=== PATIENT | male | born 1935 | race Caucasian/White ===

== ENCOUNTER 2016-05-31 02:34 | Inpatient (IN) | payer BC, OTHER ==
[~2016-05-31] VITALS: Ht 175.3 cm; Wt 106.0 kg
--- NOTE | 2016-05-31 03:00 | EMERGENCY ROOM VISIT NOTE ---
History Report prepared by Karleeibnaveed: Dwight Botello Under the Supervision of: Dr. Ji Blue D.O. First contact with patient: 02:44 Chief Complaint: WEAKNESS Stated Complaint: ILLNESS Nursing Triage Summary: Pt arrives by ALS from home. Per pt has been weak. Unsteady gait, had to lower pt to floor earlier today. Pt also has cough, fever. Allergy to Tylenol. Alzheimers. alert to person History of Present Illness The patient is a 80 year old male with a history of Alzheimer's who presents to the Emergency Room with complaints of acute generalized weakness that started at an unknown time this morning. The patient woke up to go to the bathroom this morning when the weakness was noticed. The patient was barely able to stand or ambulate, and he is normally able to ambulate without assistance, as per his . His also notes that the patient has had fevers and cough that started this past weekend. The patient denies headache. The patient states that he is not sure why he is in the ED. His states that he has been more out of it than he usual since his cold symptoms started. He does not have a history of stroke. The patient was immunized for flu this year. His denies any sick contacts. Source of History: patient, spouse/significant other, nursing staff Onset: this morning Position: other (generalized) Quality: other (weakness) Timing: other (acute) Associated Symptoms: + cough, + fevers, No headache Review of Systems See HPI for pertinent positives and negatives. A total of ten systems were reviewed and were otherwise negative. Past Medical & Surgical Medical Problems: (1) Alzheimer disease Family History Patient reports no known family medical history. Social History Smoking Status: Former Smoker Marital Status: Housing Status: lives with family Current/Historical Medications Scheduled Aspirin (Aspirin), 0.5 TAB PO DAILY Atorvastatin (Lipitor), 40 MG PO DAILY Donepezil Hydrochloride (Aricept), 10 MG PO HS Enalapril Maleate (Vasotec), 2 TAB PO DAILY Hydrochlorothiazide (Hctz), 25 MG PO DAILY Memantine (Namenda), 10 MG PO BID Metformin Hcl (Glucophage), 1,000 MG PO BID Multiple Vitamins W/ Minerals (Multi Vitamin and Mineral), 1 TAB PO DAILY Pioglitazone Hcl (Actos), 45 MG PO DAILY Sitagliptin Phosphate (Januvia), 100 MG PO DAILY Tamsulosin Hcl (Flomax), 0.4 MG PO DAILY Allergies Coded Allergies: Acetaminophen (Verified Allergy, Intermediate, rash, 05/31/16) Physical Exam Vital Signs Date Time Temp Pulse Resp B/P Pulse Ox O2 Delivery O2 Flow Rate FiO2 05/31/16 03:20 96 18 160/69 96 Room Air 05/31/16 02:55 97 Nasal Cannula 2.0 05/31/16 02:41 103 05/31/16 02:38 37.8 102 20 152/71 95 Nasal Cannula 2.0 05/31/16 02:38 92 Room Air Physical Exam GENERAL: Patient is alert but slightly confused, poor historian, generalized weakness. HENT: Normocephalic, atraumatic. Oropharynx unremarkable. EYES: Normal conjunctiva. Sclera non-icteric. NECK: Supple. No nuchal rigidity. FROM. No JVD. RESPIRATORY: Clear to auscultation. CARDIAC: Regular rate, normal rhythm. Extremities warm and well perfused. Pulses equal. ABDOMEN: Soft, non-distended. No tenderness to palpation. No rebound or guarding. No masses. RECTAL: Deferred. MUSCULOSKELETAL: Chest examination reveals no tenderness. The back is symmetrical on inspection without obvious abnormality. There is no CVA tenderness to palpation. No joint edema. LOWER EXTREMITIES: Calves are equal size bilaterally and non-tender. No edema. No discoloration. NEURO: Patient is alert but slightly confused. 4/5 strength of the right lower extremity, other extremities normal. SKIN: No rash or jaundice noted. Medical Decision & Procedures ER Provider Diagnostic Interpretation: X ray results as stated below per my interpretation. Other radiology results as stated below per my review and radiologist interpretation CHEST ONE VIEW PORTABLE: Questionable right lower lobe infiltrate. CT HEAD: No ICH, mass effect, or midline shift. Confluent hypo attenuation in the periventricular deep cerebral enlargement of the sulci, ventricles, and basal cisterns. Richardson-white differentiation appears preserved. No evidence of skull fracture. Ethmoid air cell mucosal thickening. Visualized paranasal sinuses and mastoid air cells otherwise clear. Radiologist: Jermaine Garland MD. Laboratory Results 05/31/16 02:49 Red Blood Count 4.43, Mean Corpuscular Volume 90.3, Mean Corpuscular Hemoglobin 30.7, Mean Corpuscular Hemoglobin Concent 34.0, Mean Platelet Volume 10.7, Neutrophils (%) (Auto) 76.7, Lymphocytes (%) (Auto) 12.0, Monocytes (%) (Auto) 10.2, Eosinophils (%) (Auto) 0.0, Basophils (%) (Auto) 0.5, Neutrophils # (Auto ) 5.10, Lymphocytes # (Auto) 0.80, Monocytes # (Auto) 0.68, Eosinophils # (Auto ) 0.00, Basophils # (Auto) 0.03 05/31/16 02:49 Test 05/31/16 02:49 05/31/16 02:59 White Blood Count 6.65 K/uL (4.8-10.8) Red Blood Count 4.43 M/uL (4.7-6.1) Hemoglobin 13.6 g/dL (14.0-18.0) Hematocrit 40.0 % (42-52) Mean Corpuscular Volume 90.3 fL (80-100) Mean Corpuscular Hemoglobin 30.7 pg (25-34) Mean Corpuscular Hemoglobin Concent 34.0 g/dl (32-36) Platelet Count 150 K/uL (130-400) Mean Platelet Volume 10.7 fL (7.4-10.4) Neutrophils (%) (Auto) 76.7 % Lymphocytes (%) (Auto) 12.0 % Monocytes (%) (Auto) 10.2 % Eosinophils (%) (Auto) 0.0 % Basophils (%) (Auto) 0.5 % Neutrophils # (Auto) 5.10 K/uL (1.4-6.5) Lymphocytes # (Auto) 0.80 K/uL (1.2-3.4) Monocytes # (Auto) 0.68 K/uL (0.11-0.59) Eosinophils # (Auto) 0.00 K/uL (0-0.5) Basophils # (Auto) 0.03 K/uL (0-0.2) RDW Standard Deviation 48.1 fL (36.4-46.3) RDW Coefficient of Variation 14.4 % (11.5-14.5) Immature Granulocyte % (Auto) 0.6 % Immature Granulocyte # (Auto) 0.04 K/uL (0.00-0.02) Anion Gap 10.0 mmol/L (3-11) Est Creatinine Clear Calc Drug Dose 57.9 ml/min Estimated GFR () 66.3 Estimated GFR (Non- 57.2 BUN/Creatinine Ratio 17.2 (10-20) Calcium Level 8.4 mg/dl (8.5-10.1) Total Bilirubin 0.6 mg/dl (0.2-1) Direct Bilirubin 0.2 mg/dl (0-0.2) Aspartate Amino Transf (AST/SGOT) 41 U/L (15-37) Alanine Aminotransferase (ALT/SGPT) 26 U/L (12-78) Alkaline Phosphatase 63 U/L (45-117) Total Protein 6.9 gm/dl (6.4-8.2) Albumin 3.4 gm/dl (3.4-5.0) Bedside Lactic Acid Venous 2.41 mmol/L (0.90-1.70) Laboratory results reviewed by me Medications Administered Medications (Trade) Dose Ordered Sig/Flaquita Route Start Time Stop Time Status Last Admin Dose Admin Sodium Chloride (Nss 1000ml) 1,000 ml @ 999 mls/hr Q1H1M STAT IV 05/31/16 03:02 05/31/16 04:02 DC 05/31/16 03:16 999 MLS/HR ECG Indication: weakness Rate (beats per minute): 103 Rhythm: sinus tachycardia Findings: no acute ischemic change, other (poor baseline, normal axis, normal intervals) ED Course 0247: The patient was evaluated in room B2. A complete history and physical exam was performed. 0302: NSS 1000 ml @ 999 mls/hr. 0401: Rocephin 1 gm IV, Motrin 600 mg PO. 0408: [facility] The patient will be evaluated. 0415: Azithromycin 500 mg / dextrose 255 ml @ 125mls/hr. Medical Decision Etiologies such as metabolic, infection, hypo/hyperglycemia, electrolyte abnormalities, cardiac sources, intracerebral event, toxicologic, neurologic, as well as others were entertained. Patient started on IV fluids, IV antibiotics, patient's CAT scan was negative for obvious stroke. Patient I suspect has right lower lobe pneumonia as the chest x-ray as interpreted by me as right lower lobe pneumonia. Patient has an elevated lactic acid. Patient is not in septic shock at 4:20 AM. [facility] Consults Time Called: 399 Consulting Physician: Yuval Narvaez [facility] Returned Call: [phone]: [facility] The patient will be evaluated. Impression Primary Impression: Pneumonia Additional Impressions: SIRS (systemic inflammatory response syndrome) Weakness Scribe Attestation The scribe's documentation has been prepared under my direction and personally reviewed by me in its entirety. I confirm that the note above accurately reflects all work, treatment, procedures, and medical decision making performed by me. Departure Information Dispostion Being Evaluated By Hospitalist Referrals Rico Sotelo III, M.D. (PCP) Patient Instructions My [facility] Problem Qualifiers Primary Impression: Pneumonia Pneumonia type: due to unspecified organism Laterality: right Lung location : lower lobe of lung Qualified Codes: J18.1 - Lobar pneumonia, unspecified organism
[2016-05-31] MEDS ORDERED: SODIUM CHLORIDE 0.9% 1000ML 1,000 ML IV STA (03:02)
[2016-05-31 03:03] LABS: MEAN CELL VOLUME 90.3 fL (80-100); MEAN CORPUSCULAR HEMOGLOBIN 30.7 pg (25-34); MEAN PLATELET VOLUME 10.7 fL (7.4-10.4); PLATELET COUNT 150 K/uL (130-400); RED BLOOD COUNT 4.43 M/uL (4.7-6.1); WHITE BLOOD COUNT 6.65 K/uL (4.8-10.8)
[2016-05-31 03:22] LABS: BUN/CREATININE RATIO 17.2 (10-20); CALCIUM 8.4 mg/dl (8.5-10.1); CREATININE 1.2 mg/dl (0.60-1.40); POTASSIUM 3.5 mmol/L (3.5-5.1)
[2016-05-31 03:23] LABS: BASO % 0.5 %; BASO ABS # 0.03 K/uL (0-0.2); COMPLETE YES; IG% 0.6 %; MONO % 10.2 %; NEUT % 76.7 %
[2016-05-31] MEDS ORDERED: MULT-1042 PO (03:44)
[2016-05-31] MEDS ORDERED: METF500T PO (03:45)
[2016-05-31] MEDS ORDERED: SITA100T3 PO (03:45)
[2016-05-31] MEDS ORDERED: ATOR-24 PO (03:47)
[2016-05-31] MEDS ORDERED: HYDR25TA4 PO (03:47)
[2016-05-31] MEDS ORDERED: ACT/45 PO (03:48)
[2016-05-31] MEDS ORDERED: NMN10 PO (03:48)
[2016-05-31] MEDS ORDERED: DONE10TA12 PO (03:48)
[2016-05-31] MEDS ORDERED: ENAL1TAB31 PO (03:49)
[2016-05-31] MEDS ORDERED: TAMS0.4C38 PO (03:50)
[2016-05-31] MEDS ORDERED: ASPI325T45 PO (03:50)
[2016-05-31] MEDS ORDERED: CEFTRIAXONE SOD INJ 1 GM ADDVIAL IV STA (04:01)
[2016-05-31] MEDS ORDERED: IBUPROFEN 600 MG TAB PO STA (04:01)
[2016-05-31] MEDS ORDERED: AZITHROMYCIN IV 500 MG in DEXTROSE 5% 250ML 250 ML IV ONE (04:15)
[2016-05-31] MEDS ORDERED: ONDANSETRON INJ 2 MG/ML 2 ML VIAL IV PRN (04:45)
[2016-05-31] MEDS ORDERED: GLUCOSE 10 TABS/TUBE PO PRN (05:00)
[2016-05-31] MEDS ORDERED: GLUCAGON FOR INJ 1 MG VIAL SQ PRN (05:00)
[2016-05-31] MEDS ORDERED: DEXTROSE 50% 50 ML SYR IV PRN (05:00)
[2016-05-31] MEDS ORDERED: IV FLUIDS COMPLETED PRN ×2 (05:00→05:15)
[2016-05-31] MEDS ORDERED: GLUCOSE 40% GEL 15 GM TUBE PO PRN (05:00)
[2016-05-31 05:09] LABS: INR 1.1 (0.9-1.1)
[2016-05-31 06:24] VITALS: BP 134/74; PULSE 92; TEMP 37; O2SAT 93; Ht 175.3 cm; Wt 106.0 kg
--- NOTE | 2016-05-31 06:26 | DIAGNOSTIC IMAGING REPORT ---
HEAD CT NONCONTRAST CT DOSE: 614.27 mGy.cm HISTORY: Mental status change weakness TECHNIQUE: Multiaxial CT images of the head were performed without the use of intravenous contrast. Comparison: None. Findings: The paranasal sinuses and mastoid air cells are clear. Mild age-related atrophy. Moderate chronic small vessel change. No acute intracranial hemorrhage. No midline shift. Impression: Age-related change. No acute process. Electronically signed by: Jose Stone M.D. 05/31/2016 6:24 AM Dictated Date/Time: 05/31/2016 6:24 AM
[2016-05-31] MEDS ORDERED: NSS + 20MEQ KCL 1000ML 1,000 ML IV SCH (06:30)
--- NOTE | 2016-05-31 06:34 | DIAGNOSTIC IMAGING REPORT ---
CHEST ONE VIEW PORTABLE CLINICAL HISTORY: Evaluate Fever/Sepsis fever COMPARISON STUDY: No previous studies for comparison. FINDINGS: Poor visibility right cardiac margin. Minimal right middle lobe infiltrate may be present. Lungs otherwise appear clear. Diaphragms smooth. IMPRESSION: Minimal right middle lobe infiltrate Electronically signed by: Jose Stone M.D. 05/31/2016 6:32 AM Dictated Date/Time: 05/31/2016 6:31 AM
[2016-05-31 07:15] VITALS: BP 132/81; PULSE 80; TEMP 36.7; O2SAT 99
--- NOTE | 2016-05-31 07:52 | HISTORY & PHYSICAL EXAMINATION ---
DATE OF ADMISSION: 05/31/2016 PRIMARY CARE PHYSICIAN: Rico Sotelo MD CHIEF COMPLAINT: Shaking chills with sudden weakness last night. HISTORY OF PRESENT COMPLAINT: He is a 80-year-old male with a significant past medical history of diabetes type 2, ankylosing spondylitis, hyperlipidemia and hypertension. Apparently, while getting out of bed last night became suddenly weak and almost was about to fall on the floor. Then, he sat on the floor, could not be pulled on to the bed by the and he could not get up by himself. He was feeling shaky, he did have some shortness of breath and for the last few days he does have cough as well. He was feeling hot and cold at that time. Then 911 was called and he was brought into the Emergency Room. He denies to have any fever or chills. No chest pain or palpitation. No shortness of breath during my examination. No abdominal pain, nausea or vomiting and does not have any problem with urine or bowel habit. He denies to have any headache, any blurred vision, any numbness or tingling in the extremities. He does not have any weakness involving any side of the body. In the Emergency Room he was hemodynamically stable and afebrile. Initial tachycardia one and chest x-ray probable for right lower lobe infiltration. We doubt white count, but from that point he was advised for admission. PAST MEDICAL HISTORY: Significant for type 2 diabetes, hypertension, hyperlipidemia, history of ankylosing spondylitis, and history of mumps orchitis. PAST SURGICAL HISTORY: Nothing significant. FAMILY HISTORY: Brother has neck cancer with low platelet. Father had leg cancer and at the age of 32. Maternal grandfather had throat cancer. Mother had high blood pressure and also a stroke in brother . SOCIAL HISTORY: He is and lives with his . He quit smoking in 1976. He uses alcohol occasionally. He has been ambulant. ALLERGIES: ACETAMINOPHEN. MEDICATIONS: As an outpatient he has been on hydrochlorothiazide 25 mg daily, metformin 1 gram b.i.d., Actos 45 mg daily, Januvia 100 mg daily, aspirin 325 mg tablets half daily, Lipitor 40 mg daily, Aricept 10 mg daily, Vasotec 20 mg two tablets daily, Namenda 10 mg twice daily, multivitamin 1 tablet daily and Flomax 0.4 mg daily. REVIEW OF SYSTEMS: As in history of present complaint. PHYSICAL EXAMINATION: GENERAL: On examination in the Emergency Room, he was not having any acute distress. VITAL SIGNS: Temperature 37.8, pulse was initially 102, blood pressure 152/71, saturations 92% on two liters nasal cannula. HEENT: Unremarkable. NECK: Supple. No JVD, no bruits. CHEST: Occasional crackles in right base. HEART: S1, S2 regular, no murmur. ABDOMEN: Soft, benign, nontender, no organomegaly. Bowel sounds are present. EXTREMITIES: Trace edema bilaterally. MUSCULOSKELETAL: No acute arthritis in any joint. CENTRAL NERVOUS SYSTEM: He was alert, awake and oriented x3. No focal sensory and/or motor deficits appreciated. LABORATORY DATA: Noted today; white count was 6.65, H\T\H 13.6/40.0, platelet was 150. Sodium 141, potassium 3.5, chloride 103, carbon dioxide 28, BUN 21, creatinine 1.20, random glucose 161. Lactate was 2.41. LFTs are unremarkable. Albumin is 3.4. Chest x-ray; probable right lower lobe infiltration. CT head; negative for any acute events. EKG was in sinus rhythm, rate of 103 per minute, normal axis and nonspecific ST-T wave changes. IMPRESSION AND PLAN: 1. Probable pneumonia involving the right middle lobe. The patient presented with extreme weakness and history of cough. Blood cultures were taken and he was started with intravenous Rocephin and azithromycin; we will continue that. We will also give small amount of IV fluids while in the hospital. 2. Hypertension. Blood pressure seems to be on the upper side, but continue with his current medications of blood pressure monitor. 3. Diabetes type 2. He has been on oral medications. We will hold oral medications while in the hospital and put him on sliding scale coverage and check hemoglobin A1c. 4. Hyperlipidemia, continue with current medications. 5. Gastrointestinal prophylaxis; Protonix and/or Mylanta as needed. 6. Deep venous thrombosis prophylaxis, subQ heparin. 7. Code status. He will be a full code. In my clinical assessment, the beneficiary meets criteria as per CMS for 2 midnights stay in the hospital. LEX
[2016-05-31] MEDS ORDERED: TAMSULOSIN HCL 0.4 MG CAP PO SCH (08:00)
[2016-05-31] MEDS ORDERED: ENALAPRIL MALEATE 10 MG TAB PO SCH (08:00)
[2016-05-31] MEDS ORDERED: MEMANTINE 10 MG TAB PO SCH (08:00)
[2016-05-31] MEDS ORDERED: CEROVITE ADV FORMULA TAB PO SCH (08:00)
[2016-05-31] MEDS ORDERED: ATORVASTATIN 40 MG TAB PO SCH (08:00)
[2016-05-31] MEDS ORDERED: ASPIRIN 81 MG ECTAB PO SCH (08:00)
[2016-05-31] MEDS: HEPARIN SOD 5000 UNIT/0.5 ML CARP SQ SCH ×2 (08:03→14:48)
[2016-05-31] MEDS: INSULIN ASPART 100 UNITS/ML 3 ML PEN SC SCH ×3 (09:25→18:21)
[2016-05-31 15:17] LABS: URINE APPEARANCE CLEAR (CLEAR); URINE BILIRUBIN NEG (NEG); URINE COLOR YELLOW; URINE EPITHELIAL CELL AUTO 20-30 /lpf (0-5); URINE NITRITE NEG (NEG); URINE PH 5.5 (4.5-7.5); URINE SPECIFIC GRAVITY 1.027 (1.000-1.030); UROBILINOGEN NEG (NEG)
[2016-05-31 15:26] VITALS: BP 131/67; PULSE 80; TEMP 36.9; O2SAT 94
[2016-05-31 15:31] LABS: MANUAL MICROSCOPIC REQUIRED? NO; REVIEW REQ? YES
--- NOTE | 2016-05-31 15:35 | Progress Note ---
Internal Med Progress Note Date of Service: May 31, 2016. Provider Documentation: SUBJECTIVE: Patient is lying in his bed in no distress.Alert/Awake and answers my questions appropriately. Denies any cough or sputum production. Remains afebrile. Has been able to ambulate in the hallway without any symptoms. Wants to go home. OBJECTIVE: Vital Signs-as noted below Examination: HEENT: Normocephalic, Eyes, Ears, Nose & Throat are normal looking. NECK: Supple. No JVD, Central trachea, no bruits. CHEST: B/L Moderate air entry, Clear to auscultation HEART: Regular Rate, Normal S1, S2 regular, no murmur. ABDOMEN: Soft, benign, nontender, no organomegaly. Bowel sounds are present. EXTREMITIES: Trace edema bilaterally. MUSCULOSKELETAL: No acute arthritis in any joint. CENTRAL NERVOUS SYSTEM: He was alert, awake and oriented x3. No focal sensory and/or motor deficits appreciated. Lab data as noted below. ASSESSMENT & PLAN: Chest X-Ray FINDINGS: Poor visibility right cardiac margin. Minimal right middle lobe infiltrate may be present. Lungs otherwise appear clear. Diaphragms smooth. IMPRESSION: Minimal right middle lobe infiltrate URI/ Likely Pneumonia involving the right lower lobe.Patient presented with extreme weakness and history of cough. Clinically & hemodynamically much better. -Flu screen is negative -Normal Lactic acid. -Remains afebrile -Received Rocephin & Zithromax, will discharge home on Levaquin for total 7 days. Hypertension: BP has been running high. -Continue home medications. Diabetes Type II: Holding oral agents.. -Follow BS and cover with sliding scale. Hyperlipidemia, continue with current home medications. DVT Prophylaxis: Sq Heparin Code Status: FULL CODE Disposition: Discharge home later today. Follow up with PCP within one week after discharge. Vital Signs: Date Time Temp Pulse Resp B/P Pulse Ox O2 Delivery O2 Flow Rate FiO2 05/31/16 15:26 36.9 80 18 131/67 94 Room Air 05/31/16 08:00 Nasal Cannula 2.0 05/31/16 07:15 36.7 80 20 132/81 99 Nasal Cannula 2.0 05/31/16 06:24 37.0 92 20 134/74 93 Nasal Cannula 2.0 05/31/16 05:16 37.2 99 20 153/62 94 Nasal Cannula 2.0 05/31/16 04:23 95 20 170/71 95 Nasal Cannula 2.0 05/31/16 03:20 96 18 160/69 96 Nasal Cannula 2.0 05/31/16 02:55 97 Nasal Cannula 2.0 05/31/16 02:41 103 05/31/16 02:38 37.8 102 20 152/71 95 Nasal Cannula 2.0 05/31/16 02:38 92 Room Air Lab Results: Results Past 24 Hours Test 05/31/16 02:45 05/31/16 02:49 05/31/16 02:59 05/31/16 07:38 Range/Units Prothrombin Time 12.0 9.0-12.0 SECONDS Prothromb Time International Ratio 1.1 0.9-1.1 White Blood Count 6.65 4.8-10.8 K/uL Red Blood Count 4.43 4.7-6.1 M/uL Hemoglobin 13.6 14.0-18.0 g/dL Hematocrit 40.0 42-52 % Mean Corpuscular Volume 90.3 80-100 fL Mean Corpuscular Hemoglobin 30.7 25-34 pg Mean Corpuscular Hemoglobin Concent 34.0 32-36 g/dl Platelet Count 150 130-400 K/uL Mean Platelet Volume 10.7 7.4-10.4 fL Neutrophils (%) (Auto) 76.7 % Lymphocytes (%) (Auto) 12.0 % Monocytes (%) (Auto) 10.2 % Eosinophils (%) (Auto) 0.0 % Basophils (%) (Auto) 0.5 % Neutrophils # (Auto) 5.10 1.4-6.5 K/uL Lymphocytes # (Auto) 0.80 1.2-3.4 K/uL Monocytes # (Auto) 0.68 0.11-0.59 K/uL Eosinophils # (Auto) 0.00 0-0.5 K/uL Basophils # (Auto) 0.03 0-0.2 K/uL RDW Standard Deviation 48.1 36.4-46.3 fL RDW Coefficient of Variation 14.4 11.5-14.5 % Immature Granulocyte % (Auto) 0.6 % Immature Granulocyte # (Auto) 0.04 0.00-0.02 K/uL Sodium Level 141 136-145 mmol/L Potassium Level 3.5 3.5-5.1 mmol/L Chloride Level 103 98-107 mmol/L Carbon Dioxide Level 28 21-32 mmol/L Anion Gap 10.0 3-11 mmol/L Blood Urea Nitrogen 21 7-18 mg/dl Creatinine 1.20 0.60-1.40 mg/dl Est Creatinine Clear Calc Drug Dose 57.9 ml/min Estimated GFR () 66.3 Estimated GFR (Non- 57.2 BUN/Creatinine Ratio 17.2 10-20 Random Glucose 161 70-99 mg/dl Calcium Level 8.4 8.5-10.1 mg/dl Total Bilirubin 0.6 0.2-1 mg/dl Direct Bilirubin 0.2 0-0.2 mg/dl Aspartate Amino Transf (AST/SGOT) 41 15-37 U/L Alanine Aminotransferase (ALT/SGPT) 26 12-78 U/L Alkaline Phosphatase 63 45-117 U/L Total Protein 6.9 6.4-8.2 gm/dl Albumin 3.4 3.4-5.0 gm/dl Bedside Lactic Acid Venous 2.41 0.90-1.70 mmol/L Bedside Glucose 124 70-99 mg/dl Test 05/31/16 11:30 05/31/16 12:50 05/31/16 13:10 05/31/16 15:05 Range/Units Bedside Glucose 115 70-99 mg/dl Lactic Acid Level 1.3 0.4-2.0 mmol/L Influenza Type A Antigen Neg for Influ A NEG Influenza Type B Antigen Neg for Influ B NEG Urine Color YELLOW Urine Appearance CLEAR CLEAR Urine pH 5.5 4.5-7.5 Urine Specific [place] 1.027 1.000-1.030 Urine Protein TRACE NEG Urine Glucose (UA) NEG NEG Urine Ketones NEG NEG Urine Occult Blood 2+ NEG Urine Nitrite NEG NEG Urine Bilirubin NEG NEG Urine Urobilinogen NEG NEG Urine Leukocyte Esterase NEG NEG Urine WBC (Auto) 1-5 0-5 /hpf Urine RBC (Auto) 5-10 0-4 /hpf Urine Hyaline Casts (Auto) 1-5 0-5 /lpf Urine Epithelial Cells (Auto) 20-30 0-5 /lpf Urine Bacteria (Auto) NEG NEG Urine Yeast (Auto) NONE PRSENT Microbiology Results 05/31/16 Blood Culture, Received Pending 05/31/16 Blood Culture, Received Pending
[2016-05-31] MEDS ORDERED: LEVO1TAB34 PO (15:54)
--- NOTE | 2016-05-31 15:59 | Discharge Instructions ---
Discharge Instructions Date of Service May 31, 2016. Admission Reason for Admission: Pneumonia Discharge Discharge Diagnosis / Problem: Bronchitis/Likely Mild Pneumonia Discharge Goals Goal(s): Decrease discomfort, Improve function, Increase independence, Improve disease control, Improve nutritional status, Learn about illness, Diagnostic testing, Therapeutic intervention Activity Recommendations Activity Limitations: resume your previous activity (As tolerated.) Lifting Limitations: no more than 5 pounds Exercise/Sports Limitations: as tolerated Shower/Bathe: no limitations . Instructions / Follow-Up Instructions / Follow-Up Take all the medications as directed. Drink adequate amount of fluids Follow up with PCP within one week after discharge. Current Hospital Diet Patient's current hospital diet: AHA Diet (Heart Healthy), Diabetes Type 2 Diet Discharge Diet Recommended Diet: Low Sodium Diet (2gm Na) Pending Studies Studies pending at discharge: no Medical Emergencies . Who to Call and When: Medical Emergencies: If at any time you feel your situation is an emergency, please call 911 immediately. . Non-Emergent Contact Non-Emergency issues call your: Primary Care Provider . . "Provider Documentation" section prepared by Selvin Dominguez. VTE Core Measure Inpt VTE Proph given/why not?: Unfractionated heparin SQ
--- NOTE | 2016-05-31 16:01 | Discharge Summary ---
Discharge Summary Date of Service May 31, 2016. Discharge Summary Admission Date: May 31, 2016 at 04:59 Discharge Date: May 31, 2016 Discharge Disposition: Home Principal Diagnosis: Bronchitis/Likely Pneumonia Secondary Diagnoses/Problems: Hypertension Dementia Diabetes II Hyperlipidemia Procedures: NONE Vaccinations: NONE Consultations: NONE Pending Studies/Follow-Up: None Medication Reconciliation New Medications: Levofloxacin (Levaquin) 500 Mg Tab 500 MG PO DAILY for 7 Days, TAB Continued Medications: Aspirin (Aspirin) 325 Mg Tab 0.5 TAB PO DAILY Atorvastatin (Lipitor) 40 Mg Tab 40 MG PO DAILY, TAB Donepezil Hydrochloride (Aricept) 10 Mg Tab 10 MG PO HS, TAB Enalapril Maleate (Vasotec) 20 Mg Tab 2 TAB PO DAILY, 3 Refills Hydrochlorothiazide (Hctz) 25 Mg Tab 25 MG PO DAILY, TAB Memantine (Namenda) 10 Mg Tab 10 MG PO BID, TAB Metformin Hcl (Glucophage) 500 Mg Tab 1000 MG PO BID, TAB Multiple Vitamins W/ Minerals (Multi Vitamin and Mineral) 1 Tab Tab 1 TAB PO DAILY Pioglitazone Hcl (Actos) 45 Mg Tab 45 MG PO DAILY, TAB Sitagliptin Phosphate (Januvia) 100 Mg Tab 100 MG PO DAILY, TAB Tamsulosin Hcl (Flomax) 0.4 Mg Cap 0.4 MG PO DAILY, CAP Admission Information HPI (per Admitting provider): 80-year-old male with a significant past medical history of diabetes type 2, ankylosing spondylitis, hyperlipidemia and hypertension. Apparently, while getting out of bed last night became suddenly weak and almost was about to fall on the floor. Then, he sat on the floor, could not be pulled on to the bed by the and he could not get up by himself. He was feeling shaky, he did have some shortness of breath and for the last few days he does have cough as well. He was feeling hot and cold at that time. Then 911 was called and he was brought into the Emergency Room. He denies to have any fever or chills. No chest pain or palpitation. No shortness of breath during my examination. No abdominal pain, nausea or vomiting and does not have any problem with urine or bowel habit. He denies to have any headache, any blurred vision, any numbness or tingling in the extremities. He does not have any weakness involving any side of the body. In the Emergency Room he was hemodynamically stable and afebrile. Physical Exam (per Admitting): VITAL SIGNS: Temperature 37.8, pulse was initially 102, blood [id number], saturations 92% on two liters nasal cannula. HEENT: Unremarkable. NECK: Supple. No JVD, no bruits. CHEST: Occasional crackles in right base. HEART: S1, S2 regular, no murmur. ABDOMEN: Soft, benign, nontender, no organomegaly. Bowel sounds are present. EXTREMITIES: Trace edema bilaterally. MUSCULOSKELETAL: No acute arthritis in any joint. CENTRAL NERVOUS SYSTEM: He was alert, awake and oriented x3. No focal sensory and/or motor deficits appreciated. Hospital Course Chest X-Ray FINDINGS: Poor visibility right cardiac margin. Minimal right middle lobe infiltrate may be present. Lungs otherwise appear clear. Diaphragms smooth. IMPRESSION: Minimal right middle lobe infiltrate URI/ Likely Pneumonia involving the right lower lobe.Patient presented with extreme weakness and history of cough. Clinically & hemodynamically much better. -Flu screen is negative -Normal Lactic acid. -Remains afebrile -Received Rocephin & Zithromax, will discharge home on Levaquin for total 7 days. Hypertension: BP has been running high. -Continue home medications. Diabetes Type II: Holding oral agents.. -Follow BS and cover with sliding scale. Hyperlipidemia, continue with current home medications. DVT Prophylaxis: Sq Heparin Code Status: FULL CODE Disposition: Discharge home later today. Follow up with PCP within one week after discharge. Total time spent on discharge = 40 minutes. This includes examination of the patient, discharge planning, medication reconciliation, and communication with other providers. Discharge Instructions Discharge Discharge Diagnosis / Problem: Bronchitis/Likely Mild Pneumonia Discharge Goals Goal(s): Decrease discomfort, Improve function, Increase independence, Improve disease control, Improve nutritional status, Learn about illness, Diagnostic testing, Therapeutic intervention Activity Recommendations Activity Limitations: resume your previous activity (As tolerated.) Lifting Limitations: no more than 5 pounds Exercise/Sports Limitations: as tolerated Shower/Bathe: no limitations . Instructions / Follow-Up Instructions / Follow-Up Take all the medications as directed. Drink adequate amount of fluids Follow up with PCP within one week after discharge. Current Hospital Diet Patient's current hospital diet: AHA Diet (Heart Healthy), Diabetes Type 2 Diet Discharge Diet Recommended Diet: Low Sodium Diet (2gm Na) Additional Copies To Rico Sotelo III, M.D.
[2016-05-31 18:05] VITALS: BP 131/67; PULSE 80; TEMP 36.9; O2SAT 94
[2016-05-31] MEDS ORDERED: DONEPEZIL HCL 10 MG TAB PO SCH (21:00)
[2016-06-01] MEDS ORDERED: CEFTRIAXONE SOD INJ 1 GM in DEXTROSE 5% ADD-VANTAGE 50ML 50 ML IV SCH (06:00)
[2016-06-01] MEDS ORDERED: AZITHROMYCIN IV 500 MG in DEXTROSE 5% 250ML 250 ML IV SCH (08:00)
== END 2016-05-31 18:50 | disposition home or self-care (01) | DRG 195 ==
LOC: ENRESERVTM → ENRESERVDT → EDBD 02:34 → C.EDB 02:35 → C.4E 04:59 → EDBEDREQ 05:01
PROVIDERS: ADMIT Internal Medicine; ATTEND Emergency Medicine
DX: J18.9 Pneumonia, unspecified organism (principal); G30.9 Alzheimer's disease, unspecified; F02.80 Dementia in other diseases classified elsewhere, unspecified severity, without behavioral disturbance, psychotic disturbance, mood disturbance, and anxiety; E11.9 Type 2 diabetes mellitus without complications; J40 Bronchitis, not specified as acute or chronic; M45.9 Ankylosing spondylitis of unspecified sites in spine; E78.5 Hyperlipidemia, unspecified; I10 Essential (primary) hypertension; Z87.891 Personal history of nicotine dependence

== ENCOUNTER → 2017-05-25 | Outpatient (CLI) | payer BC ==
[~2017-05-25] MED LIST: ACT/45 PO; ASPI325T45 PO; ATOR-24 PO; DONE10TA12 PO; ENAL1TAB31 PO; HYDR25TA4 PO; METF500T PO; MULT-1042 PO; NMN10 PO; SITA100T3 PO; TAMS0.4C38 PO
[2017-05-25 13:48] LABS: HEMOGLOBIN A1C 5.9 % (4.5-5.6)
== END | disposition home or self-care (01) ==
LOC: C.LABBC 09:38
PROVIDERS: ATTEND Family Medicine
DX: E11.9 Type 2 diabetes mellitus without complications (principal)

== ENCOUNTER 2020-10-25 06:58 | Inpatient (IN) ==
[2020-10-25] MEDS ORDERED: SODIUM CHLORIDE 0.9% 1000ML 500 ML IV ONE (07:18)
--- NOTE | 2020-10-25 07:20 | Emergency Department Note ---
Impression & Plan Generalized weakness, Pleural effusion on right, Hypomagnesemia, Fall ED Provider Note Name: JIMENEZ QUIÑONEZ Age: 84 Sex: M Arrives Via: Ambulance Informant: Patient (Poor historian as dementia), , EMS ED Provider: Pranav Hicks MD Chief Complaint: Fall Impression: See Above Medical Decision Makin yr old male with worsening weakness over last few days/week arrives after fall at home, unable to get up and concerned for safety. Exam with frail, happy, demented male with no right breath sounds and large right leg swelling. Labs with mild hypomag, normal ct head, pelvis xray. CXR with large right pleural effusion thus sent to ct for further evaluation. CT with large right pleural effusion, otherwise c/a/p without acute surgical issues. Hospitalist consulted for further evaluation. Unclear etiology of effusion though suspect this is contributing to overall weakness and inability to safely get around the house. No evidence sepsis at this time. No DVT on US right leg either. Prior Medical Record and Triage/Nursing Notes reviewed by Me Additional history obtained from chart & Differentials:Infection, dehydration, metabolic abnormality, hypo/hyperglycemia, electrolyte disturbance, anemia, hypoxia, cardiac sources, intracerebral event, toxicologic, neurologic, as well as other pathologies. Vital Signs: reviewed and remarkable for no significant abnormalities Interventions: saline lock, magnesium iv Labs:Reviewed and remarkable for hypomag Imaging:X ray results are stated below per my interpretation: Chest: 1 view: out right lung kennedy consistent with effusion. Radiologist interpretation reviewed by me: US right leg, ct head & ct chest/a/p EKG:Per My Interpretation: Indication Weakness: NSR 69 bpm, qtc 450. RBBB. No Ectopy. No Ischemia. Compared to EKG 05/31/16, no significant changes other than decreased rate Consults:Yuval Hospitalist Plan: Disposition:Hospitalization. Condition: Good History of Present Illness:84 yr old male with dementia, Alzheimers dz, DMII, HLP, HTN, arrives for evaluation of weakness. Patient reportedly fell in bathroom this morning and was too weak to get up. No reported head injury, loc nor other complaints. Patient does not remember this fall and states he feels fine. Per EMS he has been having right leg swelling making walking difficult. ROS: See above HPI for pertinent positives & negatives. A total of 10 systems reviewed and were otherwise negative. Past Medical History:dementia, Alzheimers dz, DMII, HLP, HTN Past Surgical History:Reportedly none Family History:States parents healthy Social History:Lives with family, retired, previous smoker Home Medications:See Below Allergies:Tylenol, Codeine Vitals:Blood Pressure: 156/73, Pulse 83, RR 18, T 36.5C, O2 94% on RA Physical Exam: GENERAL: Patient is tired, elderly, and frail appearing and in no acute distress. EYES: No scleral icterus, unremarkable pupils. ENT: Mucous membranes dry, no nasal congestion. NECK: No masses appreciated, nomeningismus, trachea is midline. RESPIRATORY: No dyspnea. No right lung sounds. Left lung clear. No wheeze, no rhonchi. CARDIOVASCULAR: Regular rate and rhythm.No murmurs, rubs, gallops appreciated. GASTROINTESTINAL: Abdomen soft, non-tender, no peritonitis.Bowel sounds positive.No masses appreciated. BACK: No midline tenderness, no CVA tenderness EXTREMITIES: Normal motion all extremities, no cyanosis, 3+ mildly erythematous edema with some pitting right lower leg. NEUROLOGIC: Awake, dementia, no acute motor or sensory deficits, no focal weakness, cranial nerves grossly intact. SKIN: No rash, no jaundice, no diaphoresis. PSYCH: Happy GCS: 15 ED Course: Times/Reassessments: stable, no distress and breathing comfortably Pranav Hicks MD Past Med/Surg History Medical History (Updated 10/25/20 @ 14:09 by Pranav Hicks MD) Dysplastic nevus History of basal cell carcinoma Mixed Alzheimer's and vascular dementia Surgical History No history of previous surgery Family History Mother No pertinent family history Social History Smoking Status: Former smoker Second Hand Exposure: No; Do You Dip or Chew Tobacco: No; Tobacco Cessation Education Requested by Patient: No Hx Alcohol Use: No Hx Substance Use: No Preferred Language: Setswana Communication Ability: Effective Trucker Required: No Beliefs That Will Affect Care: None Current Living Situation: Spouse Current Living Situation Comment: ranch home Other Information That Helps Us Care for You: No Feels Safe at Home: Yes Safety Concerns: Feels Safe At This Time Assistive Devices: None Allergies Allergies Allergy/AdvReac Type Severity Reaction Status Date / Time acetaminophen Allergy Intermediate rash Verified 10/25/20 09:25 codeine Allergy Unknown Verified 10/25/20 09:25 Home Meds Home Medications Medication Instructions Recorded Confirmed atorvastatin 40 mg tablet (Lipitor) 40 mg PO HS tab 06/22/19 10/25/20 donepezil 10 mg tablet (Aricept) 10 mg PO HS 06/22/19 10/25/20 enalapril maleate 20 mg tablet 20 mg PO HS tab 06/22/19 10/25/20 (Vasotec) hydrochlorothiazide 25 mg tablet 25 mg PO QAM tab 06/22/19 10/25/20 memantine 10 mg tablet (Namenda) 10 mg PO BID tab 06/22/19 10/25/20 metformin 500 mg tablet 1,000 mg PO BID tab 06/22/19 10/25/20 pioglitazone 45 mg tablet (Actos) 45 mg PO QAM tab 06/22/19 10/25/20 sitagliptin 100 mg tablet (Januvia) 100 mg PO HS tab 06/22/19 10/25/20 aspirin 81 mg tablet,delayed 81 mg PO QAM 10/25/20 10/25/20 release (Aspirin Low Dose) Results & Data (ED) Vital Signs Vital Signs - 24 hr 10/25/20 07:24 Temperature 36.5 C Temperature Source Oral Pulse Rate 83 Respiratory Rate 18 Blood Pressure 156/73 H Blood Pressure Mean 100 Pulse Oximetry 94 Oxygen Delivery Method Room Air Sepsis Recent Fever Within 48 Hours No Sepsis New/Unexplained Change in Mental Status No Sepsis Action Taken by Nursing No Action Required Laboratory Data Result diagrams: 10/25/20 07:34 10/25/20 07:34 Lab Results 10/25/20 10/25/20 10/25/20 Range/Units 07:34 07:34 08:41 WBC 5.97 (4.8-10.8) K/uL RBC 4.15 L (4.7-6.1) M/uL Hgb 12.7 L (14.0-18.0) g/dL Hct 38.9 L (42-52) % MCV 93.7 (80-100) fL MCH 30.6 (25-34) pg MCHC 32.6 (32-36) g/dL RDW Std Deviation 52.7 H (36.4-46.3) fL RDW Coeff of Radha 15.3 H (11.5-14.5) % Plt Count 203 (130-400) K/uL MPV 11.4 H (7.4-10.4) fL Immature Gran % (Auto) 0.3 % Neut % (Auto) 68.1 % Lymph % (Auto) 17.1 % [place] % (Auto) 9.7 % Eos % (Auto) 4.0 % Baso % (Auto) 0.8 % Neut # (Auto) 4.06 (1.4-6.5) K/uL Lymph # (Auto) 1.02 L (1.2-3.4) K/uL [place] # (Auto) 0.58 (0.11-0.59) K/uL Eos # (Auto) 0.24 (0-0.5) K/uL Baso # (Auto) 0.05 (0-0.2) K/uL Immature Gran # (Auto) 0.02 (0.00-0.02) K/uL Sodium 141 (136-145) mmol/L Potassium 3.7 (3.5-5.1) mmol/L Chloride 107 (98-107) mmol/L Carbon Dioxide 29 (21-32) mmol/L Anion Gap 5.0 (3-11) BUN 17 (7-18) mg/dl Creatinine 1.18 (0.6-1.4) mg/dl Est Cr Clr Drug Dosing 55.1 ml/min Est GFR ( Amer) 65.7 ml/min Est GFR (Non-Af Amer) 56.7 ml/min BUN/Creatinine Ratio 14.2 (10-20) Glucose 84 (70-99) mg/dl Calcium 8.5 (8.5-10.1) mg/dl Magnesium 1.5 L (1.8-2.4) mg/dl Total Bilirubin 0.6 (0.2-1) mg/dl Direct Bilirubin 0.2 (0-0.2) mg/dl AST 19 (15-37) U/L ALT 18 (12-78) U/L Alkaline Phosphatase 65 (45-117) U/L Total Creatine Kinase 132 (39-308) U/L Troponin I < 0.015 (0-0.045) ng/ml Total Protein 6.4 (6.4-8.2) gm/dl Albumin 3.1 L (3.4-5.0) gm/dl TSH 1.980 (0.300-4.500) uIu/ml Urine Color Urine Appearance (Clear) Urine pH (4.5-7.5) Ur Specific Bliss (1.000-1.030) Urine Protein (Negative) Urine Glucose (UA) (Negative) Urine Ketones (Negative) Urine Blood (Negative) Urine Nitrite (Negative) Urine Bilirubin (Negative) Urine Urobilinogen (Negative) Ur Leukocyte Esterase (Negative) COVID-19 Eval Order Covid19 at [facility] SARS-CoV-2 (PCR) (Negative) 10/25/20 10/25/20 Range/Units 08:41 10:13 WBC (4.8-10.8) K/uL RBC (4.7-6.1) M/uL Hgb (14.0-18.0) g/dL Hct (42-52) % MCV (80-100) fL MCH (25-34) pg MCHC (32-36) g/dL RDW Std Deviation (36.4-46.3) fL RDW Coeff of Radha (11.5-14.5) % Plt Count (130-400) K/uL MPV (7.4-10.4) fL Immature Gran % (Auto) % Neut % (Auto) % Lymph % (Auto) % [place] % (Auto) % Eos % (Auto) % Baso % (Auto) % Neut # (Auto) (1.4-6.5) K/uL Lymph # (Auto) (1.2-3.4) K/uL [place] # (Auto) (0.11-0.59) K/uL Eos # (Auto) (0-0.5) K/uL Baso # (Auto) (0-0.2) K/uL Immature Gran # (Auto) (0.00-0.02) K/uL Sodium (136-145) mmol/L Potassium (3.5-5.1) mmol/L Chloride (98-107) mmol/L Carbon Dioxide (21-32) mmol/L Anion Gap (3-11) BUN (7-18) mg/dl Creatinine (0.6-1.4) mg/dl Est Cr Clr Drug Dosing ml/min Est GFR ( Amer) ml/min Est GFR (Non-Af Amer) ml/min BUN/Creatinine Ratio (10-20) Glucose (70-99) mg/dl Calcium (8.5-10.1) mg/dl Magnesium (1.8-2.4) mg/dl Total Bilirubin (0.2-1) mg/dl Direct Bilirubin (0-0.2) mg/dl AST (15-37) U/L ALT (12-78) U/L Alkaline Phosphatase (45-117) U/L Total Creatine Kinase (39-308) U/L Troponin I (0-0.045) ng/ml Total Protein (6.4-8.2) gm/dl Albumin (3.4-5.0) gm/dl TSH (0.300-4.500) uIu/ml Urine Color Yellow Urine Appearance Clear (Clear) Urine pH 8.0 H (4.5-7.5) Ur Specific Bliss 1.031 H (1.000-1.030) Urine Protein Negative (Negative) Urine Glucose (UA) Negative (Negative) Urine Ketones Negative (Negative) Urine Blood Negative (Negative) Urine Nitrite Negative (Negative) Urine Bilirubin Negative (Negative) Urine Urobilinogen Negative (Negative) Ur Leukocyte Esterase Negative (Negative) COVID-19 Eval Order SARS-CoV-2 (PCR) NEGATIVE (Negative) Administered Medications Discontinued Medications Sodium Chloride (Nss 1000ml) 500 mls @ 999 mls/hr IV .Q31M ONE Stop: 10/25/20 07:48 Last Infusion: 10/25/20 08:44 Dose: 0 mls/hr Documented by: [id number] Admin: 10/25/20 08:02 Dose: 999 mls/hr Documented by: [id number] Magnesium Sulfate/Dextrose (Magnesium Sulfate / D5w) 1 gm in 100 mls @ 100 mls/ hr IV NOW STA Stop: 10/25/20 09:36 Last Infusion: 10/25/20 09:55 Dose: 0 mls/hr Documented by: [id number] Admin: 10/25/20 08:47 Dose: 100 mls/hr Documented by: [id number] Ioversol (Optiray 320 125ml) 120 ml IV ONCE ONE Stop: 10/25/20 09:10 Last Admin: 10/25/20 09:09 Dose: 120 ml Documented by: [id number] Imaging Data Radiologist's Impression: Chest X-Ray 10/25/20 07:18 XR chest 1V portable CLINICAL HISTORY: weakness, fall COMPARISON STUDY: May 31, 2016. FINDINGS: No pneumothorax. Large right pleural effusion is seen with fluid tracking up to right apex. No midline shift is seen. Small atelectasis is seen at the left base. Cardiac silhouette is not significantly enlarged however its obscured on the right. Aorta is calcified. Pulmonary vasculature is obscured.. Osseous structures: Degenerative changes of the spine. IMPRESSION: 1. Large right pleural effusion without midline shift. 2. Small atelectasis at the left base. ACT 112: Negative or not required by law. The above report was generated using voice recognition software. It may contain grammatical, syntax or spelling errors. Electronically signed by: Karly Gaston DO 10/25/2020 8:[address] 10/25/20 07:18 CT head/brain wo con CLINICAL HISTORY: fall, weakness COMPARISON STUDY: May 31, 2016 TECHNIQUE: Axial CT of the brain is performed from the vertex to the skull base. IV contrast was not administered for this examination. A dose lowering technique was utilized adhering to the principles of ALARA. CT DOSE: 537.48 mGy.cm FINDINGS: No intra or extra-axial mass lesions are visualized. There is no CT evidence of acute cortical infarction. There is no evidence of midline shift. There is no acute hemorrhage. No acute depressed calvarial fractures are visualized. There are patchy white matter hypodensities likely on a small vessel basis. Atrophic changes of brain parenchyma are seen and associated with ex vacuo dilatation of ventricles. There is no evidence of acute sinusitis IMPRESSION: No acute intracranial hemorrhage, no midline shift or space occupying lesions. No acute depressed skull fractures. Atrophic changes of brain parenchyma associated with ex vacuo dilatation of ventricles. Chronic small vessel ischemia. ACT 112: Negative or not required by law. The above report was generated using voice recognition software. It may contain grammatical, syntax or spelling errors. Electronically signed by: Karly Gaston DO 10/25/2020 8:18 AM Pelvis X-Ray 10/25/20 07:18 XR pelvis 1-2V routine CLINICAL HISTORY: fall COMPARISON: None. DISCUSSION: No definite acute fracture dislocation seen however evaluation is significantly limited due to diffuse osteopenia, soft tissue edema and overlying nondilated loops of bowel. Degenerative changes of the left hip joint and lower lumbar spine are seen. Enthesopathy involving bilateral iliac bones, ischial bones and greater trochanter which might represent DISH IMPRESSION: No definite acute fracture dislocation is detailed above. ACT 112: Negative or not required by law. The above report was generated using voice recognition software. It may contain grammatical, syntax or spelling errors. Electronically signed by: Karly Gaston DO 10/25/2020 8:22 AM Venous Doppler Study 10/25/20 07:18 US venous doppler LE RT CLINICAL HISTORY: right leg swelling/edema new COMPARISON STUDY: No previous studies for comparison. FINDINGS: Real-time and color flow Doppler imaging were performed. Flow was seen within the femoral, popliteal and calf veins with no intraluminal thrombus demonstrated. The saphenous vein is patent. IMPRESSION: No evidence of deep venous thrombosis. ACT 112: Negative or not required by law. The above report was generated using voice recognition software. It may contain grammatical, syntax or spelling errors. Electronically signed by: Karly Gaston DO 10/25/2020 8:50 AM Abdomen/Pelvis CT 10/25/20 08:40 CT abd pelvis IV con only CLINICAL HISTORY: new onset weakness, swelling, pleural effusion COMPARISON STUDY: None. TECHNIQUE: A dose lowering technique was utilized adhering to the principles of ALARA. CT DOSE: FINDINGS: Lower chest: Please see report of CT of the chest performed at the same time.. Liver: The contrast-enhanced liver is normal in size, contour, and attenuation. There is no intrahepatic biliary ductal dilatation. The hepatic veins and portal veins are patent. Gallbladder: Is dilated with few gallstones within its lumen. No significant gallbladder wall thickening or pericholecystic edema is seen however evaluation is limited due to motion and beam hardening artifact from patient's arms. Spleen: Normal in size and attenuation. Pancreas: Is atrophic. Adrenal glands: Unremarkable. Kidneys: There is symmetric renal cortical enhancement. The kidneys are normal in size without hydronephrosis.There are few small cortical cysts that seen within the right kidney, largest is measuring 2.0 cm. Pelvic viscera: Urinary bladder is adequately filled with urine with mild diffuse thickening of its wall and surrounding fat stranding which could be seen in cystitis. Prostate gland is slightly enlarged. Bowel: Bowel loops are nondilated. Appendix is not well seen. Possible minimal mesenteric fat stranding surrounding loops of small bowel however evaluation is limited due to motion and beam hardening artifact. Peritoneum: There is no intraperitoneal free air or abdominal ascites. Vasculature: Abdominal aorta is normal in caliber with scattered calcifications of its wall. Adenopathy: None. Skeletal structures: Osteopenia. Multilevel degenerative changes of the spine and syndesmophytes. IMPRESSION: 1. Cholelithiasis. Distended fluid-filled gallbladder without surrounding inflammatory changes. 2. Mild diffuse thickening of urinary bladder wall and surrounding fat stranding which might be seen in cystitis. Please correlate this findings with results of urinalysis. 3. Nondilated loops of bowel. Appendix is not well seen. Possible minimal mesenteric edema surrounding loops of small bowel which could be artifactual due to motion and beam hardening artifact. Follow-up evaluation with [facility] might be considered. 4. Atherosclerosis. 5. The rest of findings as above. ACT 112: Negative or not required by law. The above report was generated using voice recognition software. It may contain grammatical, syntax or spelling errors. Electronically signed by: Karly Gaston DO 10/25/2020 10:02 AM Chest CTA 10/25/20 08:40 CT ANGIOGRAM OF THE CHEST CLINICAL HISTORY: Shortness of breath, right pleural effusion COMPARISON STUDY: No previous studies for comparison. TECHNIQUE: Following the IV administration of 120 mL of Optiray, CT angiogram of the thorax was performed from the thoracic inlet to the lung bases utilizing the pulmonary embolus protocol. Images are reviewed in the axial, sagittal, and coronal planes. IV contrast was administered without complication. MIP imaging was performed. A dose lowering technique was utilized adhering to the principles of ALARA. CT DOSE: 1202.16 mGy.cm FINDINGS: No pathologically enlarged axillary mediastinal or hilar lymph nodes were visualized. Evaluation is limited due to beam hardening artifact from patient's arms and hyperattenuated intravenous contrast within superior vena cava There is adequate opacification within main pulmonary artery. Evaluation of peripheral branches of the pulmonary artery is limited due to motion artifact. There is no right heart strain. Pulmonary artery is normal in caliber. Heart is normal in size without pericardial effusion. Overall there is mild mediastinal shift to the left by large right pleural effusion. Trachea and left bronchial tree are patent. Distal portion of the right middle lobe and right lower lobe bronchial tree are collapsed. Large left pleural effusion is seen with complete atelectasis of the right middle lobe and the right lower lobe associated with mild leftward midline shift. Evaluation of pulmonary parenchyma is significantly limited due to motion artifact. Visualized portion of the upper abdominal viscera shows no evidence of acute abnormalities, evaluation is limited due to beam hardening artifact. Osseous structures are diffusely demineralized. Multilevel anterior syndesmophytes and degenerative changes of the spine are seen. IMPRESSION: 1. No definite acute central pulmonary embolus. Evaluation of peripheral branches are limited due to motion artifact. No evidence of secondary signs of pulmonary embolus. 2. Large right pleural effusion associated with collapse of the right middle lobe and the right lower lobe as well as mild midline shift to the left. 3. Limited exam due to motion and beam hardening artifact 4. The rest of findings as above. ACT 112: Negative or not required by law. The above report was generated using voice recognition software. It may contain grammatical, syntax or spelling errors. Electronically signed by: Karly Gaston DO 10/25/2020 9:52 AM Discharge Plan Visit Data Chief Complaint: Fall Stated Complaint: FALL, WEAKNESS R LEG ED Provider: Pranav Hicks Discharge Problem: Generalized weakness, Pleural effusion on right, Hypomagnesemia, Fall Patient Disposition: Admitted As Inpatient Discharge Instructions Interventions: ED Discharge Assessment Last Done: 10/25/20 14:02
[2020-10-25 07:47] LABS: Basophils # (auto) 0.05 K/uL (0-0.2); Basophils % (auto) 0.8 %; Eosinophils # (auto) 0.24 K/uL (0-0.5); Hematocrit (blood only) 38.9 % (42-52); Hemoglobin 12.7 g/dL (14.0-18.0); Immature Granulocytes # (auto) 0.02 K/uL (0.00-0.02); Immature Granulocytes % (auto) 0.3 %; Lymphocytes # (auto) 1.02 K/uL (1.2-3.4); Lymphocytes % (auto) 17.1 %; Mean Corpuscular Hemoglobin 30.6 pg (25-34); Mean Corpuscular Hgb Conc 32.6 g/dL (32-36); Mean Corpuscular Volume 93.7 fL (80-100); Mean Platelet Volume 11.4 fL (7.4-10.4); Monocytes # (auto) 0.58 K/uL (0.11-0.59); Monocytes % (auto) 9.7 %; Neutrophils # (auto) 4.06 K/uL (1.4-6.5); Neutrophils % (auto) 68.1 %; Platelet Count 203 K/uL (130-400); RDW Coefficient of Variation 15.3 % (11.5-14.5); RDW Standard Deviation 52.7 fL (36.4-46.3); Red Blood Count 4.15 M/uL (4.7-6.1); White Blood Count 5.97 K/uL (4.8-10.8)
[2020-10-25 08:03] LABS: Albumin Level 3.1 gm/dl (3.4-5.0); Aspartate Aminotransferase 19 U/L (15-37); BUN Creatinine Ratio 14.2 (10-20); Bilirubin Direct 0.2 mg/dl (0-0.2); Blood Urea Nitrogen 17 mg/dl (7-18); Calcium 8.5 mg/dl (8.5-10.1); Carbon Dioxide 29 mmol/L (21-32); Chloride 107 mmol/L (98-107); Creatinine Clr Calc Pharmacy 55.1 ml/min; Est GFR (African American) 65.7 ml/min; Est GFR (Non-African American) 56.7 ml/min; Glucose 84 mg/dl (70-99); Magnesium 1.5 mg/dl (1.8-2.4); Potassium 3.7 mmol/L (3.5-5.1); Sodium 141 mmol/L (136-145)
[2020-10-25 08:14] LABS: Alanine Aminotransferase 18 U/L (12-78); Alkaline Phosphatase 65 U/L (45-117); Bilirubin,Total 0.6 mg/dl (0.2-1); Creatine Kinase 132 U/L (39-308); Total Protein 6.4 gm/dl (6.4-8.2); Troponin I < 0.015 ng/ml (0-0.045)
--- NOTE | 2020-10-25 08:19 | CT Scan Report ---
CT head/brain wo con CLINICAL HISTORY: fall, weakness COMPARISON STUDY: May 31, 2016 TECHNIQUE: Axial CT of the brain is performed from the vertex to the skull base. IV contrast was not administered for this examination. A dose lowering technique was utilized adhering to the principles of ALARA. CT DOSE: 537.48 mGy.cm FINDINGS: No intra or extra-axial mass lesions are visualized. There is no CT evidence of acute cortical infarc tion. There is no evidence of midline shift. There is no acute hemorrhage. No acute depressed calvar ial fractures are visualized. There are patchy white matter hypodensities likely on a small vessel basis. Atrophic changes of brain parenchyma are seen and associated with ex vacuo dilatation of ventricles. There is no evidence of acute sinusitis IMPRESSION: No acute intracranial hemorrhage, no midline shift or space occupying lesions. No acute depressed skull fractures. Atrophic changes of brain parenchyma associated with ex vacuo dilatation of ventricles. Chronic small vessel ischemia. ACT 112: Negative or not required by law. The above report was generated using voice recognition software. It may contain grammatical, syntax o r spelling errors. Electronically signed by: Karly Gaston DO 10/25/2020 8:18 AM
--- NOTE | 2020-10-25 08:21 | XRay Report ---
XR chest 1V portable CLINICAL HISTORY: weakness, fall COMPARISON STUDY: May 31, 2016. FINDINGS: No pneumothorax. Large right pleural effusion is seen with fluid tracking up to right apex. No midline shift is seen. Small atelectasis is seen at the left base. Cardiac silhouette is not significantly enlarged however its obscured on the right. Aorta is calcifie d. Pulmonary vasculature is obscured.. Osseous structures: Degenerative changes of the spine. IMPRESSION: 1. Large right pleural effusion without midline shift. 2. Small atelectasis at the left base. ACT 112: Negative or not required by law. The above report was generated using voice recognition software. It may contain grammatical, syntax o r spelling errors. Electronically signed by: Karly Gaston DO 10/25/2020 8:20 AM
--- NOTE | 2020-10-25 08:24 | XRay Report ---
XR pelvis 1-2V routine CLINICAL HISTORY: fall COMPARISON: None. DISCUSSION: No definite acute fracture dislocation seen however evaluation is significantly limited due to diffus e osteopenia, soft tissue edema and overlying nondilated loops of bowel. Degenerative changes of the left hip joint and lower lumbar spine are seen. Enthesopathy involving bilateral iliac bones, ischial bones and greater trochanter which might repres ent DISH IMPRESSION: No definite acute fracture dislocation is detailed above. ACT 112: Negative or not required by law. The above report was generated using voice recognition software. It may contain grammatical, syntax o r spelling errors. Electronically signed by: Karly Gaston DO 10/25/2020 8:22 AM
[2020-10-25] MEDS ORDERED: MAGNESIUM SULFATE / D5W 1 GM/100 ML BAG IV STA (08:37)
--- NOTE | 2020-10-25 08:51 | Ultrasound Report ---
US venous doppler LE RT CLINICAL HISTORY: right leg swelling/edema new COMPARISON STUDY: No previous studies for comparison. FINDINGS: Real-time and color flow Doppler imaging were performed. Flow was seen within the femoral, popliteal and calf veins with no intraluminal thrombus demonstrated. The saphenous vein is patent. IMPRESSION: No evidence of deep venous thrombosis. ACT 112: Negative or not required by law. The above report was generated using voice recognition software. It may contain grammatical, syntax o r spelling errors. Electronically signed by: Karly Gaston DO 10/25/2020 8:50 AM
[2020-10-25] MEDS ORDERED: OPTIRAY 320 125ml IV ONE (09:09)
--- NOTE | 2020-10-25 09:53 | CT Scan Report ---
CT ANGIOGRAM OF THE CHEST CLINICAL HISTORY: Shortness of breath, right pleural effusion COMPARISON STUDY: No previous studies for comparison. TECHNIQUE: Following the IV administration of 120 mL of Optiray, CT angiogram of the thorax was perfo rmed from the thoracic inlet to the lung bases utilizing the pulmonary embolus protocol. Images are r eviewed in the axial, sagittal, and coronal planes. IV contrast was administered without complication . MIP imaging was performed. A dose lowering technique was utilized adhering to the principles of AL MANJIT. CT DOSE: 1202.16 mGy.cm FINDINGS: No pathologically enlarged axillary mediastinal or hilar lymph nodes were visualized. Evaluation is l imited due to beam hardening artifact from patient's arms and hyperattenuated intravenous contrast wi thin superior vena cava There is adequate opacification within main pulmonary artery. Evaluation of peripheral branches of th e pulmonary artery is limited due to motion artifact. There is no right heart strain. Pulmonary artery is normal in caliber. Heart is normal in size without pericardial effusion. Overall there is mild mediastinal shift to the left by large right pleural effusion. Trachea and left bronchial tree are patent. Distal portion of the right middle lobe and right lower lobe bronchial tree are collapsed. Large left pleural effusion is seen with complete atelectasis of the right middle lobe and the right lower lobe associated with mild leftward midline shift. Evaluation of pulmonary parenchyma is significantly limited due to motion artifact. Visualized portion of the upper abdominal viscera shows no evidence of acute abnormalities, evaluatio n is limited due to beam hardening artifact. Osseous structures are diffusely demineralized. Multilevel anterior syndesmophytes and degenerative c hanges of the spine are seen. IMPRESSION: 1. No definite acute central pulmonary embolus. Evaluation of peripheral branches are limited due to motion artifact. No evidence of secondary signs of pulmonary embolus. 2. Large right pleural effusion associated with collapse of the right middle lobe and the right lowe r lobe as well as mild midline shift to the left. 3. Limited exam due to motion and beam hardening artifact 4. The rest of findings as above. ACT 112: Negative or not required by law. The above report was generated using voice recognition software. It may contain grammatical, syntax o r spelling errors. Electronically signed by: Karly Gaston DO 10/25/2020 9:52 AM
--- NOTE | 2020-10-25 10:03 | CT Scan Report ---
CT abd pelvis IV con only CLINICAL HISTORY: new onset weakness, swelling, pleural effusion COMPARISON STUDY: None. TECHNIQUE: A dose lowering technique was utilized adhering to the principles of ALARA. CT DOSE: FINDINGS: Lower chest: Please see report of CT of the chest performed at the same time.. Liver: The contrast-enhanced liver is normal in size, contour, and attenuation. There is no intrahepa tic biliary ductal dilatation. The hepatic veins and portal veins are patent. Gallbladder: Is dilated with few gallstones within its lumen. No significant gallbladder wall thicken ing or pericholecystic edema is seen however evaluation is limited due to motion and beam hardening a rtifact from patient's arms. Spleen: Normal in size and attenuation. Pancreas: Is atrophic. Adrenal glands: Unremarkable. Kidneys: There is symmetric renal cortical enhancement. The kidneys are normal in size without hydron ephrosis.There are few small cortical cysts that seen within the right kidney, largest is measuring 2 .0 cm. Pelvic viscera: Urinary bladder is adequately filled with urine with mild diffuse thickening of its w all and surrounding fat stranding which could be seen in cystitis. Prostate gland is slightly enlarge d. Bowel: Bowel loops are nondilated. Appendix is not well seen. Possible minimal mesenteric fat strandi ng surrounding loops of small bowel however evaluation is limited due to motion and beam hardening ar tifact. Peritoneum: There is no intraperitoneal free air or abdominal ascites. Vasculature: Abdominal aorta is normal in caliber with scattered calcifications of its wall. Adenopathy: None. Skeletal structures: Osteopenia. Multilevel degenerative changes of the spine and syndesmophytes. IMPRESSION: 1. Cholelithiasis. Distended fluid-filled gallbladder without surrounding inflammatory changes. 2. Mild diffuse thickening of urinary bladder wall and surrounding fat stranding which might be seen in cystitis. Please correlate this findings with results of urinalysis. 3. Nondilated loops of bowel. Appendix is not well seen. Possible minimal mesenteric edema surroundi ng loops of small bowel which could be artifactual due to motion and beam hardening artifact. Follow- up evaluation with [facility] might be considered. 4. Atherosclerosis. 5. The rest of findings as above. ACT 112: Negative or not required by law. The above report was generated using voice recognition software. It may contain grammatical, syntax o r spelling errors. Electronically signed by: Karly Gaston DO 10/25/2020 10:02 AM
[2020-10-25 10:32] LABS: Appearance Urine Clear (Clear); Bilirubin Urine Negative (Negative); Blood Urine Negative (Negative); Color Urine Yellow; Glucose Urine UA Negative (Negative); Ketones Urine Negative (Negative); Leukocyte Esterase Urine Negative (Negative); Nitrite Urine Negative (Negative); Protein Urine Negative (Negative); Specific Gravity Urine 1.031 (1.000-1.030); Urobilinogen Urine Negative (Negative)
--- NOTE | 2020-10-25 10:45 | History & Physical Report ---
Date of Service October 25, 2020 Assessment & Plan (1) Pleural effusion on right: Plan: This is an 84-year-old male with PMH of dementia, type 2 diabetes, hypertension, CKD 3, ankylosing spondylitis and other medical problems listed below who presents with progressive weakness over the past 3 weeks and was found to have large R pleural effusion on chest CTA. Chest CTA with large right pleural effusion associated with collapse of the right middle lobe and the right lower lobe as well as mild midline shift to the left Pulmonology consulted - Dr. Pearson s/p pigtail chest tube insertion O2 saturation 94% on room air Fluid sent for labs, culture and cytology -follow (2) Generalized weakness: (3) Fall: Plan: Progressive physical decline/deconditioning in setting of advanced dementia CT head without any acute intracranial changes interested in additional services and potential placement due to increased care burden at home PT/OT evaluation Case management evaluation Fall precautions, aspiration precautions (4) Hypomagnesemia: Plan: Replaced. Repeat mag in in the morning (5) Edema of right lower extremity: Plan: 2-3+ pitting edema right lower extremity over the past few weeks Right lower extremity venous Doppler without evidence of DVT Continue to monitor (6) Diabetes mellitus, type II: Plan: Hold home agents SSI while in-patient BSG AC HS (7) Mixed Alzheimer's and vascular dementia: Plan: to remain at bedside or one-to-one in setting of patient's advanced dementia Only oriented to person at baseline Continue Namenda, donepezil (8) Hypertension: Plan: Continue enalapril, hydrochlorothiazide (9) CKD (chronic kidney disease), stage III: Plan: Kidney function at baseline. Monitor with daily BMP (10) Hyperlipidemia: Plan: Continue statin DVT Ppx: SQ heparin Code status: FULL PCP: Ashleigh Dispo: Admitted to PCU. Discharge planning ordered. Patient seen in collaboration with Dr. Schreiber. Please see addendum. History of Present Illness Chief Complaint: Generalized weakness, falls at home Primary Care Provider: Rico Sotelo MD This is an 84-year-old male with PMH of dementia, type 2 diabetes, hypertension, CKD 3, ankylosing spondylitis and other medical problems listed below who presents with progressive weakness over the past 3 weeks. Patient lives at home with , who manages his care. Notes increased weakness over the past 3 weeks with 2 falls in the past 2 days. Patient was found on the ground 2 evenings ago due to his legs giving out from under him. Then again this morning, patient felt his legs give out and he sat down in the hallway. Denies any loss of consciousness or head trauma. Patient is oriented to self at baseline and generally knows who is. Not oriented to time, place or sit uation. Care becoming more difficult for at home due to her own health constraints and patient's declining physical condition. No known sick contacts. No fever, chills, headache, lightheadedness, chest pain, shortness of breath or abdominal pain, although ROS difficult to fully obtain due to patient's cognitive state. Also noted to have increased swelling in right lower extremity. No calf pain and left leg normal size. Noted to worsen over the past few weeks. Allergies Allergy/AdvReac Type Severity Reaction Status Date / Time acetaminophen Allergy Intermediate rash Verified 10/25/20 09:25 codeine Allergy Unknown Verified 10/25/20 09:25 Home Medications Medication Instructions Recorded Confirmed Type atorvastatin 40 mg tablet (Lipitor) 40 mg PO HS tab 06/22/19 10/25/20 History donepezil 10 mg tablet (Aricept) 10 mg PO HS 06/22/19 10/25/20 History enalapril maleate 20 mg tablet 20 mg PO HS tab 06/22/19 10/25/20 History (Vasotec) hydrochlorothiazide 25 mg tablet 25 mg PO QAM tab 06/22/19 10/25/20 History memantine 10 mg tablet (Namenda) 10 mg PO BID tab 06/22/19 10/25/20 History metformin 500 mg tablet 1,000 mg PO BID tab 06/22/19 10/25/20 History pioglitazone 45 mg tablet (Actos) 45 mg PO QAM tab 06/22/19 10/25/20 History sitagliptin 100 mg tablet (Januvia) 100 mg PO HS tab 06/22/19 10/25/20 History aspirin 81 mg tablet,delayed 81 mg PO QAM 10/25/20 10/25/20 History release (Aspirin Low Dose) cyanocobalamin (vitamin B-12) 1,000 mcg PO DAILY 10/25/20 10/25/20 History 1,000 mcg tablet multivitamin 1 tab PO DAILY 10/25/20 10/25/20 History Past Med/Surg History Medical History CKD (chronic kidney disease), stage III Diabetes mellitus, type II Dysplastic nevus History of basal cell carcinoma Hyperlipidemia Hypertension Mixed Alzheimer's and vascular dementia Surgical History No history of previous surgery Family History Mother No pertinent family history Other Cancer Heart disease Stroke Social History Smoking Status: Former smoker Smoking End Date: 1976; Second Hand Exposure: No; Do You Dip or Chew Tobacco: No; Tobacco Cessation Education Requested by Patient: No Hx Alcohol Use: No Hx Substance Use: No Preferred Language: Solomon Islander Communication Ability: Effective Waitstaff Required: No Beliefs That Will Affect Care: None Current Living Situation: Spouse Current Living Situation Comment: ranch home Other Information That Helps Us Care for You: No Feels Safe at Home: Yes Safety Concerns: Feels Safe At This Time Assistive Devices: None Review of Systems Review of Systems: Unobtainable due to cognitive status Physical Exam Physical Exam: General Appearance: WD/WN, vitals as above, NAD, sitting up in bed, pleasantly confused Head: normocephalic, atraumatic Eyes: normal inspection, PERRL, conjunctivae normal, anicteric sclerae ENT: external ear and nose normal, oropharynx normal Neck: normal visual inspection, trachea midline, no thyromegaly Respiratory: normal respiratory effort, decreased breath sounds throughout, most notably R lower lung, no wheeze, rales or rhonchi. No accessory muscle use Cardiovascular: regular rate, rhythm, no murmur, normal peripheral pulses, 2-3+ RLE edema, LLE without edema. Vessels: no JVD Chest: normal inspection of chest Abdomen/GI: normal bowel sounds, soft, nontender, no hepatosplenomegaly Extremities/Musculoskeletal: no cyanosis or clubbing, extremities motor strength 5/5 Neurologic: PERRL, EOMI, accommodation nl, no face palsy, no dysarthria, CN's II-XI intact bilaterally and moves all extremities Psychiatric: A+Ox person only, euthymic affect Skin: no rashes, normal color, warm/dry Results & Data Results & Data ([facility]) Vital Signs (Past 12 Hours) Vital Signs Temp Pulse Resp BP Pulse Ox 10/25/20 07:24 36.5 C 83 18 156/73 H 94 Laboratory Results Short CBC 10/25/20 Range/Units 07:34 WBC 5.97 (4.8-10.8) K/uL Hgb 12.7 L (14.0-18.0) g/dL Hct 38.9 L (42-52) % Plt Count 203 (130-400) K/uL BMP 10/25/20 07:34 Sodium 141 Potassium 3.7 Chloride 107 Carbon Dioxide 29 BUN 17 Creatinine 1.18 Glucose 84 Calcium 8.5 Cardiac Enzymes 10/25/20 Range/Units 07:34 Total Creatine Kinase 132 (39-308) U/L Troponin I < 0.015 (0-0.045) ng/ml Liver Function 10/25/20 Range/Units 07:34 Total Bilirubin 0.6 (0.2-1) mg/dl Direct Bilirubin 0.2 (0-0.2) mg/dl AST 19 (15-37) U/L ALT 18 (12-78) U/L Alkaline Phosphatase 65 (45-117) U/L Albumin 3.1 L (3.4-5.0) gm/dl Urine 10/25/20 Range/Units 10:13 Urine Color Yellow Urine Appearance Clear (Clear) Urine pH 8.0 H (4.5-7.5) Ur Specific Mccloud 1.031 H (1.000-1.030) Urine Protein Negative (Negative) Urine Glucose (UA) Negative (Negative) Diagnostic Findings Chest X-Ray 10/25/20 07:18 XR chest 1V portable CLINICAL HISTORY: weakness, fall COMPARISON STUDY: May 31, 2016. FINDINGS: No pneumothorax. Large right pleural effusion is seen with fluid tracking up to right apex. No midline shift is seen. Small atelectasis is seen at the left base. Cardiac silhouette is not significantly enlarged however its obscured on the right. Aorta is calcified. Pulmonary vasculature is obscured.. Osseous structures: Degenerative changes of the spine. IMPRESSION: 1. Large right pleural effusion without midline shift. 2. Small atelectasis at the left base. ACT 112: Negative or not required by law. The above report was generated using voice recognition software. It may contain grammatical, syntax or spelling errors. Electronically signed by: Karly Gaston DO 10/25/2020 8:[address] 10/25/20 07:18 CT head/brain wo con CLINICAL HISTORY: fall, weakness COMPARISON STUDY: May 31, 2016 TECHNIQUE: Axial CT of the brain is performed from the vertex to the skull base. IV contrast was not administered for this examination. A dose lowering technique was utilized adhering to the principles of ALARA. CT DOSE: 537.48 mGy.cm FINDINGS: No intra or extra-axial mass lesions are visualized. There is no CT evidence of acute cortical infarction. There is no evidence of midline shift. There is no acute hemorrhage. No acute depressed calvarial fractures are visualized. There are patchy white matter hypodensities likely on a small vessel basis. Atrophic changes of brain parenchyma are seen and associated with ex vacuo dilatation of ventricles. There is no evidence of acute sinusitis IMPRESSION: No acute intracranial hemorrhage, no midline shift or space occupying lesions. No acute depressed skull fractures. Atrophic changes of brain parenchyma associated with ex vacuo dilatation of ventricles. Chronic small vessel ischemia. ACT 112: Negative or not required by law. The above report was generated using voice recognition software. It may contain grammatical, syntax or spelling errors. Electronically signed by: Karly Gaston DO 10/25/2020 8:18 AM Pelvis X-Ray 10/25/20 07:18 XR pelvis 1-2V routine CLINICAL HISTORY: fall COMPARISON: None. DISCUSSION: No definite acute fracture dislocation seen however evaluation is significantly limited due to diffuse osteopenia, soft tissue edema and overlying nondilated loops of bowel. Degenerative changes of the left hip joint and lower lumbar spine are seen. Enthesopathy involving bilateral iliac bones, ischial bones and greater trochanter which might represent DISH IMPRESSION: No definite acute fracture dislocation is detailed above. ACT 112: Negative or not required by law. The above report was generated using voice recognition software. It may contain grammatical, syntax or spelling errors. Electronically signed by: Karly Gaston DO 10/25/2020 8:22 AM Venous Doppler Study 10/25/20 07:18 US venous doppler LE RT CLINICAL HISTORY: right leg swelling/edema new COMPARISON STUDY: No previous studies for comparison. FINDINGS: Real-time and color flow Doppler imaging were performed. Flow was seen within the femoral, popliteal and calf veins with no intraluminal thrombus demonstrated. The saphenous vein is patent. IMPRESSION: No evidence of deep venous thrombosis. ACT 112: Negative or not required by law. The above report was generated using voice recognition software. It may contain grammatical, syntax or spelling errors. Electronically signed by: Karly Gaston DO 10/25/2020 8:50 AM Abdomen/Pelvis CT 10/25/20 08:40 CT abd pelvis IV con only CLINICAL HISTORY: new onset weakness, swelling, pleural effusion COMPARISON STUDY: None. TECHNIQUE: A dose lowering technique was utilized adhering to the principles of ALARA. CT DOSE: FINDINGS: Lower chest: Please see report of CT of the chest performed at the same time.. Liver: The contrast-enhanced liver is normal in size, contour, and attenuation. There is no intrahepatic biliary ductal dilatation. The hepatic veins and portal veins are patent. Gallbladder: Is dilated with few gallstones within its lumen. No significant gallbladder wall thickening or pericholecystic edema is seen however evaluation is limited due to motion and beam hardening artifact from patient's arms. Spleen: Normal in size and attenuation. Pancreas: Is atrophic. Adrenal glands: Unremarkable. Kidneys: There is symmetric renal cortical enhancement. The kidneys are normal in size without hydronephrosis.There are few small cortical cysts that seen within the right kidney, largest is measuring 2.0 cm. Pelvic viscera: Urinary bladder is adequately filled with urine with mild diffuse thickening of its wall and surrounding fat stranding which could be seen in cystitis. Prostate gland is slightly enlarged. Bowel: Bowel loops are nondilated. Appendix is not well seen. Possible minimal mesenteric fat stranding surrounding loops of small bowel however evaluation is limited due to motion and beam hardening artifact. Peritoneum: There is no intraperitoneal free air or abdominal ascites. Vasculature: Abdominal aorta is normal in caliber with scattered calcifications of its wall. Adenopathy: None. Skeletal structures: Osteopenia. Multilevel degenerative changes of the spine and syndesmophytes. IMPRESSION: 1. Cholelithiasis. Distended fluid-filled gallbladder without surrounding inflammatory changes. 2. Mild diffuse thickening of urinary bladder wall and surrounding fat stranding which might be seen in cystitis. Please correlate this findings with results of urinalysis. 3. Nondilated loops of bowel. Appendix is not well seen. Possible minimal mesenteric edema surrounding loops of small bowel which could be artifactual due to motion and beam hardening artifact. Follow-up evaluation with [facility] might be considered. 4. Atherosclerosis. 5. The rest of findings as above. ACT 112: Negative or not required by law. The above report was generated using voice recognition software. It may contain grammatical, syntax or spelling errors. Electronically signed by: Karly Gaston DO 10/25/2020 10:02 AM Chest CTA 10/25/20 08:40 CT ANGIOGRAM OF THE CHEST CLINICAL HISTORY: Shortness of breath, right pleural effusion COMPARISON STUDY: No previous studies for comparison. TECHNIQUE: Following the IV administration of 120 mL of Optiray, CT angiogram of the thorax was performed from the thoracic inlet to the lung bases utilizing the pulmonary embolus protocol. Images are reviewed in the axial, sagittal, and coronal planes. IV contrast was administered without complication. MIP imaging was performed. A dose lowering technique was utilized adhering to the principles of ALARA. CT DOSE: 1202.16 mGy.cm FINDINGS: No pathologically enlarged axillary mediastinal or hilar lymph nodes were visualized. Evaluation is limited due to beam hardening artifact from patient's arms and hyperattenuated intravenous contrast within superior vena cava There is adequate opacification within main pulmonary artery. Evaluation of peripheral branches of the pulmonary artery is limited due to motion artifact. There is no right heart strain. Pulmonary artery is normal in caliber. Heart is normal in size without pericardial effusion. Overall there is mild mediastinal shift to the left by large right pleural effusion. Trachea and left bronchial tree are patent. Distal portion of the right middle lobe and right lower lobe bronchial tree are collapsed. Large left pleural effusion is seen with complete atelectasis of the right middle lobe and the right lower lobe associated with mild leftward midline shift. Evaluation of pulmonary parenchyma is significantly limited due to motion artifact. Visualized portion of the upper abdominal viscera shows no evidence of acute abnormalities, evaluation is limited due to beam hardening artifact. Osseous structures are diffusely demineralized. Multilevel anterior syndesmophytes and degenerative changes of the spine are seen. IMPRESSION: 1. No definite acute central pulmonary embolus. Evaluation of peripheral branches are limited due to motion artifact. No evidence of secondary signs of pulmonary embolus. 2. Large right pleural effusion associated with collapse of the right middle lobe and the right lower lobe as well as mild midline shift to the left. 3. Limited exam due to motion and beam hardening artifact 4. The rest of findings as above. ACT 112: Negative or not required by law. The above report was generated using voice recognition software. It may contain grammatical, syntax or spelling errors. Electronically signed by: Karly Gaston DO 10/25/2020 9:52 AM Chest X-Ray 10/25/20 15:39 XR chest 1V portable CLINICAL HISTORY: S/P Thoracentesis COMPARISON STUDY: October 25, 2020 at 07:40 hours FINDINGS: No pneumothorax. Interval improvement of the right pleural effusion after right-sided chest tube placement. No evidence of midline shift. Aeration of the right upper lung is improved since recent prior. Cardiac silhouette is not significantly enlarged and partially obscured on the right.. Osseous structures: Mild degenerative changes of the spine. IMPRESSION: 1. Interval improvement of the right pleural effusion after placement of the right chest tube. ACT 112: Negative or not required by law. The above report was generated using voice recognition software. It may contain grammatical, syntax or spelling errors. Electronically signed by: Karly Gaston DO 10/25/2020 4:21 PM Code Status & VTE Plan VTE Prophylaxis Plan VTE Prophylaxis will be ordered: Yes Supervising Physician Co-Signing Physician Notes Attending addendum; The patient was seen and examined in telemetry unit He was admitted with shortness of breath and noted to have a huge right-sided effusion He is a status post right-sided chest tube placement Pleasantly confused and a little agitated On examination Pleasantly confused Hemodynamically stable with blood pressure on the higher side at 176/77 Chest-decreased breath sounds right side Heart-S1-S2 Abdomen-benign Extremities no edema SECURITY OPERATIONS MANAGER-alert and awake. Pleasantly confused His admission labs, EKG and imaging studies reviewed Has huge right-sided effusion with atelectasis Status post right-sided chest tube placement by automobile upholsterer apprentice Agree with assessment and plan as outlined above by JOSEPH Mcadams Dr (1) Fall Encounter type: initial encounter Qualified Code(s): W19.XXXA - Unspecified fall, initial encounter
--- NOTE | 2020-10-25 11:39 | Pulmonary Consultation ---
Date of Consultation October 25, 2020 Assessment & Plan (1) Pleural effusion on right: (2) Shortness of breath: (3) Atelectasis of right lung: CT chest 10/25/2020 personally reviewed: Large right-sided pleural effusion with mediastinal shift, compression atelectasis of right middle as well as right lower lobe No mediastinal adenopathy --Large right-sided pleural effusion With compression atelectasis of the right middle and the right lower lobe I think that has been going on for a while. Differential includes infection/malignancy. TB is also in the differential but very low given patient has been in the [place]. I will order Gold QuantiFERON as well as adenosine deaminase from the pleural fluid. Plan would be to have a thoracentesis/chest tube placement. --Atelectasis of the right middle and lower lobe Secondary to above Incentive spirometry will be helpful for the patient --Bilateral lower extremity edema Asymmetrical, more on the right side Doppler negative for DVT Plan: Patient does have very large pleural effusion with mediastinal shift to the left Plan would be to do thoracentesis. Putting a chest tube in would be a better thing to do as I do not think we will be able to take all the fluid out anyone procedure. Patient is not on any blood thinners. Risk and benefit of the procedure explained to the patient's in depth. Agree with the chest tube. We will put the chest tube in Do not remove more than 1.2 L in 24 hours to minimize reexpansion pulmonary edema. Please note the above document was generated using voice recognition software. It may contain grammatical, syntax or spelling errors.Any formal questions or concerns about the content, text or information contained within the body of this dictation should be directly addressed to the provider for clarification. History of Present Illness History of Present Illness 84-year-old male past medical history of Alzheimer's dementia, diabetes type 2, hypertension, CKD, ankylosing spondylitis presented to the hospital from home because of progressive weakness since couple of weeks. Patient is a poor historian. Pulmonary consulted because of the chest x-ray which was followed by a CT chest showing large right-sided pleural effusion History was obtained from patient's was at bedside. At the time of examination patient denies any shortness of breath. He denies any cough. He was saturating 94% on room air. Blood pressure was on the higher side. Did not seem to be in any distress. As per the patient has been born and brought up in [facility]. He has not gone out of the country other than [place] No recent upper respiratory infection. No fever or chills at home. No dysuria, no diarrhea. Patient did have significant weight loss last couple of months. No night sweats No contact with anybody with known TB Patient has been vaccinated against COVID-19 Social history: Occasional not heavy smoker. Allergies Allergy/AdvReac Type Severity Reaction Status Date / Time acetaminophen Allergy Intermediate rash Verified 10/25/20 09:25 codeine Allergy Unknown Verified 10/25/20 09:25 Home Medications Medication Instructions Recorded Confirmed Type atorvastatin 40 mg tablet (Lipitor) 40 mg PO HS tab 06/22/19 10/25/20 History donepezil 10 mg tablet (Aricept) 10 mg PO HS 06/22/19 10/25/20 History enalapril maleate 20 mg tablet 20 mg PO HS tab 06/22/19 10/25/20 History (Vasotec) hydrochlorothiazide 25 mg tablet 25 mg PO QAM tab 06/22/19 10/25/20 History memantine 10 mg tablet (Namenda) 10 mg PO BID tab 06/22/19 10/25/20 History metformin 500 mg tablet 1,000 mg PO BID tab 06/22/19 10/25/20 History pioglitazone 45 mg tablet (Actos) 45 mg PO QAM tab 06/22/19 10/25/20 History sitagliptin 100 mg tablet (Januvia) 100 mg PO HS tab 06/22/19 10/25/20 History aspirin 81 mg tablet,delayed 81 mg PO QAM 10/25/20 10/25/20 History release (Aspirin Low Dose) cyanocobalamin (vitamin B-12) 1,000 mcg PO DAILY 10/25/20 10/25/20 History 1,000 mcg tablet multivitamin 1 tab PO DAILY 10/25/20 10/25/20 History Patient History Medical History CKD (chronic kidney disease), stage III Diabetes mellitus, type II Dysplastic nevus History of basal cell carcinoma Hyperlipidemia Hypertension Mixed Alzheimer's and vascular dementia Surgical History No history of previous surgery Family History Mother No pertinent family history Other Cancer Heart disease Stroke Social History Smoking Status: Former smoker Smoking End Date: 1976; Second Hand Exposure: No; Do You Dip or Chew Tobacco: No; Tobacco Cessation Education Requested by Patient: No Hx Alcohol Use: No Hx Substance Use: No Preferred Language: Faroese Communication Ability: Effective Lard Tub Washer Required: No Beliefs That Will Affect Care: None Current Living Situation: Spouse Current Living Situation Comment: ranch home Other Information That Helps Us Care for You: No Feels Safe at Home: Yes Safety Concerns: Feels Safe At This Time Assistive Devices: None Review of Systems Review of Systems: All systems reviewed & are unremarkable except as noted in HPI & below Physical Exam Physical Exam: Constitutional: No acute distress HEENT: EOMI, PERRLA Respiratory system: Decreased air entry on the right side, no wheeze, no rhonchi, minimal crackles right lower lobe CVS: S1-S2 positive, no murmurs or gallops Abdomen: Soft, nontender, nondistended, positive bowel sounds x4 Extremities: +2 pulses bilaterally radialis/ dorsalis pedis, no cyanosis, +2 pitting edema right lower extremity, +1 pitting edema left lower extremity Neuro: Awake alert oriented to self only Psych: Normal mood and affect G/U: No Kuhn Skin: no rashes, warm and dry Lymphatic: no cervical or axillary lymphadenopathy Results & Data Results & Data ([facility]) Vital Signs (Past 12 Hours) Vital Signs Temp Pulse Resp BP Pulse Ox 10/25/20 07:24 36.5 C 83 18 156/73 H 94 10/25/20 07:34 10/25/20 07:34 PG Care Time/CCT Total # of Minutes Spent Total Time Spent with Patient: Total time spent is greater than 50% in coordination of care (as documented) at patient's floor/unit and/or counseling patient: Coding Level of Care Code 85164 Initial Inpt Care Lvl 3 Diagnoses Pleural effusion on right J90 Shortness of breath R06.02 Atelectasis of right lung J98.11
[2020-10-25] MEDS ORDERED: ONDANSETRON INJ 2 MG/ML 2 ML VIAL IV PRN (13:11)
[2020-10-25] MEDS ORDERED: POLYETHYLENE (MIRALAX) 17 GM PACK PO PRN (13:11)
[2020-10-25] MEDS ORDERED: MIDAZOLAM HCL 1 MG/ML 2ML VIAL IV STA (14:37)
[2020-10-25] MEDS ORDERED: LORazepam 2 MG/4 ML VIAL IV STA (14:41)
[2020-10-25] MEDS ORDERED: LORazepam 2 MG/4 ML VIAL ONE (14:49)
--- NOTE | 2020-10-25 15:42 | Procedure Note ---
Procedure Note Date of Service October 25, 2020 Note Procedure: Pigtail chest tube insertion Restaurant Hospitality Manager: Dr. Ana María Pearson Indication: Large right-sided pleural effusion Consent: Signed by patient's and verified with timeout prior to procedure Anesthesia: 1% lidocaine without epinephrine local Procedure: Consent was verified and timeout performed. Appropriate imaging studies were reviewed prior to the procedure. Patient was placed in a seated position. Appropriate site above the diaphragm on the right midaxillary line fourth intercostal space for chest tube insertion was selected. The skin was prepped and draped in normal sterile fashion. Lidocaine was used for local analgesia. Fluid was aspirated via the finder needle. A small skin santana was made with the scalpel and the catheter over the needle apparatus was advanced over the rib into the pleural space. With the help of guidewire and Seldinger technique, 14 Hebrew pigtail catheter was inserted and connected to Pleur-evac. No air leak appreciated after that. Serous fluid was aspirated. Chest x-ray to follow Fluid was sent for labs, culture and cytology. The patient tolerated the procedure without obvious complication Complications: None Blood loss: Less than 2 cc. Coding CPT Codes Pulmonary/Thoracic - Pulmonary and Thoracic: 51453 Tube thoracostomy ([id number]) Pulmonary/Thoracic - Pulmonary and Thoracic: 98705 Pleural drainage w/imaging ([id number]) [facility] [place] Procedure Codes (Charges) Pulmonary/Thoracic Procedure 1: Pulmonary and Thoracic: 67613 Tube thoracostomy Procedure 3: Pulmonary and Thoracic: 11345 Pleural drainage w/imaging
[2020-10-25 16:17] LABS: Glucose Pleural Fluid 98 mg/dl
--- NOTE | 2020-10-25 16:23 | XRay Report ---
XR chest 1V portable CLINICAL HISTORY: S/P Thoracentesis COMPARISON STUDY: October 25, 2020 at 07:40 hours FINDINGS: No pneumothorax. Interval improvement of the right pleural effusion after right-sided chest tube placement. No evidenc e of midline shift. Aeration of the right upper lung is improved since recent prior. Cardiac silhouette is not significantly enlarged and partially obscured on the right.. Osseous structures: Mild degenerative changes of the spine. IMPRESSION: 1. Interval improvement of the right pleural effusion after placement of the right chest tube. ACT 112: Negative or not required by law. The above report was generated using voice recognition software. It may contain grammatical, syntax o r spelling errors. Electronically signed by: Karly Gaston DO 10/25/2020 4:21 PM
[2020-10-25 16:32] LABS: Amylase Pleural Fluid 77 U/L; LDH Pleural Fluid 120 U/L; Total Protein Pleural Fluid 4.3 g/dl
[2020-10-25 16:44] LABS: Appearance Pleural Fluid CLEAR; Basophils, Fluid 0 %; Color Pleural Fluid PALE YELLOW; Eosinophils, Fluid 1 %; Lymphocytes, Fluid 3 %; Mono,Macrophage,Mesothelial 95 %; Neutrophils, Fluid 1 %; RBC Pleural Fluid (A) < 3000 /uL; Source Pleural Fluid RIGHT LUNG; WBC Pleural Fluid (A) 54 /uL
[2020-10-25] MEDS ORDERED: GLUCAGON FOR INJ 1 MG VIAL SQ PRN (16:44)
[2020-10-25] MEDS ORDERED: GLUCOSE 40% GEL 15 GM TUBE PO PRN (16:44)
[2020-10-25] MEDS ORDERED: DEXTROSE 50% 50 ML SYRINGE IV PRN (16:44)
[2020-10-25] MEDS ORDERED: GLUCOSE 10 TABS/TUBE PO PRN (16:44)
[2020-10-25] MEDS ORDERED: CARBOHYDRATES FOR HYPOGLYCEMIA PO PRN (16:44)
[2020-10-25 17:46] LABS: Bilirubin,Total 0.6 mg/dl (0.2-1); Total Protein 6.2 gm/dl (6.4-8.2)
[2020-10-25] MEDS: INSULIN ASPART 100 UNITS/ML 3 ML PEN SC SCH (20:57)
[2020-10-25] MEDS: DONEPEZIL HCL 10 MG TAB PO SCH (20:59)
[2020-10-25] MEDS: ATORVASTATIN 40 MG TAB PO SCH (20:59)
[2020-10-25] MEDS: MEMANTINE HCL 10 MG TAB PO SCH (20:59)
[2020-10-25] MEDS: ENALAPRIL MALEATE 10 MG TAB PO SCH (21:00)
[2020-10-25] MEDS: HEPARIN SOD 5,000 UNIT/0.5 ML VIAL SQ SCH (21:54)
[2020-10-26 05:56] LABS: Basophils # (auto) 0.06 K/uL (0-0.2); Basophils % (auto) 0.7 %; Eosinophils # (auto) 0.13 K/uL (0-0.5); Eosinophils % (auto) 1.5 %; Hematocrit (blood only) 39.3 % (42-52); Hemoglobin 12.8 g/dL (14.0-18.0); Immature Granulocytes # (auto) 0.01 K/uL (0.00-0.02); Immature Granulocytes % (auto) 0.1 %; Lymphocytes # (auto) 1.07 K/uL (1.2-3.4); Lymphocytes % (auto) 12.4 %; Mean Corpuscular Hemoglobin 30.3 pg (25-34); Mean Corpuscular Hgb Conc 32.6 g/dL (32-36); Mean Corpuscular Volume 93.1 fL (80-100); Mean Platelet Volume 10.9 fL (7.4-10.4); Monocytes # (auto) 0.81 K/uL (0.11-0.59); Monocytes % (auto) 9.4 %; Neutrophils # (auto) 6.58 K/uL (1.4-6.5); Neutrophils % (auto) 75.9 %; Platelet Count 180 K/uL (130-400); RDW Coefficient of Variation 15.2 % (11.5-14.5); RDW Standard Deviation 51.4 fL (36.4-46.3); Red Blood Count 4.22 M/uL (4.7-6.1); White Blood Count 8.66 K/uL (4.8-10.8)
[2020-10-26] MEDS: HEPARIN SOD 5,000 UNIT/0.5 ML VIAL SQ SCH ×3 (05:57→21:38)
[2020-10-26 06:25] LABS: Calcium 8.3 mg/dl (8.5-10.1); Creatinine Clr Calc Pharmacy 61.5 ml/min; Est GFR (African American) 86.6 ml/min; Est GFR (Non-African American) 74.7 ml/min; Magnesium 2.2 mg/dl (1.8-2.4); Phosphorus 3.2 mg/dl (2.5-4.9); Potassium 3.7 mmol/L (3.5-5.1)
--- NOTE | 2020-10-26 07:22 | Electrocardiogram Report ---
Test Reason : Blood Pressure : / mmHG Vent. Rate : 069 BPM Atrial Rate : 069 BPM P-R Int : 126 ms QRS Dur : 098 ms QT Int : 420 ms P-R-T Axes : 044 036 032 degrees QTc Int : 450 ms Normal sinus rhythm Incomplete right bundle branch block Borderline ECG When compared with ECG of 31-MAY-2016 02:38, Vent. rate has decreased BY 34 BPM Confirmed by Ta Barahona ([id number]) on 10/26/2020 7:22:35 AM Referred By: REFERRED SELF Confirmed By:Stewart Barahona
[2020-10-26] MEDS: hydroCHLOROthiazide 25 MG TAB PO SCH (07:33)
[2020-10-26] MEDS: ASPIRIN 81 MG ECTAB PO SCH (07:33)
[2020-10-26] MEDS: MULTIVITAMIN TAB PO SCH (07:34)
[2020-10-26] MEDS: CYANOCOBALAMIN 500 MCG TABLET (VITAMIN B-12) PO SCH (07:34)
[2020-10-26] MEDS: INSULIN ASPART 100 UNITS/ML 3 ML PEN SC SCH ×4 (07:40→21:44)
[2020-10-26] MEDS: MEMANTINE HCL 10 MG TAB PO SCH ×2 (07:53→21:37)
--- NOTE | 2020-10-26 09:53 | Pulmonology Progress Note ---
Date of Service October 26, 2020 Assessment & Plan (1) Pleural effusion on right: (2) Shortness of breath: (3) Atelectasis of right lung: Plan: CT chest 10/25/2020 personally reviewed: Large right-sided pleural effusion with mediastinal shift, compression atelectasis of right middle as well as right lower lobe No mediastinal adenopathy --Large right-sided pleural effusion With compression atelectasis of the right middle and the right lower lobe I think that has been going on for a while. S/p chest tube placement 10/25/2020, exudative fluid as per lights criteria Pleural fluid: LDH: 120, total protein 4.3, glucose 98, pH 7.43 Serum: LDH: 183, total protein 6.2 Differential includes infection/malignancy. TB is also in the differential but very low given patient has been in the [place]. I will order Gold QuantiFERON as well as adenosine deaminase from the pleural fluid. --Atelectasis of the right middle and lower lobe Secondary to above Incentive spirometry will be helpful for the patient --Bilateral lower extremity edema Asymmetrical, more on the right side Doppler negative for DVT Plan: Chest tube level 700 mL Chest tube was clamped yesterday after drainage of 1200 mL. It was unclamped and another 1500 mL was drained and the tube was clamped Patient is so far drained 2.7 L of fluid Unclamp the tube tomorrow at 7 AM. Follow-up cytology. Case was discussed with RN Please note the above document was generated using voice recognition software. It may contain grammatical, syntax or spelling errors.Any formal questions or concerns about the content, text or information contained within the body of this dictation should be directly addressed to the provider for clarification. Admission and Anticipated Discharge Date Admission Date: October 25, 2020 Subjective Patient seen and examined at bedside. No acute distress, no adverse events overnight. Right-sided chest tube in place Patient has 1 sitter bedside. Overnight he had episodes of restlessness. He answers simple questions. Denies any chest pain, no pain at the site of the tube. Has been afebrile Saturating well on mid Review of Systems Review of Systems: All systems reviewed & are unremarkable except as noted in Subjective and Unobtainable due to mental health condition Physical Exam Physical Exam: Constitutional: No acute distress HEENT: EOMI, PERRLA Respiratory system: Decreased air entry on the right side, no wheeze, no rhonchi, minimal crackles right lower lobe CVS: S1-S2 positive, no murmurs or gallops Abdomen: Soft, nontender, nondistended, positive bowel sounds x4 Extremities: +2 pulses bilaterally radialis/ dorsalis pedis, no cyanosis, + 1 pitting edema right lower extremity, Neuro: Awake alert oriented to self only Psych: Normal mood and affect G/U: No Kuhn Right-sided pigtail catheter in place Skin: no rashes, warm and dry Lymphatic: no cervical or axillary lymphadenopathy Results & Data Results & Data ([facility]) Vital Signs (Past 12 Hours) Vital Signs Temp Pulse Pulse Resp BP Pulse Ox 10/26/20 07:13 36.4 C L 64 16 149/53 H 94 10/26/20 07:01 55 L 10/26/20 03:02 36.8 C 61 17 148/67 H 98 10/26/20 01:28 72 10/25/20 23:03 36.3 C L 59 L 18 135/69 96 10/26/20 05:46 10/26/20 05:46 PG Care Time/CCT Total # of Minutes Spent Total Time Spent with Patient: Total time spent is greater than 50% in coordination of care (as documented) at patient's floor/unit and/or counseling patient: Coding Level of Care Code 52503 Subseq Hosp Care Lvl 3 Diagnoses Pleural effusion on right J90 Shortness of breath R06.02 Atelectasis of right lung J98.11
--- NOTE | 2020-10-26 14:37 | Hospitalist Progress Note ---
Date of Service October 26, 2020 Assessment & Plan (1) Pleural effusion on right: Plan: This is an 84-year-old male with PMH of dementia, type 2 diabetes, hypertension, CKD 3, ankylosing spondylitis and other medical problems listed below who presents with progressive weakness over the past 3 weeks and was found to have large R pleural effusion on chest CTA. Chest CTA with large right pleural effusion associated with collapse of the right middle lobe and the right lower lobe as well as mild midline shift to the left Pulmonology consulted - Dr. Pearson s/p pigtail chest tube insertion Pleural fluid/serum; [id number], protein 4.3/6.2 and pH 7.43 Exudative fluid-could be secondary to infection, malignancy Still draining considerable amount of fluid Restlessness with agitation Has history of dementia and acute delirium could be secondary to infection Has been requiring physical restraint and one-to-one sitter to protect the tubings including chest tube and catheter (2) Generalized weakness: Plan: We will get PT and OT evaluation (3) Fall: Plan: Progressive physical decline/deconditioning in setting of advanced dementia CT head without any acute intracranial changes interested in additional services and potential placement due to increased care burden at home PT/OT evaluation Case management evaluation Fall precautions, aspiration precautions (4) Hypomagnesemia: Plan: Replaced. Repeat mag in in the morning (5) Edema of right lower extremity: Plan: 2-3+ pitting edema right lower extremity over the past few weeks Right lower extremity venous Doppler without evidence of DVT Continue to monitor (6) Diabetes mellitus, type II: Plan: Hold home agents SSI while in-patient BSG AC HS (7) Mixed Alzheimer's and vascular dementia: Plan: to remain at bedside or one-to-one in setting of patient's advanced dementia Only oriented to person at baseline Continue Namenda, donepezil (8) Hypertension: Plan: Continue enalapril, hydrochlorothiazide (9) CKD (chronic kidney disease), stage III: Plan: Kidney function at baseline. Monitor with daily BMP (10) Hyperlipidemia: Plan: Continue statin DVT Ppx: SQ heparin Code status: FULL PCP: Ashleigh Dispo: Admitted to PCU. Discharge planning ordered. Admission and Anticipated Discharge Date Admission Date: October 25, 2020 Subjective 10/26/2020 The patient was seen and examined in telemetry unit He remains confused and restless throughout the whole night and this morning to He denies any significant symptoms one asking question Requiring one-to-one sitter and mittens to safeguard the tubes that he has Review of Systems Review of Systems: Unobtainable due to cognitive status Physical Exam Physical Exam: Lying in bed with restlessness Constitutional: + ill appearing and average body habitus Eyes: PERRL, conjunctivae normal, anicteric sclerae ENMT: external ear and nose normal, oropharynx normal Respiratory: no respiratory distress and no cough Auscultation: lungs clear to auscultation bilaterally Cardiovascular: Rate/Rhythm: regular rate and regular rhythm; not tachycardic Heart Sounds: normal S1 and normal S2; no murmur Extremities: no edema Gastrointestinal (Abdomen): normal bowel sounds, soft, nontender, no hepatosplenomegaly Musculoskeletal: No acute arthritis in any joint Neurologic: Alert, awake. Disoriented. Moving all extremities Psychiatric: Insight: + poor insight Results & Data Results & Data ([facility]) Vital Signs (Past 12 Hours) Vital Signs Temp Pulse Pulse Resp BP Pulse Ox 10/26/20 11:13 36.4 C L 98 H 16 110/57 L 93 10/26/20 07:13 36.4 C L 64 16 149/53 H 94 10/26/20 07:01 55 L 10/26/20 03:02 36.8 C 61 17 148/67 H 98 Laboratory Results Short CBC 10/26/20 Range/Units 05:46 WBC 8.66 (4.8-10.8) K/uL Hgb 12.8 L (14.0-18.0) g/dL Hct 39.3 L (42-52) % Plt Count 180 (130-400) K/uL BMP 10/26/20 05:46 Sodium 142 Potassium 3.7 Chloride 108 H Carbon Dioxide 30 BUN 12 Creatinine 0.94 Glucose 83 Calcium 8.3 L Liver Function 10/25/20 Range/Units 16:38 Total Bilirubin 0.6 (0.2-1) mg/dl Albumin 3.0 L (3.4-5.0) gm/dl Medications Administered Current Inpatient Medications Aspirin (Aspirin 81 Mg Ectab) [facility] [place] Stop: 11/25/20 08:59 Last Admin: 10/26/20 07:33 Dose: 81 mg Documented by: Atorvastatin Calcium (Atorvastatin 40 Mg Tab) 40 mg PO HS ALONDRA Stop: 11/24/20 20:59 Last Admin: 10/25/20 20:59 Dose: 40 mg Documented by: Cyanocobalamin (Cyanocobalamin 500 Mcg Tablet (Vitamin B-12)) 1,000 mcg PO DAILY ALONDRA Stop: 11/25/20 08:59 Last Admin: 10/26/20 07:34 Dose: 1,000 mcg Documented by: Dextrose (Dextrose 50% 50 Ml Syringe) 25 - 50 ml IV UD PRN; Protocol PRN Reason: Hypoglycemia Protocol Stop: 11/24/20 16:43 Donepezil HCl (Donepezil Hcl 10 Mg Tab) 10 mg PO HS ALONDRA Stop: 11/24/20 20:59 Last Admin: 10/25/20 20:59 Dose: 10 mg Documented by: Enalapril Maleate (Enalapril Maleate 10 Mg Tab) 20 mg PO HS ALONDRA Stop: 11/24/20 20:59 Last Admin: 10/25/20 21:00 Dose: 20 mg Documented by: Glucagon (Glucagon For Inj 1 Mg Vial) 1 mg SQ UD PRN; Protocol PRN Reason: Hypoglycemia Protocol Stop: 11/24/20 16:43 Glucose (Glucose 10 Tabs/Tube) 4 - 8 tabs PO UD PRN; Protocol PRN Reason: Hypoglycemia Protocol Stop: 11/24/20 16:43 Glucose (Glucose 40% Gel 15 Gm Tube) 15 - 30 gm PO UD PRN; Protocol PRN Reason: Hypoglycemia Protocol Stop: 11/24/20 16:43 Heparin Sodium (Porcine) (Heparin Sod 5,000 Unit/0.5 Ml Vial) 5,000 units SQ Q8 ALONDRA Stop: 11/24/20 21:59 Last Admin: 10/26/20 05:57 Dose: 5,000 units Documented by: Hydrochlorothiazide (Hydrochlorothiazide 25 Mg Tab) 25 mg PO QAM ALONDRA Stop: 11/25/20 08:59 Last Admin: 10/26/20 07:33 Dose: 25 mg Documented by: Insulin Aspart (Insulin Aspart 100 Units/Ml 3 Ml Pen) 0 units SC ACHS ALONDRA Stop: 11/24/20 20:59 Last Admin: 10/26/20 11:53 Dose: 3 units Documented by: Memantine (Memantine Hcl 10 Mg Tab) 10 mg PO BID ALONDRA Stop: 11/24/20 20:59 Last Admin: 10/26/20 07:53 Dose: 10 mg Documented by: Miscellaneous (Carbohydrates For Hypoglycemia ) 15 - 30 gm PO UD PRN PRN Reason: Hypoglycemia Protocol Stop: 11/24/20 16:43 Multivitamins (Multivitamin Tab) 1 tab PO DAILY ALONDRA Stop: 11/25/20 08:59 Last Admin: 10/26/20 07:34 Dose: 1 tab Documented by: Ondansetron HCl (Ondansetron Inj 2 Mg/Ml 2 Ml Vial) 4 mg IV Q6H PRN PRN Reason: Nausea Stop: 11/24/20 13:10 Polyethylene Glycol (Polyethylene (Miralax) 17 Gm Pack) 17 gm PO DAILY PRN PRN Reason: Constipation Stop: 11/24/20 13:10 (1) Fall Encounter type: initial encounter Qualified Code(s): W19.XXXA - Unspecified fall, initial encounter
--- NOTE | 2020-10-26 16:32 | XRay Report ---
SINGLE VIEW CHEST CLINICAL HISTORY: Follow-up chest tube. FINDINGS: An AP, portable, upright chest radiograph is compared to chest x-ray and chest CT dated 10/25. The examination is degraded by portable technique and patient rotation. A chest tube is again seen at the right lung base. The heart is enlarged noting atherosclerotic calcification of the thorac ic aorta. There is a small to moderate residual pleural effusion at the right lung base. This has sig nificantly decreased in size from yesterday. There is moderate right hydropneumothorax with approxima tely 2 cm of apical pleural separation. There is associated right basilar consolidation. The left antelmo g appears clear noting basilar atelectasis. The skeletal structures are osteopenic. The bony thorax i s grossly intact. IMPRESSION: 1. A chest tube at the right lung base is unchanged in position. 2. There is moderate right hydropneumothorax. This has significantly increased in size from yesterday . 3. There is persistent pleural fluid right lung base with associated right basilar consolidation. Thi s has significantly decreased in size from yesterday ACT 112: Negative or not required by law. Electronically signed by: Silver Guevara M.D. 10/26/2020 4:30 PM
[2020-10-26] MEDS: DONEPEZIL HCL 10 MG TAB PO SCH (21:37)
[2020-10-26] MEDS: ENALAPRIL MALEATE 10 MG TAB PO SCH (21:37)
[2020-10-26] MEDS: ATORVASTATIN 40 MG TAB PO SCH (21:38)
[2020-10-27] MEDS: HEPARIN SOD 5,000 UNIT/0.5 ML VIAL SQ SCH ×3 (05:30→22:34)
[2020-10-27 06:20] LABS: Basophils # (auto) 0.05 K/uL (0-0.2); Basophils % (auto) 0.6 %; Eosinophils # (auto) 0.15 K/uL (0-0.5); Eosinophils % (auto) 1.8 %; Hematocrit (blood only) 41.6 % (42-52); Immature Granulocytes # (auto) 0.01 K/uL (0.00-0.02); Immature Granulocytes % (auto) 0.1 %; Lymphocytes # (auto) 1.16 K/uL (1.2-3.4); Lymphocytes % (auto) 13.6 %; Mean Corpuscular Hemoglobin 31.2 pg (25-34); Mean Corpuscular Hgb Conc 33.7 g/dL (32-36); Mean Corpuscular Volume 92.7 fL (80-100); Mean Platelet Volume 11.7 fL (7.4-10.4); Monocytes # (auto) 0.84 K/uL (0.11-0.59); Monocytes % (auto) 9.8 %; Neutrophils # (auto) 6.35 K/uL (1.4-6.5); Neutrophils % (auto) 74.1 %; Platelet Count 192 K/uL (130-400); RDW Coefficient of Variation 14.9 % (11.5-14.5); RDW Standard Deviation 50.9 fL (36.4-46.3); Red Blood Count 4.49 M/uL (4.7-6.1); White Blood Count 8.56 K/uL (4.8-10.8)
[2020-10-27 06:53] LABS: BUN Creatinine Ratio 12.6 (10-20); Calcium 8.3 mg/dl (8.5-10.1); Creatinine Clr Calc Pharmacy 56.1 ml/min; Est GFR (African American) 77.5 ml/min; Est GFR (Non-African American) 66.9 ml/min; Magnesium 2.1 mg/dl (1.8-2.4); Phosphorus 3.3 mg/dl (2.5-4.9); Potassium 3.1 mmol/L (3.5-5.1)
[2020-10-27] MEDS: ASPIRIN 81 MG ECTAB PO SCH (07:56)
[2020-10-27] MEDS: INSULIN ASPART 100 UNITS/ML 3 ML PEN SC SCH ×4 (07:56→21:41)
[2020-10-27] MEDS: MULTIVITAMIN TAB PO SCH (07:57)
[2020-10-27] MEDS: CYANOCOBALAMIN 500 MCG TABLET (VITAMIN B-12) PO SCH (07:57)
[2020-10-27] MEDS: MEMANTINE HCL 10 MG TAB PO SCH ×2 (07:57→21:40)
[2020-10-27] MEDS: hydroCHLOROthiazide 25 MG TAB PO SCH (07:57)
[2020-10-27] MEDS ORDERED: POTASSIUM CHLORIDE CRTAB 20 MEQ TABCR PO STA (08:29)
--- NOTE | 2020-10-27 11:39 | Pulmonology Progress Note ---
Date of Service October 27, 2020 Assessment & Plan (1) Pleural effusion on right: (2) Shortness of breath: (3) Atelectasis of right lung: Plan: Impression: Recommendations: 1. Pleural effusion: Exudative by light's criteria based on total protein and LDH. Fluid appears resolved on most recent x-ray. Cytology is negative. At this point time I would follow the patient clinically. If the effusion should reaccumulate, repeat thoracentesis or consideration for outpatient video- assisted thoracoscopic evaluation of the pleural space may be appropriate. Given the patient's underlying history of dementia and deconditioning, may consider a more symptomatic driven approach. Consideration for palliative care consultation to define goals of therapy may be appropriate. This is deferred to the patient's primary admitting service 2. Pneumothorax: Unclear if this represents pneumo ex vacuo. The patient was attached to suction on the chest tube with significant air bubbling and a small air leak which persisted at 20 cm water. We will plan on repeating his chest x- ray in several hours to see what it looks like. Fortunately, the patient has shown slight progression of the pneumothorax since the x-ray yesterday. Management of the tube will be dictated based on radiographic follow-up. We will continue to follow with you. Please contact us with interval questions. Please note the above document was generated using voice recognition software. It may contain grammatical, syntax or spelling errors.Any formal questions or concerns about the content, text or information contained within the body of this dictation should be directly addressed to the provider for clarification. Admission and Anticipated Discharge Date Admission Date: October 25, 2020 Subjective Patient seen and examined. Discussed with off going screwmaker automatic. Discussed with bedside nurse as well. Patient offers no complaints this morning. He is awake alert and sitting up in a chair. He denies any chest pain or palpitations. His tube been clamped overnight and was unclamped this morning with drainage of 150mL. Patient is not been febrile overnight. He remains on room air. Review of Systems 2 Review of Systems: Please refer to hospitalist note. No changes. Results & Data Results & Data ([facility]) Vital Signs (Past 12 Hours) Vital Signs Temp Pulse Pulse Resp BP Pulse Ox 10/27/20 07:20 66 10/27/20 07:18 36.3 C L 67 16 147/68 H 95 Laboratory Results 10/27/20 05:37 10/27/20 05:37 Microbiology 10/25/20 Unknown Pleural Fluid Acid Fast Bacilli Smear - Final 10/25/20 Unknown Pleural Fluid Gram Stain - Final 10/25/20 Unknown Pleural Fluid Aerobic and Anaerobic Culture - Preliminary No growth to date. Pleural fluid studies: Differential 1% neutrophils, 3% lymphocytes, 95% mesothelial cells pH 7.43 Total white cell count 54 Total protein 4.3 LDH 120 Glucose 98 Amylase 77 Gram stain and culture showed few white blood cells with no organisms Pleural fluid cytology with macrophages and mesothelial cells, negative for malignancy Diagnostic Findings Chest x-ray from today was independently reviewed. Demonstrates the pigtail catheter at the right lung base. There is a moderate sized pneumothorax present. No mediastinal shift. Left lung is clear. PG Care Time/CCT Total # of Minutes Spent Total Time Spent with Patient: Total time spent is greater than 50% in coordination of care (as documented) at patient's floor/unit and/or counseling patient: Coding Level of Care Code 78476 Subseq Hosp Care Lvl 3 Diagnoses Pleural effusion on right J90 Shortness of breath R06.02 Atelectasis of right lung J98.11 Time Spent (min) 40
--- NOTE | 2020-10-27 12:46 | XRay Report ---
SINGLE VIEW CHEST CLINICAL HISTORY: Follow-up hydropneumothorax. FINDINGS: An AP, portable, upright chest radiograph is compared to chest x-ray dated 10/26/2020 and cor related with chest CT dated 10/25/2020. The examination is degraded by portable technique and patient r otation. A chest tube is again seen at the right lung base. The heart is enlarged noting atherosclero tic calcification of the thoracic aorta. A right pleural effusion has continued to decrease in size. Right pneumothorax has modestly increased in size from previous. There is approximately 3 cm of apica l pleural separation. Right basilar consolidation persists. The left lung appears clear noting basila r atelectasis. The skeletal structures are osteopenic. The bony thorax is grossly intact. IMPRESSION: 1. A chest tube at the right lung base is unchanged in position. 2. Moderate right hydropneumothorax persists. The amount of pleural fluid has decreased, and the pneu mothorax component has enlarged as compared to yesterday. 3. There is improved aeration at the right lung base as compared to previous. Basilar consolidation p ersists. ACT 112: Negative or not required by law. Electronically signed by: Silver Guevara M.D. 10/27/2020 12:45 PM
--- NOTE | 2020-10-27 15:45 | XRay Report ---
XR chest 1V portable CLINICAL HISTORY: ptx COMPARISON STUDY: October 27, 2020 FINDINGS: Redemonstration of right pneumothorax involving the right apex and lateral/inferior portion of the ri ght lung. Right chest tube is in place.. No pleural effusion. No large infiltrates or consolidative lesions are seen. Cardiomediastinal silhouette is stable. Left hemidiaphragm is elevated with prominent gas-filled stru cture which could represent large amount of gas within stomach. No significant pulmonary vascular congestion.. Osseous structures: Mild degenerative changes of the spine. IMPRESSION: 1. Redemonstration of the moderate right-sided pneumothorax. Right chest tube is in place. 2. Prominent gaseous distention/dilatation within left upper quadrant associated with elevation of t he left hemidiaphragm. Please correlate above-mentioned findings with clinical presentation of abdomi nal pain. Further evaluation with abdominal radiograph is suggested. Findings will be sent to the [facility] ient's unit. ACT 112: Negative or not required by law. The above report was generated using voice recognition software. It may contain grammatical, syntax o r spelling errors. Electronically signed by: Karly Gaston DO 10/27/2020 3:44 PM
--- NOTE | 2020-10-27 17:38 | Hospitalist Progress Note ---
Date of Service October 27, 2020 Assessment & Plan (1) Pleural effusion on right: Plan: This is an 84-year-old male with PMH of dementia, type 2 diabetes, hypertension, CKD 3, ankylosing spondylitis and other medical problems listed below who presents with progressive weakness over the past 3 weeks and was found to have large R pleural effusion on chest CTA. Chest CTA with large right pleural effusion associated with collapse of the right middle lobe and the right lower lobe as well as mild midline shift to the left Pulmonology consulted - Dr. Pearson s/p pigtail chest tube insertion Pleural fluid/serum; [id number], protein 4.3/6.2 and pH 7.43 Exudative fluid-could be secondary to infection, malignancy Does not seems like infection and he is not being on any antibiotic Still draining considerable amount of fluid Has had pneumothorax-chest tube has been repositioned and negative suction has been applied Clinically stable without any significant distress We will ask for palliative care evaluation Restlessness with agitation Has history of dementia and acute delirium could be secondary to infection Has been requiring physical restraint and one-to-one sitter to protect the tubings including chest tube and catheter Remains stable without much hesitation Requiring mittens to prevent pulling out of tubes and also requiring one-to-one sitter (2) Generalized weakness: Plan: We will get PT and OT evaluation (3) Fall: Plan: Progressive physical decline/deconditioning in setting of advanced dementia CT head without any acute intracranial changes interested in additional services and potential placement due to increased care burden at home PT/OT evaluation Case management evaluation Fall precautions, aspiration precautions We will get palliative care involvement for further goals of care (4) Hypomagnesemia: Plan: Replaced. Repeat mag in in the morning (5) Edema of right lower extremity: Plan: 2-3+ pitting edema right lower extremity over the past few weeks Right lower extremity venous Doppler without evidence of DVT Continue to monitor (6) Diabetes mellitus, type II: Plan: Hold home agents SSI while in-patient BSG AC HS (7) Mixed Alzheimer's and vascular dementia: Plan: to remain at bedside or one-to-one in setting of patient's advanced dementia Only oriented to person at baseline Continue Namenda, donepezil (8) Hypertension: Plan: Continue enalapril, hydrochlorothiazide (9) CKD (chronic kidney disease), stage III: Plan: Kidney function at baseline. Monitor with daily BMP (10) Hyperlipidemia: Plan: Continue statin DVT Ppx: SQ heparin Code status: FULL PCP: Ashleigh Dispo: Admitted to PCU. Discharge planning ordered. Discussed with the in detail Admission and Anticipated Discharge Date Admission Date: October 25, 2020 Subjective 10/26/2020 The patient was seen and examined in telemetry unit He remains confused and restless throughout the whole night and this morning to He denies any significant symptoms one asking question Requiring one-to-one sitter and mittens to safeguard the tubes that he has 10/27/2020 The patient was seen and examined in telemetry unit He has significant dementia and denies any symptoms Does not seems to be in distress Still requiring mittens to prevent extractions of tubes and requires one-to-one sitter Review of Systems Review of Systems: Unobtainable due to cognitive status Physical Exam Physical Exam: Lying in bed comfortably Constitutional: + ill appearing and average body habitus Eyes: PERRL, conjunctivae normal, anicteric sclerae ENMT: external ear and nose normal, oropharynx normal Respiratory: no respiratory distress and no cough Auscultation: + lungs not clear to auscultation (Decreased breath sounds on the right side) Cardiovascular: Rate/Rhythm: regular rate and regular rhythm; not tachycardic Heart Sounds: normal S1 and normal S2; no murmur Extremities: no edema Gastrointestinal (Abdomen): normal bowel sounds, soft, nontender, no hepatosplenomegaly Musculoskeletal: No acute arthritis in any joint Neurologic: Alert and awake. Pleasantly confused. Moves all extremities Psychiatric: Insight: + poor insight Lymphatic: no cervical or axillary lymphadenopathy Results & Data Results & Data ([facility]) Vital Signs (Past 12 Hours) Vital Signs Temp Pulse Pulse Resp BP Pulse Ox 10/27/20 16:03 37.1 C 73 19 156/74 H 97 10/27/20 12:18 36.3 C L 60 16 93/62 L 96 10/27/20 07:20 66 10/27/20 07:18 36.3 C L 67 16 147/68 H 95 Laboratory Results Short CBC 10/27/20 Range/Units 05:37 WBC 8.56 (4.8-10.8) K/uL Hgb 14.0 (14.0-18.0) g/dL Hct 41.6 L (42-52) % Plt Count 192 (130-400) K/uL BMP 10/27/20 05:37 Sodium 140 Potassium 3.1 L D Chloride 106 Carbon Dioxide 29 BUN 13 Creatinine 1.03 Glucose 89 Calcium 8.3 L Medications Administered Current Inpatient Medications Aspirin (Aspirin 81 Mg Ectab) 81 mg PO QAM ALONDRA Stop: 11/25/20 08:59 Last Admin: 10/27/20 07:56 Dose: 81 mg Documented by: Atorvastatin Calcium (Atorvastatin 40 Mg Tab) 40 mg PO HS COUNTS INCLUDE 234 BEDS AT THE [facility] Stop: 11/24/20 20:59 Last Admin: 10/26/20 21:38 Dose: 40 mg Documented by: Cyanocobalamin (Cyanocobalamin 500 Mcg Tablet (Vitamin B-12)) 1,000 mcg PO DAILY ALONDRA Stop: 11/25/20 08:59 Last Admin: 10/27/20 07:57 Dose: 1,000 mcg Documented by: Dextrose (Dextrose 50% 50 Ml Syringe) 25 - 50 ml IV UD PRN; Protocol PRN Reason: Hypoglycemia Protocol Stop: 11/24/20 16:43 Donepezil HCl (Donepezil Hcl 10 Mg Tab) 10 mg PO HS COUNTS INCLUDE 234 BEDS AT THE [facility] Stop: 11/24/20 20:59 Last Admin: 10/26/20 21:37 Dose: 10 mg Documented by: Enalapril Maleate (Enalapril Maleate 10 Mg Tab) 20 mg PO HS COUNTS INCLUDE 234 BEDS AT THE [facility] Stop: 11/24/20 20:59 Last Admin: 10/26/20 21:37 Dose: 20 mg Documented by: Glucagon (Glucagon For Inj 1 Mg Vial) 1 mg SQ UD PRN; Protocol PRN Reason: Hypoglycemia Protocol Stop: 11/24/20 16:43 Glucose (Glucose 10 Tabs/Tube) 4 - 8 tabs PO UD PRN; Protocol PRN Reason: Hypoglycemia Protocol Stop: 11/24/20 16:43 Glucose (Glucose 40% Gel 15 Gm Tube) 15 - 30 gm PO UD PRN; Protocol PRN Reason: Hypoglycemia Protocol Stop: 11/24/20 16:43 Heparin Sodium (Porcine) (Heparin Sod 5,000 Unit/0.5 Ml Vial) 5,000 units SQ Q8 ALONDRA Stop: 11/24/20 21:59 Last Admin: 10/27/20 13:51 Dose: Not Given Documented by: Hydrochlorothiazide (Hydrochlorothiazide 25 Mg Tab) 25 mg PO QAM COUNTS INCLUDE 234 BEDS AT THE [facility] Stop: 11/25/20 08:59 Last Admin: 10/27/20 07:57 Dose: 25 mg Documented by: Insulin Aspart (Insulin Aspart 100 Units/Ml 3 Ml Pen) 0 units SC ACHS ALONDRA Stop: 11/24/20 20:59 Last Admin: 10/27/20 17:23 Dose: 1 units Documented by: Memantine (Memantine Hcl 10 Mg Tab) 10 mg PO BID ALONDRA Stop: 11/24/20 20:59 Last Admin: 10/27/20 07:57 Dose: 10 mg Documented by: Miscellaneous (Carbohydrates For Hypoglycemia ) 15 - 30 gm PO UD PRN PRN Reason: Hypoglycemia Protocol Stop: 11/24/20 16:43 Multivitamins (Multivitamin Tab) 1 tab PO DAILY COUNTS INCLUDE 234 BEDS AT THE [facility] Stop: 11/25/20 08:59 Last Admin: 10/27/20 07:57 Dose: 1 tab Documented by: Ondansetron HCl (Ondansetron Inj 2 Mg/Ml 2 Ml Vial) 4 mg IV Q6H PRN PRN Reason: Nausea Stop: 11/24/20 13:10 Polyethylene Glycol (Polyethylene (Miralax) 17 Gm Pack) 17 gm PO DAILY PRN PRN Reason: Constipation Stop: 11/24/20 13:10 (1) Fall Encounter type: initial encounter Qualified Code(s): W19.XXXA - Unspecified fall, initial encounter
[2020-10-27] MEDS: ATORVASTATIN 40 MG TAB PO SCH (21:40)
[2020-10-27] MEDS: DONEPEZIL HCL 10 MG TAB PO SCH (21:40)
[2020-10-27] MEDS: ENALAPRIL MALEATE 10 MG TAB PO SCH (21:40)
--- NOTE | 2020-10-28 08:40 | XRay Report ---
XR chest 1V portable HISTORY: 84 years-old Male chest tube right-sided pneumothorax COMPARISON: 10/27/2020 TECHNIQUE: AP view of the chest FINDINGS: A right-sided chest tube projects over the lateral right lung base. Mildly decreased size of the righ t pneumothorax, now with apical pleural separation of 2.1 cm, previously 2.8. The basilar portion of the pneumothorax has also decreased in size. Trace right pleural effusion. Cardiomediastinal and vicky r silhouettes are unchanged. The left lung is generally clear. There are persistent right lung base o pacities. Degenerative changes of the shoulders and spine. IMPRESSION: 1. Mildly decreased size of the right pneumothorax with stable positioning of the right basilar chest tube. 2. Persistent right lung base opacities. ACT 112: Negative or not required by law. The above report was generated using voice recognition software. It may contain grammatical, syntax o r spelling errors. Electronically signed by: Sanya Bello M.D. 10/28/2020 8:39 AM
[2020-10-28] MEDS: INSULIN ASPART 100 UNITS/ML 3 ML PEN SC SCH ×4 (08:46→20:34)
[2020-10-28] MEDS: MULTIVITAMIN TAB PO SCH (08:47)
[2020-10-28] MEDS: HEPARIN SOD 5,000 UNIT/0.5 ML VIAL SQ SCH ×3 (08:47→21:41)
[2020-10-28] MEDS: hydroCHLOROthiazide 25 MG TAB PO SCH (08:48)
[2020-10-28] MEDS: CYANOCOBALAMIN 500 MCG TABLET (VITAMIN B-12) PO SCH (08:48)
[2020-10-28] MEDS: ASPIRIN 81 MG ECTAB PO SCH (08:48)
[2020-10-28] MEDS: MEMANTINE HCL 10 MG TAB PO SCH ×2 (08:50→21:40)
[2020-10-28 09:21] LABS: Basophils # (auto) 0.04 K/uL (0-0.2); Basophils % (auto) 0.3 %; Eosinophils # (auto) 0.04 K/uL (0-0.5); Eosinophils % (auto) 0.3 %; Hematocrit (blood only) 42.3 % (42-52); Hemoglobin 14.2 g/dL (14.0-18.0); Immature Granulocytes # (auto) 0.03 K/uL (0.00-0.02); Immature Granulocytes % (auto) 0.3 %; Lymphocytes # (auto) 1.12 K/uL (1.2-3.4); Lymphocytes % (auto) 9.7 %; Mean Corpuscular Hemoglobin 30.9 pg (25-34); Mean Corpuscular Hgb Conc 33.6 g/dL (32-36); Mean Corpuscular Volume 92.2 fL (80-100); Mean Platelet Volume 11.4 fL (7.4-10.4); Monocytes # (auto) 0.99 K/uL (0.11-0.59); Monocytes % (auto) 8.5 %; Neutrophils # (auto) 9.38 K/uL (1.4-6.5); Neutrophils % (auto) 80.9 %; Platelet Count 214 K/uL (130-400); RDW Coefficient of Variation 15.1 % (11.5-14.5); RDW Standard Deviation 50.9 fL (36.4-46.3); Red Blood Count 4.59 M/uL (4.7-6.1)
[2020-10-28 09:53] LABS: BUN Creatinine Ratio 18.9 (10-20); Calcium 8.5 mg/dl (8.5-10.1); Creatinine Clr Calc Pharmacy 53.9 ml/min; Est GFR (Non-African American) 63.9 ml/min; Magnesium 1.5 mg/dl (1.8-2.4); Phosphorus 3.1 mg/dl (2.5-4.9); Potassium 3.8 mmol/L (3.5-5.1)
--- NOTE | 2020-10-28 10:38 | Pulmonology Progress Note ---
Date of Service October 28, 2020 Assessment & Plan (1) Pleural effusion on right: (2) Shortness of breath: (3) Atelectasis of right lung: Plan: Impression: 84-year-old male with exudative pleural effusion and associated pneumothorax. Chest tube remains in place. He has significant underlying dementia. Recommendations: 1. Pleural effusion: Exudative by light's criteria based on total protein and LDH. Fluid appears resolved on most recent x-ray. Cytology is negative. At this point time I would follow the patient clinically. If the effusion should reaccumulate, repeat thoracentesis or consideration for outpatient video- assisted thoracoscopic evaluation of the pleural space may be appropriate. Given the patient's underlying history of dementia and deconditioning, may consider a more symptomatic driven approach. Consideration for palliative care consultation to define goals of therapy may be appropriate. This is deferred to the patient's primary admitting service 2. Pneumothorax: Improved with chest tube set to 40 cm of wall suction. The tube was flushed today with improvement in egress of air. We will follow-up chest x-ray tomorrow. If the pneumothorax remains problematic, could consider placement of a secondary anterior pneumothorax catheter. We will continue to follow with you. Please contact us with interval questions. Please note the above document was generated using voice recognition software. It may contain grammatical, syntax or spelling errors. Any formal questions or concerns about the content, text or information contained within the body of this dictation should be directly addressed to the provider for clarification. Admission and Anticipated Discharge Date Admission Date: October 25, 2020 Subjective Patient seen and examined. He remains pleasantly demented. He is not complaining of any significant chest discomfort shortness of breath palpitations or chest pressure. The tube was found disconnected from the suction device this morning. The dressing was taken down and the chest tube was flushed with sterile saline. Tube was reattached to suction with significant bubbling noted in the Pleur- evac. Review of Systems Review of Systems: Unobtainable due to cognitive status Physical Exam Constitutional: WD/WN, vitals as above Neck: trachea midline, no thyromegaly Respiratory: normal respiratory effort, lungs clear to auscultation Cardiovascular: RRR, no murmur, no edema Chest (Breasts): Additional Comments: Small air leak noted on chest tube at 40 cm of water suction Gastrointestinal (Abdomen): normal bowel sounds, soft, nontender, no hepatosplenomegaly Musculoskeletal: Extremities: extremities normal to inspection Skin: no rashes, warm and dry Neurologic: Nonfocal exam Lymphatic: no cervical lymphadenopathy Results & Data Results & Data ([facility]) Vital Signs (Past 12 Hours) Vital Signs Temp Pulse Pulse Resp BP BP Pulse Ox 10/28/20 07:11 36.7 C 69 18 139/69 96 10/28/20 04:08 36.4 C L 70 18 147/67 H 97 10/28/20 00:15 79 10/27/20 23:57 36.9 C 80 18 116/66 93 Laboratory Results 10/28/20 08:59 10/28/20 08:59 Diagnostic Findings Chest x-ray from today was independently reviewed. There is decreased size of the pneumothorax but persistent apical pneumothorax. PG Care Time/CCT Total # of Minutes Spent Total Time Spent with Patient: Total time spent is greater than 50% in coordination of care (as documented) at patient's floor/unit and/or counseling patient: Coding Level of Care Code 23084 Subseq Hosp Care Lvl 3 Diagnoses Pleural effusion on right J90 Shortness of breath R06.02 Atelectasis of right lung J98.11
--- NOTE | 2020-10-28 11:40 | Palliative Care Consultation ---
Date of Consultation October 28, 2020 Assessment & Plan (1) Palliative care encounter: Jaylen is an 84 year old male who presented to the [facility] with ongoing weakness that occurred over a three week period of time. He had an additional PMH that includes senile degeneration of the brain, DM2, CKD3, ankylosing spondylitis, and HTN. A CT scan of the chest revealed numerous pleural effusions and a pneumothorax for which a chest tube was placed. Palliative Medicine was consulted to discuss overall goals of care. I talked with the patient's daughter, Lynn on the phone at [phone]. That phone # is actually the patients 's number, but she is having a same day surgery today. The patient appears to have confusion at baseline and per review of the chart has been requiring increased ADL needs met by his , which has become more challenging. The patient is currently a Full Code and the likelihood of a successful resuscitation is low. Code status and overall goals of care to be discussed in detail with family on Tuesday. For now, continue current treatment and full code status. Palliative will follow. (2) Weakness: (3) Altered mental status: (4) Shortness of breath: History of Present Illness Reason for Consultation: Goals of Care Requesting Physician: Dr. Schreiber Attending Physician: Jill Schreiber MD History of Present Illness Jaylen is an 84 year old male who presented to the [facility] with ongoing weakness that occurred over a three week period of time. He had an additional PMH that includes senile degeneration of the brain, DM2, CKD3, ankylosing spondylitis, and HTN. A CT scan of the chest revealed numerous pleural effusions and a pneumothorax for which a chest tube was placed. Palliative Medicine was consulted to discuss overall goals of care. Please see A/P for further details. Thanks for involving Palliative Medicine with this individual. Allergies Allergy/AdvReac Type Severity Reaction Status Date / Time acetaminophen Allergy Intermediate rash Verified 10/25/20 09:25 codeine Allergy Unknown Verified 10/25/20 09:25 Home Medications Medication Instructions Recorded Confirmed Type atorvastatin 40 mg tablet (Lipitor) 40 mg PO HS tab 06/22/19 10/25/20 History donepezil 10 mg tablet (Aricept) 10 mg PO HS 06/22/19 10/25/20 History enalapril maleate 20 mg tablet 20 mg PO HS tab 06/22/19 10/25/20 History (Vasotec) hydrochlorothiazide 25 mg tablet 25 mg PO QAM tab 06/22/19 10/25/20 History memantine 10 mg tablet (Namenda) 10 mg PO BID tab 06/22/19 10/25/20 History metformin 500 mg tablet 1,000 mg PO BID tab 06/22/19 10/25/20 History pioglitazone 45 mg tablet (Actos) 45 mg PO QAM tab 06/22/19 10/25/20 History sitagliptin 100 mg tablet (Januvia) 100 mg PO HS tab 06/22/19 10/25/20 History aspirin 81 mg tablet,delayed 81 mg PO QAM 10/25/20 10/25/20 History release (Aspirin Low Dose) cyanocobalamin (vitamin B-12) 1,000 mcg PO DAILY 10/25/20 10/25/20 History 1,000 mcg tablet multivitamin 1 tab PO DAILY 10/25/20 10/25/20 History Patient History Medical History (Updated 10/28/20 @ 13:14 by ROWDY Squires) Altered mental status CKD (chronic kidney disease), stage III Diabetes mellitus, type II Dysplastic nevus History of basal cell carcinoma Hyperlipidemia Hypertension Mixed Alzheimer's and vascular dementia Palliative care encounter Shortness of breath Weakness Surgical History No history of previous surgery Family History Mother No pertinent family history Other Cancer Heart disease Stroke Social History Smoking Status: Former smoker Smoking End Date: 1976; Second Hand Exposure: No; Do You Dip or Chew Tobacco: No; Tobacco Cessation Education Requested by Patient: No Hx Alcohol Use: No Hx Substance Use: No Preferred Language: Setswana Communication Ability: Unable Loom Operator Required: No Beliefs That Will Affect Care: None Current Living Situation: Spouse Current Living Situation Comment: ranch home Other Information That Helps Us Care for You: No Feels Safe at Home: Yes Safety Concerns: Feels Safe At This Time Assistive Devices: Glasses Review of Systems Review of Systems: [place] System Assessment Scale: Pain: 1/3 AD Lack of Appetite: 1/3 AD Tiredness: 0/3 AD Shortness of breath: 0/3 AD Palliative Performance Scale: 30% Physical Exam Constitutional: + thin, + frail appearing, cooperative and comfortable ENMT: Mouth: + dry oral mucous membranes Respiratory: normal respiratory effort Auscultation: + diminished lung sounds Cardiovascular: Rate/Rhythm: regular rate and regular rhythm Heart Sounds: normal S1 and normal S2 Extremities: normal capillary refill; no edema Gastrointestinal (Abdomen): Inspection/Auscultation: abdomen normal to inspection Percussion/Palpation: abdomen soft Skin: + pallor Psychiatric: Insight: + impaired insight Judgement: + impaired judgement Results & Data ([facility]) Vital Signs (Past 12 Hours) Vital Signs Temp Pulse Pulse Resp BP BP Pulse Ox 10/28/20 11:27 36.6 C 68 18 124/66 97 10/28/20 08:00 72 10/28/20 07:11 36.7 C 69 18 139/69 96 10/28/20 04:08 36.4 C L 70 18 147/67 H 97 10/28/20 00:15 79 10/27/20 23:57 36.9 C 80 18 116/66 93 PG Care Time/CCT Total # of Minutes Spent Total Time Spent with Patient: Total time spent is greater than 50% in coordination of care (as documented) at patient's floor/unit and/or counseling patient: 70 minutes with > 50% of that time spent assessing the patient, discussing goals of care overall, and collaborating with IDT Coding Level of Care Code 70721 Initial Inpt Care Lvl 3 Diagnoses Palliative care encounter Z51.5 Weakness R53.1 Altered mental status R41.82 Shortness of breath R06.02 Time Spent (min) 70
--- NOTE | 2020-10-28 17:11 | Hospitalist Progress Note ---
Date of Service October 28, 2020 Assessment & Plan (1) Pleural effusion on right: Plan: This is an 84-year-old male with PMH of dementia, type 2 diabetes, hypertension, CKD 3, ankylosing spondylitis and other medical problems listed below who presents with progressive weakness over the past 3 weeks and was found to have large R pleural effusion on chest CTA. Chest CTA with large right pleural effusion associated with collapse of the right middle lobe and the right lower lobe as well as mild midline shift to the left Pulmonology consulted - Dr. Pearson s/p pigtail chest tube insertion Pleural fluid/serum; [id number], protein 4.3/6.2 and pH 7.43 Exudative fluid-could be secondary to infection, malignancy Does not seems like infection and he is not being on any antibiotic Still draining considerable amount of fluid Has had pneumothorax-chest tube has been repositioned and negative suction has been applied Clinically stable without any significant distress Appreciate palliative care input and recommendation Restlessness with agitation Has history of dementia and acute delirium could be secondary to infection Has been requiring physical restraint and one-to-one sitter to protect the tubings including chest tube and catheter Remains stable without much hesitation Requiring mittens to prevent pulling out of tubes and also requiring one-to-one sitter Zyprexa has been added for agitation-we will try to avoid any Ativan (2) Generalized weakness: Plan: We will get PT and OT evaluation when appropriate (3) Fall: Plan: Progressive physical decline/deconditioning in setting of advanced dementia CT head without any acute intracranial changes interested in additional services and potential placement due to increased care burden at home PT/OT evaluation Case management evaluation Fall precautions, aspiration precautions We will get palliative care involvement for further goals of care (4) Hypomagnesemia: Plan: Replaced. Repeat mag in in the morning (5) Edema of right lower extremity: Plan: 2-3+ pitting edema right lower extremity over the past few weeks Right lower extremity venous Doppler without evidence of DVT Continue to monitor (6) Diabetes mellitus, type II: Plan: Hold home agents SSI while in-patient BSG AC HS (7) Mixed Alzheimer's and vascular dementia: Plan: to remain at bedside or one-to-one in setting of patient's advanced dementia Only oriented to person at baseline Continue Namenda, donepezil No acute delirium (8) Hypertension: Plan: Continue enalapril, hydrochlorothiazide (9) CKD (chronic kidney disease), stage III: Plan: Kidney function at baseline. Monitor with daily BMP (10) Hyperlipidemia: Plan: Continue statin DVT Ppx: SQ heparin Code status: FULL PCP: Ashleigh Dispo: Admitted to PCU. Discharge planning ordered. Discussed with the in detail Admission and Anticipated Discharge Date Admission Date: October 25, 2020 Subjective 10/26/2020 The patient was seen and examined in telemetry unit He remains confused and restless throughout the whole night and this morning to He denies any significant symptoms one asking question Requiring one-to-one sitter and mittens to safeguard the tubes that he has 10/27/2020 The patient was seen and examined in telemetry unit He has significant dementia and denies any symptoms Does not seems to be in distress Still requiring mittens to prevent extractions of tubes and requires one-to-one sitter 10/28/2020 The patient was seen and examined in telemetry unit He remains stable and a little quiet than before Denies any symptoms-he does have Alzheimer's dementia Review of Systems Review of Systems: Unobtainable due to cognitive status Physical Exam Physical Exam: Lying in bed comfortably Constitutional: + ill appearing and average body habitus Eyes: PERRL, conjunctivae normal, anicteric sclerae ENMT: external ear and nose normal, oropharynx normal Respiratory: no respiratory distress and no cough Auscultation: + lungs not clear to auscultation (Decreased breath sounds on the right side) Cardiovascular: Rate/Rhythm: regular rate and regular rhythm; not tachycardic Heart Sounds: normal S1 and normal S2; no murmur Extremities: no edema Gastrointestinal (Abdomen): normal bowel sounds, soft, nontender, no hepatosplenomegaly Psychiatric: Insight: + poor insight Lymphatic: no cervical or axillary lymphadenopathy Results & Data Results & Data ([facility]) Vital Signs (Past 12 Hours) Vital Signs Temp Pulse Pulse Resp BP BP Pulse Ox 10/28/20 15:51 65 10/28/20 15:09 36.7 C 72 18 146/68 H 97 10/28/20 11:27 36.6 C 68 18 124/66 97 10/28/20 08:00 72 10/28/20 07:11 36.7 C 69 18 139/69 96 Laboratory Results Short CBC 10/28/20 Range/Units 08:59 WBC 11.60 H (4.8-10.8) K/uL Hgb 14.2 (14.0-18.0) g/dL Hct 42.3 (42-52) % Plt Count 214 (130-400) K/uL BMP 10/28/20 08:59 Sodium 139 Potassium 3.8 D Chloride 105 Carbon Dioxide 27 BUN 20 H D Creatinine 1.07 Glucose 113 H Calcium 8.5 Medications Administered Current Inpatient Medications Aspirin (Aspirin 81 Mg Ectab) 81 mg PO [facility] ALONDRA Stop: 11/25/20 08:59 Last Admin: 10/28/20 08:48 Dose: 81 mg Documented by: Atorvastatin Calcium (Atorvastatin 40 Mg Tab) 40 mg PO [facility] Stop: 11/24/20 20:59 Last Admin: 10/27/20 21:40 Dose: 40 mg Documented by: Cyanocobalamin (Cyanocobalamin 500 Mcg Tablet (Vitamin B-12)) 1,000 mcg PO DAILY ALONDRA Stop: 11/25/20 08:59 Last Admin: 10/28/20 08:48 Dose: 1,000 mcg Documented by: Dextrose (Dextrose 50% 50 Ml Syringe) 25 - 50 ml IV UD PRN; Protocol PRN Reason: Hypoglycemia Protocol Stop: 11/24/20 16:43 Donepezil HCl (Donepezil Hcl 10 Mg Tab) 10 mg PO [facility] Stop: 11/24/20 20:59 Last Admin: 10/27/20 21:40 Dose: 10 mg Documented by: Enalapril Maleate (Enalapril Maleate 10 Mg Tab) 20 mg PO [facility] Stop: 11/24/20 20:59 Last Admin: 10/27/20 21:40 Dose: 20 mg Documented by: Glucagon (Glucagon For Inj 1 Mg Vial) 1 mg SQ UD PRN; Protocol PRN Reason: Hypoglycemia Protocol Stop: 11/24/20 16:43 Glucose (Glucose 10 Tabs/Tube) 4 - 8 tabs PO UD PRN; Protocol PRN Reason: Hypoglycemia Protocol Stop: 11/24/20 16:43 Glucose (Glucose 40% Gel 15 Gm Tube) 15 - 30 gm PO UD PRN; Protocol PRN Reason: Hypoglycemia Protocol Stop: 11/24/20 16:43 Heparin Sodium (Porcine) (Heparin Sod 5,000 Unit/0.5 Ml Vial) 5,000 units SQ Q8 ALONDRA Stop: 11/24/20 21:59 Last Admin: 10/28/20 08:47 Dose: 5,000 units Documented by: Hydrochlorothiazide (Hydrochlorothiazide 25 Mg Tab) 25 mg PO QAM ALONDRA Stop: 11/25/20 08:59 Last Admin: 10/28/20 08:48 Dose: 25 mg Documented by: Insulin Aspart (Insulin Aspart 100 Units/Ml 3 Ml Pen) 0 units SC ACHS ALONDRA Stop: 11/24/20 20:59 Last Admin: 10/28/20 12:17 Dose: Not Given Documented by: Memantine (Memantine Hcl 10 Mg Tab) 10 mg PO BID ALONDRA Stop: 11/24/20 20:59 Last Admin: 10/28/20 08:50 Dose: 10 mg Documented by: Miscellaneous (Carbohydrates For Hypoglycemia ) 15 - 30 gm PO UD PRN PRN Reason: Hypoglycemia Protocol Stop: 11/24/20 16:43 Multivitamins (Multivitamin Tab) 1 tab PO DAILY [facility]ON[facility]A Stop: 11/25/20 08:59 Last Admin: 10/28/20 08:47 Dose: 1 tab Documented by: Ondansetron HCl (Ondansetron Inj 2 Mg/Ml 2 Ml Vial) 4 mg IV Q6H PRN PRN Reason: Nausea Stop: 11/24/20 13:10 Polyethylene Glycol (Polyethylene (Miralax) 17 Gm Pack) 17 gm PO DAILY PRN PRN Reason: Constipation Stop: 11/24/20 13:10 (1) Fall Encounter type: initial encounter Qualified Code(s): W19.XXXA - Unspecified fall, initial encounter
[2020-10-28] MEDS: ATORVASTATIN 40 MG TAB PO SCH (21:40)
[2020-10-28] MEDS: DONEPEZIL HCL 10 MG TAB PO SCH (21:40)
[2020-10-28] MEDS: ENALAPRIL MALEATE 10 MG TAB PO SCH (21:40)
[2020-10-29] MEDS: HEPARIN SOD 5,000 UNIT/0.5 ML VIAL SQ SCH ×2 (06:30→06:40)
--- NOTE | 2020-10-29 06:43 | Hospitalist Progress Note ---
Date of Service October 29, 2020 Assessment & Plan Admission and Anticipated Discharge Date Admission Date: October 25, 2020 Subjective Holding heparin sub q because of hematuria. thanks Results & Data Results & Data ([facility]) Vital Signs (Past 12 Hours) Vital Signs Temp Pulse Pulse Resp BP Pulse Ox 10/29/20 04:07 37.0 C 70 18 117/69 94 10/29/20 00:23 72 10/28/20 19:31 37.3 C 75 18 129/72 95
--- NOTE | 2020-10-29 07:35 | XRay Report ---
XR chest 1V portable HISTORY: 84 years-old Male chest tube status post placement of a right-sided chest tube COMPARISON: 10/28/2020 chest radiograph, CTA chest 11/04/2020 TECHNIQUE: Portable AP view of the chest FINDINGS: Cardiomediastinal and hilar silhouettes are unchanged. Right-sided hydropneumothorax with trace right pleural effusion and small right apical pneumothorax. Pleural separation measures up to 2.8 cm, prev iously 2.1 cm. Chest tube with the lateral right lung base is unchanged. Unchanged right midlung and right lung base consolidation. The left lung is generally clear. Bones appear grossly intact. IMPRESSION: 1. Right-sided hydropneumothorax with slightly increased size of the apical pneumothorax. 2. Stable positioning of the right basilar chest tube. 3. Persistent right lung base opacities. ACT 112: Negative or not required by law. The above report was generated using voice recognition software. It may contain grammatical, syntax o r spelling errors. Electronically signed by: Sanya Bello M.D. 10/29/2020 7:34 AM
[2020-10-29] MEDS: INSULIN ASPART 100 UNITS/ML 3 ML PEN SC SCH ×4 (08:15→20:45)
[2020-10-29] MEDS: MULTIVITAMIN TAB PO SCH (08:21)
[2020-10-29] MEDS: hydroCHLOROthiazide 25 MG TAB PO SCH (08:21)
[2020-10-29] MEDS: MEMANTINE HCL 10 MG TAB PO SCH ×2 (08:21→20:37)
[2020-10-29] MEDS: ASPIRIN 81 MG ECTAB PO SCH (08:21)
[2020-10-29] MEDS: CYANOCOBALAMIN 500 MCG TABLET (VITAMIN B-12) PO SCH (08:21)
[2020-10-29 09:12] LABS: Quantiferon Mitogen-NIL >10.00 IU/mL; Quantiferon NIL 0.05 IU/mL; Quantiferon TB Gold Plus NEGATIVE (NEGATIVE); Quantiferon TB2-NIL 0.01 IU/mL
--- NOTE | 2020-10-29 15:54 | Palliative Care Progress Note ---
Date of Service October 29, 2020 Assessment & Plan (1) Palliative care encounter: Plan: I met with Mrs. Josue who is recovering from same day surgery yesterday. She has two other doctor appointments this week to deal with her own health issues. She tells me that Jaylen's memory has deteriorated to the point where as soon as he finishes eating, he goes to the living room, sits down and asks "what's for dinner?" He has had increased weakness and unsteadiness with a fall. He is requiring increased assistance with ADLs and she is not able to manage his care at home. She tells me that he never really talked much about his wishes or concerns regarding healthcare but that he has a living will which says DNR. She says that if he wasn't going to get better, he wouldn't want CPR. We talked about the statistical success rate of CPR, particularly in elderly, frail patients. She tells me that he would not want to be full code. This was changed to DNR to reflect his wishes. She is considering placement at [facility] but is not certain which she prefers. She is working with case management on this. (2) Acute respiratory failure with hypoxia: (3) Pleural effusion on right: (4) Mixed Alzheimer's and vascular dementia: (5) Diabetes mellitus, type II: Admission and Anticipated Discharge Date Admission Date: October 25, 2020 Subjective Sitting at bedside. Not oriented to place or time but recognizes his . Review of Systems Review of Systems: Unobtainable due to cognitive status [place] Symptom Assessment Scale PainAD 0/3 Dyspnea by observation 0/3 Palliative Performance Score 40% Physical Exam Constitutional: no acute distress Respiratory: normal respiratory effort; no labored breathing Musculoskeletal: Extremities: + muscle atrophy Neurologic: awake and + confused Psychiatric: Orientation: oriented to person and cooperative; + not oriented to place and + not oriented to time Results & Data ([facility]) Vital Signs (Past 12 Hours) Vital Signs Temp Pulse Pulse Resp BP BP Pulse Ox 10/29/20 11:30 97.9 F 70 19 97/59 L 96 10/29/20 08:00 73 10/29/20 07:05 98.2 F 70 17 114/75 95 10/29/20 04:07 98.6 F 70 18 117/69 94 PG Care Time/CCT Total # of Minutes Spent Total Time Spent: 40 Total Time Spent with Patient: Total time spent is greater than 50% in coordination of care (as documented) at patient's floor/unit and/or counseling patien goals of care, code status, family education and support Coding Level of Care Code 67385 Subseq Hosp Care Lvl 3 Diagnoses Palliative care encounter Z51.5 Acute respiratory failure with hypoxia J96.01 Pleural effusion on right J90 Mixed Alzheimer's and vascular dementia G30.9; F01.50; F02.80 Diabetes mellitus, type II E11.9
--- NOTE | 2020-10-29 17:28 | Hospitalist Progress Note ---
Date of Service October 29, 2020 Assessment & Plan (1) Pleural effusion on right: Plan: This is an 84-year-old male with PMH of dementia, type 2 diabetes, hypertension, CKD 3, ankylosing spondylitis and other medical problems listed below who presents with progressive weakness over the past 3 weeks and was found to have large R pleural effusion on chest CTA. Chest CTA with large right pleural effusion associated with collapse of the right middle lobe and the right lower lobe as well as mild midline shift to the left Pulmonology consulted - Dr. Pearson s/p pigtail chest tube insertion Pleural fluid/serum; [id number], protein 4.3/6.2 and pH 7.43 Exudative fluid-could be secondary to infection, malignancy Does not seems like infection and he is not being on any antibiotic Still draining considerable amount of fluid Has had pneumothorax-chest tube has been repositioned and negative suction has been applied Clinically stable without any significant distress Drainage from the chest tube has diminished a lot-awaiting pulmonary evaluation for extraction of the tube Restlessness with agitation Has history of dementia and acute delirium could be secondary to infection Has been requiring physical restraint and one-to-one sitter to protect the tubings including chest tube and catheter Remains stable without much hesitation Requiring mittens to prevent pulling out of tubes and also requiring one-to-one sitter Zyprexa has been added for agitation-we will try to avoid any Ativan Palliative care encounter Appreciate input and recommendation The patient is made DNR manager software is working for placement (2) Generalized weakness: Plan: We will get PT and OT evaluation when appropriate (3) Fall: Plan: Progressive physical decline/deconditioning in setting of advanced dementia CT head without any acute intracranial changes interested in additional services and potential placement due to increased care burden at home PT/OT evaluation Case management evaluation Fall precautions, aspiration precautions We will get palliative care involvement for further goals of care (4) Hypomagnesemia: Plan: Replaced. Repeat mag in in the morning (5) Edema of right lower extremity: Plan: 2-3+ pitting edema right lower extremity over the past few weeks Right lower extremity venous Doppler without evidence of DVT Continue to monitor (6) Diabetes mellitus, type II: Plan: Hold home agents SSI while in-patient BSG AC HS (7) Mixed Alzheimer's and vascular dementia: Plan: to remain at bedside or one-to-one in setting of patient's advanced dementia Only oriented to person at baseline Continue Namenda, donepezil No acute delirium (8) Hypertension: Plan: Continue enalapril, hydrochlorothiazide (9) CKD (chronic kidney disease), stage III: Plan: Kidney function at baseline. Monitor with daily BMP (10) Hyperlipidemia: Plan: Continue statin DVT Ppx: SQ heparin Code status: FULL PCP: Ashleigh Dispo: Admitted to PCU. Discharge planning ordered. Discussed with the in detail Admission and Anticipated Discharge Date Admission Date: October 25, 2020 Subjective 10/26/2020 The patient was seen and examined in telemetry unit He remains confused and restless throughout the whole night and this morning to He denies any significant symptoms one asking question Requiring one-to-one sitter and mittens to safeguard the tubes that he has 10/27/2020 The patient was seen and examined in telemetry unit He has significant dementia and denies any symptoms Does not seems to be in distress Still requiring mittens to prevent extractions of tubes and requires one-to-one sitter 10/28/2020 The patient was seen and examined in telemetry unit He remains stable and a little quiet than before Denies any symptoms-he does have Alzheimer's dementia 10/29/2020 The patient was seen and examined in telemetry unit He has been stable without any significant symptoms Remains pleasantly confused Review of Systems Review of Systems: Unobtainable due to cognitive status Physical Exam Physical Exam: Sitting on a chair without any acute distress Constitutional: + ill appearing and average body habitus Eyes: PERRL, conjunctivae normal, anicteric sclerae ENMT: external ear and nose normal, oropharynx normal Respiratory: no respiratory distress and no cough Auscultation: + lungs not clear to auscultation (Decreased breath sounds on the right side) Cardiovascular: Rate/Rhythm: regular rate and regular rhythm; not tachycardic Heart Sounds: normal S1 and normal S2; no murmur Extremities: no edema Gastrointestinal (Abdomen): normal bowel sounds, soft, nontender, no hepatosplenomegaly Musculoskeletal: No acute arthritis in any joint Neurologic: Pleasantly confused with history of dementia Psychiatric: Insight: + poor insight Lymphatic: no cervical or axillary lymphadenopathy Results & Data Results & Data ([facility]) Vital Signs (Past 12 Hours) Vital Signs Temp Pulse Pulse Resp BP BP Pulse Ox 10/29/20 17:03 80 10/29/20 11:30 36.6 C 70 19 97/59 L 96 10/29/20 08:00 73 10/29/20 07:05 36.8 C 70 17 114/75 95 Medications Administered Current Inpatient Medications Aspirin (Aspirin 81 Mg Ectab) 81 mg PO QAM ALONDRA Stop: 11/25/20 08:59 Last Admin: 10/29/20 08:21 Dose: 81 mg Documented by: Atorvastatin Calcium (Atorvastatin 40 Mg Tab) 40 mg PO HS [facility] Stop: 11/24/20 20:59 Last Admin: 10/28/20 21:40 Dose: 40 mg Documented by: Cyanocobalamin (Cyanocobalamin 500 Mcg Tablet (Vitamin B-12)) 1,000 mcg PO DAILY [facility] Stop: 11/25/20 08:59 Last Admin: 10/29/20 08:21 Dose: 1,000 mcg Documented by: Dextrose (Dextrose 50% 50 Ml Syringe) 25 - 50 ml IV UD PRN; Protocol PRN Reason: Hypoglycemia Protocol Stop: 11/24/20 16:43 Donepezil HCl (Donepezil Hcl 10 Mg Tab) 10 mg PO [facility] Stop: 11/24/20 20:59 Last Admin: 10/28/20 21:40 Dose: 10 mg Documented by: Enalapril Maleate (Enalapril Maleate 10 Mg Tab) 20 mg PO [facility] Stop: 11/24/20 20:59 Last Admin: 10/28/20 21:40 Dose: 20 mg Documented by: Glucagon (Glucagon For Inj 1 Mg Vial) 1 mg SQ UD PRN; Protocol PRN Reason: Hypoglycemia Protocol Stop: 11/24/20 16:43 Glucose (Glucose 10 Tabs/Tube) 4 - 8 tabs PO UD PRN; Protocol PRN Reason: Hypoglycemia Protocol Stop: 11/24/20 16:43 Glucose (Glucose 40% Gel 15 Gm Tube) 15 - 30 gm PO UD PRN; Protocol PRN Reason: Hypoglycemia Protocol Stop: 11/24/20 16:43 Heparin Sodium (Porcine) (Heparin Sod 5,000 Unit/0.5 Ml Vial) 5,000 units SQ Q8 ALONDRA Stop: 11/24/20 21:59 Last Admin: 10/29/20 06:40 Dose: Not Given Documented by: Hydrochlorothiazide (Hydrochlorothiazide 25 Mg Tab) 25 mg PO QAM [facility] Stop: 11/25/20 08:59 Last Admin: 10/29/20 08:21 Dose: 25 mg Documented by: Insulin Aspart (Insulin Aspart 100 Units/Ml 3 Ml Pen) 0 units SC ACHS ALONDRA Stop: 11/24/20 20:59 Last Admin: 10/29/20 17:12 Dose: Not Given Documented by: Memantine (Memantine Hcl 10 Mg Tab) 10 mg PO BID ALONDRA Stop: 11/24/20 20:59 Last Admin: 10/29/20 08:21 Dose: 10 mg Documented by: Miscellaneous (Carbohydrates For Hypoglycemia ) 15 - 30 gm PO UD PRN PRN Reason: Hypoglycemia Protocol Stop: 11/24/20 16:43 Multivitamins (Multivitamin Tab) 1 tab PO DAILY [facility] Stop: 11/25/20 08:59 Last Admin: 10/29/20 08:21 Dose: 1 tab Documented by: Ondansetron HCl (Ondansetron Inj 2 Mg/Ml 2 Ml Vial) 4 mg IV Q6H PRN PRN Reason: Nausea Stop: 11/24/20 13:10 Polyethylene Glycol (Polyethylene (Miralax) 17 Gm Pack) 17 gm PO DAILY PRN PRN Reason: Constipation Stop: 11/24/20 13:10 (1) Fall Encounter type: initial encounter Qualified Code(s): W19.XXXA - Unspecified fall, initial encounter
--- NOTE | 2020-10-29 17:29 | Pulmonology Progress Note ---
Date of Service October 29, 2020 Assessment & Plan (1) Pleural effusion on right: (2) Shortness of breath: (3) Atelectasis of right lung: Plan: Impression: 84-year-old male with exudative pleural effusion and associated pneumothorax. Chest tube remains in place. He has significant underlying dementia. His chest tube demonstrates persistent air leak today. The apical pneumothorax is unchanged from prior but the lower pneumothorax appears resolved. Recommendations: 1. Pleural effusion: Exudative by light's criteria based on total protein and LDH. Fluid appears resolved on most recent x-ray. Cytology is negative. At this point time I would follow the patient clinically. If the effusion should reaccumulate, repeat thoracentesis or consideration for outpatient video- assisted thoracoscopic evaluation of the pleural space may be appropriate. Given the patient's underlying history of dementia and deconditioning, may consider a more symptomatic driven approach. Patient and his met with palliative care. They are electing to pursue a more conservative approach which I think is reasonable and have elected not to escalate his care. 2. Pneumothorax: Improved with chest tube set to 40 cm of wall suction. There is a small air leak. I discussed with the patient's at bedside options. He was not particularly symptomatic with the pneumothorax before so we could see how he does with waterseal. Alternatively, we can place a second more apically directed tube to see if we could resolve the upper pneumothorax. He is already having issues keeping his hands off of the indwelling lines that he has so she would like to avoid additional invasive procedures which I think is reasonable. After careful consideration of long discussion we have elected to place him to waterseal overnight tonight and see if the pneumothorax should reaccumulate. If not, may consider clamping it for 12 to 24 hours and potentially withdrawing the tube as long as it remains stable. If the patient develops any respiratory distress chest discomfort or hypoxemia, would have a low threshold for returning the tube back to suction. He is not really a candidate for invasive procedures at this point time. We will continue to follow with you. Please contact us with interval questions. Please note the above document was generated using voice recognition software. It may contain grammatical, syntax or spelling errors. Any formal questions or concerns about the content, text or information contained within the body of this dictation should be directly addressed to the provider for clarification. Admission and Anticipated Discharge Date Admission Date: October 25, 2020 Subjective Patient seen and examined. EMR reviewed. He is awake alert and sitting up in a chair. His is at bedside. He continues to perseverate and denies any specific problems. He specifically denies any pain shortness of breath palpitations cough or wheezing. Review of Systems Review of Systems: Please refer to hospitalist note. No changes. Physical Exam Constitutional: WD/WN, vitals as above Neck: trachea midline, no thyromegaly Respiratory: normal respiratory effort, lungs clear to auscultation Cardiovascular: RRR, no murmur, no edema Gastrointestinal (Abdomen): normal bowel sounds, soft, nontender, no hepatosplenomegaly Musculoskeletal: Extremities: extremities normal to inspection Skin: no rashes, warm and dry Lymphatic: no cervical lymphadenopathy Results & Data Results & Data ([facility]) Vital Signs (Past 12 Hours) Vital Signs Temp Pulse Pulse Resp BP BP Pulse Ox 10/29/20 17:03 80 10/29/20 11:30 36.6 C 70 19 97/59 L 96 10/29/20 08:00 73 10/29/20 07:05 36.8 C 70 17 114/75 95 Laboratory Results 10/28/20 08:59 10/28/20 08:59 Diagnostic Findings Chest x-ray from today was independently reviewed. It demonstrates resolution of the lower lobe pneumothorax however there is a stable right apical pneumothor ax not significantly changed from prior. Chest tube is in position in the right lung base. PG Care Time/CCT Total # of Minutes Spent Total Time Spent with Patient: Total time spent is greater than 50% in coordination of care (as documented) at patient's floor/unit and/or counseling patient: Coding Level of Care Code 78234 Subseq Hosp Care Lvl 3 Diagnoses Pleural effusion on right J90 Shortness of breath R06.02 Atelectasis of right lung J98.11
[2020-10-29] MEDS: DONEPEZIL HCL 10 MG TAB PO SCH (20:36)
[2020-10-29] MEDS: ATORVASTATIN 40 MG TAB PO SCH (20:37)
[2020-10-29] MEDS: ENALAPRIL MALEATE 10 MG TAB PO SCH (20:43)
[2020-10-30] MEDS ORDERED: NSS + 20MEQ KCL 20 MEQ/1,000 ML BAG IV ONE (03:30)
[2020-10-30] MEDS: MAGNESIUM SULFATE / D5W 1 GM/100 ML BAG IV SCH ×2 (04:10→06:11)
[2020-10-30 06:01] LABS: Basophils # (auto) 0.05 K/uL (0-0.2); Basophils % (auto) 0.5 %; Eosinophils # (auto) 0.08 K/uL (0-0.5); Eosinophils % (auto) 0.9 %; Hematocrit (blood only) 40.5 % (42-52); Hemoglobin 13.6 g/dL (14.0-18.0); Immature Granulocytes # (auto) 0.04 K/uL (0.00-0.02); Immature Granulocytes % (auto) 0.4 %; Lymphocytes # (auto) 1.02 K/uL (1.2-3.4); Lymphocytes % (auto) 11.1 %; Mean Corpuscular Hemoglobin 30.8 pg (25-34); Mean Corpuscular Hgb Conc 33.6 g/dL (32-36); Mean Corpuscular Volume 91.8 fL (80-100); Mean Platelet Volume 11.6 fL (7.4-10.4); Monocytes # (auto) 1.02 K/uL (0.11-0.59); Monocytes % (auto) 11.1 %; Neutrophils # (auto) 6.97 K/uL (1.4-6.5); Platelet Count 203 K/uL (130-400); RDW Coefficient of Variation 14.8 % (11.5-14.5); RDW Standard Deviation 50.1 fL (36.4-46.3); Red Blood Count 4.41 M/uL (4.7-6.1); White Blood Count 9.18 K/uL (4.8-10.8)
[2020-10-30 06:27] LABS: BUN Creatinine Ratio 23.4 (10-20); Calcium 8.3 mg/dl (8.5-10.1); Creatinine Clr Calc Pharmacy 52.3 ml/min; Est GFR (African American) 73.2 ml/min; Est GFR (Non-African American) 63.1 ml/min; Potassium 3.6 mmol/L (3.5-5.1)
[2020-10-30] MEDS: INSULIN ASPART 100 UNITS/ML 3 ML PEN SC SCH ×4 (08:04→20:22)
[2020-10-30] MEDS: ASPIRIN 81 MG ECTAB PO SCH (08:05)
[2020-10-30] MEDS: CYANOCOBALAMIN 500 MCG TABLET (VITAMIN B-12) PO SCH (08:05)
[2020-10-30] MEDS: MEMANTINE HCL 10 MG TAB PO SCH ×2 (08:06→20:20)
[2020-10-30] MEDS: MULTIVITAMIN TAB PO SCH (08:06)
--- NOTE | 2020-10-30 09:10 | Pulmonology Progress Note ---
Date of Service October 30, 2020 Assessment & Plan (1) Pleural effusion on right: (2) Shortness of breath: (3) Atelectasis of right lung: Plan: Impression: 84-year-old male with exudative pleural effusion and associated pneumothorax. Chest tube remains in place. He has significant underlying dementia. We placed his tube to waterseal overnight to see if he would demonstrate stability but unfortunately the pneumothorax is increased in size. He was returned back to 40 cm of suction with significant egress of air. Recommendations: 1. Pleural effusion: Exudative by light's criteria based on total protein and LDH. Fluid appears resolved on most recent x-ray. Cytology is negative. At this point time I would follow the patient clinically. If the effusion should reaccumulate, repeat thoracentesis or consideration for outpatient video- assisted thoracoscopic evaluation of the pleural space may be appropriate. Given the patient's underlying history of dementia and deconditioning, may consider a more symptomatic driven approach. Patient and his met with palliative care. They are electing to pursue a more conservative approach which I think is reasonable and have elected not to escalate his care. 2. Pneumothorax/persistent bronchopleural fistula: Increased in size with placement to waterseal. He was returned back to suction today. We will repeat his chest x-ray around 1:00 this afternoon and reassess. If he continues to have issues, we may need to change out the fourteen [place] pigtail catheter to a larger chest tube or potentially place an apical small bore tube. Patient is not really a candidate for surgical intervention. We will continue to follow with you. Please contact us with interval questions. Please note the above document was generated using voice recognition software. It may contain grammatical, syntax or spelling errors. Any formal questions or concerns about the content, text or information contained within the body of this dictation should be directly addressed to the provider for clarification. Admission and Anticipated Discharge Date Admission Date: October 25, 2020 Subjective Patient seen and examined. He is sleeping comfortably but does arouse. He remains pleasantly demented. He denies any respiratory issues. Denies chest pain. No shortness of breath coughing. Minimal pain at the chest tube insertion site. Review of Systems Review of Systems: Please refer to hospitalist note. No changes. Physical Exam Constitutional: WD/WN, vitals as above Neck: trachea midline, no thyromegaly Respiratory: normal respiratory effort, lungs clear to auscultation Cardiovascular: RRR, no murmur, no edema Gastrointestinal (Abdomen): normal bowel sounds, soft, nontender, no hepatosp lenomegaly Musculoskeletal: Extremities: extremities normal to inspection Skin: no rashes, warm and dry Lymphatic: no cervical lymphadenopathy Results & Data Results & Data ([facility]) Vital Signs (Past 12 Hours) Vital Signs Temp Pulse Pulse Resp BP BP Pulse Ox 10/30/20 07:04 36.7 C 66 20 109/66 96 10/30/20 04:13 36.5 C 71 16 128/72 98 10/29/20 23:50 78 10/29/20 23:40 36.8 C 90 18 104/63 99 Laboratory Results 10/30/20 05:31 10/30/20 05:31 Diagnostic Findings Chest x-ray from today was independently reviewed and compared to prior chest x- ray. The right apical pneumothorax is increased in size. Chest tube remains in position at the right lung base. PG Care Time/CCT Total # of Minutes Spent Total Time Spent with Patient: Total time spent is greater than 50% in coord ination of care (as documented) at patient's floor/unit and/or counseling patient: Coding Level of Care Code 32107 Subseq Hosp Care Lvl 2 Diagnoses Pleural effusion on right J90 Shortness of breath R06.02 Atelectasis of right lung J98.11
--- NOTE | 2020-10-30 10:19 | XRay Report ---
XR chest 1V portable CLINICAL HISTORY: chest tube, ptx COMPARISON STUDY: October 29, 2020 FINDINGS: Mild interval worsening of the right apical pneumothorax with worsening of pleural separation now xavier suring 4.3 cm (previously was measured 2.7 cm). No midline shift is seen. No pleural effusion. Distal aspect of the right chest tube is in stable position. Interval improvement of airspace opacities at the right lower lung. Cardiomediastinal silhouette is within normal limits in size. No significant pulmonary vascular congestion.. Osseous structures: Osteopenia. Degenerative changes of the spine. IMPRESSION: 1. Interval worsening of right-sided pneumothorax. Right chest tube is in unchanged position. ACT 112: Negative or not required by law. The above report was generated using voice recognition software. It may contain grammatical, syntax o r spelling errors. Electronically signed by: Karly Gaston DO 10/30/2020 10:17 AM
--- NOTE | 2020-10-30 13:38 | XRay Report ---
SINGLE VIEW CHEST CLINICAL HISTORY: Pneumothorax. Chest tube. FINDINGS: An AP, portable, upright chest radiograph is compared to study performed earlier the same d ay 10/30/2020. The cardiomediastinal silhouette is unremarkable noting atherosclerotic calcification o f the thoracic aorta. A pigtail catheter at the right lung base is unchanged in position. There is a small residual right apical pneumothorax with approximately 1.5 cm of apical pleural separation. This is decreased in size from the most recent prior study there is only trace residual fluid at the righ t lung base. Scarring/atelectasis is noted at both lung bases. No left-sided pneumothorax is seen. Th e skeletal structures are osteopenic, and the bony thorax is grossly intact. IMPRESSION: 1. There is a small right apical pneumothorax. This has decreased in size from the most recent prior study performed earlier today. 2. A right-sided chest tube is unchanged in position. 3. There is trace residual pleural fluid at the right lung base. ACT 112: Negative or not required by law. Electronically signed by: Silver Guevara M.D. 10/30/2020 1:37 PM
--- NOTE | 2020-10-30 15:28 | Hospitalist Progress Note ---
Date of Service October 30, 2020 Assessment & Plan (1) Pleural effusion on right: Plan: This is an 84-year-old male with PMH of dementia, type 2 diabetes, hypertension, CKD 3, ankylosing spondylitis and other medical problems listed below who presents with progressive weakness over the past 3 weeks and was found to have large R pleural effusion on chest CTA. Chest CTA with large right pleural effusion associated with collapse of the right middle lobe and the right lower lobe as well as mild midline shift to the left Pulmonology consulted - Dr. Pearson s/p pigtail chest tube insertion Pleural fluid/serum; [id number], protein 4.3/6.2 and pH 7.43 Exudative fluid-could be secondary to infection, malignancy Does not seems like infection and he is not being on any antibiotic Still draining considerable amount of fluid Has had pneumothorax-chest tube has been repositioned and negative suction has been applied Clinically stable without any significant distress Drainage from the chest tube has diminished a lot-awaiting pulmonary evaluation for extraction of the tube Right pneumothorax Seems to be worse this morning Continue chest tube drainage as per immersion metalcleaner Restlessness with agitation Has history of dementia and acute delirium could be secondary to infection Has been requiring physical restraint and one-to-one sitter to protect the tubings including chest tube and catheter Remains stable without much hesitation Requiring mittens to prevent pulling out of tubes and also requiring one-to-one sitter Zyprexa has been added for agitation-we will try to avoid any Ativan Palliative care encounter Appreciate input and recommendation The patient is made DNR manager environmental is working for placement (2) Generalized weakness: Plan: We will get PT and OT evaluation when appropriate (3) Fall: Plan: Progressive physical decline/deconditioning in setting of advanced dementia CT head without any acute intracranial changes interested in additional services and potential placement due to increased care burden at home PT/OT evaluation Case management evaluation Fall precautions, aspiration precautions We will get palliative care involvement for further goals of care (4) Hypomagnesemia: Plan: Replaced. Repeat mag in in the morning (5) Edema of right lower extremity: Plan: 2-3+ pitting edema right lower extremity over the past few weeks Right lower extremity venous Doppler without evidence of DVT Continue to monitor (6) Diabetes mellitus, type II: Plan: Hold home agents SSI while in-patient BSG AC HS (7) Mixed Alzheimer's and vascular dementia: Plan: to remain at bedside or one-to-one in setting of patient's advanced dementia Only oriented to person at baseline Continue Namenda, donepezil No acute delirium (8) Hypertension: Plan: Continue enalapril, hydrochlorothiazide (9) CKD (chronic kidney disease), stage III: Plan: Kidney function at baseline. Monitor with daily BMP (10) Hyperlipidemia: Plan: Continue statin DVT Ppx: SQ heparin Code status: FULL PCP: Ashleigh Dispo: Admitted to PCU. Discharge planning ordered. Discussed with the in detail Awaiting placement Admission and Anticipated Discharge Date Admission Date: October 25, 2020 Subjective 10/26/2020 The patient was seen and examined in telemetry unit He remains confused and restless throughout the whole night and this morning to He denies any significant symptoms one asking question Requiring one-to-one sitter and mittens to safeguard the tubes that he has 10/27/2020 The patient was seen and examined in telemetry unit He has significant dementia and denies any symptoms Does not seems to be in distress Still requiring mittens to prevent extractions of tubes and requires one-to-one sitter 10/28/2020 The patient was seen and examined in telemetry unit He remains stable and a little quiet than before Denies any symptoms-he does have Alzheimer's dementia 10/29/2020 The patient was seen and examined in telemetry unit He has been stable without any significant symptoms Remains pleasantly confused 10/30/2020 The patient was seen and examined in telemetry unit He is demented but does not have any behavioral disturbance Remains on one-to-one sitter Denies any acute symptoms Review of Systems Review of Systems: Unobtainable due to cognitive status Physical Exam Physical Exam: Sitting on a chair without any acute distress Constitutional: + ill appearing and average body habitus Eyes: PERRL, conjunctivae normal, anicteric sclerae ENMT: external ear and nose normal, oropharynx normal Respiratory: no respiratory distress and no cough Auscultation: + lungs not clear to auscultation (Decreased breath sounds on the right side) Cardiovascular: Rate/Rhythm: regular rate and regular rhythm; not tachycardic Heart Sounds: normal S1 and normal S2; no murmur Extremities: no edema Gastrointestinal (Abdomen): normal bowel sounds, soft, nontender, no hepatosplenomegaly Musculoskeletal: No acute arthritis in any joint Neurologic: Alert and awake. Pleasantly confused. Moving all limbs Psychiatric: Insight: + poor insight Lymphatic: no cervical or axillary lymphadenopathy Results & Data Results & Data ([facility]) Vital Signs (Past 12 Hours) Vital Signs Temp Pulse Pulse Resp BP BP Pulse Ox 10/30/20 15:00 71 10/30/20 11:49 36.5 C 82 20 100/54 L 99 10/30/20 08:00 73 10/30/20 07:04 36.7 C 66 20 109/66 96 10/30/20 04:13 36.5 C 71 16 128/72 98 Laboratory Results Short CBC 10/30/20 Range/Units 05:31 WBC 9.18 (4.8-10.8) K/uL Hgb 13.6 L (14.0-18.0) g/dL Hct 40.5 L (42-52) % Plt Count 203 (130-400) K/uL BMP 10/30/20 05:31 Sodium 137 Potassium 3.6 Chloride 103 Carbon Dioxide 29 BUN 25 H Creatinine 1.08 Glucose 110 H Calcium 8.3 L Medications Administered Current Inpatient Medications Aspirin (Aspirin 81 Mg Ectab) 81 mg PO [facility] ALONDRA Stop: 11/25/20 08:59 Last Admin: 10/30/20 08:05 Dose: 81 mg Documented by: Atorvastatin Calcium (Atorvastatin 40 Mg Tab) [address] [facility] Stop: 11/24/20 20:59 Last Admin: 10/29/20 20:37 Dose: 40 mg Documented by: Cyanocobalamin (Cyanocobalamin 500 Mcg Tablet (Vitamin B-12)) 1,000 mcg PO DAILY ALONDRA Stop: 11/25/20 08:59 Last Admin: 10/30/20 08:05 Dose: 1,000 mcg Documented by: Dextrose (Dextrose 50% 50 Ml Syringe) 25 - 50 ml IV UD PRN; Protocol PRN Reason: Hypoglycemia Protocol Stop: 11/24/20 16:43 Donepezil HCl (Donepezil Hcl 10 Mg Tab) 10 mg PO ALONDRA Stop: 11/24/20 20:59 Last Admin: 10/29/20 20:36 Dose: 10 mg Documented by: Enalapril Maleate (Enalapril Maleate 10 Mg Tab) 20 mg PO ALONDRA Stop: 11/24/20 20:59 Last Admin: 10/29/20 20:43 Dose: 20 mg Documented by: Glucagon (Glucagon For Inj 1 Mg Vial) 1 mg SQ UD PRN; Protocol PRN Reason: Hypoglycemia Protocol Stop: 11/24/20 16:43 Glucose (Glucose 10 Tabs/Tube) 4 - 8 tabs PO UD PRN; Protocol PRN Reason: Hypoglycemia Protocol Stop: 11/24/20 16:43 Glucose (Glucose 40% Gel 15 Gm Tube) 15 - 30 gm PO UD PRN; Protocol PRN Reason: Hypoglycemia Protocol Stop: 11/24/20 16:43 Heparin Sodium (Porcine) (Heparin Sod 5,000 Unit/0.5 Ml Vial) 5,000 units SQ Q8 ALONDRA Stop: 11/24/20 21:59 Last Admin: 10/29/20 06:40 Dose: Not Given Documented by: Hydrochlorothiazide (Hydrochlorothiazide 25 Mg Tab) 25 mg PO QAM ALONDRA Stop: 11/25/20 08:59 Last Admin: 10/29/20 08:21 Dose: 25 mg Documented by: Potassium Chloride/Sodium Chloride (Normal Saline W/20 Meq Kcl) 20 meq in 1,000 mls @ 80 mls/hr IV .[id number] ONE Stop: 10/30/20 15:59 Last Admin: 10/30/20 04:10 Dose: 80 mls/hr Documented by: Insulin Aspart (Insulin Aspart 100 Units/Ml 3 Ml Pen) 0 units SC ACHS ALONDRA Stop: 11/24/20 20:59 Last Admin: 10/30/20 12:32 Dose: 4 units Documented by: Memantine (Memantine Hcl 10 Mg Tab) 10 mg PO BID ALONDRA Stop: 11/24/20 20:59 Last Admin: 10/30/20 08:06 Dose: 10 mg Documented by: Miscellaneous (Carbohydrates For Hypoglycemia ) 15 - 30 gm PO UD PRN PRN Reason: Hypoglycemia Protocol Stop: 11/24/20 16:43 Multivitamins (Multivitamin Tab) 1 tab PO DAILY ALONDRA Stop: 11/25/20 08:59 Last Admin: 10/30/20 08:06 Dose: 1 tab Documented by: Ondansetron HCl (Ondansetron Inj 2 Mg/Ml 2 Ml Vial) 4 mg IV Q6H PRN PRN Reason: Nausea Stop: 11/24/20 13:10 Polyethylene Glycol (Polyethylene (Miralax) 17 Gm Pack) 17 gm PO DAILY PRN PRN Reason: Constipation Stop: 11/24/20 13:10 (1) Fall Encounter type: initial encounter Qualified Code(s): W19.XXXA - Unspecified fall, initial encounter
[2020-10-30] MEDS: ENALAPRIL MALEATE 10 MG TAB PO SCH (20:19)
[2020-10-30] MEDS: DONEPEZIL HCL 10 MG TAB PO SCH (20:19)
[2020-10-30] MEDS: ATORVASTATIN 40 MG TAB PO SCH (20:19)
[2020-10-31] MEDS: INSULIN ASPART 100 UNITS/ML 3 ML PEN SC SCH ×4 (08:15→20:42)
[2020-10-31] MEDS: MULTIVITAMIN TAB PO SCH (08:51)
[2020-10-31] MEDS: ASPIRIN 81 MG ECTAB PO SCH (08:51)
[2020-10-31] MEDS: MEMANTINE HCL 10 MG TAB PO SCH ×2 (08:51→20:42)
[2020-10-31] MEDS: CYANOCOBALAMIN 500 MCG TABLET (VITAMIN B-12) PO SCH (08:51)
--- NOTE | 2020-10-31 11:32 | Pulmonology Progress Note ---
Date of Service October 31, 2020 Assessment & Plan (1) Pleural effusion on right: (2) Shortness of breath: (3) Atelectasis of right lung: Plan: Impression: 84-year-old male with exudative pleural effusion and associated pneumothorax. Chest tube remains in place. He has significant underlying dementia. He continues to demonstrate a small air leak on exam his chest x-ray has shown significant interval improvement in the apical pneumothorax. Recommendations: 1. Pleural effusion: Exudative by light's criteria based on total protein and LDH. Fluid appears resolved on most recent x-ray. Cytology is negative. At this point time I would follow the patient clinically. If the effusion should reaccumulate, repeat thoracentesis or consideration for outpatient video- assisted thoracoscopic evaluation of the pleural space may be appropriate. Given the patient's underlying history of dementia and deconditioning, may consider a more symptomatic driven approach. Patient and his met with palliative care. They are electing to pursue a more conservative approach which I think is reasonable and have elected not to escalate his care. 2. Pneumothorax/persistent bronchopleural fistula: Continue chest tube at 40cm water for now. Continue pending resolution of the air leak. His x-ray looks better. If he were to have worsening of the pneumothorax, could consider placement of a secondary tube or placing a larger tube. Would like to manage conservatively given his underlying dementia. Patient is not really a candidate for surgical intervention. We will continue to follow with you. Please contact us with interval questions. Please note the above document was generated using voice recognition software. It may contain grammatical, syntax or spelling errors. Any formal questions or concerns about the content, text or information contained within the body of this dictation should be directly addressed to the provider for clarification. Admission and Anticipated Discharge Date Admission Date: October 25, 2020 Subjective Patient seen and examined. EMR reviewed. He offers no complaints this morning. He feels he is breathing fine. He is not coughing or expectorating phlegm. His pain is well controlled. No fevers chills or night sweats. Review of Systems Review of Systems: All systems reviewed & are unremarkable except as noted in HPI & below Physical Exam Constitutional: WD/WN, vitals as above Neck: trachea midline, no thyromegaly Respiratory: normal respiratory effort, lungs clear to auscultation Cardiovascular: RRR, no murmur, no edema Gastrointestinal (Abdomen): normal bowel sounds, soft, nontender, no hepatosplenomegaly Musculoskeletal: Extremities: extremities normal to inspection Skin: no rashes, warm and dry Lymphatic: no cervical lymphadenopathy Results & Data Results & Data ([facility]) Vital Signs (Past 12 Hours) Vital Signs Temp Pulse Pulse Resp BP Pulse Ox 10/31/20 08:48 36.7 C 74 18 100/64 94 10/31/20 02:43 36.2 C L 75 17 106/62 94 10/31/20 00:44 78 Laboratory Results 10/30/20 05:31 10/30/20 05:31 Diagnostic Findings Chest x-ray performed this morning was independently reviewed. There is a small 1 cm apical pneumothorax improved from yesterday. PG Care Time/CCT Total # of Minutes Spent Total Time Spent with Patient: Total time spent is greater than 50% in coordination of care (as documented) at patient's floor/unit and/or counseling patient: Coding Level of Care Code 82892 Subseq Hosp Care Lvl 2 Diagnoses Pleural effusion on right J90 Shortness of breath R06.02 Atelectasis of right lung J98.11
--- NOTE | 2020-10-31 13:05 | XRay Report ---
XR chest 1V portable HISTORY: Evaluate chest tube COMPARISON: Chest 10/30/2020. FINDINGS: There is again noted a right basilar pleural catheter which appears in good position. Small right apical pneumothorax has decreased in size. This currently measures a pleural gap of 1.2 cm. Th e heart is normal in size. The left lung is clear. Trace right pleural effusion is again noted. IMPRESSION: Decrease in size in the small right pneumothorax. The right basilar pleural catheter is unchanged in position. ACT 112: Negative or not required by law. Electronically signed by: Noe Mendez M.D. 10/31/2020 1:04 PM
--- NOTE | 2020-10-31 15:35 | Hospitalist Progress Note ---
Date of Service October 31, 2020 Assessment & Plan (1) Pleural effusion on right: Plan: This is an 84-year-old male with PMH of dementia, type 2 diabetes, hypertension, CKD 3, ankylosing spondylitis and other medical problems listed below who presents with progressive weakness over the past 3 weeks and was found to have large R pleural effusion on chest CTA. Chest CTA with large right pleural effusion associated with collapse of the right middle lobe and the right lower lobe as well as mild midline shift to the left Pulmonology consulted - Dr. Pearson s/p pigtail chest tube insertion Pleural fluid/serum; BHA911/183, protein 4.3/6.2 and pH 7.43 Exudative fluid-could be secondary to infection, malignancy Does not seems like infection and he is not being on any antibiotic Still draining considerable amount of fluid Has had pneumothorax-chest tube has been repositioned and negative suction has been applied Clinically stable without any significant distress Drainage from the chest tube has diminished a lot-awaiting pulmonary evaluation for extraction of the tube Chest tube still remains in place Right pneumothorax Seems to be worse this morning Continue chest tube drainage as per primary health organisation manager Repeat chest x-ray today showed decrease in size and a small right pneumothorax Restlessness with agitation Has history of dementia and acute delirium could be secondary to infection Has been requiring physical restraint and one-to-one sitter to protect the tubings including chest tube and catheter Remains stable without much hesitation Requiring mittens to prevent pulling out of tubes and also requiring one-to-one sitter Zyprexa has been added for agitation-we will try to avoid any Ativan He does not have any more restlessness and/or agitation Palliative care encounter Appreciate input and recommendation The patient is made DNR java manager is working for placement (2) Generalized weakness: Plan: We will get PT and OT evaluation when appropriate (3) Fall: Plan: Progressive physical decline/deconditioning in setting of advanced dementia CT head without any acute intracranial changes interested in additional services and potential placement due to increased care burden at home PT/OT evaluation Case management evaluation Fall precautions, aspiration precautions We will get palliative care involvement for further goals of care (4) Hypomagnesemia: Plan: Replaced. Repeat mag in in the morning (5) Edema of right lower extremity: Plan: 2-3+ pitting edema right lower extremity over the past few weeks Right lower extremity venous Doppler without evidence of DVT Continue to monitor (6) Diabetes mellitus, type II: Plan: Hold home agents SSI while in-patient BSG AC HS (7) Mixed Alzheimer's and vascular dementia: Plan: to remain at bedside or one-to-one in setting of patient's advanced dementia Only oriented to person at baseline Continue Namenda, donepezil No acute delirium (8) Hypertension: Plan: Continue enalapril, hydrochlorothiazide (9) CKD (chronic kidney disease), stage III: Plan: Kidney function at baseline. Monitor with daily BMP (10) Hyperlipidemia: Plan: Continue statin DVT Ppx: SQ heparin was on hold for the last few days for possible chest procedure procedure Heparin has been restarted from today that is 10/31/2020 Code status: FULL PCP: Ashleigh Dispo: Admitted to PCU. Discharge planning ordered. Discussed with the in detail Awaiting placement Admission and Anticipated Discharge Date Admission Date: October 25, 2020 Subjective 10/26/2020 The patient was seen and examined in telemetry unit He remains confused and restless throughout the whole night and this morning to He denies any significant symptoms one asking question Requiring one-to-one sitter and mittens to safeguard the tubes that he has 10/27/2020 The patient was seen and examined in telemetry unit He has significant dementia and denies any symptoms Does not seems to be in distress Still requiring mittens to prevent extractions of tubes and requires one-to-one sitter 10/28/2020 The patient was seen and examined in telemetry unit He remains stable and a little quiet than before Denies any symptoms-he does have Alzheimer's dementia 10/29/2020 The patient was seen and examined in telemetry unit He has been stable without any significant symptoms Remains pleasantly confused 10/30/2020 The patient was seen and examined in telemetry unit He is demented but does not have any behavioral disturbance Remains on one-to-one sitter Denies any acute symptoms 10/31/2020 The patient was seen and examined in telemetry unit He remains pleasantly confused but not been agitated or aggressive Denies any symptoms Review of Systems Review of Systems: Unobtainable due to cognitive status Physical Exam Physical Exam: Lying in bed without any acute distress Constitutional: + ill appearing and average body habitus Eyes: PERRL, conjunctivae normal, anicteric sclerae ENMT: external ear and nose normal, oropharynx normal Respiratory: no respiratory distress and no cough Auscultation: + lungs not clear to auscultation (Decreased breath sounds on the right side) Cardiovascular: Rate/Rhythm: regular rate and regular rhythm; not tachycardic Heart Sounds: normal S1 and normal S2; no murmur Extremities: no edema Gastrointestinal (Abdomen): normal bowel sounds, soft, nontender, no hepatosplenomegaly Musculoskeletal: No acute arthritis in any joint Neurologic: Alert and awake. Totally confused. Moving all limbs equally with generalized weakness Psychiatric: Insight: + poor insight Lymphatic: no cervical or axillary lymphadenopathy Results & Data Results & Data ([facility]) Vital Signs (Past 12 Hours) Vital Signs Temp Pulse Resp BP BP Pulse Ox 10/31/20 12:09 36.8 C 65 18 109/62 96 10/31/20 08:48 36.7 C 74 18 100/64 94 Medications Administered Current Inpatient Medications Aspirin (Aspirin 81 Mg Ectab) 81 mg PO [facility] ALONDRA Stop: 11/25/20 08:59 Last Admin: 10/31/20 08:51 Dose: 81 mg Documented by: Atorvastatin Calcium (Atorvastatin 40 Mg Tab) 40 mg PO [facility] Stop: 11/24/20 20:59 Last Admin: 10/30/20 20:19 Dose: 40 mg Documented by: Cyanocobalamin (Cyanocobalamin 500 Mcg Tablet (Vitamin B-12)) 1,000 mcg PO DAILY ALONDRA Stop: 11/25/20 08:59 Last Admin: 10/31/20 08:51 Dose: 1,000 mcg Documented by: Dextrose (Dextrose 50% 50 Ml Syringe) 25 - 50 ml IV UD PRN; Protocol PRN Reason: Hypoglycemia Protocol Stop: 11/24/20 16:43 Donepezil HCl (Donepezil Hcl 10 Mg Tab) 10 mg PO [facility] Stop: 11/24/20 20:59 Last Admin: 10/30/20 20:19 Dose: 10 mg Documented by: Enalapril Maleate (Enalapril Maleate 10 Mg Tab) 20 mg PO [facility] Stop: 11/24/20 20:59 Last Admin: 10/30/20 20:19 Dose: 20 mg Documented by: Glucagon (Glucagon For Inj 1 Mg Vial) 1 mg SQ UD PRN; Protocol PRN Reason: Hypoglycemia Protocol Stop: 11/24/20 16:43 Glucose (Glucose 10 Tabs/Tube) 4 - 8 tabs PO UD PRN; Protocol PRN Reason: Hypoglycemia Protocol Stop: 11/24/20 16:43 Glucose (Glucose 40% Gel 15 Gm Tube) 15 - 30 gm PO UD PRN; Protocol PRN Reason: Hypoglycemia Protocol Stop: 11/24/20 16:43 Heparin Sodium (Porcine) (Heparin Sod 5,000 Unit/0.5 Ml Vial) 5,000 units SQ Q8 ALONDRA Stop: 11/24/20 21:59 Last Admin: 10/29/20 06:40 Dose: Not Given Documented by: Hydrochlorothiazide (Hydrochlorothiazide 25 Mg Tab) 25 mg PO QAM ALONDRA Stop: 11/25/20 08:59 Last Admin: 10/29/20 08:21 Dose: 25 mg Documented by: Insulin Aspart (Insulin Aspart 100 Units/Ml 3 Ml Pen) 0 units SC ACHS ALONDRA Stop: 11/24/20 20:59 Last Admin: 10/31/20 11:48 Dose: Not Given Documented by: Memantine (Memantine Hcl 10 Mg Tab) 10 mg PO BID ALONDRA Stop: 11/24/20 20:59 Last Admin: 10/31/20 08:51 Dose: 10 mg Documented by: Miscellaneous (Carbohydrates For Hypoglycemia ) 15 - 30 gm PO UD PRN PRN Reason: Hypoglycemia Protocol Stop: 11/24/20 16:43 Multivitamins (Multivitamin Tab) 1 tab PO DAILY ALONDRA Stop: 11/25/20 08:59 Last Admin: 10/31/20 08:51 Dose: 1 tab Documented by: Ondansetron HCl (Ondansetron Inj 2 Mg/Ml 2 Ml Vial) 4 mg IV Q6H PRN PRN Reason: Nausea Stop: 11/24/20 13:10 Polyethylene Glycol (Polyethylene (Miralax) 17 Gm Pack) 17 gm PO DAILY PRN PRN Reason: Constipation Stop: 11/24/20 13:10 (1) Fall Encounter type: initial encounter Qualified Code(s): W19.XXXA - Unspecified fall, initial encounter
[2020-10-31] MEDS: ENALAPRIL MALEATE 10 MG TAB PO SCH (20:41)
[2020-10-31] MEDS: ATORVASTATIN 40 MG TAB PO SCH (20:41)
[2020-10-31] MEDS: DONEPEZIL HCL 10 MG TAB PO SCH (20:41)
[2020-10-31] MEDS: HEPARIN SOD 5,000 UNIT/0.5 ML VIAL SQ SCH (22:41)
[2020-11-01] MEDS: HEPARIN SOD 5,000 UNIT/0.5 ML VIAL SQ SCH (06:35)
[2020-11-01] MEDS: ASPIRIN 81 MG ECTAB PO SCH (07:55)
[2020-11-01] MEDS: CYANOCOBALAMIN 500 MCG TABLET (VITAMIN B-12) PO SCH (07:55)
[2020-11-01] MEDS: MULTIVITAMIN TAB PO SCH (07:55)
[2020-11-01] MEDS: MEMANTINE HCL 10 MG TAB PO SCH ×2 (07:55→21:06)
[2020-11-01] MEDS: INSULIN ASPART 100 UNITS/ML 3 ML PEN SC SCH ×4 (07:55→21:05)
--- NOTE | 2020-11-01 08:55 | Hospitalist Progress Note ---
Date of Service November 01, 2020 Assessment & Plan (1) Pleural effusion on right: (2) Pneumothorax on right: Plan: chest tube in place, pulmonology following. Min output overnight and patient doesn't appear to be in too much discomfort, however, didn't sleep well. CXR from 10/31 reveals a decrease in the size of the small right PTX. Cont chest tube pending resolution of his air leak. If worsening PTX, could consider placement of a secondary tube or a larger tube, however, he is not an ideal candidate for surgery given underlying dementia. Previous providers have had conversations with family and have suggested conservative management at this point. (3) Generalized weakness: Plan: PT/OT evaluation ordered-SNF recommended. (4) Fall: Plan: Progressive physical decline/deconditioning in setting of advanced dementia CT head without any acute intracranial changes interested in additional services and potential placement due to increased care burden at home Case management assisting with placement post-hospital discharge. Fall precautions, aspiration precautions Goals of care conversation with palliative team on 10/29-patient was changed to DNR/DNI. (5) Edema of right lower extremity: Plan: 2-3+ pitting edema right lower extremity over the past few weeks Right lower extremity venous Doppler without evidence of DVT Continue to monitor-no edema noted this am. (6) Diabetes mellitus, type II: Plan: Holding metformin and actos, cont insulin with carb coverage and correction factor. No glargine needed at this time. Nutrition consulted and recommended liberalizing diet to help with intake. Also, recommended adding finger foods that were soft in consistency so that he could help to feed himself. (7) Mixed Alzheimer's and vascular dementia: Plan: to remain at bedside or one-to-one in setting of patient's advanced dementia Only oriented to person at baseline-frequent reorientation needed overnight. Continue Namenda, donepezil-remove parnell to reduce risk of hospital acquired infection. (8) Hypertension: Plan: BP at goal-low normal. Continue enalapril, hydrochlorothiazide on hold (9) CKD (chronic kidney disease), stage III: Plan: Kidney function at baseline. Avoid nephrotoxic substances and renally dose meds as appropriate. (10) DVT prophylaxis: Plan: Heparin changed to Lovenox to reduce shot burden. Also patient consistently refusing heparin DNR/DNI Dispo-to SNF when medically stable for discharge. Currently chest tube still in place. Clarice Dias DO [facility] Hospitalist Admission and Anticipated Discharge Date Admission Date: October 25, 2020 Subjective 84 yo M presented with generalized weakness, found to have a large right sided exudative pleural effusion and associated PTX s/p chest tube placement on 10/30. Patient has dementia and is on 1:1 throughout the night. Per night nurse he was consistently awake and picking at things, not going to sleep much. He is not combative. ROS cannot be obtained 2/2 severe dementia. Review of Systems Review of Systems: ROS cannot be obtained 2/2 severe dementia. Physical Exam Physical Exam: CONSTITUTIONAL: WNWD, vitals as above, generally NAD EYES: normal conjunctivae, no scleral icterus ENT: external ear and nose normal, MMM NECK: trachea midline RESPIRATORY: clear to auscultation bilaterally, no crackles, rales or wheezes, normal respiratory effort--this exam was very limited as patient was unable to follow instructions to take a deep breath. CARDIOVASCULAR: regular rate and rhythm, S1 and 2 heard without murmurs, gallops or rubs, no JVD, no peripheral edema CHEST: inspection of chest revealed a right sided chest tube in place covered with a dressing that is c/d/i. Fluid is yellow, serosanguinous in appearance. GASTROINTESTINAL: soft, nontender, nondistended, no guarding MUSCULOSKELETAL: moves all extremities equally, head is normocephalic and atraumatic SKIN: warm and dry NEUROLOGIC: No facial palsy, no dysarthria. CN 2-12 grossly intact, normal cognition, normal speech, no tremor PSYCHIATRIC: alert, not very cooperative with instructions without significant prompting, only oriented to person. Pleasant mood. Results & Data Results & Data ([facility]) Vital Signs (Past 12 Hours) Vital Signs Temp Pulse Resp BP Pulse Ox 11/01/20 07:41 36.6 C 64 18 109/56 L 98 11/01/20 03:20 36.8 C 62 18 115/68 96 10/31/20 22:57 36.9 C 77 17 101/62 95 Medications Administered Current Inpatient Medications Aspirin (Aspirin 81 Mg Ectab) 81 mg PO QAM [facility] Stop: 11/25/20 08:59 Last Admin: 11/01/20 07:55 Dose: 81 mg Documented by: Atorvastatin Calcium (Atorvastatin 40 Mg Tab) 40 mg PO HS ALONDRA Stop: 11/24/20 20:59 Last Admin: 10/31/20 20:41 Dose: 40 mg Documented by: Cyanocobalamin (Cyanocobalamin 500 Mcg Tablet (Vitamin B-12)) 1,000 mcg PO DAILY ALONDRA Stop: 11/25/20 08:59 Last Admin: 11/01/20 07:55 Dose: 1,000 mcg Documented by: Dextrose (Dextrose 50% 50 Ml Syringe) 25 - 50 ml IV UD PRN; Protocol PRN Reason: Hypoglycemia Protocol Stop: 11/24/20 16:43 Donepezil HCl (Donepezil Hcl 10 Mg Tab) 10 mg PO HS ALONDRA Stop: 11/24/20 20:59 Last Admin: 10/31/20 20:41 Dose: 10 mg Documented by: Enalapril Maleate (Enalapril Maleate 10 Mg Tab) 20 mg PO HS ALONDRA Stop: 11/24/20 20:59 Last Admin: 10/31/20 20:41 Dose: 20 mg Documented by: Glucagon (Glucagon For Inj 1 Mg Vial) 1 mg SQ UD PRN; Protocol PRN Reason: Hypoglycemia Protocol Stop: 11/24/20 16:43 Glucose (Glucose 10 Tabs/Tube) 4 - 8 tabs PO UD PRN; Protocol PRN Reason: Hypoglycemia Protocol Stop: 11/24/20 16:43 Glucose (Glucose 40% Gel 15 Gm Tube) 15 - 30 gm PO UD PRN; Protocol PRN Reason: Hypoglycemia Protocol Stop: 11/24/20 16:43 Heparin Sodium (Porcine) (Heparin Sod 5,000 Unit/0.5 Ml Vial) 5,000 units SQ Q8 ALONDRA Stop: 11/24/20 21:59 Last Admin: 11/01/20 06:35 Dose: Not Given Documented by: Hydrochlorothiazide (Hydrochlorothiazide 25 Mg Tab) 25 mg PO QAM ALONDRA Stop: 11/25/20 08:59 Last Admin: 10/29/20 08:21 Dose: 25 mg Documented by: Insulin Aspart (Insulin Aspart 100 Units/Ml 3 Ml Pen) 0 units SC ACHS ALONDRA Stop: 11/24/20 20:59 Last Admin: 11/01/20 07:55 Dose: Not Given Documented by: Memantine (Memantine Hcl 10 Mg Tab) 10 mg PO BID ALONDRA Stop: 11/24/20 20:59 Last Admin: 11/01/20 07:55 Dose: 10 mg Documented by: Miscellaneous (Carbohydrates For Hypoglycemia ) 15 - 30 gm PO UD PRN PRN Reason: Hypoglycemia Protocol Stop: 11/24/20 16:43 Multivitamins (Multivitamin Tab) 1 tab PO DAILY ALONDRA Stop: 11/25/20 08:59 Last Admin: 11/01/20 07:55 Dose: 1 tab Documented by: Ondansetron HCl (Ondansetron Inj 2 Mg/Ml 2 Ml Vial) 4 mg IV Q6H PRN PRN Reason: Nausea Stop: 11/24/20 13:10 Polyethylene Glycol (Polyethylene (Miralax) 17 Gm Pack) 17 gm PO DAILY PRN PRN Reason: Constipation Stop: 11/24/20 13:10 (1) Fall Encounter type: initial encounter Qualified Code(s): W19.XXXA - Unspecified fall, initial encounter
--- NOTE | 2020-11-01 13:07 | Pulmonology Progress Note ---
Date of Service November 01, 2020 Assessment & Plan (1) Pleural effusion on right: (2) Shortness of breath: (3) Atelectasis of right lung: Plan: Impression: 84-year-old male with exudative pleural effusion and associated pneumothorax. Chest tube remains in place. He has significant underlying dementia. No air leak today on 40 cm water suction Recommendations: 1. Pleural effusion: Exudative by light's criteria based on total protein and LDH. Fluid appears resolved on most recent x-ray. Cytology is negative. At this point time I would follow the patient clinically. If the effusion should reaccumulate, repeat thoracentesis or consideration for outpatient video- assisted thoracoscopic evaluation of the pleural space may be appropriate. Given the patient's underlying history of dementia and deconditioning, may consider a more symptomatic driven approach. Patient and his met with palliative care. They are electing to pursue a more conservative approach which I think is reasonable and have elected not to escalate his care. 2. Pneumothorax/persistent bronchopleural fistula: Air leak appears resolved today. The tube was clamped and taken off suction. We will repeat the patient's chest x-ray in the morning and determine whether or not the tube can be removed or not. We will continue to follow with you. Please contact us with interval questions. Please note the above document was generated using voice recognition software. It may contain grammatical, syntax or spelling errors. Any formal questions or concerns about the content, text or information contained within the body of this dictation should be directly addressed to the provider for clarification. Admission and Anticipated Discharge Date Admission Date: October 25, 2020 Subjective Patient again offers no complaints. He specifically denies any chest pain or breathing problems. No pain at the chest tube site. Physical Exam Constitutional: WD/WN, vitals as above Neck: trachea midline, no thyromegaly Respiratory: normal respiratory effort, lungs clear to auscultation Cardiovascular: RRR, no murmur, no edema Gastrointestinal (Abdomen): normal bowel sounds, soft, nontender, no hepatosplenomegaly Musculoskeletal: Extremities: extremities normal to inspection Skin: no rashes, warm and dry Lymphatic: no cervical lymphadenopathy Results & Data Results & Data ([facility]) Vital Signs (Past 12 Hours) Vital Signs Temp Pulse Pulse Resp BP Pulse Ox 11/01/20 11:14 36.7 C 70 17 104/52 L 97 08/14/21 08:00 60 11/01/20 07:41 36.6 C 64 18 109/56 L 98 11/01/20 03:20 36.8 C 62 18 115/68 96 Chest tube outputs have been anywhere between 70 and 400 mL/day. Diagnostic Findings No new imaging studies PG Care Time/CCT Total # of Minutes Spent Total Time Spent with Patient: Total time spent is greater than 50% in coordination of care (as documented) at patient's floor/unit and/or counseling patient: Coding Level of Care Code 72367 Subseq Hosp Care Lvl 2 Diagnoses Pleural effusion on right J90 Shortness of breath R06.02 Atelectasis of right lung J98.11
[2020-11-01] MEDS: ATORVASTATIN 40 MG TAB PO SCH (21:05)
[2020-11-01] MEDS: ENALAPRIL MALEATE 10 MG TAB PO SCH (21:05)
[2020-11-01] MEDS: DONEPEZIL HCL 10 MG TAB PO SCH (21:05)
--- NOTE | 2020-11-02 08:22 | XRay Report ---
XR chest 1V portable HISTORY: 84 years-old Male ptx right-sided pneumothorax COMPARISON: Chest radiograph 10/31/2020 TECHNIQUE: Portable AP view of the chest FINDINGS: Right-sided pneumothorax redemonstrated with pleural separation of 1.6 cm, previously 1.2 cm. Cardiom ediastinal and hilar silhouettes are unchanged. Persistent interstitial coarsening of the lung bases. No pleural effusion or overt pulmonary edema. Stable positioning of the chest tube at the lateral ri ght lung base. Degenerative changes of the shoulders and spine. IMPRESSION: Persistent small right apical pneumothorax with stable positioning of the right basilar p leural catheter. ACT 112: Negative or not required by law. The above report was generated using voice recognition software. It may contain grammatical, syntax o r spelling errors. Electronically signed by: Sanya Bello M.D. 11/02/2020 8:21 AM
[2020-11-02] MEDS: MEMANTINE HCL 10 MG TAB PO SCH ×2 (08:28→21:33)
[2020-11-02] MEDS: ASPIRIN 81 MG ECTAB PO SCH (08:28)
[2020-11-02] MEDS: MULTIVITAMIN TAB PO SCH (08:29)
[2020-11-02] MEDS: ENOXAPARIN INJ 40 MG/0.4 ML SYR SQ SCH (08:30)
[2020-11-02] MEDS: CYANOCOBALAMIN 500 MCG TABLET (VITAMIN B-12) PO SCH (08:31)
[2020-11-02] MEDS: INSULIN ASPART 100 UNITS/ML 3 ML PEN SC SCH ×4 (09:00→21:34)
--- NOTE | 2020-11-02 09:48 | Pulmonology Progress Note ---
Date of Service November 02, 2020 Assessment & Plan (1) Pleural effusion on right: (2) Shortness of breath: (3) Atelectasis of right lung: Plan: Impression: 84-year-old male with exudative pleural effusion and associated pneumothorax. Chest tube remains in place. He has significant underlying dementia. No air leak today on 40 cm water suction Recommendations: 1. Pleural effusion: Exudative by light's criteria based on total protein and LDH. Fluid appears resolved on most recent x-ray. Cytology is negative. At this point time I would follow the patient clinically. If the effusion should reaccumulate, repeat thoracentesis or consideration for outpatient video- assisted thoracoscopic evaluation of the pleural space may be appropriate. Given the patient's underlying history of dementia and deconditioning, may consider a more symptomatic driven approach. Patient and his met with palliative care. They are electing to pursue a more conservative approach which I think is reasonable and have elected not to escalate his care. 2. Pneumothorax/persistent bronchopleural fistula: Chest x-ray demonstrated a stable small apical pneumothorax with clamping of the tube. The tube was removed today and an occlusive dressing applied. Would plan on repeating his chest x-ray in the morning. If the pneumothorax shows no significant progression, he can likely disposition out of the hospital. We will continue to follow with you. Please contact us with interval questions. Please note the above document was generated using voice recognition software. It may contain grammatical, syntax or spelling errors. Any formal questions or concerns about the content, text or information contained within the body of this dictation should be directly addressed to the provider for clarification. Admission and Anticipated Discharge Date Admission Date: October 25, 2020 Subjective Patient offers no complaints Review of Systems Review of Systems: Unobtainable due to cognitive status Physical Exam Constitutional: WD/WN, vitals as above Neck: trachea midline, no thyromegaly Respiratory: normal respiratory effort, lungs clear to auscultation Cardiovascular: RRR, no murmur, no edema Chest (Breasts): Additional Comments: Chest tube is been clamped since yesterday Gastrointestinal (Abdomen): normal bowel sounds, soft, nontender, no hepatosplenomegaly Musculoskeletal: Extremities: extremities normal to inspection Skin: no rashes, warm and dry Lymphatic: no cervical lymphadenopathy Results & Data Results & Data ([facility]) Vital Signs (Past 12 Hours) Vital Signs Temp Pulse Pulse Resp BP Pulse Ox 11/02/20 07:50 37.1 C 83 17 135/59 L 11/02/20 03:16 36.7 C 84 20 129/75 95 11/01/20 23:20 73 11/01/20 23:03 36.8 C 70 18 138/68 97 Diagnostic Findings X-ray reviewed today. Apical pneumothorax on the right appears not significantly changed. No evidence of reaccumulation of pleural fluid. The tube is been clamped for over 18 hours. PG Care Time/CCT Total # of Minutes Spent Total Time Spent with Patient: Total time spent is greater than 50% in coordination of care (as documented) at patient's floor/unit and/or counseling patient: Coding Level of Care Code 22576 Subseq Hosp Care Lvl 2 Diagnoses Pleural effusion on right J90 Shortness of breath R06.02 Atelectasis of right lung J98.11
--- NOTE | 2020-11-02 14:39 | Hospitalist Progress Note ---
Date of Service November 02, 2020 Assessment & Plan (1) Pleural effusion on right: (2) Pneumothorax on right: Plan: Chest tube removed this morning with pulm recommendations to monitor overnight in hospital and repeat CXR in am. Exudative effusion. If reaccumulation of fluid, repeat thoracentesis or VATS may be considered. Cont to monitor conservatively. (3) Generalized weakness: Plan: PT/OT evaluation ordered-SNF recommended. (4) Fall: Plan: Progressive physical decline/deconditioning in setting of advanced dementia CT head without any acute intracranial changes interested in additional services and potential placement due to increased care burden at home Case management assisting with placement post-hospital discharge. Fall precautions, aspiration precautions Goals of care conversation with palliative team on 10/29-patient was changed to DNR/DNI. (5) Edema of right lower extremity: Plan: 2-3+ pitting edema right lower extremity over the past few weeks Right lower extremity venous Doppler without evidence of DVT Continue to monitor-no edema noted on exam. (6) Diabetes mellitus, type II: Plan: Holding metformin and actos, cont insulin with carb coverage and correction factor. No glargine needed at this time. Nutrition consulted and recommended liberalizing diet to help with intake. Also, recommended adding finger foods that were soft in consistency so that he could help to feed himself. (7) Mixed Alzheimer's and vascular dementia: Plan: to remain at bedside or one-to-one in setting of patient's advanced dementia Only oriented to person at baseline-frequent reorientation needed overnight. Continue Namenda, donepezil-remove parnell to reduce risk of hospital acquired infection. (8) Hypertension: Plan: BP at goal-low normal. Continue enalapril, hydrochlorothiazide on hold (9) CKD (chronic kidney disease), stage III: Plan: Kidney function at baseline. Avoid nephrotoxic substances and renally dose meds as appropriate. (10) DVT prophylaxis: Plan: Lovenox DNR/DNI Dispo-to SNF when medically stable for discharge. ADDENDUM: Later in the afternoon after move to medical floor, patient spiked a temp of 39.2C (rectal). Allergy noted to APAP, gave Ibuprofen 400mg x one dose. Blood and sputum cultures ordered. Urinalysis ordered. CBC/BMP pending. Lactate, procal-pending. No evidence of pneumonia on CXR from this morning. DO [facility] Hospitalist Admission and Anticipated Discharge Date Admission Date: October 25, 2020 Subjective 84 yo M presented with generalized weakness, found to have a large right sided exudative pleural effusion and associated PTX s/p chest tube placement on 10/30. Patient has dementia and is on 1:1. Appears more calm today since having chest tube removed this morning. Denies pain, disoriented at baseline. Review of Systems Review of Systems: All systems were reviewed and negative except as indicated in HPI above. Physical Exam Physical Exam: CONSTITUTIONAL: WNWD, vitals as above, generally NAD EYES: normal conjunctivae, no scleral icterus ENT: external ear and nose normal, MMM NECK: trachea midline RESPIRATORY: clear to auscultation bilaterally, no crackles, rales or wheezes, normal respiratory effort CARDIOVASCULAR: regular rate and rhythm, S1 and 2 heard without murmurs, gallops or rubs, no JVD, no peripheral edema CHEST: no tube is in place, however, because of lack of cooperation of patient, I was not able to visualize the dressing clearly. GASTROINTESTINAL: soft, nontender, nondistended, no guarding MUSCULOSKELETAL: moves all extremities equally, head is normocephalic and atraumatic SKIN: warm and dry NEUROLOGIC: No facial palsy, no dysarthria. CN 2-12 grossly intact, normal cognition, normal speech, no tremor PSYCHIATRIC: alert, cooperative, at baseline orientation. Results & Data Results & Data ([facility]) Vital Signs (Past 12 Hours) Vital Signs Temp Pulse Pulse Resp BP Pulse Ox 11/02/20 11:56 36.9 C 100 H 19 179/88 H 98 11/02/20 08:00 71 11/02/20 07:50 37.1 C 83 17 135/59 L 11/02/20 03:16 36.7 C 84 20 129/75 95 Medications Administered Current Inpatient Medications Aspirin (Aspirin 81 Mg Ectab) 81 mg PO QAM [facility] Stop: 11/25/20 08:59 Last Admin: 11/02/20 08:28 Dose: 81 mg Documented by: Atorvastatin Calcium (Atorvastatin 40 Mg Tab) 40 mg PO HS [facility] Stop: 11/24/20 20:59 Last Admin: 11/01/20 21:05 Dose: 40 mg Documented by: Cyanocobalamin (Cyanocobalamin 500 Mcg Tablet (Vitamin B-12)) 1,000 mcg PO DAILY [facility] Stop: 11/25/20 08:59 Last Admin: 11/02/20 08:31 Dose: 1,000 mcg Documented by: Dextrose (Dextrose 50% 50 Ml Syringe) 25 - 50 ml IV UD PRN; Protocol PRN Reason: Hypoglycemia Protocol Stop: 11/24/20 16:43 Donepezil HCl (Donepezil Hcl 10 Mg Tab) 10 mg PO HS [facility] Stop: 11/24/20 20:59 Last Admin: 11/01/20 21:05 Dose: 10 mg Documented by: Enalapril Maleate (Enalapril Maleate 10 Mg Tab) 20 mg PO HS [facility] Stop: 11/24/20 20:59 Last Admin: 11/01/20 21:05 Dose: 20 mg Documented by: Enoxaparin Sodium (Enoxaparin Inj 40 Mg/0.4 Ml Syr) 40 mg SQ QAM [facility] Stop: 12/02/20 08:59 Last Admin: 11/02/20 08:30 Dose: 40 mg Documented by: Glucagon (Glucagon For Inj 1 Mg Vial) 1 mg SQ UD PRN; Protocol PRN Reason: Hypoglycemia Protocol Stop: 11/24/20 16:43 Glucose (Glucose 10 Tabs/Tube) 4 - 8 tabs PO UD PRN; Protocol PRN Reason: Hypoglycemia Protocol Stop: 11/24/20 16:43 Glucose (Glucose 40% Gel 15 Gm Tube) 15 - 30 gm PO UD PRN; Protocol PRN Reason: Hypoglycemia Protocol Stop: 11/24/20 16:43 Hydrochlorothiazide (Hydrochlorothiazide 25 Mg Tab) 25 mg PO QAM [facility] Stop: 11/25/20 08:59 Last Admin: 10/29/20 08:21 Dose: 25 mg Documented by: Insulin Aspart (Insulin Aspart 100 Units/Ml 3 Ml Pen) 0 units SC ACHS [facility] Stop: 11/24/20 20:59 Last Admin: 11/02/20 12:45 Dose: 2 units Documented by: Memantine (Memantine Hcl 10 Mg Tab) 10 mg PO BID [facility] Stop: 11/24/20 20:59 Last Admin: 11/02/20 08:28 Dose: 10 mg Documented by: Miscellaneous (Carbohydrates For Hypoglycemia ) 15 - 30 gm PO UD PRN PRN Reason: Hypoglycemia Protocol Stop: 11/24/20 16:43 Multivitamins (Multivitamin Tab) 1 tab PO DAILY [facility] Stop: 11/25/20 08:59 Last Admin: 11/02/20 08:29 Dose: 1 tab Documented by: Ondansetron HCl (Ondansetron Inj 2 Mg/Ml 2 Ml Vial) 4 mg IV Q6H PRN PRN Reason: Nausea Stop: 11/24/20 13:10 Polyethylene Glycol (Polyethylene (Miralax) 17 Gm Pack) 17 gm PO DAILY PRN PRN Reason: Constipation Stop: 11/24/20 13:10 (1) Fall Encounter type: initial encounter Qualified Code(s): W19.XXXA - Unspecified fall, initial encounter
[2020-11-02] MEDS ORDERED: hydroCHLOROthiazide 25 MG TAB PO STA ×2 (14:45)
[2020-11-02] MEDS ORDERED: IBUPROFEN 200 MG TAB PO STA (18:13)
[2020-11-02 18:49] LABS: Basophils # (auto) 0.03 K/uL (0-0.2); Basophils % (auto) 0.2 %; Eosinophils # (auto) 0.01 K/uL (0-0.5); Eosinophils % (auto) 0.1 %; Hematocrit (blood only) 40.1 % (42-52); Hemoglobin 13.5 g/dL (14.0-18.0); Immature Granulocytes # (auto) 0.12 K/uL (0.00-0.02); Immature Granulocytes % (auto) 0.6 %; Lymphocytes # (auto) 0.66 K/uL (1.2-3.4); Lymphocytes % (auto) 3.5 %; Mean Corpuscular Hemoglobin 31.3 pg (25-34); Mean Corpuscular Hgb Conc 33.7 g/dL (32-36); Mean Platelet Volume 11.2 fL (7.4-10.4); Monocytes % (auto) 9.5 %; Neutrophils # (auto) 16.25 K/uL (1.4-6.5); Neutrophils % (auto) 86.1 %; Platelet Count 274 K/uL (130-400); RDW Coefficient of Variation 14.8 % (11.5-14.5); RDW Standard Deviation 50.3 fL (36.4-46.3); Red Blood Count 4.31 M/uL (4.7-6.1); White Blood Count 18.87 K/uL (4.8-10.8)
[2020-11-02 19:09] LABS: BUN Creatinine Ratio 16.4 (10-20); Calcium 8.6 mg/dl (8.5-10.1); Est GFR (African American) 71.6 ml/min; Est GFR (Non-African American) 61.8 ml/min; Potassium 3.9 mmol/L (3.5-5.1)
[2020-11-02] MEDS ORDERED: SODIUM CHLORIDE 0.9% 1000ML 500 ML IV ONE (19:46)
[2020-11-02] MEDS ORDERED: CONSULT PHARMACY STA (19:46)
[2020-11-02] MEDS ORDERED: PIPERACILL/TAZOBAC CONSULT ACTIVE PRN (20:17)
[2020-11-02] MEDS ORDERED: VANCOMYCIN CONSULT ACTIVE PRN (20:17)
[2020-11-02] MEDS ORDERED: PIPERACILLIN/TAZOBACTAM 3.375 GM in DEXTROSE 5% 100 ML IV ONE (20:30)
[2020-11-02] MEDS ORDERED: VANCOMYCIN HCL 1,750 MG in SODIUM CHLORIDE 0.9% 500 ML IV ONE (20:30)
--- NOTE | 2020-11-02 21:16 | Pharmacy Report ---
Pharmacy Abx Dose Short Note - Date of Service November 02, 2020 - Assessment & Plan Assessment * 84 year old M admitted 10/25 for pleural effusion with notable fever and increase in WBC associated with procal of 0.12 on 11/02. Zosyn and vancomycin initiated empirically * SCr at/near baseline Vancomycin * 25 mg/kg IV loading dose then ongoing per AUC nomogram * Trough prior to 4th overall dose. Anticipated trough of 15.3 mcg/mL with associated AUC of 566 Plan * Vancomycin 1750 mg IV x1 then 750 mg IV q12h * Trough 11/04 @ 0830 Pharmacy will continue to follow and will adjust dose/frequency as necessary. Thank you.
[2020-11-02] MEDS: ENALAPRIL MALEATE 10 MG TAB PO SCH (21:32)
[2020-11-02] MEDS: ATORVASTATIN 40 MG TAB PO SCH (21:32)
[2020-11-02] MEDS: DONEPEZIL HCL 10 MG TAB PO SCH (21:32)
[2020-11-03] MEDS: SODIUM CHLORIDE 0.9% 1000ML 1,000 ML IV SCH ×2 (00:57→10:05)
[2020-11-03 01:46] LABS: Appearance Urine Clear (Clear); Bacteria Urine Automated 1+ (Negative); Bilirubin Urine Negative (Negative); Blood Urine 3+ (Negative); Color Urine Yellow; Epithelial Cell Urine Auto 0-5 /lpf (0-5); Glucose Urine UA Negative (Negative); Ketones Urine Negative (Negative); Leukocyte Esterase Urine 2+ (Negative); Nitrite Urine Positive (Negative); Protein Urine Trace (Negative); RBC Urine Automated 0-4 /hpf (0-4); Specific Gravity Urine 1.015 (1.000-1.030); Urobilinogen Urine Negative (Negative)
[2020-11-03] MEDS: PIPERACILLIN/TAZOBACTAM 3.375 GM in DEXTROSE 5% 100 ML IV SCH ×3 (03:40→17:39)
[2020-11-03] MEDS ORDERED: Nursing to Pharmacy Communication SCH (05:00)
[2020-11-03 07:24] LABS: Hematocrit (blood only) 39.3 % (42-52); Hemoglobin 13.1 g/dL (14.0-18.0); Mean Corpuscular Hemoglobin 30.9 pg (25-34); Mean Corpuscular Hgb Conc 33.3 g/dL (32-36); Mean Corpuscular Volume 92.7 fL (80-100); Mean Platelet Volume 10.5 fL (7.4-10.4); Platelet Count 241 K/uL (130-400); RDW Coefficient of Variation 14.9 % (11.5-14.5); RDW Standard Deviation 51.1 fL (36.4-46.3); Red Blood Count 4.24 M/uL (4.7-6.1); White Blood Count 20.59 K/uL (4.8-10.8)
[2020-11-03 08:05] LABS: BUN Creatinine Ratio 16.3 (10-20); Creatinine Clr Calc Pharmacy 60.1 ml/min; Est GFR (African American) 86.6 ml/min; Est GFR (Non-African American) 74.7 ml/min; Potassium 3.4 mmol/L (3.5-5.1)
[2020-11-03] MEDS: MEMANTINE HCL 10 MG TAB PO SCH ×2 (08:46→20:54)
[2020-11-03] MEDS: INSULIN ASPART 100 UNITS/ML 3 ML PEN SC SCH ×4 (08:46→21:15)
[2020-11-03] MEDS: ASPIRIN 81 MG ECTAB PO SCH (08:46)
[2020-11-03] MEDS: CYANOCOBALAMIN 500 MCG TABLET (VITAMIN B-12) PO SCH (08:46)
[2020-11-03] MEDS: MULTIVITAMIN TAB PO SCH (08:47)
[2020-11-03] MEDS: ENOXAPARIN INJ 40 MG/0.4 ML SYR SQ SCH (08:47)
[2020-11-03] MEDS ORDERED: hydroCHLOROthiazide 25 MG TAB PO SCH (09:00)
[2020-11-03] MEDS: VANCOMYCIN HCL 750 MG in SODIUM CHLORIDE 0.9% 250 ML IV SCH ×2 (10:05→20:55)
--- NOTE | 2020-11-03 10:44 | Hospitalist Progress Note ---
Date of Service November 03, 2020 Assessment & Plan (1) Sepsis: Plan: Sepsis possible to CAUTI, acute urinary retention issues overnight. Resuscitated. Cont with broad spectrum antibiotics pending culture results and continued clinical improvement. (2) Acute urinary retention: Plan: Likely 2/2 CAUTI. Parnell replaced and patient is more comortable. TOV in a few days. (3) Pleural effusion on right: (4) Pneumothorax on right: Plan: Chest tube for treatment of exudative effusion and pneumothorax removed yesterday. If reaccumulation of fluid, repeat thoracentesis or VATS may be considered. Cont to monitor conservatively. CXR this am reveals small, persistent pneumothorax with final rads reading pending. Not requiring oxygen supplementation and no increased work of breathing present on exam. Overall appears clinically stable. (5) Generalized weakness: Plan: PT/OT evaluation ordered-SNF recommended when medically ready for discharge. (6) Fall: Plan: Progressive physical decline/deconditioning in setting of advanced dementia CT head without any acute intracranial changes interested in additional services and potential placement due to increased care burden at home Case management assisting with placement post-hospital discharge. Fall precautions, aspiration precautions Goals of care conversation with palliative team on 10/29-patient was changed to DNR/DNI. (7) Diabetes mellitus, type II: Plan: Holding metformin and actos, cont insulin with carb coverage and correction factor. No glargine needed at this time. Nutrition consulted and recommended liberalizing diet to help with intake. Also, recommended adding finger foods that were soft in consistency so that he could help to feed himself. (8) Mixed Alzheimer's and vascular dementia: Plan: One-to-one in setting of patient's advanced dementia. Continue Namenda, donepezil (9) Hypertension: Plan: BP at goal-low normal. Hold antihypertensives in setting of sepsis. (10) CKD (chronic kidney disease), stage III: Plan: Kidney function at baseline. Avoid nephrotoxic substances and renally dose meds as appropriate. (11) DVT prophylaxis: Plan: Lovenox DNR/DNI Dispo-to SNF when medically stable for discharge. updated on status by phone. Clarice Dias DO [facility] Admission and Anticipated Discharge Date Admission Date: October 25, 2020 Subjective 84 yo M presented with generalized weakness, found to have a large right sided exudative pleural effusion and associated PTX s/p chest tube placement on 10/30. He was moved from CU to floor yesterday and spiked a fever last night, improved with one dose Ibuprofen. Heart rate was up and his WBC was also up. Overnight he required a straight cath at 0130 for foul smelling urine and this morning a parnell was placed for persistent urinary retention issues. He appears to have a UTI that may have been related to recent Parnell catheter while in PCU. Cont broad spectrum antibiotics for now pending culture results and clinical improvement/stability. No increased work of breathing and denies SOB. Denies any pain this morning. AM CXR reviewed. Dementia prohibits extensive review of systems and he is also fatigued and falling asleep easily. Nurse at bedside reports that he was very agitated before the Parnell and is finally comfortable. I updated by phone after the assessment. Review of Systems Review of Systems: All systems were reviewed and negative except as indicated in HPI above. Physical Exam Physical Exam: CONSTITUTIONAL: WNWD, vitals as above, generally NAD EYES: normal conjunctivae, no scleral icterus ENT: external ear and nose normal, MMM NECK: trachea midline RESPIRATORY: clear to auscultation bilaterally, no crackles, rales or wheezes, normal respiratory effort CARDIOVASCULAR: regular rate and rhythm, S1 and 2 heard without murmurs, gallops or rubs, no JVD, no peripheral edema CHEST: no tube is in place, however, because of lack of cooperation of patient, I was not able to visualize the dressing clearly. GASTROINTESTINAL: soft, nontender, nondistended, no guarding : Parnell in place. MUSCULOSKELETAL: moves all extremities equally, head is normocephalic and atraumatic SKIN: warm and dry NEUROLOGIC: No facial palsy, no dysarthria. CN 2-12 grossly intact, normal cognition, normal speech, no tremor PSYCHIATRIC: alert, cooperative, at baseline orientation. Results & Data Results & Data ([facility]) Vital Signs (Past 12 Hours) Vital Signs Temp Pulse Pulse Resp BP BP Pulse Ox 11/03/20 07:19 36.8 C 95 H 20 137/71 96 11/03/20 03:45 36.8 C 61 20 132/60 95 11/03/20 01:42 84 Laboratory Results Short CBC 11/02/20 11/03/20 Range/Units 18:28 07:02 WBC 18.87 H 20.59 H (4.8-10.8) K/uL Hgb 13.5 L 13.1 L (14.0-18.0) g/dL Hct 40.1 L 39.3 L (42-52) % Plt Count 274 241 (130-400) K/uL BMP 11/02/20 11/03/20 18:28 07:02 Sodium 135 L 136 Potassium 3.9 3.4 L Chloride 102 104 Carbon Dioxide 28 28 BUN 18 15 Creatinine 1.10 0.94 Glucose 172 H 130 H Calcium 8.6 8.0 L Urine 11/03/20 Range/Units Unknown Urine Color Yellow Urine Appearance Clear (Clear) Urine pH 5.0 (4.5-7.5) Ur Specific [place] 1.015 (1.000-1.030) Urine Protein Trace H (Negative) Urine Glucose (UA) Negative (Negative) Medications Administered Current Inpatient Medications Aspirin (Aspirin 81 Mg Ectab) 81 mg PO QAM [facility] Stop: 11/25/20 08:59 Last Admin: 11/03/20 08:46 Dose: 81 mg Documented by: Atorvastatin Calcium (Atorvastatin 40 Mg Tab) 40 mg PO HS [facility] Stop: 11/24/20 20:59 Last Admin: 11/02/20 21:32 Dose: 40 mg Documented by: Cyanocobalamin (Cyanocobalamin 500 Mcg Tablet (Vitamin B-12)) 1,000 mcg PO DAILY [facility] Stop: 11/25/20 08:59 Last Admin: 11/03/20 08:46 Dose: 1,000 mcg Documented by: Dextrose (Dextrose 50% 50 Ml Syringe) 25 - 50 ml IV UD PRN; Protocol PRN Reason: Hypoglycemia Protocol Stop: 11/24/20 16:43 Donepezil HCl (Donepezil Hcl 10 Mg Tab) 10 mg PO HS [facility] Stop: 11/24/20 20:59 Last Admin: 11/02/20 21:32 Dose: 10 mg Documented by: Enoxaparin Sodium (Enoxaparin Inj 40 Mg/0.4 Ml Syr) 40 mg SQ QAM [facility] Stop: 12/02/20 08:59 Last Admin: 11/03/20 08:47 Dose: 40 mg Documented by: Glucagon (Glucagon For Inj 1 Mg Vial) 1 mg SQ UD PRN; Protocol PRN Reason: Hypoglycemia Protocol Stop: 11/24/20 16:43 Glucose (Glucose 10 Tabs/Tube) 4 - 8 tabs PO UD PRN; Protocol PRN Reason: Hypoglycemia Protocol Stop: 11/24/20 16:43 Glucose (Glucose 40% Gel 15 Gm Tube) 15 - 30 gm PO UD PRN; Protocol PRN Reason: Hypoglycemia Protocol Stop: 11/24/20 16:43 Hydrochlorothiazide (Hydrochlorothiazide 25 Mg Tab) 12.5 mg PO QAM [facility] Stop: 12/03/20 08:59 Sodium Chloride (Nss 1000ml) 1,000 mls @ 100 mls/hr IV .Q10H [facility] Stop: 12/02/20 19:59 Last Admin: 11/03/20 10:05 Dose: 100 mls/hr Documented by: Piperacillin Sod/Tazobactam (Sod 3.375 gm/ Dextrose) 115 mls @ 28.75 mls/hr IV Q8H [facility]; Protocol Stop: 11/05/20 01:59 Last Admin: 11/03/20 10:05 Dose: 28.8 mls/hr Documented by: Vancomycin HCl 750 mg/ Sodium (Chloride) 265 mls @ 200 mls/hr IV Q12H [facility] Stop: 11/05/20 08:59 Last Admin: 11/03/20 10:05 Dose: 200 mls/hr Documented by: Insulin Aspart (Insulin Aspart 100 Units/Ml 3 Ml Pen) 0 units SC ACHS [facility] Stop: 11/24/20 20:59 Last Admin: 11/03/20 08:46 Dose: Not Given Documented by: Memantine (Memantine Hcl 10 Mg Tab) 10 mg PO BID [facility] Stop: 11/24/20 20:59 Last Admin: 11/03/20 08:46 Dose: 10 mg Documented by: Miscellaneous (Carbohydrates For Hypoglycemia ) 15 - 30 gm PO UD PRN PRN Reason: Hypoglycemia Protocol Stop: 11/24/20 16:43 Miscellaneous Information (Piperacill/Tazobac Consult Active) 1 ea N/A UD PRN PRN Reason: Consult Stop: 12/02/20 20:16 Miscellaneous Information (Vancomycin Consult Active) 1 ea N/A UD PRN PRN Reason: Consult Stop: 12/02/20 20:16 Multivitamins (Multivitamin Tab) 1 tab PO DAILY [facility] Stop: 11/25/20 08:59 Last Admin: 11/03/20 08:47 Dose: 1 tab Documented by: Ondansetron HCl (Ondansetron Inj 2 Mg/Ml 2 Ml Vial) 4 mg IV Q6H PRN PRN Reason: Nausea Stop: 11/24/20 13:10 Polyethylene Glycol (Polyethylene (Miralax) 17 Gm Pack) 17 gm PO DAILY PRN PRN Reason: Constipation Stop: 11/24/20 13:10 (1) Fall Encounter type: initial encounter Qualified Code(s): W19.XXXA - Unspecified fall, initial encounter
--- NOTE | 2020-11-03 11:41 | Palliative Care Progress Note ---
Date of Service November 03, 2020 Assessment & Plan (1) Generalized weakness: Plan: Working with PT. Plan is for discharge to SNF for rehab and likely [facility] care when stable. (2) Palliative care encounter: Plan: I spoke with his Pat. She took the weekend off and her daughters were visiting over the weekend. She was updated by Dr. Dias this morning and aware of recent developments. She confirms that he is DNR and plan is for discharge to SNF for rehab. We discussed completion of POLST when he is ready for discharge to [facility] and she is agreeable to this. (3) Acute urinary retention: Plan: Kuhn in. (4) Sepsis: Plan: with UTI, responding to broad spectrum antibiotics (5) Diabetes mellitus, type II: (6) Mixed Alzheimer's and vascular dementia: (7) Pleural effusion on right: Plan: Exudative. Cytology negative Admission and Anticipated Discharge Date Admission Date: October 25, 2020 Subjective Developed UTI over the weekend with fever. Kuhn replaced due to urinary retention. Cultures pending. He is afebrile this morning and awake. He denies pain or discomfort. Ambulated with PT this morning per staff. Review of Systems Review of Systems: Unobtainable due to cognitive status Russell Symptom Assessment Score Pain 0/3 Anxiety 0/3 Dyspnea 0/3 Drowsiness 0/3 Palliative Performance Score 50% Physical Exam Constitutional: no acute distress Respiratory: normal respiratory effort; no labored breathing Cardiovascular: Rate/Rhythm: regular rate and regular rhythm Extremities: no edema Gastrointestinal (Abdomen): soft, nontender Musculoskeletal: Extremities: + muscle atrophy Neurologic: Speech / Cognition: + abnormal cognition Genitourinary: Kuhn with hematuria Results & Data ([facility]) Vital Signs (Past 12 Hours) Vital Signs Temp Pulse Pulse Resp BP BP Pulse Ox 11/03/20 10:57 89 11/03/20 07:19 98.2 F 95 H 20 137/71 96 11/03/20 03:45 98.2 F 61 20 132/60 95 11/03/20 01:42 84 PG Care Time/CCT Total # of Minutes Spent Total Time Spent with Patient: Total time spent is greater than 50% in coordination of care (as documented) at patient's floor/unit and/or counseling patient: Coding Level of Care Code 10375 Subseq Hosp Care Lvl 2 Diagnoses Generalized weakness R53.1 Palliative care encounter Z51.5 Acute urinary retention R33.8 Sepsis A41.9 Diabetes mellitus, type II E11.9 Mixed Alzheimer's and vascular dementia G30.9; F01.50; F02.80 Pleural effusion on right J90
--- NOTE | 2020-11-03 12:58 | XRay Report ---
XR chest 1V portable CLINICAL HISTORY: ptx follow up COMPARISON STUDY: November 03, 2011 FINDINGS: Small right apical pneumothorax is minimally improved since prior with pleural separation at the righ t apex measuring 1.3 cm.Previously pleural separation was measured 1.6 cm No pleural effusion. Previously seen reticular opacities in bilateral infrahilar region are slightly worsened and might re present scattered atelectasis or infiltrates. Evaluation of the right lung is limited due to overlyin g EKG wires. Cardiomediastinal silhouette is within normal limits in size. No significant pulmonary vascular congestion.. Osseous structures: Bowel degenerative changes of the spine. IMPRESSION: 1. Minimal interval improvement of right apical pneumothorax. Continued follow-up is recommended. 2. Slight interval prominence of the reticular opacities at bilateral infrahilar region which could represent atelectasis or infiltrative lesions. ACT 112: Negative or not required by law. The above report was generated using voice recognition software. It may contain grammatical, syntax o r spelling errors. Electronically signed by: Karly Gaston DO 11/03/2020 12:56 PM
--- NOTE | 2020-11-03 13:48 | Pulmonology Progress Note ---
Date of Service November 03, 2020 Assessment & Plan (1) Pleural effusion on right: (2) Shortness of breath: (3) Atelectasis of right lung: (4) Pneumothorax on right: Plan: Impression: 84-year-old male with exudative pleural effusion and associated pneumothorax. He has significant underlying dementia. Recommendations: 1. Pleural effusion: Exudative by light's criteria based on total protein and LDH. Fluid appears resolved on most recent x-ray. Cytology is negative. At this point time I would follow the patient clinically. If the effusion should reaccumulate, repeat thoracentesis or consideration for outpatient video- assisted thoracoscopic evaluation of the pleural space may be appropriate. Given the patient's underlying history of dementia and deconditioning, may consider a more symptomatic driven approach. 2. Pneumothorax/persistent bronchopleural fistula: Small right apical pneumothorax remains. Patient asymptomatic. We will continue to monitor. Recommend repeat chest x-ray in 2 days. We will follow peripherally. Thank you for the consultation. Admission and Anticipated Discharge Date Admission Date: October 25, 2020 Subjective Patient seen and examined this afternoon. He is pleasantly confused. No acute overnight events. Review of Systems Review of Systems: All systems reviewed & are unremarkable except as noted in HPI & below Physical Exam Constitutional: WD/WN, vitals as above Neck: trachea midline, no thyromegaly Respiratory: normal respiratory effort, lungs clear to auscultation Cardiovascular: RRR, no murmur, no edema Chest (Breasts): Chest: normal inspection of chest Gastrointestinal (Abdomen): normal bowel sounds, soft, nontender, no hepatosplenomegaly Musculoskeletal: Extremities: extremities normal to inspection Skin: no rashes, warm and dry Lymphatic: no cervical lymphadenopathy Results & Data Results & Data ([facility]) Vital Signs (Past 12 Hours) Vital Signs Temp Pulse Pulse Resp BP BP Pulse Ox 11/03/20 11:00 98.4 F 83 18 120/69 98 11/03/20 10:57 89 11/03/20 07:19 98.2 F 95 H 20 137/71 96 11/03/20 03:45 98.2 F 61 20 132/60 95 vital signs, labs and imaging personally reviewed chest x-ray with evidence of residual small apical pneumothorax PG Care Time/CCT Total # of Minutes Spent Total Time Spent with Patient: Total time spent is greater than 50% in coordination of care (as documented) at patient's floor/unit and/or counseling patient: Coding Level of Care Code 82080 Subseq Hosp Care Lvl 2 Diagnoses Pleural effusion on right J90 Shortness of breath R06.02 Atelectasis of right lung J98.11 Pneumothorax on right J93.9
[2020-11-03] MEDS: DONEPEZIL HCL 10 MG TAB PO SCH (20:54)
[2020-11-03] MEDS: ATORVASTATIN 40 MG TAB PO SCH (20:54)
[2020-11-03] MEDS ORDERED: HALOPERIDOL LACTATE 5 MG/ML 1 ML VIAL IM PRN (23:24)
[2020-11-04] MEDS: PIPERACILLIN/TAZOBACTAM 3.375 GM in DEXTROSE 5% 100 ML IV SCH ×3 (01:28→18:00)
[2020-11-04 08:28] LABS: Basophils # (auto) 0.04 K/uL (0-0.2); Basophils % (auto) 0.2 %; Eosinophils # (auto) 0.09 K/uL (0-0.5); Eosinophils % (auto) 0.5 %; Hematocrit (blood only) 38.7 % (42-52); Immature Granulocytes # (auto) 0.08 K/uL (0.00-0.02); Immature Granulocytes % (auto) 0.4 %; Lymphocytes # (auto) 1.21 K/uL (1.2-3.4); Lymphocytes % (auto) 6.1 %; Mean Corpuscular Hemoglobin 31.5 pg (25-34); Mean Corpuscular Hgb Conc 33.6 g/dL (32-36); Mean Corpuscular Volume 93.7 fL (80-100); Mean Platelet Volume 10.7 fL (7.4-10.4); Monocytes % (auto) 6.6 %; Neutrophils # (auto) 16.96 K/uL (1.4-6.5); Neutrophils % (auto) 86.2 %; Platelet Count 269 K/uL (130-400); RDW Standard Deviation 51.4 fL (36.4-46.3); Red Blood Count 4.13 M/uL (4.7-6.1); White Blood Count 19.68 K/uL (4.8-10.8)
[2020-11-04] MEDS ORDERED: VANCOMYCIN TROUGH ONE (08:30)
[2020-11-04] MEDS: INSULIN ASPART 100 UNITS/ML 3 ML PEN SC SCH ×4 (08:54→21:00)
[2020-11-04 08:58] LABS: BUN Creatinine Ratio 12.1 (10-20); Calcium 8.4 mg/dl (8.5-10.1); Creatinine Clr Calc Pharmacy 54.4 ml/min; Est GFR (African American) 76.6 ml/min; Est GFR (Non-African American) 66.1 ml/min; Phosphorus 2.4 mg/dl (2.5-4.9); Potassium 4.1 mmol/L (3.5-5.1)
[2020-11-04] MEDS: CYANOCOBALAMIN 500 MCG TABLET (VITAMIN B-12) PO SCH (08:58)
[2020-11-04] MEDS: MEMANTINE HCL 10 MG TAB PO SCH ×2 (08:58→20:32)
[2020-11-04] MEDS: MULTIVITAMIN TAB PO SCH (08:58)
--- NOTE | 2020-11-04 10:24 | Urology Consultation ---
Date of Consultation November 04, 2020 Assessment & Plan (1) Sepsis: (2) Acute urinary retention: (3) Gross hematuria: 84yo M admitted with a large right pleural effusion who has since developed acute urinary retention requiring parnell catheter, gross hematuria, and sepsis possible CAUTI. - Pt with urinary retention requiring parnell catheter who has now developed hematuria likely secondary to patient pulling on catheter and UTI - He is afebrile, VSS, non-toxic appearing. - Labs reviewed, Wbc 19.68 and Cr 1.04 - Urine and blood cultures preliminary gram negative bacilli - Parnell catheter irrigated at bedside without difficulty with return of numerous small clots. Catheter draining pink tinged urine. - Maintain parnell catheter, OK to irrigate catheter as needed for clots, retention, suprapubic pain. - Recommend continue to monitor urine output -Bladder scan as needed. - Continue supportive care and antibiotic therapy, follow cultures - Will continue to follow Supervising Physician Co-Signing Physician Notes Patient seen and examined with Lauren Blevins Unfortunately he pulled on his catheter again after her initial evaluation At the time that we entered the room he did not appear to have much urine within the tubing Irrigation of his catheter revealed several small clots and appropriate drainage of the bladder. We did reposition the catheter into the bladder and it seems to be working appropriately He does not appear to be actively bleeding as he has dark clots and no bright red blood at present Discussed the importance of not pulling on his catheter with the patient and his Ultimately he will do better without a catheter given his confused state We will start tamsulosin and finasteride and hope to maximally treat his outlet obstruction and offer the best chance for spontaneous voiding in the future History of Present Illness Reason for Consultation: AUR now with gross hematuria w clots. Parnell in place Attending Physician: Clarice Dias, DO History of Present Illness 84yo M admitted with a large right pleural effusion and has since developed acute urinary retention requiring parnell catheter and sepsis possible CAUTI. PMHx significant for DM, hypertension, hyperlipidemia, chronic kidney disease, mixed Alzheimer's and vascular dementia The patient was admitted on 10/25 with progressive weakness and was found to have a large right pleural effusion. He had a parnell catheter inserted on admission which was then later removed. On 11/02, he developed a new fever with tachycardia and leukocytosis. Blood and urine cultures were sent. The patient was started on broad spectrum antibiotics given concern for developing sepsis possible CAUTI. The patient developed acute urinary retention issues on 11/03 and a parnell catheter was reinserted by nursing. Per nursing, the catheter was draining adequately and was clear yellow at time of insertion. However, the patient then apparently pulled on the catheter and it has since been draining blood tinged urine. Chart review 11/04: Afebrile, Wbc 19.68, Hgb 13.0, Cr 1.04 Urine and blood cultures preliminary gram negative bacilli On IV Zosyn. Urine output overnight - 950ml Bladder scanned 11/[address] abdomen pelvis 10/25- IMPRESSION: 1. Cholelithiasis. Distended fluid-filled gallbladder without surrounding inflammatory changes. 2. Mild diffuse thickening of urinary bladder wall and surrounding fat stranding which might be seen in cystitis. Please correlate this findings with results of urinalysis. 3. Nondilated loops of bowel. Appendix is not well seen. Possible minimal mesenteric edema surrounding loops of small bowel which could be artifactual due to motion and beam hardening artifact. Follow-up evaluation with [facility] might be considered. 4. Atherosclerosis. Patient examined at bedside this AM. Awake, resting in bed on arrival. Pleasantly confused. Limited history from patient due to underlying dementia. Parnell catheter intact, with minimal output in bag, hematuria and small clots noted in tubing. The patient reported he "had to pee" multiple times. He reported feelings of urinary urgency and intermittent suprapubic discomfort. Parnell catheter irrigated at bedside without difficulty with return of numerous small blood clots. Light-pink tinged urine noted in catheter tubing. Offered no additional complaints Allergies Allergy/AdvReac Type Severity Reaction Status Date / Time acetaminophen Allergy Intermediate rash Verified 10/25/20 09:25 codeine Allergy Unknown Verified 10/25/20 09:25 Home Medications Medication Instructions Recorded Confirmed Type atorvastatin 40 mg tablet (Lipitor) 40 mg PO HS tab 06/22/19 10/25/20 History donepezil 10 mg tablet (Aricept) 10 mg PO HS 06/22/19 10/25/20 History enalapril maleate 20 mg tablet 20 mg PO HS tab 06/22/19 10/25/20 History (Vasotec) hydrochlorothiazide 25 mg tablet 25 mg PO QAM tab 06/22/19 10/25/20 History memantine 10 mg tablet (Namenda) 10 mg PO BID tab 06/22/19 10/25/20 History metformin 500 mg tablet 1,000 mg PO BID tab 06/22/19 10/25/20 History pioglitazone 45 mg tablet (Actos) 45 mg PO QAM tab 06/22/19 10/25/20 History sitagliptin 100 mg tablet (Januvia) 100 mg PO HS tab 06/22/19 10/25/20 History aspirin 81 mg tablet,delayed 81 mg PO QAM 10/25/20 10/25/20 History release (Aspirin Low Dose) cyanocobalamin (vitamin B-12) 1,000 mcg PO DAILY 10/25/20 10/25/20 History 1,000 mcg tablet multivitamin 1 tab PO DAILY 10/25/20 10/25/20 History Patient History Medical History (Updated 11/04/20 @ 14:05 by ROWDY Camejo) Altered mental status CKD (chronic kidney disease), stage III Diabetes mellitus, type II Dysplastic nevus History of basal cell carcinoma Hyperlipidemia Hypertension Mixed Alzheimer's and vascular dementia Palliative care encounter Shortness of breath Weakness Surgical History No history of previous surgery Family History Mother No pertinent family history Other Cancer Heart disease Stroke Social History Smoking Status: Former smoker Smoking End Date: 1976; Second Hand Exposure: No; Do You Dip or Chew Tobacco: No; Tobacco Cessation Education Requested by Patient: No Hx Alcohol Use: No Hx Substance Use: No Preferred Language: Maltese Communication Ability: Unable Talent Engineer Required: No Beliefs That Will Affect Care: None Current Living Situation: Spouse Current Living Situation Comment: ranch home Other Information That Helps Us Care for You: No Feels Safe at Home: Yes Safety Concerns: Feels Safe At This Time Assistive Devices: Glasses Review of Systems Review of Systems: Unobtainable due to cognitive status Physical Exam Constitutional: no acute distress Respiratory: normal respiratory effort; no labored breathing Cardiovascular: Extremities: no calf tenderness Gastrointestinal (Abdomen): Percussion/Palpation: abdomen soft; abdomen nontender and no guarding Musculoskeletal: Head/Neck/Chest: normocephalic Skin: No visible rashes or lesions to exposed skin areas Neurologic: Speech / Cognition: + abnormal cognition Psychiatric: Orientation: alert and cooperative Genitourinary: Parnell catheter intact with hematuria. Results & Data ([facility]) Vital Signs (Past 12 Hours) Vital Signs Temp Pulse Pulse Pulse Resp BP BP 11/04/20 07:42 36.7 C 71 14 118/62 11/04/20 07:27 71 11/04/20 03:33 37.0 C 73 17 116/73 11/03/20 23:41 82 Pulse Ox 11/04/20 07:42 93 11/04/20 07:27 11/04/20 03:33 95 11/03/20 23:41 PG Care Time/CCT Total # of Minutes Spent Total Time Spent with Patient: Total time spent is greater than 50% in coordination of care (as documented) at patient's floor/unit and/or counseling patient: Coding Level of Care Code 01764 Initial Inpt Care Lvl 2 Diagnoses Acute urinary retention R33.8 Gross hematuria R31.0 Sepsis A41.9
[2020-11-04] MEDS: ASPIRIN 81 MG ECTAB PO SCH (10:37)
[2020-11-04] MEDS: VANCOMYCIN HCL 750 MG in SODIUM CHLORIDE 0.9% 250 ML IV SCH (10:37)
--- NOTE | 2020-11-04 15:06 | Hospitalist Progress Note ---
Date of Service November 04, 2020 Assessment & Plan (1) Sepsis: Plan: Sepsis possible to CAUTI, acute urinary retention issues overnight. Resuscitated. Cont with broad spectrum antibiotics pending culture results and continued clinical improvement. (2) Catheter-associated urinary tract infection: Plan: Cont Zosyn pending urine culture speciation and sensitivity. He is clinically improved. (3) Gram-negative bacteremia: Plan: plan as above. (4) Gross hematuria: Plan: likely related to infection but may also be from trauma. Urology flushed catheter today. Lovenox held since yesterday. Pyridium for bladder spasms and discomfort noted by nursing staff. (5) Acute urinary retention: Plan: Likely 2/2 CAUTI. Parnell replaced and patient is more comortable. TOV in a few days. (6) Pleural effusion on right: (7) Pneumothorax on right: Plan: Chest tube for treatment of exudative effusion and pneumothorax removed yes terday. If reaccumulation of fluid, repeat thoracentesis or VATS may be considered. Cont to monitor conservatively. CXR this am reveals small, persistent pneumothorax with final rads reading pending. Not requiring oxygen supplementation and no increased work of breathing present on exam. Overall appears clinically stable. (8) Generalized weakness: Plan: PT/OT evaluation ordered-SNF recommended when medically ready for discharge. (9) Fall: Plan: Progressive physical decline/deconditioning in setting of advanced dementia CT head without any acute intracranial changes Case management assisting with placement post-hospital discharge. Fall precautions, aspiration precautions Goals of care conversation with palliative team on 10/29-patient was changed to DNR/DNI. (10) Diabetes mellitus, type II: Plan: Holding metformin and actos, cont insulin with carb coverage and correction factor. No glargine needed at this time. Nutrition consulted and recommended liberalizing diet to help with intake. Also, recommended adding finger foods that were soft in consistency so that he could help to feed himself. 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 Continue Namenda, donepezil (12) Hypertension: Plan: BP at goal-low normal. Hold antihypertensives in setting of sepsis. (13) CKD (chronic kidney disease), stage III: Plan: Kidney function at baseline. Avoid nephrotoxic substances and renally dose meds as appropriate. (14) DVT prophylaxis: Plan: Lovenox-held in setting of hematuria DNR/DNI Dispo-to SNF when medically stable for discharge. updated at bedside DO [facility]ist Admission and Anticipated Discharge Date Admission Date: October 25, 2020 Subjective 84 yo M presented with generalized weakness, found to have a large right sided exudative pleural effusion and associated PTX s/p chest tube placement on 10/30. Moved to floor on 11/02 after removal of chest tube and he spike fever 102F with sepsis picture--probable source was CAUTI. Because of acute urinary retention, a parnell was replaced and Vanc/Zosyn was started empirically. GNB growing in blood and urine. Vanc stopped He is doing better today Denies any symptoms Nurse at bedside state that he was uncomfortable 2/2 bladder spasms. also at bedside and care plan was discussed with her New gross hematuria present in Parnell catheter Urology consulted. Review of Systems Review of Systems: At least ten systems were reviewed and negative except as indicated in HPI above. Physical Exam Physical Exam: CONSTITUTIONAL: WNWD, vitals as above, generally NAD EYES: normal conjunctivae, no scleral icterus ENT: external ear and nose normal, MMM NECK: trachea midline RESPIRATORY: clear to auscultation bilaterally, no crackles, rales or wheezes, normal respiratory effort CARDIOVASCULAR: regular rate and rhythm, S1 and 2 heard without murmurs, gallops or rubs, no JVD, no peripheral edema CHEST: no tube is in place, however, because of lack of cooperation of patient, I was not able to visualize the dressing clearly. GASTROINTESTINAL: soft, nontender, nondistended, no guarding : Parnell in place. MUSCULOSKELETAL: moves all extremities equally, head is normocephalic and atraumatic SKIN: warm and dry NEUROLOGIC: No facial palsy, no dysarthria. CN 2-12 grossly intact, normal cognition, normal speech, no tremor PSYCHIATRIC: alert, cooperative, at baseline orientation. Results & Data Results & Data ([facility]) Vital Signs (Past 12 Hours) Vital Signs Temp Pulse Pulse Pulse Resp BP BP 11/04/20 11:24 36.8 C 67 15 114/64 11/04/20 07:42 36.7 C 71 14 118/62 11/04/20 07:27 71 11/04/20 03:33 37.0 C 73 17 116/73 Pulse Ox 11/04/20 11:24 98 11/04/20 07:42 93 11/04/20 07:27 11/04/20 03:33 95 Laboratory Results Short CBC 11/04/20 Range/Units 08:13 WBC 19.68 H (4.8-10.8) K/uL Hgb 13.0 L (14.0-18.0) g/dL Hct 38.7 L (42-52) % Plt Count 269 (130-400) K/uL BMP 11/04/20 08:13 Sodium 139 Potassium 4.1 D Chloride 107 Carbon Dioxide 28 BUN 13 Creatinine 1.04 Glucose 116 H Calcium 8.4 L Medications Administered Current Inpatient Medications Aspirin (Aspirin 81 Mg Ectab) 81 mg PO QAM ALONDRA Stop: 11/25/20 08:59 Last Admin: 11/04/20 10:37 Dose: 81 mg Documented by: Atorvastatin Calcium (Atorvastatin 40 Mg Tab) 40 mg PO HS ALONDRA Stop: 11/24/20 20:59 Last Admin: 11/03/20 20:54 Dose: 40 mg Documented by: Cyanocobalamin (Cyanocobalamin 500 Mcg Tablet (Vitamin B-12)) 1,000 mcg PO DAILY ALONDRA Stop: 11/25/20 08:59 Last Admin: 11/04/20 08:58 Dose: 1,000 mcg Documented by: Dextrose (Dextrose 50% 50 Ml Syringe) 25 - 50 ml IV UD PRN; Protocol PRN Reason: Hypoglycemia Protocol Stop: 11/24/20 16:43 Donepezil HCl (Donepezil Hcl 10 Mg Tab) 10 mg PO HS ALONDRA Stop: 11/24/20 20:59 Last Admin: 11/03/20 20:54 Dose: 10 mg Documented by: Enoxaparin Sodium (Enoxaparin Inj 40 Mg/0.4 Ml Syr) 40 mg SQ QAM ALONDRA Stop: 12/02/20 08:59 Last Admin: 11/03/20 08:47 Dose: 40 mg Documented by: Glucagon (Glucagon For Inj 1 Mg Vial) 1 mg SQ UD PRN; Protocol PRN Reason: Hypoglycemia Protocol Stop: 11/24/20 16:43 Glucose (Glucose 10 Tabs/Tube) 4 - 8 tabs PO UD PRN; Protocol PRN Reason: Hypoglycemia Protocol Stop: 11/24/20 16:43 Glucose (Glucose 40% Gel 15 Gm Tube) 15 - 30 gm PO UD PRN; Protocol PRN Reason: Hypoglycemia Protocol Stop: 11/24/20 16:43 Haloperidol Lactate (Haloperidol Lactate 5 Mg/Ml 1 Ml Vial) 2 mg IM Q2H PRN PRN Reason: Agitation Stop: 12/03/20 23:23 Hydrochlorothiazide (Hydrochlorothiazide 25 Mg Tab) 12.5 mg PO QAM ALONDRA Stop: 12/03/20 08:59 Sodium Chloride (Nss 1000ml) 1,000 mls @ 100 mls/hr IV .Q10H ALONDRA Stop: 12/02/20 19:59 Last Infusion: 11/03/20 19:15 Dose: Infused Documented by: Piperacillin Sod/Tazobactam (Sod 3.375 gm/ Dextrose) 115 mls @ 28.75 mls/hr IV Q8H [facility]; Protocol Stop: 11/17/20 01:59 Last Infusion: 11/04/20 14:37 Dose: Infused Documented by: Insulin Aspart (Insulin Aspart 100 Units/Ml 3 Ml Pen) 0 units SC ACHS ALONDRA Stop: 11/24/20 20:59 Last Admin: 11/04/20 12:40 Dose: Not Given Documented by: Memantine (Memantine Hcl 10 Mg Tab) 10 mg PO BID ALONDRA Stop: 11/24/20 20:59 Last Admin: 11/04/20 08:58 Dose: 10 mg Documented by: Miscellaneous (Carbohydrates For Hypoglycemia ) 15 - 30 gm PO UD PRN PRN Reason: Hypoglycemia Protocol Stop: 11/24/20 16:43 Miscellaneous Information (Piperacill/Tazobac Consult Active) 1 ea N/A UD PRN PRN Reason: Consult Stop: 12/02/20 20:16 Multivitamins (Multivitamin Tab) 1 tab PO DAILY [facility] Stop: 11/25/20 08:59 Last Admin: 11/04/20 08:58 Dose: 1 tab Documented by: Ondansetron HCl (Ondansetron Inj 2 Mg/Ml 2 Ml Vial) 4 mg IV Q6H PRN PRN Reason: Nausea Stop: 11/24/20 13:10 Polyethylene Glycol (Polyethylene (Miralax) 17 Gm Pack) 17 gm PO DAILY PRN PRN Reason: Constipation Stop: 11/24/20 13:10 (1) Fall Encounter type: initial encounter Qualified Code(s): W19.XXXA - Unspecified fall, initial encounter
[2020-11-04] MEDS ORDERED: TAMSULOSIN HCL 0.4 MG CAP PO ONE (16:47)
[2020-11-04] MEDS: PHENAZOPYRIDINE HCL 100 MG TAB PO SCH (20:32)
[2020-11-04] MEDS: ATORVASTATIN 40 MG TAB PO SCH (20:33)
[2020-11-04] MEDS: TAMSULOSIN HCL 0.4 MG CAP PO SCH (20:33)
[2020-11-04] MEDS: DONEPEZIL HCL 10 MG TAB PO SCH (20:33)
[2020-11-05] MEDS: PIPERACILLIN/TAZOBACTAM 3.375 GM in DEXTROSE 5% 100 ML IV SCH ×3 (01:49→17:46)
[2020-11-05 08:16] LABS: Hematocrit (blood only) 40.9 % (42-52); Hemoglobin 13.4 g/dL (14.0-18.0); Mean Corpuscular Hemoglobin 30.6 pg (25-34); Mean Corpuscular Hgb Conc 32.8 g/dL (32-36); Mean Corpuscular Volume 93.4 fL (80-100); Mean Platelet Volume 10.6 fL (7.4-10.4); Platelet Count 305 K/uL (130-400); RDW Standard Deviation 51.1 fL (36.4-46.3); Red Blood Count 4.38 M/uL (4.7-6.1); White Blood Count 13.65 K/uL (4.8-10.8)
[2020-11-05] MEDS: INSULIN ASPART 100 UNITS/ML 3 ML PEN SC SCH ×4 (08:43→20:00)
[2020-11-05] MEDS: PHENAZOPYRIDINE HCL 100 MG TAB PO SCH ×3 (08:45→20:56)
[2020-11-05] MEDS: MEMANTINE HCL 10 MG TAB PO SCH ×2 (08:45→20:56)
[2020-11-05] MEDS: MULTIVITAMIN TAB PO SCH (08:46)
[2020-11-05] MEDS: ASPIRIN 81 MG ECTAB PO SCH (08:46)
[2020-11-05] MEDS: CYANOCOBALAMIN 500 MCG TABLET (VITAMIN B-12) PO SCH (08:46)
[2020-11-05 08:47] LABS: BUN Creatinine Ratio 14.4 (10-20); Calcium 8.6 mg/dl (8.5-10.1); Creatinine Clr Calc Pharmacy 62.4 ml/min; Est GFR (Non-African American) 77.7 ml/min; Potassium 3.8 mmol/L (3.5-5.1)
[2020-11-05] MEDS: FINASTERIDE 5 MG TAB PO SCH (08:47)
--- NOTE | 2020-11-05 08:48 | Urology Progress Note ---
Date of Service November 05, 2020 Assessment & Plan (1) Gross hematuria: (2) UTI (urinary tract infection): (3) Acute urinary retention: Plan: 84yo M admitted with a large right pleural effusion who has since developed acute urinary retention requiring parnell catheter, gross hematuria, and sepsis possible CAUTI. - He is afebrile, VSS, non-toxic appearing. - Labs reviewed, Wbc down to 13.65 today and Creatinine stable. Hemoglobin 13.4. - UCx final with E.coli and Enterobacter; BCx prelim gram negative bacilli - On IV Zosyn, ID consulted. - Parnell catheter draining with hematuria, will continue to monitor. - Hematuria likely secondary to trauma and UTI -Discussed importance of not pulling on his catheter. - Maintain parnell catheter -Bladder scan as needed. Irrigate catheter as needed for clots, retention, suprapubic pain. - Continue supportive care and antibiotic therapy, follow cultures - Will continue to follow Admission and Anticipated Discharge Date Admission Date: October 25, 2020 Subjective Pt examined at bedside this AM. Awake, sitting in bedside chair on arrival. Pleasantly confused. On observation with DIRECTOR MEETINGS at bedside. Parnell intact, draining with hematuria. No fevers overnight. Tolerating diet. No complaints of pain at present. Review of Systems Constitutional: as per Subjective / HPI Gastrointestinal: as per Subjective / HPI Genitourinary: + as per Subjective / HPI Physical Exam Constitutional: no acute distress Respiratory: normal respiratory effort; no labored breathing Gastrointestinal (Abdomen): Inspection/Auscultation: abdomen normal to inspection Musculoskeletal: Head/Neck/Chest: normocephalic Skin: No visible rashes or lesions to exposed skin areas Psychiatric: Orientation: alert and cooperative Genitourinary: Parnell catheter intact with hematuria. Results & Data ([facility]) Vital Signs (Past 12 Hours) Vital Signs Temp Pulse Pulse Pulse Resp BP Pulse Ox 11/05/20 08:21 34.7 C L 72 22 118/62 95 11/05/20 07:50 77 11/05/20 03:07 36.8 C 85 18 147/67 H 95 11/05/20 00:37 85 11/04/20 23:13 36.5 C 77 18 119/63 93 PG Care Time/CCT Total # of Minutes Spent Total Time Spent with Patient: Total time spent is greater than 50% in coordination of care (as documented) at patient's floor/unit and/or counseling patient: Coding Level of Care Code 45985 Subseq Hosp Care Lvl 2 Diagnoses Gross hematuria R31.0 UTI (urinary tract infection) N39.0 Acute urinary retention R33.8
--- NOTE | 2020-11-05 15:58 | Hospitalist Progress Note ---
Date of Service November 05, 2020 Assessment & Plan (1) Sepsis: Plan: Sepsis possible to CAUTI, acute urinary retention issues with replacement of parnell catheter. Resuscitated. Cont with broad spectrum antibiotics pending culture results and continued clinical improvement. (2) Catheter-associated urinary tract infection: Plan: Cont Zosyn pending urine culture speciation and sensitivity. He is clinically improved. (3) Gram-negative bacteremia: Plan: plan as above. (4) Gross hematuria: Plan: likely related to infection but may also be from trauma. Holding Lovenox. Pyridium PRN. (5) Acute urinary retention: Plan: Likely 2/2 CAUTI. Parnell replaced and patient is more comortable. TOV in a few days. Cont finasteride and tamsulosin started by Urology. (6) Pleural effusion on right: (7) Pneumothorax on right: Plan: Chest tube for treatment of exudative effusion and pneumothorax removed yesterday. If reaccumulation of fluid, repeat thoracentesis or VATS may be considered. Cont to monitor conservatively. Small, persistent pneumothorax on imaging. Not requiring oxygen supplementation and no increased work of breathing present on exam. Overall appears clinically stable. CXR in am. (8) Generalized weakness: Plan: PT/OT evaluation ordered-SNF recommended when medically ready for discharge. (9) Fall: Plan: Progressive physical decline/deconditioning in setting of advanced dementia CT head without any acute intracranial changes Case management assisting with placement post-hospital discharge. Fall precautions, aspiration precautions Goals of care conversation with palliative team on 10/29-patient was changed to DNR/DNI. (10) Diabetes mellitus, type II: Plan: At goal. Holding metformin and actos, cont insulin with carb coverage and correction factor. No glargine needed at this time. Nutrition consulted and recommended liberalizing diet to help with intake. Also, recommended adding fin rimma foods that were soft in consistency so that he could help to feed himself. 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 Continue Namenda, donepezil (12) Hypertension: Plan: BP at goal-low normal. Hold antihypertensives in setting of sepsis. (13) CKD (chronic kidney disease), stage III: Plan: Kidney function at baseline. Avoid nephrotoxic substances and renally dose meds as appropriate. (14) DVT prophylaxis: Plan: Lovenox-held in setting of hematuria DNR/DNI Dispo-to SNF when medically stable for discharge. Clarice Dias DO [facility] Hospitalist Admission and Anticipated Discharge Date Admission Date: October 25, 2020 Subjective 84 yo M presented with generalized weakness, found to have a large right sided exudative pleural effusion and associated PTX s/p chest tube placement on 10/30. Moved to floor on 11/02 after removal of chest tube and he spike fever 102F with sepsis picture--probable source was CAUTI. Because of acute urinary retention, a parnell was replaced and Vanc/Zosyn was started empirically. GNB growing in blood and urine. Vanc stopped. Gross hematuria into parnell, likely related to trauma vs infection. He is up in chair and eating heartily WBC improved Parnell with gross hematuria still present Denies bladder spasms or pain Denies SOB or other issues. Review of Systems Review of Systems: At least ten systems were reviewed and negative except as indicated in HPI above. Physical Exam Physical Exam: CONSTITUTIONAL: WNWD, vitals as above, generally NAD EYES: normal conjunctivae, no scleral icterus ENT: external ear and nose normal, MMM NECK: trachea midline RESPIRATORY: clear to auscultation bilaterally, no crackles, rales or wheezes, normal respiratory effort CARDIOVASCULAR: regular rate and rhythm, S1 and 2 heard without murmurs, gallops or rubs, no JVD, no peripheral edema CHEST: no tube is in place, however, because of lack of cooperation of patient, I was not able to visualize the dressing clearly. GASTROINTESTINAL: soft, nontender, nondistended, no guarding : Parnell in place. Jones red urine present. MUSCULOSKELETAL: moves all extremities equally, head is normocephalic and at raumatic SKIN: warm and dry NEUROLOGIC: No facial palsy, no dysarthria. CN 2-12 grossly intact, normal cognition, normal speech, no tremor PSYCHIATRIC: alert, cooperative, at baseline orientation. Results & Data Results & Data ([facility]) Vital Signs (Past 12 Hours) Vital Signs Temp Pulse Pulse Pulse Resp BP BP 11/05/20 15:30 36.5 C 79 22 121/74 11/05/20 12:10 36.6 C 69 20 116/72 11/05/20 08:41 36.7 C 11/05/20 08:21 34.7 C L 72 22 118/62 11/05/20 07:50 77 Pulse Ox 11/05/20 15:30 97 11/05/20 12:10 97 11/05/20 08:41 11/05/20 08:21 95 11/05/20 07:50 Laboratory Results Short CBC 11/05/20 Range/Units 07:56 WBC 13.65 H (4.8-10.8) K/uL Hgb 13.4 L (14.0-18.0) g/dL Hct 40.9 L (42-52) % Plt Count 305 (130-400) K/uL BMP 11/05/20 07:56 Sodium 141 Potassium 3.8 Chloride 107 Carbon Dioxide 29 BUN 13 Creatinine 0.91 Glucose 125 H Calcium 8.6 Medications Administered Current Inpatient Medications Aspirin (Aspirin 81 Mg Ectab) 81 mg PO QA ALONDRA Stop: 11/25/20 08:59 Last Admin: 11/05/20 08:46 Dose: 81 mg Documented by: Atorvastatin Calcium (Atorvastatin 40 Mg Tab) 40 mg PO HS ALONDRA Stop: 11/24/20 20:59 Last Admin: 11/04/20 20:33 Dose: 40 mg Documented by: Cyanocobalamin (Cyanocobalamin 500 Mcg Tablet (Vitamin B-12)) 1,000 mcg PO DAILY ALONDRA Stop: 11/25/20 08:59 Last Admin: 11/05/20 08:46 Dose: 1,000 mcg Documented by: Dextrose (Dextrose 50% 50 Ml Syringe) 25 - 50 ml IV UD PRN; Protocol PRN Reason: Hypoglycemia Protocol Stop: 11/24/20 16:43 Donepezil HCl (Donepezil Hcl 10 Mg Tab) 10 mg PO HS ALONDRA Stop: 11/24/20 20:59 Last Admin: 11/04/20 20:33 Dose: 10 mg Documented by: Enoxaparin Sodium (Enoxaparin Inj 40 Mg/0.4 Ml Syr) 40 mg SQ QAM ALONDRA Stop: 12/02/20 08:59 Last Admin: 11/03/20 08:47 Dose: 40 mg Documented by: Finasteride (Finasteride 5 Mg Tab) 5 mg PO QAM ALONDRA Stop: 12/05/20 08:59 Last Admin: 11/05/20 08:47 Dose: 5 mg Documented by: Glucagon (Glucagon For Inj 1 Mg Vial) 1 mg SQ UD PRN; Protocol PRN Reason: Hypoglycemia Protocol Stop: 11/24/20 16:43 Glucose (Glucose 10 Tabs/Tube) 4 - 8 tabs PO UD PRN; Protocol PRN Reason: Hypoglycemia Protocol Stop: 11/24/20 16:43 Glucose (Glucose 40% Gel 15 Gm Tube) 15 - 30 gm PO UD PRN; Protocol PRN Reason: Hypoglycemia Protocol Stop: 11/24/20 16:43 Haloperidol Lactate (Haloperidol Lactate 5 Mg/Ml 1 Ml Vial) 2 mg IM Q2H PRN PRN Reason: Agitation Stop: 12/03/20 23:23 Hydrochlorothiazide (Hydrochlorothiazide 25 Mg Tab) 12.5 mg PO QAM ALONDRA Stop: 12/03/20 08:59 Sodium Chloride (Nss 1000ml) 1,000 mls @ 100 mls/hr IV .Q10H ALONDRA Stop: 12/02/20 19:59 Last Infusion: 11/03/20 19:15 Dose: Infused Documented by: Piperacillin Sod/Tazobactam (Sod 3.375 gm/ Dextrose) 115 mls @ 28.75 mls/hr IV Q8H [facility]; Protocol Stop: 11/17/20 01:59 Last Infusion: 11/05/20 14:49 Dose: Infused Documented by: Insulin Aspart (Insulin Aspart 100 Units/Ml 3 Ml Pen) 0 units SC ACHS ALONDRA Stop: 11/24/20 20:59 Last Admin: 11/05/20 12:32 Dose: 3 units Documented by: Memantine (Memantine Hcl 10 Mg Tab) 10 mg PO BID ALONDRA Stop: 11/24/20 20:59 Last Admin: 11/05/20 08:45 Dose: 10 mg Documented by: Miscellaneous (Carbohydrates For Hypoglycemia ) 15 - 30 gm PO UD PRN PRN Reason: Hypoglycemia Protocol Stop: 11/24/20 16:43 Miscellaneous Information (Piperacill/Tazobac Consult Active) 1 ea N/A UD PRN PRN Reason: Consult Stop: 12/02/20 20:16 Multivitamins (Multivitamin Tab) 1 tab PO DAILY ALONDRA Stop: 11/25/20 08:59 Last Admin: 11/05/20 08:46 Dose: 1 tab Documented by: Ondansetron HCl (Ondansetron Inj 2 Mg/Ml 2 Ml Vial) 4 mg IV Q6H PRN PRN Reason: Nausea Stop: 11/24/20 13:10 Phenazopyridine HCl (Phenazopyridine Hcl 100 Mg Tab) 100 mg PO TID ALONDRA Stop: 12/04/20 20:59 Last Admin: 11/05/20 13:57 Dose: 100 mg Documented by: Polyethylene Glycol (Polyethylene (Miralax) 17 Gm Pack) 17 gm PO DAILY PRN PRN Reason: Constipation Stop: 11/24/20 13:10 Tamsulosin HCl (Tamsulosin Hcl 0.4 Mg Cap) 0.4 mg PO HS [facility] Stop: 12/04/20 20:59 Last Admin: 11/04/20 20:33 Dose: 0.4 mg Documented by: (1) Fall Encounter type: initial encounter Qualified Code(s): W19.XXXA - Unspecified fall, initial encounter
[2020-11-05] MEDS: DONEPEZIL HCL 10 MG TAB PO SCH (20:56)
[2020-11-05] MEDS: TAMSULOSIN HCL 0.4 MG CAP PO SCH (20:56)
[2020-11-05] MEDS: ATORVASTATIN 40 MG TAB PO SCH (20:57)
[2020-11-05] MEDS ORDERED: PHENAZOPYRIDINE HCL 100 MG TAB PO PRN (21:45)
[2020-11-06] MEDS: PIPERACILLIN/TAZOBACTAM 3.375 GM in DEXTROSE 5% 100 ML IV SCH ×2 (03:16→10:25)
[2020-11-06 07:49] LABS: Creatinine Clr Calc Pharmacy 62.8 ml/min; Est GFR (African American) 88.8 ml/min; Est GFR (Non-African American) 76.6 ml/min
--- NOTE | 2020-11-06 08:28 | Urology Progress Note ---
Date of Service November 06, 2020 Assessment & Plan (1) Catheter-associated urinary tract infection: (2) Gross hematuria: (3) Acute urinary retention: Plan: 84 yo M admitted with a large right pleural effusion who has since developed acute urinary retention requiring Kuhn catheter, gross hematuria, and sepsis possible CAUTI. - Plan of care reviewed with Dr. Mishra, urologist mobile application developer. - Hematuria likely secondary to trauma and UTI. - He is afebrile, VSS, non-toxic appearing. - Labs reviewed, Creatinine stable. WBC 13.65, Hgb 13.4 on 11/05. - UCx final with E.coli and Enterobacter; BCx 1/ Pseudomonas - On IV Zosyn, ID consulted. - Kuhn catheter intact and draining with urine clearing w/ minimal blood tinge, will continue to monitor. - Contacted by hospitalist that patient may be discharged today. - Okay to attempt passive voiding trial prior to discharge, replace Kuhn if unable to void. - Recommend continue Tamsulosin and Finasteride upon discharge. - Continue supportive care and antibiotic therapy per primary service. - Will arrange outpatient follow-up with our service. Admission and Anticipated Discharge Date Admission Date: October 25, 2020 Subjective Pt examined at bedside this AM. He is asleep, arouses to his name. Pleasantly confused. FOOD ASSEMBLER at bedside for 1:1 observation. Denies issues overnight. Kuhn intact, patent and draining yellow urine with mild blood tinged debris and sediment in tubing. No fevers overnight. Tolerating diet. No complaints of pain at present. Chart review: Afebrile, creatinine 0.92, WBC 13.65 (11/05), Hgb 13.4 (11/05), on IV Zosyn. Review of Systems Constitutional: as per Subjective / HPI Gastrointestinal: as per Subjective / HPI Genitourinary: + as per Subjective / HPI Physical Exam Constitutional: + thin and comfortable; no acute distress Respiratory: normal respiratory effort and able to speak in complete sentences; no respiratory distress and no labored breathing Gastrointestinal (Abdomen): Inspection/Auscultation: abdomen normal to inspection; abdomen not distended Percussion/Palpation: abdomen soft; abdomen nontender and no guarding Musculoskeletal: Head/Neck/Chest: normocephalic and head atraumatic Psychiatric: Orientation: oriented to person and cooperative Genitourinary: Kuhn intact draining yellow urine with small amount of blood tinged sediment in tubing Results & Data ([facility]) Vital Signs (Past 12 Hours) Vital Signs Temp Pulse Pulse Resp BP Pulse Ox 11/06/20 08:00 36.5 C 70 14 114/72 95 11/06/20 07:48 72 11/06/20 03:19 36.5 C 82 18 132/70 97 11/05/20 23:59 72 PG Care Time/CCT Total # of Minutes Spent Total Time Spent with Patient: Total time spent is greater than 50% in coordination of care (as documented) at patient's floor/unit and/or counseling patient: Coding Level of Care Code 79306 Subseq Hosp Care Lvl 2 Diagnoses Catheter-associated urinary tract infection T83.511A; N39.0 Gross hematuria R31.0 Acute urinary retention R33.8
[2020-11-06] MEDS: INSULIN ASPART 100 UNITS/ML 3 ML PEN SC SCH ×4 (08:58→21:12)
[2020-11-06] MEDS: MEMANTINE HCL 10 MG TAB PO SCH ×2 (09:01→21:10)
[2020-11-06] MEDS: FINASTERIDE 5 MG TAB PO SCH (09:01)
[2020-11-06] MEDS: MULTIVITAMIN TAB PO SCH (09:01)
[2020-11-06] MEDS: CYANOCOBALAMIN 500 MCG TABLET (VITAMIN B-12) PO SCH (09:01)
[2020-11-06] MEDS: ASPIRIN 81 MG ECTAB PO SCH (09:01)
--- NOTE | 2020-11-06 11:27 | XRay Report ---
SINGLE VIEW CHEST CLINICAL HISTORY: Follow-up pneumothorax. FINDINGS: An AP, portable, upright chest radiograph is compared to study dated 11/03/2020. The cardiom ediastinal silhouette is unremarkable noting atherosclerotic calcification of the thoracic aorta a re sidual right apical pneumothorax is unchanged as compared 11/03/2020. There is approximately 12 mm of apical pleural separation. There is a trace residual fluid at the right lung base. Fluid is also sugg ested along the major fissure. Scarring/atelectasis is noted at both lung bases. No left-sided pneumo thorax is seen. The skeletal structures are osteopenic, and the bony thorax is grossly intact. IMPRESSION: 1. A small residual right apical pneumothorax has not appreciably changed as compared 11/03/2020. 2. There is trace residual pleural fluid at the right lung base. There is also likely fluid along the right major fissure. ACT 112: Negative or not required by law. Electronically signed by: Silver Guevara M.D. 11/06/2020 11:26 AM
--- NOTE | 2020-11-06 16:37 | Hospitalist Progress Note ---
Date of Service November 06, 2020 Assessment & Plan (1) Sepsis: Plan: Sepsis possible to CAUTI, acute urinary retention issues with replacement of parnell catheter, now removed. Resuscitated. In setting of bacteremia and UTI, ID consulted and recommends changing to cefepime while inpatient and then to cipro x 14 days with followup imaging at the end of antibiotic course. (2) Catheter-associated urinary tract infection: Plan: Clinically improved and parnell out. Cefepime as above. (3) Gram-negative bacteremia: Plan: plan as above. (4) Gross hematuria: Plan: likely related to infection but may also be from trauma. Holding Lovenox. Pyridium PRN. (5) Acute urinary retention: Plan: Likely 2/2 CAUTI. Parnell replaced and patient is more comortable. Passed TOV today-cont to monitor. Cont finasteride and tamsulosin started by Urology this admission. (6) Pleural effusion on right: (7) Pneumothorax on right: Plan: Chest tube for treatment of exudative effusion and pneumothorax removed. If reaccumulation of fluid, repeat thoracentesis or VATS may be considered. Cont to monitor conservatively. Small, persistent pneumothorax on imaging. Not requiring oxygen supplementation and no increased work of breathing present on exam. Overall appears clinically stable. (8) Generalized weakness: Plan: PT/OT evaluation ordered-SNF recommended when medically ready for discharge. (9) Fall: Plan: Progressive physical decline/deconditioning in setting of advanced dementia CT head without any acute intracranial changes Case management assisting with placement post-hospital discharge. Fall precautions, aspiration precautions Goals of care conversation with palliative team on 10/29-patient was changed to DNR/DNI. (10) Diabetes mellitus, type II: Plan: At goal. Holding metformin and actos, cont insulin with carb coverage and correction factor. No glargine needed at this time. Nutrition consulted and recommended liberalizing diet to help with intake. Also, recommended adding finger foods that were soft in consistency so that he could help to feed himself. 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 Continue Namenda, donepezil (12) Hypertension: Plan: BP at goal-low normal. Hold antihypertensives in setting of sepsis. (13) CKD (chronic kidney disease), stage III: Plan: Kidney function at baseline. Avoid nephrotoxic substances and renally dose meds as appropriate. (14) DVT prophylaxis: Plan: Lovenox-held in setting of hematuria DNR/DNI Dispo-to SNF when medically stable for discharge. DO Yuval Lima Hospitalist Admission and Anticipated Discharge Date Admission Date: October 25, 2020 Subjective 84 yo M presented with generalized weakness, found to have a large right sided exudative pleural effusion and associated PTX s/p chest tube placement on 10/30. Moved to floor on 11/02 after removal of chest tube and he spike fever 102F with sepsis picture--probable source was CAUTI. Because of acute urinary retention, a parnell was replaced and Vanc/Zosyn was started empirically. GNB growing in blood and urine. Vanc stopped. Gross hematuria into parnell, likely related to trauma vs infection. He is up in chair and tolerating PO Panrell removed and spontaneously voided today. Denies bladder spasms or pain Denies SOB or other issues. Must be off 1:! obs for 24 hours prior to going to a facility Review of Systems Review of Systems: At least ten systems were reviewed and negative except as indicated in HPI above. Physical Exam Physical Exam: CONSTITUTIONAL: WNWD, vitals as above, generally NAD EYES: normal conjunctivae, no scleral icterus ENT: external ear and nose normal, MMM NECK: trachea midline RESPIRATORY: clear to auscultation bilaterally, no crackles, rales or wheezes, normal respiratory effort CARDIOVASCULAR: regular rate and rhythm, S1 and 2 heard without murmurs, gallops or rubs, no JVD, no peripheral edema CHEST: no tube is in place, however, because of lack of cooperation of patient, I was not able to visualize the dressing clearly. GASTROINTESTINAL: soft, nontender, nondistended, no guarding MUSCULOSKELETAL: moves all extremities equally, head is normocephalic and atraumatic SKIN: warm and dry NEUROLOGIC: No facial palsy, no dysarthria. CN 2-12 grossly intact, normal cognition, normal speech, no tremor PSYCHIATRIC: alert, cooperative, at baseline orientation. Results & Data Results & Data ([facility]) Vital Signs (Past 12 Hours) Vital Signs Temp Pulse Pulse Pulse Resp BP Pulse Ox 11/06/20 16:00 76 11/06/20 15:43 36.9 C 79 18 107/65 97 11/06/20 11:31 36.4 C L 70 16 118/62 94 11/06/20 08:00 36.5 C 70 14 114/72 95 11/06/20 07:[address] [facility] 11/06/20 06:50 Creatinine 0.92 Diagnostic Findings SINGLE VIEW CHEST CLINICAL HISTORY: Follow-up pneumothorax. FINDINGS: An AP, portable, upright chest radiograph is compared to study dated 11/03/2020. The cardiomediastinal silhouette is unremarkable noting atherosclerotic calcification of the thoracic aorta a residual right apical pneumothorax is unchanged as compared 11/03/2020. There is approximately 12 mm of apical pleural separation. There is a trace residual fluid at the right lung base. Fluid is also suggested along the major fissure. Scarring/atelectasis is noted at both lung bases. No left-sided pneumothorax is seen. The skeletal structures are osteopenic, and the bony thorax is grossly intact. IMPRESSION: 1. A small residual right apical pneumothorax has not appreciably changed as compared 11/03/2020. 2. There is trace residual pleural fluid at the right lung base. There is also likely fluid along the right major fissure. Medications Administered Current Inpatient Medications Aspirin (Aspirin 81 Mg Ectab) 81 mg PO QAM ALONDRA Stop: 11/25/20 08:59 Last Admin: 11/06/20 09:01 Dose: 81 mg Documented by: Atorvastatin Calcium (Atorvastatin 40 Mg Tab) 40 mg PO HS ALONDRA Stop: 11/24/20 20:59 Last Admin: 11/05/20 20:57 Dose: 40 mg Documented by: Cyanocobalamin (Cyanocobalamin 500 Mcg Tablet (Vitamin B-12)) 1,000 mcg PO DAILY ALONDRA Stop: 11/25/20 08:59 Last Admin: 11/06/20 09:01 Dose: 1,000 mcg Documented by: Dextrose (Dextrose 50% 50 Ml Syringe) 25 - 50 ml IV UD PRN; Protocol PRN Reason: Hypoglycemia Protocol Stop: 11/24/20 16:43 Donepezil HCl (Donepezil Hcl 10 Mg Tab) 10 mg PO HS ALONDRA Stop: 11/24/20 20:59 Last Admin: 11/05/20 20:56 Dose: 10 mg Documented by: Finasteride (Finasteride 5 Mg Tab) 5 mg PO QAM ALONDRA Stop: 12/05/20 08:59 Last Admin: 11/06/20 09:01 Dose: 5 mg Documented by: Glucagon (Glucagon For Inj 1 Mg Vial) 1 mg SQ UD PRN; Protocol PRN Reason: Hypoglycemia Protocol Stop: 11/24/20 16:43 Glucose (Glucose 10 Tabs/Tube) 4 - 8 tabs PO UD PRN; Protocol PRN Reason: Hypoglycemia Protocol Stop: 11/24/20 16:43 Glucose (Glucose 40% Gel 15 Gm Tube) 15 - 30 gm PO UD PRN; Protocol PRN Reason: Hypoglycemia Protocol Stop: 11/24/20 16:43 Haloperidol Lactate (Haloperidol Lactate 5 Mg/Ml 1 Ml Vial) 2 mg IM Q2H PRN PRN Reason: Agitation Stop: 12/03/20 23:23 Hydrochlorothiazide (Hydrochlorothiazide 25 Mg Tab) 12.5 mg PO QAM [facility] Stop: 12/03/20 08:59 Sodium Chloride (Nss 1000ml) 1,000 mls @ 100 mls/hr IV .Q10H ALONDRA Stop: 12/02/20 19:59 Last Infusion: 11/03/20 19:15 Dose: Infused Documented by: Piperacillin Sod/Tazobactam (Sod 3.375 gm/ Dextrose) 115 mls @ 28.75 mls/hr IV Q8H [facility]; Protocol Stop: 11/17/20 01:59 Last Infusion: 11/06/20 14:30 Dose: Infused Documented by: Insulin Aspart (Insulin Aspart 100 Units/Ml 3 Ml Pen) 0 units SC ACHS ALONDRA Stop: 11/24/20 20:59 Last Admin: 11/06/20 12:53 Dose: 1 units Documented by: Memantine (Memantine Hcl 10 Mg Tab) 10 mg PO BID ALONDRA Stop: 11/24/20 20:59 Last Admin: 11/06/20 09:01 Dose: 10 mg Documented by: Miscellaneous (Carbohydrates For Hypoglycemia ) 15 - 30 gm PO UD PRN PRN Reason: Hypoglycemia Protocol Stop: 11/24/20 16:43 Miscellaneous Information (Piperacill/Tazobac Consult Active) 1 ea N/A UD PRN PRN Reason: Consult Stop: 12/02/20 20:16 Multivitamins (Multivitamin Tab) 1 tab PO DAILY [facility] Stop: 11/25/20 08:59 Last Admin: 11/06/20 09:01 Dose: 1 tab Documented by: Ondansetron HCl (Ondansetron Inj 2 Mg/Ml 2 Ml Vial) 4 mg IV Q6H PRN PRN Reason: Nausea Stop: 11/24/20 13:10 Phenazopyridine HCl (Phenazopyridine Hcl 100 Mg Tab) 100 mg PO TID PRN PRN Reason: bladder spasms Stop: 12/04/20 20:59 Polyethylene Glycol (Polyethylene (Miralax) 17 Gm Pack) 17 gm PO DAILY PRN PRN Reason: Constipation Stop: 11/24/20 13:10 Tamsulosin HCl (Tamsulosin Hcl 0.4 Mg Cap) 0.4 mg PO HS ALONDRA Stop: 12/04/20 20:59 Last Admin: 11/05/20 20:56 Dose: 0.4 mg Documented by: (1) Fall Encounter type: initial encounter Qualified Code(s): W19.XXXA - Unspecified fall, initial encounter
[2020-11-06] MEDS ORDERED: CEFEPIME CONSULT ACTIVE PRN (17:01)
[2020-11-06] MEDS: CEFEPIME 2,000 MG in SYRINGE 0 ML IV SCH (17:54)
[2020-11-06] MEDS: ATORVASTATIN 40 MG TAB PO SCH (21:10)
[2020-11-06] MEDS: TAMSULOSIN HCL 0.4 MG CAP PO SCH (21:11)
[2020-11-06] MEDS: DONEPEZIL HCL 10 MG TAB PO SCH (21:11)
[2020-11-07] MEDS: CEFEPIME 2,000 MG in SYRINGE 0 ML IV SCH ×3 (01:53→17:18)
[2020-11-07 06:48] LABS: Creatinine Clr Calc Pharmacy 60.8 ml/min; Est GFR (African American) 85.5 ml/min; Est GFR (Non-African American) 73.7 ml/min
[2020-11-07] MEDS: INSULIN ASPART 100 UNITS/ML 3 ML PEN SC SCH ×4 (09:25→21:02)
[2020-11-07] MEDS: ASPIRIN 81 MG ECTAB PO SCH (09:41)
[2020-11-07] MEDS: CYANOCOBALAMIN 500 MCG TABLET (VITAMIN B-12) PO SCH (09:43)
[2020-11-07] MEDS: FINASTERIDE 5 MG TAB PO SCH (09:45)
[2020-11-07] MEDS: MEMANTINE HCL 10 MG TAB PO SCH ×2 (09:47→20:58)
[2020-11-07] MEDS: MULTIVITAMIN TAB PO SCH (09:48)
--- NOTE | 2020-11-07 13:32 | Electrocardiogram Report ---
Test Reason : Blood Pressure : / mmHG Vent. Rate : 074 BPM Atrial Rate : 074 BPM P-R Int : 128 ms QRS Dur : 090 ms QT Int : 376 ms P-R-T Axes : 053 054 047 degrees QTc Int : 417 ms Normal sinus rhythm Normal ECG When compared with ECG of 25-OCT-2020 07:47, No significant change was found Confirmed by Keith Trammell ([id number]) on 11/07/2020 1:31:59 PM Referred By: REFERRED SELF Confirmed By:Keith Trammell
--- NOTE | 2020-11-07 19:42 | Hospitalist Progress Note ---
Date of Service November 07, 2020 Assessment & Plan (1) Sepsis: (2) Catheter-associated urinary tract infection: (3) Pneumothorax on right: Plan: 84-year-old male with PMH of dementia, T2DM, HTN, CKD 3, ankylosing spondylitis presented 10/25 with progressive weakness over the past 3 weeks and 2 falls in the past 2 days. At baseline he is oriented to self and knows who his is. He lives at home with his who manages his care. Is being managed for the fol lowing while in the hospital: #. Sepsis #. Catheter associated urinary tract infection #. Gram-negative bacteremia #. Gross hematuria #. Acute urinary retention Urine culture growing Enterobacter and E. coli, blood culture growing Pseudomonas Sepsis secondary to CAUTI, acute urinary retention issues with replacement of Kuhn catheter, now removed. ID consulted for bacteremia and UTI: Cefepime while inpatient then to Cipro x14 days with follow-up CXR at the end of antibiotic course to determine if he will require further antibiotics. Hematuria likely secondary to trauma and UTI, urology on board: Recommends tamsulosin and finasteride upon discharge, outpatient follow-up with urology service. Continue holding Lovenox, Pyridium as needed. #. Right pneumothorax #. Right pleural effusion Chest tube for treatment of exudative effusion and pneumothorax removed. Cytology negative. Pulm on board: If reaccumulation of fluid, repeat thoracentesis or VATS may be considered. Cont to monitor conservatively. Small, persistent pneumothorax on imaging. Not requiring oxygen supplementation and no increased work of breathing present on exam. Overall appears clinically stable. Will repeat CXR on Tuesday or as needed. #. Generalized weakness #. Fall Progressive physical decline/deconditioning in setting of advanced dementia CT head without any acute intracranial changes PT/OT evaluation ordered-SNF recommended when medically ready for discharge. Case management assisting with placement post-hospital discharge. Fall precautions, aspiration precautions Goals of care conversation with palliative team on 10/29-patient was changed to DNR/DNI. #. 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 Holding metformin and actos, cont insulin with carb coverage and correction factor. No glargine needed at this time. Nutrition consulted and recommended liberalizing diet to help with intake. Also, recommended adding finger foods that were soft in consistency so that he could help to feed himself. One-to-one in setting of patient's advanced dementia as needed. Continue Namenda, donepezil BP at goal-low normal. Hold antihypertensives in setting of sepsis. Kidney function at baseline. Avoid nephrotoxic substances and renally dose meds as appropriate. #. DVT prophylaxis: Lovenox-held in setting of hematuria DNR/DNI Dispo-to [facility], bed will be available on Tuesday. Admission and Anticipated Discharge Date Admission Date: October 25, 2020 Subjective Patient was lying in bed, pleasantly confused, hence ROS was N/AA. Per RN, he is doing okay, no acute issues overnight. Physical Exam Physical Exam: GENERAL: Pleasantly confused. NAD, on RA. HEENT: No pallor, no icterus. Pupils equal, round and reactive to light. Oral mucosa moist. NECK: No JVD, no neck masses. HEART: S1 and S2 heard. Regular rate and rhythm. Systolic murmur over aortic and pulmonic area, no gallop. RESPIRATORY SYSTEM: Normal AP diameter. No accessory muscle use. No wheezing, no crackles. ABDOMEN: Soft, bowel sounds present, nontender, no distention. CENTRAL NERVOUS SYSTEM: Alert and oriented x3. No facial droop. Speech is clear. Obeys simple commands. Moves extremities. EXTREMITIES: No edema, no erythema seen. Results & Data Results & Data ([facility]) Vital Signs (Past 12 Hours) Vital Signs Temp Pulse Pulse Resp BP Pulse Ox 11/07/20 16:16 37.2 C 80 18 132/72 11/07/20 12:00 36.8 C 68 16 112/68 98 11/07/20 07:28 36.7 C 65 14 114/64 97
[2020-11-07] MEDS: DONEPEZIL HCL 10 MG TAB PO SCH (20:58)
[2020-11-07] MEDS: ATORVASTATIN 40 MG TAB PO SCH (20:58)
[2020-11-07] MEDS: TAMSULOSIN HCL 0.4 MG CAP PO SCH (20:59)
[2020-11-08] MEDS: CEFEPIME 2,000 MG in SYRINGE 0 ML IV SCH ×3 (02:15→17:43)
[2020-11-08 07:14] LABS: Hematocrit (blood only) 35.3 % (42-52); Hemoglobin 11.5 g/dL (14.0-18.0); Mean Corpuscular Hemoglobin 30.6 pg (25-34); Mean Corpuscular Hgb Conc 32.6 g/dL (32-36); Mean Corpuscular Volume 93.9 fL (80-100); Mean Platelet Volume 10.2 fL (7.4-10.4); Platelet Count 353 K/uL (130-400); RDW Coefficient of Variation 14.9 % (11.5-14.5); RDW Standard Deviation 50.6 fL (36.4-46.3); Red Blood Count 3.76 M/uL (4.7-6.1); White Blood Count 9.54 K/uL (4.8-10.8)
[2020-11-08 07:36] LABS: BUN Creatinine Ratio 19.4 (10-20); Calcium 8.2 mg/dl (8.5-10.1); Creatinine Clr Calc Pharmacy 57.2 ml/min; Est GFR (African American) 79.4 ml/min; Est GFR (Non-African American) 68.5 ml/min; Magnesium 2.2 mg/dl (1.8-2.4); Potassium 4.1 mmol/L (3.5-5.1)
[2020-11-08] MEDS: MULTIVITAMIN TAB PO SCH (08:17)
[2020-11-08] MEDS: CYANOCOBALAMIN 500 MCG TABLET (VITAMIN B-12) PO SCH (08:17)
[2020-11-08] MEDS: ASPIRIN 81 MG ECTAB PO SCH (08:17)
[2020-11-08] MEDS: MEMANTINE HCL 10 MG TAB PO SCH ×2 (08:17→20:56)
[2020-11-08] MEDS: INSULIN ASPART 100 UNITS/ML 3 ML PEN SC SCH ×4 (08:17→20:57)
[2020-11-08] MEDS: FINASTERIDE 5 MG TAB PO SCH (08:17)
--- NOTE | 2020-11-08 14:20 | Hospitalist Progress Note ---
Date of Service November 08, 2020 Assessment & Plan (1) Sepsis: (2) Catheter-associated urinary tract infection: (3) Pneumothorax on right: Plan: 84-year-old male with PMH of dementia, T2DM, HTN, CKD 3, ankylosing spondylitis presented 10/25 with progressive weakness over the past 3 weeks and 2 falls in the past 2 days. At baseline he is oriented to self and knows who his is. He lives at home with his who manages his care. Is being managed for the fol lowing while in the hospital: #. Sepsis #. Catheter associated urinary tract infection #. Gram-negative bacteremia #. Gross hematuria/ Low Hb #. Acute urinary retention Urine culture growing Enterobacter and E. coli, blood culture growing Pseudomonas Sepsis secondary to CAUTI, acute urinary retention issues with replacement of Kuhn catheter, now removed. ID consulted for bacteremia and UTI: Cefepime while inpatient then to Cipro x14 days with follow-up CXR at the end of antibiotic course to determine if he will require further antibiotics. Hematuria likely secondary to trauma and UTI, urology on board: Recommends tamsulosin and finasteride upon discharge, outpatient follow-up with urology service. Continue holding Lovenox, Pyridium as needed. Hb 11.5 today, from 13.4 yesterday, f/u daily CBC until Hb stable. #. Right pneumothorax #. Right pleural effusion Chest tube for treatment of exudative effusion and pneumothorax removed. Cytology negative. Pulm on board: If reaccumulation of fluid, repeat thoracentesis or VATS may be considered. Cont to monitor conservatively. Small, persistent pneumothorax on imaging. Not requiring oxygen supplementation and no increased work of breathing present on exam. Overall appears clinically stable. Will repeat CXR on Tuesday or as needed. #. Generalized weakness #. Fall Progressive physical decline/deconditioning in setting of advanced dementia CT head without any acute intracranial changes PT/OT evaluation ordered-SNF recommended when medically ready for discharge. Case management assisting with placement post-hospital discharge. Fall precautions, aspiration precautions Goals of care conversation with palliative team on 10/29-patient was changed to DNR/DNI. #. 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 Holding metformin and actos, cont insulin with carb coverage and correction factor. No glargine needed at this time. Nutrition consulted and recommended liberalizing diet to help with intake. Also, recommended adding finger foods that were soft in consistency so that he could help to feed himself. One-to-one in setting of patient's advanced dementia as needed. Continue Namenda, donepezil BP at goal-low normal. Hold antihypertensives in setting of sepsis. Kidney function at baseline. Avoid nephrotoxic substances and renally dose meds as appropriate. #. DVT prophylaxis: Lovenox-held in setting of hematuria DNR/DNI Dispo-to [facility], bed will possibly be available on Tuesday per CM. Admission and Anticipated Discharge Date Admission Date: October 25, 2020 Subjective Patient was lying in bed, pleasantly confused. Per sitter, he did not sleep well overnight. Neither did his room partner. Per RN, he did not eat his breakfast in the morning. Last BM was on . Encourage p.o. intake. As needed laxatives. Patient stated that he does not have any pain or shortness of breath. He denies other ROS. Physical Exam Physical Exam: GENERAL: Pleasantly confused. NAD, on RA. HEENT: No pallor, no icterus. Pupils equal, round and reactive to light. Oral mucosa moist. NECK: No JVD, no neck masses. HEART: S1 and S2 heard. Regular rate and rhythm. Systolic murmur over aortic and pulmonic area, no gallop. RESPIRATORY SYSTEM: Normal AP diameter. No accessory muscle use. No wheezing, no crackles. ABDOMEN: Soft, bowel sounds present, nontender, no distention. CENTRAL NERVOUS SYSTEM: No facial droop. Speech is clear. Obeys simple commands. Moves extremities. EXTREMITIES: No edema, no erythema seen. Results & Data Results & Data ([facility]) Vital Signs (Past 12 Hours) Vital Signs Temp Pulse Resp BP Pulse Ox 11/08/20 07:37 37.0 C 66 18 137/74 98
[2020-11-08] MEDS: ATORVASTATIN 40 MG TAB PO SCH (20:55)
[2020-11-08] MEDS: TAMSULOSIN HCL 0.4 MG CAP PO SCH (20:56)
[2020-11-08] MEDS: DONEPEZIL HCL 10 MG TAB PO SCH (20:56)
[2020-11-09] MEDS: CEFEPIME 2,000 MG in SYRINGE 0 ML IV SCH ×2 (03:12→11:09)
[2020-11-09 07:14] LABS: Hematocrit (blood only) 35.9 % (42-52); Hemoglobin 11.6 g/dL (14.0-18.0); Mean Corpuscular Hemoglobin 30.3 pg (25-34); Mean Corpuscular Hgb Conc 32.3 g/dL (32-36); Mean Corpuscular Volume 93.7 fL (80-100); Platelet Count 381 K/uL (130-400); RDW Coefficient of Variation 14.9 % (11.5-14.5); RDW Standard Deviation 50.2 fL (36.4-46.3); Red Blood Count 3.83 M/uL (4.7-6.1); White Blood Count 8.53 K/uL (4.8-10.8)
--- NOTE | 2020-11-09 08:00 | XRay Report ---
XR chest 1V portable CLINICAL HISTORY: f/u pneumothorax COMPARISON STUDY: Chest radiograph November 06, 2020. FINDINGS: Right hydropneumothorax is noted. The amount of pleural gas has slightly decreased. An bryson ptical right midlung opacity reflects fissural fluid. There is no left pneumothorax. There is no evid ence for pulmonary edema. IMPRESSION: Right hydropneumothorax, as described above. Slight decrease in amount of pleural gas. ACT 112: Negative or not required by law. Electronically signed by: Francisco Garcia M.D. 11/09/2020 7:59 AM
[2020-11-09] MEDS: CYANOCOBALAMIN 500 MCG TABLET (VITAMIN B-12) PO SCH (08:16)
[2020-11-09] MEDS: ASPIRIN 81 MG ECTAB PO SCH (08:16)
[2020-11-09] MEDS: FINASTERIDE 5 MG TAB PO SCH (08:17)
[2020-11-09] MEDS: MULTIVITAMIN TAB PO SCH (08:17)
[2020-11-09] MEDS: MEMANTINE HCL 10 MG TAB PO SCH ×2 (08:17→20:52)
[2020-11-09] MEDS: INSULIN ASPART 100 UNITS/ML 3 ML PEN SC SCH ×4 (08:17→21:01)
--- NOTE | 2020-11-09 14:35 | Hospitalist Progress Note ---
Date of Service November 09, 2020 Assessment & Plan (1) Sepsis: (2) Catheter-associated urinary tract infection: (3) Pneumothorax on right: Plan: 84-year-old male with PMH of dementia, T2DM, HTN, CKD 3, ankylosing spondylitis presented 10/25 with progressive weakness over the past 3 weeks and 2 falls in the past 2 days. At baseline he is oriented to self and knows who his is. He lives at home with his who manages his care. Is being managed for the fol lowing while in the hospital: #. Sepsis #. Catheter associated urinary tract infection #. Gram-negative bacteremia #. Gross hematuria/ Low Hb #. Acute urinary retention Urine culture growing Enterobacter and E. coli, blood culture growing Pseudomonas Sepsis secondary to CAUTI, acute urinary retention issues with replacement of Kuhn catheter, now removed. ID consulted for bacteremia and UTI: Cefepime while inpatient then to Cipro x14 days with follow-up CXR at the end of antibiotic course to determine if he will require further antibiotics. Hematuria likely secondary to trauma and UTI, urology on board: Recommends ta msulosin and finasteride upon discharge, outpatient follow-up with urology nelsy valdez. Continue holding Lovenox, Pyridium as needed. Hb stable around 11.5 today, f/u daily H&H until stable. We will change cefepime to p.o. ATB 11/09 [Per RN difficulty maintaining IV line] #. Right pneumothorax #. Right pleural effusion Chest tube for treatment of exudative effusion and pneumothorax removed. Cytology negative. Pulm on board: If reaccumulation of fluid, repeat thoracentesis or VATS may be considered. Cont to monitor conservatively. Small, persistent pneumothorax on imaging. Not requiring oxygen supplementation and no increased work of breathing present on exam. Overall appears clinically stable. 11/07 2 repeat CXR showed resolving pneumothorax. Continue to monitor #. Generalized weakness #. Fall Progressive physical decline/deconditioning in setting of advanced dementia CT head without any acute intracranial changes PT/OT evaluation ordered-SNF recommended when medically ready for discharge. Case management assisting with placement post-hospital discharge. Fall precautions, aspiration precautions Goals of care conversation with palliative team on 10/29-patient was changed to DNR/DNI. #. 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 Holding metformin and actos, cont insulin with carb coverage and correction factor. No glargine needed at this time. Nutrition consulted and recommended liberalizing diet to help with intake. Also, recommended adding finger foods that were soft in consistency so that he could help to feed himself. One-to-one in setting of patient's advanced dementia as needed. Continue Namenda, donepezil BP at goal-low normal. Hold antihypertensives in setting of sepsis. Kidney function at baseline. Avoid nephrotoxic substances and renally dose meds as appropriate. #. DVT prophylaxis: Lovenox-held in setting of hematuria DNR/DNI Dispo-to [facility], bed will possibly be available on Tuesday per CM. Admission and Anticipated Discharge Date Admission Date: October 25, 2020 Subjective Patient was lying in bed, pleasantly confused. Patient stated that he does not have any pain or shortness of breath. He denies other ROS. RN had a hard time maintaining his IV line, will change antibiotic to p.o. Physical Exam Physical Exam: GENERAL: Pleasantly confused. NAD, on RA. HEENT: No pallor, no icterus. Pupils equal, round and reactive to light. Oral mucosa moist. NECK: No JVD, no neck masses. HEART: S1 and S2 heard. Regular rate and rhythm. Systolic murmur over aortic and pulmonic area, no gallop. RESPIRATORY SYSTEM: Normal AP diameter. No accessory muscle use. No wheezing, no crackles. ABDOMEN: Soft, bowel sounds present, nontender, no distention. CENTRAL NERVOUS SYSTEM: No facial droop. Speech is clear. Obeys simple commands. Moves extremities. EXTREMITIES: No edema, no erythema seen. Results & Data Results & Data ([facility]) Vital Signs (Past 12 Hours) Vital Signs Temp Pulse Resp BP Pulse Ox 11/09/20 12:12 36.8 C 67 18 125/72 98 11/09/20 08:01 36.6 C 67 19 137/74 99
[2020-11-09] MEDS: CIPROFLOXACIN 500 MG TAB PO SCH (20:51)
[2020-11-09] MEDS: DONEPEZIL HCL 10 MG TAB PO SCH (20:51)
[2020-11-09] MEDS: TAMSULOSIN HCL 0.4 MG CAP PO SCH (20:51)
[2020-11-09] MEDS: ATORVASTATIN 40 MG TAB PO SCH (20:51)
[2020-11-10 06:45] LABS: Hematocrit (blood only) 37.4 % (42-52); Hemoglobin 12.2 g/dL (14.0-18.0)
[2020-11-10] MEDS: ASPIRIN 81 MG ECTAB PO SCH (07:54)
[2020-11-10] MEDS: CYANOCOBALAMIN 500 MCG TABLET (VITAMIN B-12) PO SCH (07:54)
[2020-11-10] MEDS: FINASTERIDE 5 MG TAB PO SCH (07:54)
[2020-11-10] MEDS: MEMANTINE HCL 10 MG TAB PO SCH ×2 (07:55→20:34)
[2020-11-10] MEDS: MULTIVITAMIN TAB PO SCH (07:55)
[2020-11-10] MEDS: INSULIN ASPART 100 UNITS/ML 3 ML PEN SC SCH ×4 (08:22→20:35)
[2020-11-10] MEDS: CIPROFLOXACIN 500 MG TAB PO SCH ×2 (08:51→21:33)
[2020-11-10] MEDS ORDERED: HEPARIN SOD 5,000 UNIT/0.5 ML VIAL SQ SCH (10:55)
[2020-11-10 13:14] LABS: Appearance Urine Clear (Clear); Bacteria Urine Automated Negative (Negative); Bilirubin Urine Negative (Negative); Blood Urine Trace (Negative); Color Urine Dark Yellow; Glucose Urine UA Negative (Negative); Ketones Urine Trace (Negative); Leukocyte Esterase Urine Negative (Negative); Nitrite Urine Negative (Negative); Protein Urine Trace (Negative); Specific Gravity Urine 1.017 (1.000-1.030); Urobilinogen Urine Negative (Negative)
--- NOTE | 2020-11-10 18:08 | Hospitalist Progress Note ---
Date of Service November 10, 2020 Assessment & Plan (1) Sepsis: (2) Catheter-associated urinary tract infection: (3) Pneumothorax on right: Plan: 84-year-old male with PMH of dementia, T2DM, HTN, CKD 3, ankylosing spondylitis presented 10/25 with progressive weakness over the past 3 weeks and 2 falls in the past 2 days. At baseline he is oriented to self and knows who his is. He lives at home with his who manages his care. Is being managed for the fol lowing while in the hospital: #. Sepsis #. Catheter associated urinary tract infection #. Gram-negative bacteremia #. Gross hematuria/ Low Hb #. Acute urinary retention Urine culture growing Enterobacter and E. coli, blood culture growing Pseudomonas Sepsis secondary to CAUTI, acute urinary retention issues with replacement of Kuhn catheter, now removed. ID consulted for bacteremia and UTI: Cefepime while inpatient then to Cipro x14 days with follow-up CXR at the end of antibiotic course to determine if he will require further antibiotics. Hematuria likely secondary to trauma and UTI, urology on board: Recommends ta msulosin and finasteride upon discharge, outpatient follow-up with urology nelsy valdez. Continue holding Lovenox, Pyridium as needed. Hb stable around 11 - 12, f/u daily H&H until stable. Changed cefepime to p.o. ATB 11/09 #. Right pneumothorax #. Right pleural effusion Chest tube for treatment of exudative effusion and pneumothorax removed. Cytology negative. Pulm on board: If reaccumulation of fluid, repeat thoracentesis or VATS may be considered. Cont to monitor conservatively. Small, persistent pneumothorax on imaging. Not requiring oxygen supplementation and no increased work of breathing present on exam. Overall appears clinically stable. 11/07 2 repeat CXR showed resolving pneumothorax. Continue to monitor #. Generalized weakness #. Fall Progressive physical decline/deconditioning in setting of advanced dementia CT head without any acute intracranial changes PT/OT evaluation ordered-SNF recommended when medically ready for discharge. Case management assisting with placement post-hospital discharge. Fall precautions, aspiration precautions Goals of care conversation with palliative team on 10/29-patient was changed to DNR/DNI. #. 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 Holding metformin and actos, cont insulin with carb coverage and correction factor. No glargine needed at this time. Nutrition consulted and recommended liberalizing diet to help with intake. Also, recommended adding finger foods that were soft in consistency so that he could help to feed himself. One-to-one in setting of patient's advanced dementia as needed. Continue Namenda, donepezil BP at goal-low normal. Hold antihypertensives in setting of sepsis. Kidney function at baseline. Avoid nephrotoxic substances and renally dose meds as appropriate. #. DVT prophylaxis: Lovenox-held in setting of hematuria. TEDs/ambulation. DNR/DNI Dispo-to [facility], bed will possibly be available tomorrow per CM. Admission and Anticipated Discharge Date Admission Date: October 25, 2020 Subjective Patient was sitting up in chair, pleasantly confused. Patient stated that he does not have any pain or shortness of breath. He denies other ROS. Per RN, patient is doing okay. He is eating and moving bowels okay. Physical Exam Physical Exam: GENERAL: Pleasantly confused. NAD, on RA. HEENT: No pallor, no icterus. Pupils equal, round and reactive to light. Oral mucosa moist. NECK: No JVD, no neck masses. HEART: S1 and S2 heard. Regular rate and rhythm. Systolic murmur over aortic and pulmonic area, no gallop. RESPIRATORY SYSTEM: Normal AP diameter. No accessory muscle use. No wheezing, no crackles. ABDOMEN: Soft, bowel sounds present, nontender, no distention. CENTRAL NERVOUS SYSTEM: No facial droop. Speech is clear. Obeys simple commands. Moves extremities. EXTREMITIES: No edema, no erythema seen. Results & Data Results & Data ([facility]) Vital Signs (Past 12 Hours) Vital Signs Temp Pulse Resp BP Pulse Ox 11/10/20 15:49 36.8 C 77 18 101/50 L 97 11/10/20 11:14 36.8 C 81 18 93/59 L 96
[2020-11-10] MEDS: TAMSULOSIN HCL 0.4 MG CAP PO SCH (20:34)
[2020-11-10] MEDS: ATORVASTATIN 40 MG TAB PO SCH (20:34)
[2020-11-10] MEDS: DONEPEZIL HCL 10 MG TAB PO SCH (20:34)
[2020-11-11] MEDS: CYANOCOBALAMIN 500 MCG TABLET (VITAMIN B-12) PO SCH (08:01)
[2020-11-11] MEDS: ASPIRIN 81 MG ECTAB PO SCH (08:01)
[2020-11-11] MEDS: MEMANTINE HCL 10 MG TAB PO SCH (08:01)
[2020-11-11] MEDS: FINASTERIDE 5 MG TAB PO SCH (08:01)
[2020-11-11] MEDS: MULTIVITAMIN TAB PO SCH (08:02)
[2020-11-11] MEDS: CIPROFLOXACIN 500 MG TAB PO SCH (08:40)
[2020-11-11] MEDS: INSULIN ASPART 100 UNITS/ML 3 ML PEN SC SCH ×2 (08:41→12:28)
[2020-11-11] MEDS ORDERED: DOCUSATE SODIUM 100 MG CAP PO SCH (09:00)
--- NOTE | 2020-11-11 18:48 | Discharge Summary ---
Date of Service November 11, 2020 Admission HPI Per Admitting Provider This is an 84-year-old male with PMH of dementia, type 2 diabetes, hypertension, CKD 3, ankylosing spondylitis and other medical problems listed below who presents with progressive weakness over the past 3 weeks. Patient lives at home with , who manages his care. Notes increased weakness over the past 3 weeks with 2 falls in the past 2 days. Patient was found on the ground 2 evenings ago due to his legs giving out from under him. Then again this morning, patient felt his legs give out and he sat down in the hallway. Denies any loss of consciousness or head trauma. Patient is oriented to self at baseline and generally knows who is. Not oriented to time, place or situation. Care becoming more difficult for at home due to her own health constraints and patient's declining physical condition. No known sick contacts. No fever, chills, headache, lightheadedness, chest pain, shortness of breath or abdominal pain, although ROS difficult to fully obtain due to patient's cognitive state. Also noted to have increased swelling in right lower extremity. No calf pain and left leg normal size. Noted to worsen over the past few weeks. Admission Exam Per Admitting Provider General Appearance: WD/WN, vitals as above, NAD, sitting up in bed, pleasantly confused Head: normocephalic, atraumatic Eyes: normal inspection, PERRL, conjunctivae normal, anicteric sclerae ENT: external ear and nose normal, oropharynx normal Neck: normal visual inspection, trachea midline, no thyromegaly Respiratory: normal respiratory effort, decreased breath sounds throughout, most notably R lower lung, no wheeze, rales or rhonchi. No accessory muscle use Cardiovascular: regular rate, rhythm, no murmur, normal peripheral pulses, 2-3+ RLE edema, LLE without edema. Vessels: no JVD Chest: normal inspection of chest Abdomen/GI: normal bowel sounds, soft, nontender, no hepatosplenomegaly Extremities/Musculoskeletal: no cyanosis or clubbing, extremities motor strength 5/5 Neurologic: PERRL, EOMI, accommodation nl, no face palsy, no dysarthria, CN's II-XI intact bilaterally and moves all extremities Psychiatric: A+Ox person only, euthymic affect Skin: no rashes, normal color, warm/dry Principal Diagnosis Sepsis secondary to CAUTI Gram-negative bacteremia Acute urinary retention Pneumothorax x right. Generalized weakness Fall Discharge Exam GENERAL: Pleasantly confused. NAD, on RA. HEENT: No pallor, no icterus. Pupils equal, round and reactive to light. Oral mucosa moist. NECK: No JVD, no neck masses. HEART: S1 and S2 heard. Regular rate and rhythm. Systolic murmur over aortic and pulmonic area, no gallop. RESPIRATORY SYSTEM: Normal AP diameter. No accessory muscle use. No wheezing, no crackles. ABDOMEN: Soft, bowel sounds present, nontender, no distention. CENTRAL NERVOUS SYSTEM: No facial droop. Speech is clear. Obeys simple commands. Moves extremities. EXTREMITIES: No edema, no erythema seen. Discharge Data Allergies Allergy/AdvReac Type Severity Reaction Status Date / Time acetaminophen Allergy Intermediate rash Verified 10/25/20 09:25 codeine Allergy Unknown Verified 10/25/20 09:25 Consultations 10/25/20 09:58 ED Decision to Admit Stat 10/25/20 13:11 Consult Pulmonology Routine 10/27/20 17:35 Consult Palliative Care Routine 11/04/20 08:27 Consult Urology Routine 11/04/20 19:56 Consult Infectious Diseases Routine Ordered Studies 10/25/20 07:18 CT head/brain wo con Stat US venous doppler LE RT Stat 10/25/20 08:40 CT abd pelvis IV con only Stat CT angio chest PE protocol Stat 10/25/20 14:02 US point of care ultrasound Urgent Hospital Course (1) Sepsis: (2) Catheter-associated urinary tract infection: (3) Pneumothorax on right: 84-year-old male with PMH of dementia, T2DM, HTN, CKD 3, ankylosing spondylitis presented 10/25 with progressive weakness over the past 3 weeks and 2 falls in the past 2 days. At baseline he is oriented to self and knows who his is. He lives at home with his who manages his care. Is being managed for the following while in the hospital: #. Sepsis #. Catheter associated urinary tract infection #. Gram-negative bacteremia #. Gross hematuria/ Low Hb #. Acute urinary retention Urine culture growing Enterobacter and E. coli, blood culture growing Pseudomonas Sepsis secondary to CAUTI, acute urinary retention issues with replacement of Kuhn catheter, now removed. ID consulted for bacteremia and UTI: Cefepime while inpatient then to Cipro x14 days with follow-up CXR at the end of antibiotic course to determine if he will require further antibiotics. Hematuria likely secondary to trauma and UTI, urology on board: Recommends ta msulosin and finasteride upon discharge, outpatient follow-up with urology nelsy valdez. Continue holding Lovenox, Pyridium as needed. Hb stable around 11 - 12, f/u daily H&H until stable. Changed cefepime to p.o. ATB 11/09 -we will give total of 14days Cipro. #. Right pneumothorax #. Right pleural effusion Chest tube for treatment of exudative effusion and pneumothorax removed. Cytology negative. Pulm on board: If reaccumulation of fluid, repeat thoracentesis or VATS may be considered. Cont to monitor conservatively. Small, persistent pneumothorax on imaging. Not requiring oxygen supplementation and no increased work of breathing present on exam. Overall appears clinically stable. 11/07 2 repeat CXR showed resolving pneumothorax. Continue to monitor #. Generalized weakness #. Fall Progressive physical decline/deconditioning in setting of advanced dementia CT head without any acute intracranial changes PT/OT evaluation ordered-SNF recommended when medically ready for discharge. Case management assisting with placement post-hospital discharge. Fall precautions, aspiration precautions Goals of care conversation with palliative team on 10/29-patient was changed to DNR/DNI. #. 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 Holding metformin and actos, cont insulin with carb coverage and correction factor. No glargine needed at this time. Nutrition consulted and recommended liberalizing diet to help with intake. Also, recommended adding finger foods that were soft in consistency so that he could help to feed himself. Patient was off of one-to-one. Continue Namenda, donepezil BP at goal-low normal. Hold antihypertensives in setting of sepsis. Kidney function at baseline. Avoid nephrotoxic substances and renally dose meds as appropriate. #. DVT prophylaxis: Lovenox-held in setting of hematuria. TEDs/ambulation. DNR/DNI Patient discharged to SNF. Following instructions were communicated at the time of discharge: Follow-up with your primary care doctor within a week's time. Ensure fall precaution and aspiration precaution for the patient. Your A1c is consistently around 5.5-6, pioglitazone has been stopped. Take antibiotic 2 times a day for next 12 and half days. Follow-up with urology as an outpatient. New drugs tamsulosin and finasteride has been added. Get chest x-ray done in 12 days. Hydrochlorothiazide was reduced and was mistakenly sent to 2 different doses. Chhaya Oropeza called and updated to cancel the 25 mg daily dose and continue with 12.5 mg daily dose. Total Time Total Time Spent Total Time Spent (In Minutes): 45 Discharge Plan Discharge Items Patient Disposition: Transfer Assisted Fac Reason For Visit: LARGE PLEURAL EFFUSION, FALL AT HOME Discharge Diagnosis: Sepsis secondary to CAUTI Gram-negative bacteremia Acute urinary retention Pneumothorax x right. Generalized weakness Fall Activity: Resume your previous activity Non-emergency contact: Primary Care Provider Call non-emergency contact if: you have any medication questions Follow-up/Referrals: Rico Sotelo MD [Primary Care Provider] - Diet: Carb Count or DM1 Diet Comment: Carb count for DM1 with soft bite sized food. Addtl Attending Provider Instructions: Follow-up with your primary care doctor within a week's time. Ensure fall precaution and aspiration precaution for the patient. Your A1c is consistently around 5.5-6, pioglitazone has been stopped. Take antibiotic 2 times a day for next 12 and half days. Follow-up with urology as an outpatient. New drugs tamsulosin and finasteride has been added. Get chest x-ray done in 12 days. Your hydrochlorothiazide has been reduced to 12.5 mg daily. Pending Studies at Discharge: No Stand-Alone Forms: My [facility] Skilled Items Patient informed of condition?: Yes DNR: Yes Discharge Level of Care: Skilled Communicable Disease: No Discharge Prognosis: Stable Lines: None Urinary Catheter: No Medications and DC Order Prescriptions: New ciprofloxacin HCl 500 mg Tablet 500 mg PO BID 13 Days Qty: 25 RF: 0 tamsulosin 0.4 mg Capsule 0.4 mg PO HS 30 Days Qty: 30 RF: 0 hydrochlorothiazide 25 mg Tablet 12.5 mg PO QAM 30 Days Qty: 15 RF: 0 docusate sodium 100 mg Capsule 100 mg PO BID PRN (Reason: constipation) 30 Days Qty: 60 RF: 0 finasteride [Proscar] 5 mg Tablet 5 mg PO QAM 30 Days Qty: 30 RF: 0 Continued Januvia 100 mg tablet 100 mg PO HS RF: 0 memantine [Namenda] 10 mg tablet 10 mg PO BID RF: 0 hydrochlorothiazide 25 mg tablet 25 mg PO QAM RF: 0 donepezil [Aricept] 10 mg tablet 10 mg PO HS RF: 0 enalapril maleate [Vasotec] 20 mg tablet 20 mg PO HS RF: 0 metformin 500 mg tablet 1,000 mg PO BID RF: 0 atorvastatin [Lipitor] 40 mg tablet 40 mg PO HS RF: 0 aspirin [Aspirin Low Dose] 81 mg Tablet,Delayed Release (Dr/Ec) 81 mg PO QAM RF: 0 multivitamin Tablet 1 tab PO DAILY RF: 0 cyanocobalamin (vitamin B-12) 1,000 mcg Tablet 1,000 mcg PO DAILY RF: 0 Discontinued pioglitazone [Actos] 45 mg tablet 45 mg PO QAM RF: 0 Discharge Orders: Discharge Order (Routine); Ordered 11/11/20 Ordered By: Ashley Elizalde Admission Data Admit Date/Time: 10/25/20 10:45 Attending Provider: Ashley Elizalde Admit Provider: Jill Schreiber Primary Care Provider: Rico Sotelo Other Providers: Sandpi Shaver [facility] ; [place] ; Jill Schreiber ; Ana María Pearson ; Stacie Rodriguez ; Lauri Mosley ; Reyes Soalno ; Franky Pires ; Mario Alberto Jo I. ; Joe Singh II ; Demi Castañeda ; Jose Stevenson Other Interventions: Discharge Summary Assessment (RN) Last Done: 11/11/20 09:26
== END 2020-11-11 13:25 | DRG 186 ==
LOC: ED 06:58 → SUATTDRO 10:45 → 2S 10:45 → 3N 11-02 16:24 → 2N 11-02 19:49

== ENCOUNTER 2021-08-18 19:32 | Observation (INO) ==
[2021-08-18 21:00] LABS: Basophils # (auto) 0.06 K/uL (0-0.2); Basophils % (auto) 0.8 %; Eosinophils # (auto) 0.24 K/uL (0-0.5); Hematocrit (blood only) 38.9 % (42-52); Hemoglobin 13.1 g/dL (14.0-18.0); Immature Granulocytes # (auto) 0.04 K/uL (0.00-0.02); Immature Granulocytes % (auto) 0.5 %; Lymphocytes # (auto) 1.83 K/uL (1.2-3.4); Lymphocytes % (auto) 23.1 %; Mean Corpuscular Hgb Conc 33.7 g/dL (32-36); Mean Corpuscular Volume 94.9 fL (80-100); Mean Platelet Volume 10.5 fL (7.4-10.4); Monocytes # (auto) 0.62 K/uL (0.11-0.59); Monocytes % (auto) 7.8 %; Neutrophils # (auto) 5.12 K/uL (1.4-6.5); Neutrophils % (auto) 64.8 %; Platelet Count 224 K/uL (130-400); RDW Standard Deviation 48.4 fL (36.4-46.3); White Blood Count 7.91 K/uL (4.8-10.8)
[2021-08-18 21:25] LABS: Alanine Aminotransferase 11 U/L (7-52); Albumin Globulin Ratio 1.4 (0.9-2); Albumin Level 4.1 gm/dl (3.4-5.0); Alkaline Phosphatase 86 U/L (34-104); Anion Gap 5 (3-11); Aspartate Aminotransferase 16 U/L (13-39); Bilirubin,Total 0.5 mg/dl (0.2-1.0); Blood Urea Nitrogen 17 mg/dl (6-23); Calcium 9.1 mg/dl (8.5-10.1); Carbon Dioxide 31 mmol/L (21-32); Chloride 101 mmol/L (98-107); Est GFR (African American) 74.3 ml/min; Est GFR (Non-African American) 64.1 ml/min; Globulin 2.9 gm/dl (2.5-4.0); Glucose 116 mg/dl (70-99(Fasting)); Potassium 3.9 mmol/L (3.5-5.1); Sodium 137 mmol/L (136-145)
[2021-08-18] MEDS ORDERED: AMPICILLIN/SULBACTAM SOD 3,000 MG in 0.9 % SODIUM CHLORIDE 100 ML IV STA (22:19)
--- NOTE | 2021-08-18 22:22 | Emergency Department Note ---
Impression & Plan Dental abscess, Failure of outpatient treatment ED Provider Note Name: JIMENEZ QUIÑONEZ Age: 85 Sex: M Arrives Via: Walk-In Informant: Patient is poor historian, gives most of story ED Provider: Pranav Hicks MD Chief Complaint: Dental infection Impression: As per impressions above Medical Decision Makin-year-old pleasantly demented gentleman arrives for evaluation of cyst of the left anterior maxilla. This was referred to ER by his dentist who notes that this is new from previous examinations and is concerned to be an abscess and has already contacted [facility] with plan for surgery in the morning. On examination patient is afebrile there is no submandibular infection the patient is in no distress. He does have a large cyst of the left lower anterior maxilla with no tenderness palpation just some mild erythema around it. A CT was obtained which reveals some degradation of the underlying bone but of well-corticated cyst at this time. Patient is no distress. I did discuss with justynahermilotan the plan will be to bring him in for possible OR in the morning for drainage and evaluation. He was given empiric antibiotics though he is not septic I do not feel that cultures are indicated at this time. Patient did have a bit of ow steve in the evening when on and due to possible discomfort from the jaw as well to help calm down he was given a small dose of narcotic. I will note I do long discussion with the several times and during which she makes it clear patient is DNR but would be agreeable to surgery need for drainage of this cyst/abscess. Prior Medical Record and Triage/Nursing Notes reviewed by Me Additional history obtained from patient's Differentials:Dental caries, dental abscess, Ludwigs angina, Vincent angina, dental fracture, facial cellulitis, parotitis, osteomyelitis, sinus infection, peritonsillar abscess. Vital Signs: reviewed and remarkable for mild hypertension Interventions: Unasyn IV, Dilaudid 0.5 mg IV Labs:Reviewed and remarkable for no significant abnormalities Imaging:CT of the face with IV contrast cyst left lower anterior mandible as p er radiologist read below Consults:[facility] will evaluate in morning for possible OR, Dr. Kristen Barakat hospitalist service for hospitalization Plan: Disposition:Hospitalization. Condition: Good History of Present Illness:85-year-old gentleman arrives for evaluation of dental abscess. Patient with worsening abscess over the last 3 weeks. They tried a round of amoxicillin without improvement. Due to the enlarged abscess patient was sent to the ER for further evaluation after being seen by dentist today. Per their patient has dementia and has not had much complaints other than his appetite has gone down. He has had no recent fevers, breathing difficulty, syncope nor other symptoms. No falls or injuries. No medication prior to arrival. Nothing makes better or worse. ROS: See above HPI for pertinent positives & negatives. A total of 8 systems reviewed and were otherwise negative. Past Medical History:See Below Past Surgical History:See Below Family History:See Below Social History:See Below Home Medications:See Below Allergies:See Below Vitals:Blood Pressure: 154/75, Pulse 79, RR 16, T 36.2C, O2 96% on RA Physical Exam: GENERAL: Patient is elderly/dementia appearing and in mild distress. EYES: No scleral icterus, unremarkable pupils. ENT: 2 cm abscess left lower gum line below left lower canine. Fluctuant and mild TTP. No TTP under jaw. Otherwise mucous membranes moist, no nasal congestion. NECK: No masses appreciated, nomeningismus, trachea is midline. RESPIRATORY: No dyspnea. Clear to auscultation and equal bilaterally. No wheeze, no rhonchi. CARDIOVASCULAR: Regular rate and rhythm.No murmurs, rubs, gallops appreciated. GASTROINTESTINAL: Abdomen soft, non-tender, no peritonitis.Bowel sounds positive.No masses appreciated. BACK: No midline tenderness, no CVA tenderness EXTREMITIES: Normal motion all extremities, no cyanosis, no edema. NEUROLOGIC: Alert, dementia, no acute motor or sensory deficits, no focal we akness, cranial nerves grossly intact. SKIN: No rash, no jaundice, no diaphoresis. ED Course: Times/Reassessments: Multiple reevaluations of patient he is calm in no distress though has significant dementia and after his left he did have some increasing sundowning Pranav Hicks MD Past Med/Surg History Medical History (Updated 08/19/21 @ 17:28 by Pranav Hicks MD) Altered mental status CKD (chronic kidney disease), stage III Diabetes mellitus, type II Dysplastic nevus History of basal cell carcinoma Hyperlipidemia Hypertension Mixed Alzheimer's and vascular dementia Palliative care encounter Shortness of breath Weakness Surgical History No history of previous surgery Family History Mother No pertinent family history Other Cancer Heart disease Stroke Social History Smoking Status: Former smoker Second Hand Exposure: No; Hx Alcohol Use: No Hx Substance Use: No Preferred Language: Slovak Communication Ability: Impaired [employer] Planner Required: No Beliefs That Will Affect Care: None marital status: Current Living Situation: Spouse Current Living Situation Comment: ranch home Feels Safe at Home: Yes Assistive Devices: Glasses and Walker Allergies Allergies Allergy/AdvReac Type Severity Reaction Status Date / Time codeine Allergy Intermediate Rash Verified 08/18/21 22:21 Home Meds Home Medications Medication Instructions Recorded Confirmed atorvastatin 40 mg tablet (Lipitor) 40 mg PO HS tab 06/22/19 08/18/21 donepezil 10 mg tablet (Aricept) 10 mg PO HS 06/22/19 08/18/21 enalapril maleate 20 mg tablet 20 mg PO HS tab 06/22/19 08/18/21 (Vasotec) metformin 500 mg tablet 500 mg PO BIDM tab 06/22/19 08/18/21 aspirin 81 mg tablet,delayed 81 mg PO QAM 10/25/20 08/18/21 release (Aspirin Low Dose) cyanocobalamin (vitamin B-12) 1,000 mcg PO QPM 10/25/20 08/18/21 1,000 mcg tablet multivitamin 1 tab PO DAILY 10/25/20 08/18/21 docusate sodium 100 mg capsule 100 mg PO BID 01/01/21 08/18/21 finasteride 5 mg tablet 5 mg PO QAM 01/01/21 08/18/21 polyethylene glycol 3350 17 17 g PO DAILY PRN 01/01/21 08/18/21 gram/dose oral powder (Miralax) tamsulosin 0.4 mg capsule 0.4 mg PO QPM 01/01/21 08/18/21 docusate sodium 100 mg capsule 100 mg PO DAILY PRN 08/18/21 08/18/21 hydrochlorothiazide 12.5 mg tablet 12.5 mg PO QAM 08/18/21 08/18/21 Results & Data (ED) Vital Signs Vital Signs - 24 hr 08/18/21 19:38 08/18/21 23:25 Temperature 36.2 C L Temperature Source Temporal Artery Scan Pulse Rate 79 Pulse Rate [Finger] 64 Respiratory Rate 16 18 Respiratory Effort / Characteristics Non-Labored Spontaneous Respiratory Depth Normal Blood Pressure 154/75 H Blood Pressure [Left Arm] 160/75 H Blood Pressure Mean 101 Blood Pressure Mean [Left Arm] 103 Blood Pressure Position Sitting Pulse Oximetry 96 99 Oxygen Delivery Method Room Air Sepsis Recent Fever Within 48 Hours No Sepsis New/Unexplained Change in Mental Status No Sepsis Action Taken by Nursing No Action Required Laboratory Data Result diagrams: 08/19/21 07:01 08/19/21 07:01 Lab Results 08/18/21 08/18/21 08/18/21 Range/Units 20:40 20:40 20:40 WBC 7.91 (4.8-10.8) K/uL RBC 4.10 L (4.7-6.1) M/uL Hgb 13.1 L (14.0-18.0) g/dL Hct 38.9 L (42-52) % MCV 94.9 (80-100) fL MCH 32.0 (25-34) pg MCHC 33.7 (32-36) g/dL RDW Std Deviation 48.4 H (36.4-46.3) fL RDW Coeff of Radha 14.0 (11.5-14.5) % Plt Count 224 (130-400) K/uL MPV 10.5 H (7.4-10.4) fL Immature Gran % (Auto) 0.5 % Neut % (Auto) 64.8 % Lymph % (Auto) 23.1 % [place] % (Auto) 7.8 % Eos % (Auto) 3.0 % Baso % (Auto) 0.8 % Neut # (Auto) 5.12 (1.4-6.5) K/uL Lymph # (Auto) 1.83 (1.2-3.4) K/uL [place] # (Auto) 0.62 H (0.11-0.59) K/uL Eos # (Auto) 0.24 (0-0.5) K/uL Baso # (Auto) 0.06 (0-0.2) K/uL Immature Gran # (Auto) 0.04 H (0.00-0.02) K/uL Sodium 137 (136-145) mmol/L Potassium 3.9 (3.5-5.1) mmol/L Chloride 101 (98-107) mmol/L Carbon Dioxide 31 (21-32) mmol/L Anion Gap 5 (3-11) BUN 17 (6-23) mg/dl Creatinine 1.06 (0.6-1.4) mg/dl Est Cr Clr Drug Dosing Not Reportable Est GFR ( Amer) 74.3 ml/min Est GFR (Non-Af Amer) 64.1 ml/min BUN/Creatinine Ratio 16.0 (10-20) Glucose 116 H (70-99(Fasting)) mg/dl Calcium 9.1 (8.5-10.1) mg/dl Total Bilirubin 0.5 (0.2-1.0) mg/dl AST 16 (13-39) U/L ALT 11 (7-52) U/L Alkaline Phosphatase 86 (34-104) U/L Total Protein 7.0 (6.0-8.3) gm/dl Albumin 4.1 (3.4-5.0) gm/dl Globulin 2.9 (2.5-4.0) gm/dl Albumin/Globulin Ratio 1.4 (0.9-2) SARS-CoV-2, RNA, NAAT NEGATIVE (NEGATIVE) Administered Medications Discontinued Medications Aspirin (Aspirin 81 Mg Ectab) 81 mg PO [facility] Stop: 09/18/21 08:59 Last Admin: 08/19/21 07:44 Dose: 81 mg Documented by: [id number] Docusate Sodium (Docusate Sodium 100 Mg Cap) 100 mg PO BID [facility] Stop: 09/18/21 08:59 Last Admin: 08/19/21 07:45 Dose: 100 mg Documented by: [id number] Finasteride (Finasteride 5 Mg Tab) 5 mg PO [facility] Stop: 09/18/21 08:59 Last Admin: 08/19/21 07:44 Dose: 5 mg Documented by: [id number] Hydrochlorothiazide (Hydrochlorothiazide 25 Mg Tab) 12.5 mg PO [facility] Stop: 09/18/21 08:59 Last Admin: 08/19/21 07:44 Dose: 12.5 mg Documented by: [id number] Hydromorphone HCl (Hydromorphone Inj 0.5 Mg/0.5 Ml Syr) 0.25 mg IV NOW STA Stop: 08/19/21 01:02 Last Admin: 08/19/21 01:14 Dose: Not Given Documented by: [id number] Hydromorphone HCl (Hydromorphone Inj 0.5 Mg/0.5 Ml Syr) 0.5 mg IV NOW STA Stop: 08/19/21 01:06 Last Admin: 08/19/21 01:05 Dose: 0.5 mg Documented by: [id number] Ampicillin Sodium/Sulbactam Sodium 3,000 mg/ Sodium Chloride 108 mls @ 200 mls/hr IV NOW STA; Protocol Stop: 08/18/21 22:51 Last Infusion: 08/19/21 00:10 Dose: 0 mls/hr Documented by: [id number] Admin: 08/18/21 23:21 Dose: 200 mls/hr Documented by: [id number] Sodium Chloride (Nss 1000ml) 1,000 mls @ 80 mls/hr IV .[id number] [facility] Stop: 08/20/21 04:01 Last Admin: 08/19/21 07:57 Dose: 80 mls/hr Documented by: [id number] Ampicillin Sodium/Sulbactam Sodium 3,000 mg/ Sodium Chloride 108 mls @ 200 mls/hr IV Q6H [facility]; Protocol Stop: 09/30/21 05:59 Last Admin: 08/19/21 13:03 Dose: Not Given Documented by: [id number] Infusion: 08/19/21 06:57 Dose: 0 mls/hr Documented by: [id number] Admin: 08/19/21 06:26 Dose: 200 mls/hr Documented by: [id number] Insulin Aspart (Insulin Aspart Per Unit) 0 units SC Q6 [facility] Stop: 09/18/21 05:59 Last Admin: 08/19/21 12:59 Dose: Not Given Documented by: [id number] Cosigned by: [id number] Admin: 08/19/21 06:27 Dose: Not Given Documented by: [id number] Cosigned by: [id number] Ioversol (Optiray 320 100ml) 93 ml IV ONCE ONE Stop: 08/18/21 22:31 Last Admin: 08/18/21 22:35 Dose: 93 ml Documented by: [id number] Miscellaneous Information (Consult Pharmacy) 1 ea N/A NOW STA Stop: 08/19/21 00:43 Last Admin: 08/19/21 11:11 Dose: Not Given Documented by: [id number] Multivitamins (Multivitamin Tab) 1 tab PO DAILY [facility] Stop: 09/18/21 08:59 Last Admin: 08/19/21 07:44 Dose: 1 tab Documented by: [id number] Olanzapine (Olanzapine 10 Mg/2.1 Ml Sdv) 2.5 mg IM NOW STA Stop: 08/19/21 01:30 Last Admin: 08/19/21 01:35 Dose: 2.5 mg Documented by: [id number] Olanzapine (Olanzapine 10 Mg/2.1 Ml Sdv) 2.5 mg IM NOW STA Stop: 08/19/21 03:01 Last Admin: 08/19/21 03:23 Dose: 2.5 mg Documented by: [id number] Imaging Data Radiologist's Impression: Face CT 08/18/21 22:19 CT SCAN OF THE FACIAL BONES WITH IV CONTRAST CLINICAL HISTORY: Left-sided periodontal abscess COMPARISON STUDY: No priors. TECHNIQUE: High-resolution CT scan of the facial bones is performed following the IV administration of 93 cc of atrophy 20. Images are reviewed in the axial, sagittal, and coronal planes. IV contrast was administered without complication. A dose lowering technique was utilized adhering to the principles of ALARA. CT DOSE: 267.57 mGy.cm FINDINGS: The skeletal structures are osteopenic. There is no evidence of facial bone fracture. The bony orbits are intact and the orbital contents are within normal limits. The zygomatic arches, nasal bones, and pterygoid plates are preserved. The maxilla and mandible are intact. There are no layering blood products within the paranasal sinuses. There is trace mucosal thickening in the right maxillary antrum. The remaining paranasal sinuses are clear. The mastoid air cells are well pneumatized. The visualized calvarium and upper cervical spine are maintained. Partially imaged brain parenchyma is within normal limits noting age-related involutional change ts. The carotid arteries and jugular veins are patent. Calcified sialoliths are noted in the right parotid gland. There is an expansile cystic lesion arising from the left aspect of the mandible. This involves the roots of several teeth and measures 2.7 x 2.5 x 1.6 cm, with remodeling of the underlying mandible. There is no surrounding inflammation and the appearance is not typical for abscess. This favors a cystic mandibular lesion. IMPRESSION: 1. There is no evidence of facial bone fracture. 2. There is a 2.7 cm expansile cystic lesion arising from the left anterior aspect of the mandible. There is no surrounding inflammation and the appearance is not typical for. The appearance favors an underlying mandibular cystic lesion such as a dentigerous cyst or odontogenic keratocyst. The sterility cannot be assessed by imaging. Follow-up with dentistry is recommended. ACT 112: Negative or not required by law. Electronically signed by: Silver Guevara M.D. 08/19/2021 8:04 AM Discharge Plan Visit Data Chief Complaint: Dental/Oral Stated Complaint: ABCESS TOOTH ED Provider: Pranav Hicks Discharge Problem: Dental abscess, Failure of outpatient treatment Patient Disposition: Admitted As Inpatient Discharge Instructions Interventions: ED Discharge Assessment Last Done: 08/19/21 03:26
[2021-08-18] MEDS ORDERED: OPTIRAY 320 100ml IV ONE (22:30)
[2021-08-19] MEDS ORDERED: CONSULT PHARMACY STA (00:42)
[2021-08-19] MEDS ORDERED: HYDROmorphone INJ 0.5 MG/0.5 ML SYR IV STA ×2 (01:01→01:05)
[2021-08-19] MEDS ORDERED: OLANZapine 10 MG/2.1 ML SDV IM STA ×2 (01:29→03:00)
[2021-08-19] MEDS ORDERED: ONDANSETRON INJ 2 MG/ML 2 ML VIAL IV PRN (03:02)
[2021-08-19] MEDS ORDERED: POLYETHYLENE (MIRALAX) 17 GM PACK PO PRN (03:02)
[2021-08-19] MEDS ORDERED: SODIUM CHLORIDE 0.9% 1000ML 1,000 ML IV SCH (03:02)
[2021-08-19] MEDS ORDERED: ACETAMINOPHEN 325 MG TAB PO PRN (03:02)
[2021-08-19] MEDS ORDERED: GLUCOSE 40% GEL 15 GM TUBE PO PRN (03:30)
[2021-08-19] MEDS ORDERED: CARBOHYDRATES FOR HYPOGLYCEMIA PO PRN (03:30)
[2021-08-19] MEDS ORDERED: GLUCOSE 10 TABS/TUBE PO PRN (03:30)
[2021-08-19] MEDS ORDERED: GLUCAGON FOR INJ 1 MG VIAL IM PRN (03:30)
[2021-08-19] MEDS ORDERED: DEXTROSE 50% 50 ML SYRINGE IV PRN (03:30)
--- NOTE | 2021-08-19 03:55 | History and Physical Report ---
DATE OF ADMISSION: 08/19/2021. CHIEF COMPLAINT: Dental abscess. HISTORY OF PRESENT ILLNESS: An 85-year-old male with past medical history significant for type 2 diabetes, hyperlipidemia, hypertension, chronic kidney disease stage III, BPH, ankylosing spondylitis, dementia without behavioral disturbance, who is at [facility], was brought in because of dental abscess. The patient is oriented to name only, does not know why he is in the hospital. Denies any headache, denies any chest pain, denies shortness of breath. Denies nausea, denies abdominal pain. Does not know whether he moved his bowels or not, does not know why he is here. Called and able to talk to the . She says he is having dental abscess going on for some time now and seems to have treated outpatient, failed outpatient treatment. That is the reason he was brought in here, but as per he is eating okay, he can swallow okay, eats regular diet. No nausea, vomiting, or diarrhea as per the . No fevers, no cough. hotbed operator was contacted by ER and was planned to take him to OR tomorrow. ALLERGIES: MORPHINE AND RELATED. PAST MEDICAL HISTORY: As mentioned above. PAST SURGICAL HISTORY: Colonoscopy with biopsy. MEDICATIONS: The patient is on aspirin 81 mg p.o. daily, atorvastatin 40 mg p.o. at bedtime, vitamin B12 1000 mcg p.o. p.m., Colace 100 mg p.o. b.i.d., donepezil 10 mg p.o. at bedtime, enalapril 20 mg p.o. at bedtime, finasteride 5 mg p.o. a.m., hydrochlorothiazide 12.5 mg p.o. a.m., metformin 500 mg p.o. b.i.d., multivitamin 1 tablet p.o. daily, MiraLax 17 g p.o. daily p.r.n., Flomax 0.4 mg p.o. q.p.m. FAMILY HISTORY: Significant for brother had neck cancer, low platelets; father had cancer; paternal grandfather had throat cancer; son has GI bleed and perforation; paternal grandfather had heart disorder; maternal grandmother has heart disorder; paternal grandmother has heart disorder; mother has CHF, hypertension; brother had stroke. SOCIAL HISTORY: , currently living at [facility]. Former smoker, who quit in 1976, smoked 1 pack a day for 20 years. History of rare alcohol use. No drug use. REVIEW OF SYSTEMS: As per HPI. Could not get complete review of systems as the patient has severe dementia. PHYSICAL EXAMINATION: GENERAL: The patient is alert and awake, not in acute distress. VITAL SIGNS: Temperature 36.2, pulse 64, respiratory rate 18, blood pressure 160/75, oxygen 99% on room air. HEENT: Pupils equal, round, and reactive to light. Oral mucosa moist. NECK: No JVD. No neck masses. CARDIOVASCULAR: S1 and S2 heard. Regular rate and rhythm. No murmur, no gallop. RESPIRATORY SYSTEM: Normal AP diameter. No accessory muscle use. No wheezing, no crackles. ABDOMEN: Soft. Bowel sounds are present, nontender, no distention. CENTRAL NERVOUS SYSTEM: Alert and awake, oriented to name only. Obeys simple commands. No facial droop. Speech is clear. Moves extremities. EXTREMITIES: No edema, no erythema. LABORATORY DATA: WBC 7.9, hemoglobin 13.1, hematocrit 38.9, platelets 224. Sodium 137, potassium 3.9, chloride 101, bicarbonate 31, BUN 17, creatinine 1.06, serum glucose 116, calcium 9.1, total bilirubin 0.5, AST 16, ALT 11, alkaline phosphatase 86. SARS-CoV-2 rapid test negative. IMAGING DATA: Facial CT, large rim-enhancing fluid collection in the left anterior mandible with significant erosion of the adjacent bone. 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 ASSESSMENT AND PLAN: This is an 85-year-old male who presents with dental abscess. 1. Dental abscess: Failed outpatient treatment. Abscess on the CAT scan. Oral surgery was contacted by ER. Plan for OR tomorrow. Started on Unasyn. N.p.o. gentle fluids. Monitor in the medical floor. 2. Dementia: Continue his home medication of Donezepil. Monitor for any delirium. 3. History of hyperlipidemia: On statin. 4. History of constipation: Stool softeners. 5. Hypertension: Enalapril, hydrochlorothiazide. Monitor the blood pressure. 6. Diabetes: Hold metformin. Placed on insulin sliding scale. Follow blood sugars. 7. Benign prostatic hypertrophy: On Flomax. Monitor for any urinary retention. 8. Chronic kidney disease stage III: Presently with creatinine of 1.06, will follow the labs. 9. Deep venous thrombosis prophylaxis: Sequential compression devices for now. DISPOSITION: Closely monitor in the medical floor. PT/OT prior to discharge. Social service to help with discharge planning. Discharge back to [facility] dementia unit when stable. CODE STATUS: DNR/DNI as per discussion with the . Job ID: [id number] [facility]
[2021-08-19] MEDS: AMPICILLIN/SULBACTAM SOD 3,000 MG in 0.9 % SODIUM CHLORIDE 100 ML IV SCH ×2 (06:26→13:03)
[2021-08-19] MEDS: INSULIN ASPART PER UNIT SC SCH ×2 (06:27→12:59)
[2021-08-19 07:27] LABS: Basophils # (auto) 0.05 K/uL (0-0.2); Basophils % (auto) 0.5 %; Eosinophils # (auto) 0.23 K/uL (0-0.5); Eosinophils % (auto) 2.5 %; Hematocrit (blood only) 40.5 % (42-52); Hemoglobin 13.5 g/dL (14.0-18.0); Immature Granulocytes # (auto) 0.03 K/uL (0.00-0.02); Immature Granulocytes % (auto) 0.3 %; Lymphocytes # (auto) 1.61 K/uL (1.2-3.4); Lymphocytes % (auto) 17.3 %; Mean Corpuscular Hemoglobin 31.5 pg (25-34); Mean Corpuscular Hgb Conc 33.3 g/dL (32-36); Mean Corpuscular Volume 94.4 fL (80-100); Mean Platelet Volume 10.5 fL (7.4-10.4); Monocytes # (auto) 0.66 K/uL (0.11-0.59); Monocytes % (auto) 7.1 %; Neutrophils # (auto) 6.74 K/uL (1.4-6.5); Neutrophils % (auto) 72.3 %; Platelet Count 232 K/uL (130-400); RDW Standard Deviation 48.3 fL (36.4-46.3); Red Blood Count 4.29 M/uL (4.7-6.1); White Blood Count 9.32 K/uL (4.8-10.8)
--- NOTE | 2021-08-19 08:06 | CT Scan Report ---
CT SCAN OF THE FACIAL BONES WITH IV CONTRAST CLINICAL HISTORY: Left-sided periodontal abscess COMPARISON STUDY: No priors. TECHNIQUE: High-resolution CT scan of the facial bones is performed following the IV administration of 93 cc of atrophy 20. Images are reviewed in the axial, sagittal, and coronal planes. IV contrast w as administered without complication. A dose lowering technique was utilized adhering to the princip les of BRANDEN. CT DOSE: 267.57 mGy.cm FINDINGS: The skeletal structures are osteopenic. There is no evidence of facial bone fracture. The b nick orbits are intact and the orbital contents are within normal limits. The zygomatic arches, nasal bones, and pterygoid plates are preserved. The maxilla and mandible are intact. There are no layering blood products within the paranasal sinuses. There is trace mucosal thickening in the right maxillar y antrum. The remaining paranasal sinuses are clear. The mastoid air cells are well pneumatized. The visualized calvarium and upper cervical spine are maintained. Partially imaged brain parenchyma is wi thin normal limits noting age-related involutional change ts. The carotid arteries and jugular veins are patent. Calcified sialoliths are noted in the right parotid gland. There is an expansile cystic l esion arising from the left aspect of the mandible. This involves the roots of several teeth and harika ures 2.7 x 2.5 x 1.6 cm, with remodeling of the underlying mandible. There is no surrounding inflamma tion and the appearance is not typical for abscess. This favors a cystic mandibular lesion. IMPRESSION: 1. There is no evidence of facial bone fracture. 2. There is a 2.7 cm expansile cystic lesion arising from the left anterior aspect of the mandible. T here is no surrounding inflammation and the appearance is not typical for. The appearance favors an u nderlying mandibular cystic lesion such as a dentigerous cyst or odontogenic keratocyst. The sterilit y cannot be assessed by imaging. Follow-up with dentistry is recommended. ACT 112: Negative or not required by law. Electronically signed by: Silver Guevara M.D. 08/19/2021 8:04 AM
[2021-08-19 08:13] LABS: Est GFR (African American) 83.8 ml/min; Potassium 4.2 mmol/L (3.5-5.1)
[2021-08-19 08:14] LABS: BUN Creatinine Ratio 15.6 (10-20); Est GFR (Non-African American) 72.3 ml/min; Magnesium 1.8 mg/dl (1.7-2.4)
[2021-08-19 08:33] LABS: Estimated Average Glucose 120 mg/dl; Hemoglobin A1C 5.8 % (4.5-5.6)
[2021-08-19] MEDS ORDERED: DOCUSATE SODIUM 100 MG CAP PO SCH (09:00)
[2021-08-19] MEDS ORDERED: MULTIVITAMIN TAB PO SCH (09:00)
[2021-08-19] MEDS ORDERED: ASPIRIN 81 MG ECTAB PO SCH (09:00)
[2021-08-19] MEDS ORDERED: FINASTERIDE 5 MG TAB PO SCH (09:00)
[2021-08-19] MEDS ORDERED: hydroCHLOROthiazide 25 MG TAB PO SCH (09:00)
--- NOTE | 2021-08-19 12:17 | Discharge Summary ---
Date of Service August 19, 2021 Admission HPI Per Admitting Provider CHIEF COMPLAINT: Dental abscess. HISTORY OF PRESENT ILLNESS: An 85-year-old male with past medical history significant for type 2 diabetes, hyperlipidemia, hypertension, chronic kidney disease stage III, BPH, ankylosing spondylitis, dementia without behavioral disturbance, who is at [facility], was brought in because of dental abscess. The patient is oriented to name only, does not know why he is i n the hospital. Denies any headache, denies any chest pain, denies shortness of breath. Denies nausea, denies abdominal pain. Does not know whether he moved his bowels or not, does not know why he is here. Called and able to talk to the . She says he is having dental abscess going on for some time now and seems to have treated outpatient, failed outpatient treatment. That is the reason he was brought in here, but as per he is eating okay, he can swallow okay, eats regular diet. No nausea, vomiting, or diarrhea as per the . No fevers, no cough. heel varnisher was contacted by ER and was planned to take him to OR tomorrow. ALLERGIES: MORPHINE AND RELATED. PAST MEDICAL HISTORY: As mentioned above. PAST SURGICAL HISTORY: Colonoscopy with biopsy. MEDICATIONS: The patient is on aspirin 81 mg p.o. daily, atorvastatin 40 mg p.o. at bedtime, vitamin B12 1000 mcg p.o. p.m., Colace 100 mg p.o. b.i.d., donepezil 10 mg p.o. at bedtime, enalapril 20 mg p.o. at bedtime, finasteride 5 mg p.o. a.m., hydrochlorothiazide 12.5 mg p.o. a.m., metformin 500 mg p.o. b.i.d., multivitamin 1 tablet p.o. daily, MiraLax 17 g p.o. daily p.r.n., Flomax 0.4 mg p.o. q.p.m. FAMILY HISTORY: Significant for brother had neck cancer, low platelets; father had cancer; paternal grandfather had throat cancer; son has GI bleed and perforation; paternal grandfather had heart disorder; maternal grandmother has heart disorder; paternal grandmother has heart disorder; mother has CHF, hypertension; brother had stroke. SOCIAL HISTORY: , currently living at [facility]. Former smoker, who quit in 1976, smoked 1 pack a day for 20 years. History of rare alcohol use. No drug use. REVIEW OF SYSTEMS: As per HPI. Could not get complete review of systems as the patient has severe dementia. Admission Exam Per Admitting Provider GENERAL: The patient is alert and awake, not in acute distress. VITAL SIGNS: Temperature 36.2, pulse 64, respiratory rate 18, blood pressure 160/75, oxygen 99% on room air. HEENT: Pupils equal, round, and reactive to light. Oral mucosa moist. NECK: No JVD. No neck masses. CARDIOVASCULAR: S1 and S2 heard. Regular rate and rhythm. No murmur, no gallop. RESPIRATORY SYSTEM: Normal AP diameter. No accessory muscle use. No wheezing, no crackles. ABDOMEN: Soft. Bowel sounds are present, nontender, no distention. CENTRAL NERVOUS SYSTEM: Alert and awake, oriented to name only. Obeys simple commands. No facial droop. Speech is clear. Moves extremities. EXTREMITIES: No edema, no erythema. Principal Diagnosis Dentigerous cyst x left mandible Discharge Exam GENERAL: Alert but oriented x self only. NAD, on RA. HEENT: No pallor, no icterus. Pupils equal, round and reactive to light. Oral mucosa moist. NECK: No JVD, no neck masses. HEART: S1 and S2 heard. Regular rate and rhythm. No murmur, no gallop. RESPIRATORY SYSTEM: Normal AP diameter. No accessory muscle use. No wheezing, no crackles. ABDOMEN: Soft, bowel sounds present, nontender, no distention. CENTRAL NERVOUS SYSTEM: No facial droop. Speech is clear. Obeys simple commands. Moves extremities. EXTREMITIES: No edema, no erythema seen. Discharge Data Allergies Allergy/AdvReac Type Severity Reaction Status Date / Time codeine Allergy Intermediate Rash Verified 08/18/21 22:21 Consultations 08/18/21 22:19 Consult Oromaxillofacial Surgery Routine 08/18/21 22:30 ED Decision to Admit Stat Ordered Studies 08/18/21 22:19 CT facial bones w con Urgent Hospital Course (1) Dentigerous cyst: Patient is 85-year-old gentleman with dementia without behavioral disturbances who lives at [facility] and was apparently brought in because of dental abscess, upon imaging and after evaluation by[facility] surgeon, it is considered to be 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 Patient does not need IV antibiotic. Patient will have to follow-up with PCP and [facility] surgeon as an outpatient. Patient is hemodynamically stable and at his baseline mentation phelps. Patient is being discharged back to the nursing facility with following instruction: Follow-up with primary care physician within a week time. Follow-up with Dr. Duncan [oral maxillofacial surgeon] as an outpatient. Take medications as prescribed. Total Time Total Time Spent Total Time Spent (In Minutes): 33 Discharge Plan Discharge Items Patient Disposition: Personal Snf Reason For Visit: DENTAL ABSCESS Discharge Diagnosis: Dentigerous cyst x left mandible Activity: Resume your previous activity Non-emergency contact: Primary Care Provider Call non-emergency contact if: you have any medication questions, your symptoms worsen and your temperature is above 101 Follow-up/Referrals: Rico Sotelo MD [Primary Care Provider] - Diet: Regular Addtl Attending Provider Instructions: Follow-up with primary care physician within a week time. Follow-up with Dr. Duncan [oral maxillofacial surgeon] as an outpatient. Take medications as prescribed. Pending Studies at Discharge: No Stand-Alone Forms: [facility] Skilled Items Patient informed of condition?: Yes DNR: Yes Discharge Level of Care: Skilled Communicable Disease: No Discharge Prognosis: Stable Lines: None Urinary Catheter: No Medications and DC Order Prescriptions: Continued donepezil [Aricept] 10 mg tablet 10 mg PO HS RF: 0 enalapril maleate [Vasotec] 20 mg tablet 20 mg PO HS RF: 0 metformin 500 mg tablet 500 mg PO BIDM RF: 0 atorvastatin [Lipitor] 40 mg tablet 40 mg PO HS RF: 0 tamsulosin 0.4 mg capsule 0.4 mg PO QPM RF: 0 finasteride 5 mg tablet 5 mg PO QAM RF: 0 polyethylene glycol 3350 [Miralax] 17 gram/dose powder 17 g PO DAILY PRN (Reason: Constipation) RF: 0 docusate sodium 100 mg capsule 100 mg PO BID RF: 0 aspirin [Aspirin Low Dose] 81 mg Tablet,Delayed Release (Dr/Ec) 81 mg PO QAM RF: 0 multivitamin Tablet 1 tab PO DAILY RF: 0 cyanocobalamin (vitamin B-12) 1,000 mcg Tablet 1,000 mcg PO QPM RF: 0 docusate sodium 100 mg Capsule 100 mg PO DAILY PRN (Reason: Constipation) RF: 0 hydrochlorothiazide 12.5 mg tablet 12.5 mg PO QAM RF: 0 Discharge Orders: Discharge Order (Routine); Ordered 08/19/21 Ordered By: Ashley Elizalde Admission Data Admit Date/Time: 08/19/21 00:42 Attending Provider: Ashley Elizalde Admit Provider: Fernando Peterson Primary Care Provider: Rico Sotelo Other Providers: Tre Duncan Rajendra P.
[2021-08-19] MEDS ORDERED: ATORVASTATIN 40 MG TAB PO SCH (21:00)
[2021-08-19] MEDS ORDERED: ENALAPRIL MALEATE 10 MG TAB PO SCH (21:00)
[2021-08-19] MEDS ORDERED: TAMSULOSIN HCL 0.4 MG CAP PO SCH (21:00)
[2021-08-19] MEDS ORDERED: CYANOCOBALAMIN (B-12) 500 MCG TABLET PO SCH (21:00)
[2021-08-19] MEDS ORDERED: DONEPEZIL HCL 10 MG TAB PO SCH (21:00)
== END 2021-08-19 12:58 | disposition home or self-care (01) ==
LOC: ED 19:32 → EDINP 08-19 00:42 → INTOOBSV 08-19 00:42 → EDINP 08-19 03:26

== ENCOUNTER 2022-11-23 06:28 | Inpatient (IN) ==
--- NOTE | 2022-11-23 06:43 | Emergency Department Note ---
Impression & Plan Hypernatremia, Syncope, Elevated troponin, BRITT (acute kidney injury), Acute dehydration ED Provider Note NAME: JIMENEZ QUIÑONEZ AGE: 86 SEX: M : 1935 ARRIVES VIA: Ambulance INFORMANT: Patient, ED PROVIDER(S): Demarco Flores MD CHIEF COMPLAINT: Syncope MEDICAL DECISION MAKING: Patient presents due to concern for syncopal event that occurred at [facility] while going to breakfast this morning. IV was established and blood was obtained. Clinically the patient looks dry and the patient's weight is down 3 kg from last documented weight. Patient was ordered 500 cc IV fluids. Patient is a normal white count H&H and platelet count. The patient's kidney function does show a mild BRITT with a creat today 1.6. Hypernatremia noted at 152. Initial troponin 193. The patient has no chest pains. Given the patient's hyponatremia as well as the BRITT and associated syncope I did speak with the on-call hospitalist service Ann-Marie Guillaume PA-C and the patient was admitted to the medicine service by Dr. Oliver. Prior /Outside records reviewed: I did review a discharge summary from Dr. Elizalde from August 2021. Patient had p resented at that time due to concern for dental abscess. Patient has known history of type 2 diabetes hyperlipidemia hypertension CKD BPH ankylosing spondylitis dementia who resides at [facility]. It was determined that the patient has a dentigerous cyst of the left mandible and likely chronic not requiring antibiotics. Differential diagnosis: Vasovagal event, dehydration, infection, hypoglycemia, electrolyte abnormalities, arrhythmia, pulmonary embolism, seizure among others were considered. Diagnostics, as interpreted by me: ECG: Sinus with possible PACs, rate of 84, normal intervals, normal axis no ST elevations. Cardiac monitoring: An order was placed for continuous cardiac monitoring. The monitor shows a rate of 92 with sinus rhythm. Patient was placed on pulse oximetry Medical decision rules: None Imaging studies: See below I reviewed the patient's noncontrast CT of the head which does not show any obvious ICH. HPI: Patient presents from [facility] due to concern for an episode of syncope that occurred prior to arrival. The patient is limited historian given his known history of dementia but has no acute complaints at this time. Patient does state that he remembers passing out. He is able to state his name and states that his birthday is in a couple of days. His birthday is in 5 days. The patient denies any chest pain shortness of breath nausea vomiting. Patient denies any cough or fever. It was reported via EMS and nursing report the patient was going to breakfast this morning when he passed out and the eyes rolled in the back of his head. No reported seizure-like activity and the patient was laid down on the floor. Patient reportedly was COVID-positive 2 weeks prior. PAST MEDICAL HISTORY: See Below PAST SURGICAL HISTORY: See Below SOCIAL HISTORY: See Below HOME MEDICATIONS: See Below ALLERGIES: See Below VITALS: See Below PHYSICAL EXAMINATION: GENERAL: NAD, non-toxic. Wearing glasses. EYE EXAM: Normal conjunctiva. PERRL, no anisocoria and EOM's grossly intact w/o pain. OROPHARYNX: Mo dryist mucus membranes, grossly normal dentition. NECK: Supple, no nuchal rigidity, no adenopathy, non-tender. No signs of meningismus. FROM of the neck with good chin to chest and neck extension. No stridor. LUNGS: Clear to auscultation. Normal chest wall mechanics. HEART: NSR, no MRG. ABDOMEN: Abdomen soft, non-tender, no masses, no rebound or guarding. BACK: No CVA TTP. SKIN: No rashes and no bruising. UPPER EXTREMITIES: Upper extremities are grossly normal. LOWER EXTREMITIES: Grossly normal, no edema. NEURO EXAM: Awake and alert, follows basic commands, oriented to person and knows that his birthday is in several days, cranial nerves II-XII grossly intact, normal speech, moves all 4 extremities. Past Med/Surg History Medical History Altered mental status Ankylosing spondylitis Anxiety Atelectasis CKD (chronic kidney disease), stage III Diabetes mellitus, type II Dysplastic nevus Edema History of basal cell carcinoma History of COVID-19 UNKNOWN WHEN, PER [facility] PAPERWORK Hyperlipidemia Hypertension Lives in senior facility [facility] Mixed Alzheimer's and vascular dementia Palliative care encounter Shortness of breath Weakness Surgical History No history of previous surgery Family History Mother No pertinent family history Other Cancer Heart disease Stroke Social History Smoking Status: Never smoker Second Hand Exposure: No; Do You Dip or Chew Tobacco: No; Hx Alcohol Use: No Hx Substance Use: No Preferred Language: Nepali Communication Ability: Impaired Visual Impairment: No Limitations 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 Beliefs That Will Affect Care: None marital status: Current Living Situation: Assisted Current Living Situation Comment: [facility]IDENT OF [facility] current occupational status: retired Feels Safe at Home: Yes Assistive Devices: Glasses and Walker Allergies Allergies Allergy/AdvReac Type Severity Reaction Status Date / Time codeine Allergy Intermediate Rash Verified 01/12/22 13:01 acetaminophen Allergy Unknown listed on Unverified 11/23/22 11:12 move in record from [facility] Medications Medication Instructions Recorded Confirmed atorvastatin 40 mg tablet (Lipitor) 40 mg PO HS 06/22/19 11/23/22 donepezil 10 mg tablet (Aricept) 10 mg PO HS 06/22/19 11/23/22 metformin 500 mg tablet 500 mg PO BIDM 06/22/19 11/23/22 aspirin 81 mg tablet,delayed 81 mg PO QAM 10/25/20 11/23/22 release (Shana Low Dose Aspirin) cyanocobalamin (vitamin B-12) 1,000 mcg PO QPM 10/25/20 11/23/22 1,000 mcg tablet multivitamin 1 tab PO QPM 10/25/20 11/23/22 finasteride 5 mg tablet 5 mg PO QAM 01/01/21 11/23/22 tamsulosin 0.4 mg capsule 0.4 mg PO QPM 01/01/21 11/23/22 hydrochlorothiazide 12.5 mg tablet 12.5 mg PO QAM 08/18/21 11/23/22 enalapril maleate 20 mg tablet 20 mg PO DAILY 12/22/21 11/23/22 docusate sodium 100 mg capsule 100 mg PO Q3D PRN Constipation 11/23/22 11/23/22 ibuprofen 200 mg tablet 200 mg PO Q6H PRN Pain 11/23/22 11/23/22 Results & Data (ED) Vital Signs Vital Signs - 24 hr 11/23/22 06:32 11/23/22 06:49 11/23/22 07:02 Temperature 37 C Temperature Source Oral Pulse Rate 95 H 96 H Respiratory Rate 19 Respiratory Effort / Characteristics Non-Labored Respiratory Depth Normal Blood Pressure 136/97 Blood Pressure Mean 110 Pulse Oximetry 92 92 Oxygen Delivery Method Room Air Room Air Sepsis Recent Fever Within 48 Hours No Sepsis New/Unexplained Change in Mental Status No Sepsis Action Taken by Nursing No Action Required 11/23/22 07:16 11/23/22 07:30 11/23/22 08:00 Temperature Temperature Source Pulse Rate 91 H 89 90 Respiratory Rate 15 15 16 Respiratory Effort / Characteristics Respiratory Depth Blood Pressure 140/86 122/89 144/81 H Blood Pressure Mean 98 92 98 Pulse Oximetry 95 95 Oxygen Delivery Method Sepsis Recent Fever Within 48 Hours Sepsis New/Unexplained Change in Mental Status Sepsis Action Taken by Nursing 11/23/22 08:30 Temperature Temperature Source Pulse Rate 82 Respiratory Rate 17 Respiratory Effort / Characteristics Respiratory Depth Blood Pressure 129/85 Blood Pressure Mean 91 Pulse Oximetry 95 Oxygen Delivery Method Sepsis Recent Fever Within 48 Hours Sepsis New/Unexplained Change in Mental Status Sepsis Action Taken by Assisted Medications Current Medication List: was personally reviewed by me Laboratory Data Attestation: I reviewed the patient's lab results. 11/23/22 05:35 11/23/22 05:35 Lab Results 11/23/22 11/23/22 11/23/22 Range/Units 05:35 05:35 05:35 WBC 10.76 (4.8-10.8) K/ul RBC 4.75 (4.70-6.10) M/uL Hgb 14.7 (14.0-18.0) g/dl Hct 44.6 (42.0-52.0) % MCV 93.9 (80.0-100.0) fL MCH 30.9 (25.0-34.0) pg MCHC 33.0 (32.0-36.0) g/dL RDW Std Deviation 46.8 H (36.4-46.3) fL RDW Coeff of Radha 13.7 (11.5-14.5) % Plt Count 238 (130-400) K/uL MPV 11.5 (9.4-12.4) fL Immature Gran % (Auto) 0.7 % Neut % (Auto) 74.9 % Lymph % (Auto) 15.1 % [place] % (Auto) 7.5 % Eos % (Auto) 1.1 % Baso % (Auto) 0.7 % Neut # (Auto) 8.05 H (1.40-6.50) K/uL Lymph # (Auto) 1.63 (1.20-3.40) K/uL [place] # (Auto) 0.81 H (0.11-0.59) K/uL Eos # (Auto) 0.12 (0.00-0.50) K/uL Baso # (Auto) 0.07 (0.00-0.20) K/uL Immature Gran # (Auto) 0.08 (0.01-0.20) K/uL Sodium 152 H (136-145) mmol/L Potassium 3.7 (3.5-5.1) mmol/L Chloride 112 H (98-107) mmol/L Carbon Dioxide 25 (21-32) mmol/L Anion Gap 15 H (3-11) BUN 46 H (6-23) mg/dl Creatinine 1.65 H (0.6-1.4) mg/dl Est Cr Clr Drug Dosing 35.9 ml/min Est GFR ( Amer) 43.2 ml/min Est GFR (Non-Af Amer) 37.3 ml/min BUN/Creatinine Ratio 27.9 H (10-20) Glucose 180 H (70-99(Fasting)) mg/dl Calcium 9.3 (8.6-10.3) mg/dl Magnesium 2.0 (1.7-2.4) mg/dl Total Bilirubin 1.2 H (0.2-1.0) mg/dl AST 24 (13-39) U/L ALT 18 (7-52) U/L Alkaline Phosphatase 74 (34-104) U/L Total Protein 7.3 (6.0-8.3) gm/dl Albumin 4.2 (3.4-5.0) gm/dl Globulin 3.1 (2.5-4.0) gm/dl Albumin/Globulin Ratio 1.4 (0.9-2) TSH 1.259 (0.300-4.500) uIu/ml Administered Medications Enoxaparin Sodium (Enoxaparin Inj 40 Mg/0.4 Ml Syr) 40 mg SQ QAM ALONDRA Stop: 12/23/22 08:59 Last Admin: 11/23/22 12:11 Dose: Not Given Documented By: RAIMUNDO Insulin Aspart (Insulin Aspart Per Unit Charge) 0 units SC ACHS [facility] Stop: 12/23/22 11:31 Last Admin: 11/23/22 14:49 Dose: Not Given Documented By: RAIMUNDO Co-signed By: OXANA Discontinued Medications Sodium Chloride (Nss 1000ml) 500 mls @ 999 mls/hr IV .Q31M ONE Stop: 11/23/22 07:41 Last Infusion: 11/23/22 08:10 Dose: 0 mls/hr Documented By: Admin: 11/23/22 07:17 Dose: 999 mls/hr Documented By: BRAEDEN Sodium Chloride (Nss) 500 mls @ 999 mls/hr IV .Q31M ONE Stop: 11/23/22 10:20 Last Admin: 11/23/22 12:12 Dose: 999 mls/hr Documented By: RAIMUNDO Discharge Plan Visit Data Chief Complaint: Syncope Stated Complaint: SYNCOPE ED Provider: Demarco Flores Discharge Problem: Hypernatremia, Syncope, Elevated troponin, BRITT (acute kidney injury), Acute dehydration Patient Disposition: Admitted As Inpatient Discharge Instructions Interventions: ED Discharge Assessment Last Done: 11/23/22 11:33
[2022-11-23 07:09] LABS: Basophils # (auto) 0.07 K/uL (0.00-0.20); Basophils % (auto) 0.7 %; Eosinophils # (auto) 0.12 K/uL (0.00-0.50); Eosinophils % (auto) 1.1 %; Hematocrit (blood only) 44.6 % (42.0-52.0); Hemoglobin 14.7 g/dl (14.0-18.0); Immature Granulocytes # (auto) 0.08 K/uL (0.01-0.20); Immature Granulocytes % (auto) 0.7 %; Lymphocytes # (auto) 1.63 K/uL (1.20-3.40); Lymphocytes % (auto) 15.1 %; Mean Corpuscular Hemoglobin 30.9 pg (25.0-34.0); Mean Corpuscular Volume 93.9 fL (80.0-100.0); Mean Platelet Volume 11.5 fL (9.4-12.4); Monocytes # (auto) 0.81 K/uL (0.11-0.59); Monocytes % (auto) 7.5 %; Neutrophils # (auto) 8.05 K/uL (1.40-6.50); Neutrophils % (auto) 74.9 %; Platelet Count 238 K/uL (130-400); RDW Coefficient of Variation 13.7 % (11.5-14.5); RDW Standard Deviation 46.8 fL (36.4-46.3); Red Blood Count 4.75 M/uL (4.70-6.10); White Blood Count 10.76 K/ul (4.8-10.8)
[2022-11-23] MEDS ORDERED: SODIUM CHLORIDE 0.9% 500 ML IV ONE ×2 (07:11→09:50)
[2022-11-23 07:17] LABS: Albumin Globulin Ratio 1.4 (0.9-2); Albumin Level 4.2 gm/dl (3.4-5.0); BUN Creatinine Ratio 27.9 (10-20); Bilirubin,Total 1.2 mg/dl (0.2-1.0); Calcium 9.3 mg/dl (8.6-10.3); Creatinine Clr Calc Pharmacy 35.9 ml/min; Est GFR (African American) 43.2 ml/min; Est GFR (Non-African American) 37.3 ml/min; Globulin 3.1 gm/dl (2.5-4.0); Potassium 3.7 mmol/L (3.5-5.1); Total Protein 7.3 gm/dl (6.0-8.3)
[2022-11-23] MEDS ORDERED: ACETAMINOPHEN 325 MG TAB PO PRN (08:57)
--- NOTE | 2022-11-23 09:16 | History & Physical Report ---
Date of Service November 23, 2022 Assessment & Plan (1) Hypernatremia: Plan: This is an 86 y/o male with a history of DM2, dementia, HTN, hyperlipidemia, CKD3, and ankylosing spondylitis who presented to the ED today via EMS from [facility] unit after he had a syncopal episode this morning at breakfast. He was recently diagnosed with COVID and has been improving clinically overall. Labs in the ED show hypernatremia and BRITT on CKD ( baseline creatinine appears to be 1.0-1.1) with a creatinine of 1.65. Suspect dehydration related to decreased oral intake with recent illness. Has received 500 cc of NCC thus far in the ED with another 500 cc bolus in process. - Admit to PCU - Consult nephrology for recommendations - Repeat BMP after IVF in the ED to follow trend of sodium - will determine additional replacement after these labs - Repeat EKG and check troponin due to syncopal episode with EKG changes from prior - unable to obtain symptom history from patient to determine if he was have any other symptoms prior to episode - Check ECHO - CT head to rule out bleed/CVA as cause of episode - Hold HCTZ and enalapril for now - Fall precautions (2) Acute kidney injury superimposed on CKD: (3) Mixed Alzheimer's and vascular dementia: (4) Diabetes mellitus, type II: Plan: Hold Metformin due to BRITT - Insulin sliding scale - BSG ACHS - Diabetic diet (5) Hypertension: (6) Hyperlipidemia: Plan Continue other home medications as appropriate Pt seen and reviewed with collaborating physician, Dr. Oliver. Plan of care discussed and as outlined above. updated via phone regarding plan - all questions answered. Requests to be notified when pt is in a room and with updates on his condition as it is difficult for her to get to the hospital to visit. Code Status: DNR DVT Prophylaxis: Lovenox pending negative CT head Peter Guillaume PA-C History of Present Illness Chief Complaint: syncope Primary Care Provider: [facility] This is an 86 y/o male with a history of DM2, dementia, HTN, hyperlipidemia, CKD3, and ankylosing spondylitis who presented to the ED today via EMS from [facility] unit after he had a syncopal episode this morning at breakfast. History from the patient was unobtainable due to his dementia so the chart was extensively reviewed. His also provided additional history. Apparently, pt was COVID positive two weeks ago. He had mild cold symptoms but overall did okay with the illness. He was improving and was allowed to leave his room over the weekend. Today, as he was walking to breakfast, staff observed him start to slump over so they caught and lowered him to the ground. He was apparently unresponsive for 2-3 minutes before he began responding. In the ED, he seems to be back to his baseline mental status. His reports that he has been eating okay the last couple of weeks but she is unsure if he has been keeping up with his fluid intake. His dementia has been progressive and he now doesn't even consistently recognize his or family. Allergies Allergy/AdvReac Type Severity Reaction Status Date / Time codeine Allergy Intermediate Rash Verified 01/12/22 13:01 acetaminophen Allergy Unknown listed on Unverified 11/23/22 11:12 move in record from [facility] Medications Medication Instructions Recorded Confirmed Type atorvastatin 40 mg tablet (Lipitor) 40 mg PO HS 06/22/19 11/23/22 History donepezil 10 mg tablet (Aricept) 10 mg PO HS 06/22/19 11/23/22 History metformin 500 mg tablet 500 mg PO BIDM 06/22/19 11/23/22 History aspirin 81 mg tablet,delayed 81 mg PO QAM 10/25/20 11/23/22 History release (Shana Low Dose Aspirin) cyanocobalamin (vitamin B-12) 1,000 mcg PO QPM 10/25/20 11/23/22 History 1,000 mcg tablet multivitamin 1 tab PO QPM 10/25/20 11/23/22 History finasteride 5 mg tablet 5 mg PO QAM 01/01/21 11/23/22 History tamsulosin 0.4 mg capsule 0.4 mg PO QPM 01/01/21 11/23/22 History hydrochlorothiazide 12.5 mg tablet 12.5 mg PO QAM 08/18/21 11/23/22 History enalapril maleate 20 mg tablet 20 mg PO DAILY 12/22/21 11/23/22 History docusate sodium 100 mg capsule 100 mg PO Q3D PRN Constipation 11/23/22 11/23/22 History ibuprofen 200 mg tablet 200 mg PO Q6H PRN Pain 11/23/22 11/23/22 History Past Med/Surg History Medical History Altered mental status Ankylosing spondylitis Anxiety Atelectasis CKD (chronic kidney disease), stage III Diabetes mellitus, type II Dysplastic nevus Edema History of basal cell carcinoma History of COVID-19 UNKNOWN WHEN, PER [facility] PAPERWORK Hyperlipidemia Hypertension Lives in senior facility [facility] OF [facility] Mixed Alzheimer's and vascular dementia Palliative care encounter Shortness of breath Weakness Surgical History No history of previous surgery Family History Mother No pertinent family history Other Cancer Heart disease Stroke Social History Smoking Status: Never smoker Second Hand Exposure: No; Do You Dip or Chew Tobacco: No; Hx Alcohol Use: No Hx Substance Use: No Preferred Language: Pakistani Communication Ability: Impaired Visual Impairment: No Limitations Certified Welder Required: No Beliefs That Will Affect Care: None marital status: Current Living Situation: Alf Current Living Situation Comment: RESIDENT OF [facility] current occupational status: retired Feels Safe at Home: Yes Assistive Devices: Glasses and Walker Review of Systems Review of Systems: Unobtainable due to cognitive status (dementia) Physical Exam Constitutional: + thin; no acute distress Eyes: + anicteric sclerae ENMT: slightly dry oral mucosa Respiratory: no respiratory distress and no labored breathing Auscultation: lungs clear to auscultation bilaterally; no rales, no rhonchi and no wheezes Cardiovascular: Rate/Rhythm: regular rate and regular rhythm Vessels: radial pulses present Extremities: no pedal edema Gastrointestinal (Abdomen): Inspection/Auscultation: normal bowel sounds; abdomen not distended Percussion/Palpation: abdomen soft Musculoskeletal: Head/Neck/Chest: normocephalic, head atraumatic and neck supple Skin: no jaundice Neurologic: moves all extremities; no focal motor deficits Psychiatric: Orientation: alert and oriented to person Results & Data Results & Data Vital Signs (Past 12 Hours) Vital Signs Temp Pulse Resp BP Pulse Ox O2 Del Method 11/23/22 08:30 82 17 129/85 95 11/23/22 08:00 90 16 144/81 H 95 11/23/22 07:30 89 15 122/89 11/23/22 07:16 91 H 15 140/86 95 11/23/22 07:02 96 H 11/23/22 06:49 92 Room Air 11/23/22 06:32 37 C 95 H 19 136/97 92 Room Air Laboratory Results Laboratory Results - last 24 hr 11/23/22 11/23/22 11/23/22 05:35 05:35 05:35 WBC 10.76 RBC 4.75 Hgb 14.7 Hct 44.6 MCV 93.9 MCH 30.9 MCHC 33.0 RDW Std Deviation 46.8 H RDW Coeff of Radha 13.7 Plt Count 238 MPV 11.5 Immature Gran % (Auto) 0.7 Neut % (Auto) 74.9 Lymph % (Auto) 15.1 [place] % (Auto) 7.5 Eos % (Auto) 1.1 Baso % (Auto) 0.7 Neut # (Auto) 8.05 H Lymph # (Auto) 1.63 [place] # (Auto) 0.81 H Eos # (Auto) 0.12 Baso # (Auto) 0.07 Immature Gran # (Auto) 0.08 Sodium 152 H Potassium 3.7 Chloride 112 H Carbon Dioxide 25 Anion Gap 15 H BUN 46 H Creatinine 1.65 H Est Cr Clr Drug Dosing 35.9 Est GFR ( Amer) 43.2 Est GFR (Non-Af Amer) 37.3 BUN/Creatinine Ratio 27.9 H Glucose 180 H Calcium 9.3 Magnesium 2.0 Total Bilirubin 1.2 H AST 24 ALT 18 Alkaline Phosphatase 74 Total Protein 7.3 Albumin 4.2 Globulin 3.1 Albumin/Globulin Ratio 1.4 TSH 1.259 Medications Administered Discontinued Medications Sodium Chloride (Nss 1000ml) 500 mls @ 999 mls/hr IV .Q31M ONE Stop: 11/23/22 07:41 Last Infusion: 11/23/22 08:10 Dose: 0 mls/hr Documented By: Admin: 11/23/22 07:17 Dose: 999 mls/hr Documented By: NA Code Status & VTE Plan VTE Prophylaxis Plan VTE Prophylaxis will be ordered: Yes Supervising Physician Co-Signing Physician Notes Pt seen an examined by me, care coordinated with Peter Guillaume PA-C, pls refer to her note above for further detail. Pt is an 86 y/o M with DM2, dementia, HTN, hyperlipidemia, CKD3, and ankylosing spondylitis who presents from [facility] unit after he had a syncopal episode this morning at breakfast. History from the patient was unobtainable due to his dementia. Pt was COVID positive two weeks ago. He had mild cold symptoms but overall did well with the illness. He was improving and was allowed to leave his room over the weekend. Today, as he was walking to breakfast, staff observed him start to slump over so they caught and lowered him to the ground. He was apparently unresponsive for a moment. In the ED, he seems to be back to his baseline mental status. Denies any FAITH, chest pain or shortness of breath. Denies abdominal pain. Currently laying in bed, in no acute distress. Awake alert answering simple questions appropriately but again not able to provide much of history. Heart sounds regular, lung sounds clear to auscultation. Abdomen soft nontender nondistended. Patient is moving extremities. Speech is fluent. Trace lower extremity edema. Skin is warm and dry. In the ED was found hypernatremic with sodium level of 152, creatinine elevated at 1.65. He received 500 cc of normal saline. In addition ECG with some possible st depress. and t wave inver. CT head obtained and negative for acute pathology. Repeat ECG ordered. Repeat BMP ordered. Troponin ordered. Echocardiogram ordered and currently at the bedside obtaining the study. Nephrology consulted for hypernatremia. Continue to closely monitor on telemetry, continue to closely monitor BMP/sodium level. MD Benito
--- NOTE | 2022-11-23 10:27 | CT Scan Report ---
CT head/brain wo con CLINICAL HISTORY: syncope Technique: Contiguous axial CT images of the head were acquired from the base of the skull to the rajat elio without intravenous contrast administration. Images were viewed in brain, subdural and bone [facility] ws. Automated dose lowering techniques and/or adjustment according to patient size were utilized for this exam. Comparison: Comparison is made to CT head 10/25/2020 Findings: Areas of decreased attenuation are present in the periventricular and subcortical white matter bilate rally consistent with small vessel ischemic disease. Generalized cerebral atrophy with commensurate e nlargement of the ventricles, sulci, and cisterns is also present. There is no acute intracranial hem orrhage or evidence of acute territorial infarction. No shift of the midline structures, mass effect, or extra-axial abnormalities are shown. Atherosclerotic calcifications are present in the intracran ial segments of the internal carotid arteries. Imaged portions of the paranasal sinuses and mastoid air cells are clear. The orbits appear normal. There are no acute fractures of the calvaria or scalp swelling. Impression: No acute intracranial hemorrhage, no evidence of acute territorial infarction or other acute intracra nial disease process. ACT 112: Negative or not required by law. Electronically signed by: Devyn Cisneros M.D. 11/23/2022 10:26 AM
[2022-11-23] MEDS ORDERED: GLUCOSE 40% GEL 15 GM TUBE PO PRN (11:32)
[2022-11-23] MEDS ORDERED: GLUCOSE 10 TAB/TUBE PO PRN (11:32)
[2022-11-23] MEDS ORDERED: GLUCAGON FOR INJ 1 MG VIAL SQ PRN (11:32)
[2022-11-23] MEDS ORDERED: DEXTROSE 50% 50 ML SYRINGE IV PRN (11:32)
[2022-11-23] MEDS ORDERED: CARBOHYDRATES FOR HYPOGLYCEMIA PO PRN (11:32)
[2022-11-23 11:38] LABS: BUN Creatinine Ratio 30.7 (10-20); Creatinine Clr Calc Pharmacy 39.5 ml/min; Est GFR (African American) 48.5 ml/min; Est GFR (Non-African American) 41.9 ml/min; Potassium 3.3 mmol/L (3.5-5.1)
[2022-11-23 11:47] LABS: Troponin I High Sensitivity 193.4 pg/ml (0-20)
[2022-11-23] MEDS ORDERED: POTASSIUM CHLORIDE CRTAB 20 MEQ TABCR PO STA (11:56)
[2022-11-23] MEDS ORDERED: DEXTROSE 5% 1,000 ML IV SCH (12:00)
[2022-11-23] MEDS: ENOXAPARIN INJ 40 MG/0.4 ML SYR SQ SCH (12:11)
--- NOTE | 2022-11-23 12:22 | XRay Report ---
XR chest 1V portable HISTORY: 86 years-old Male syncope COMPARISON: 11/09/2020 TECHNIQUE: AP view of the chest FINDINGS: Cardiomediastinal and hilar silhouettes are within normal limits. Mild chronic interstitial coarsenin g. No definite pneumothorax, pleural effusion or overt pulmonary edema identified. Ill-defined opacit ies of the right lateral lung base with a linear opacity projects over the right midlung and right amanda ng base which may be artifactual. IMPRESSION: Mild ill-defined opacities of the right lateral lung are nonspecific and may represent pl eural-parenchymal scarring versus less likely a nonspecific pneumonitis. ACT 112: Negative or not required by law. The above report was generated using voice recognition software. It may contain grammatical, syntax o r spelling errors. Electronically signed by: Sanya Bello M.D. 11/23/2022 12:20 PM
--- NOTE | 2022-11-23 13:27 | Cardiology Consultation ---
Date of Consultation November 23, 2022 Assessment & Plan (1) Syncope: (2) Hypernatremia: (3) BRITT (acute kidney injury): (4) Elevated troponin: (5) Hypokalemia: Plan Patient admitted after syncopal episode this morning at nursing facility. Patient with severe dementia and not able to assist in events or symptoms. On arrival, he had mild ST depression in inferior and anterolateral leads, now resolved. He denied chest pain HS troponin initially mildly elevated 193 Echo with normal LVEF 55%, no wall motion abnormalities. HR/BP controlled No arrhythmias on telemetry Continue home meds - ASA, statin BRITT with hypernatremia, hypokalemia noted on arrival, consistent with possible dehydration. Fluids initiated. Nephrology also consulted. Recommend ongoing surveillance on telemetry. Case discussed with Dr. Dejesus I spent a total of 30 minutes on the date of service in preparation, delivery, and documentation of the care provided to this patient, excluding any time spent in the performance of separately billed services. Micaela Landers PA-C Department of Cardiology, [facility] This chart was completed in part utilizing Speech Voice Recognition Software. Grammatical errors, random word insertions, pronoun errors, and incomplete sentences are an occasional consequence of this system due to software limitations, ambient noise, and hardware issues. Any formal questions or concerns about the content, text, or information contained within the body of this dictation should be directly addressed to the provider for clarification. Supervising Physician Co-Signing Physician Notes Supervising Physician Attestation: I have personally performed a history and physical examination on the patient. I agree with the physician assistant professor of life sciences's findings and plan as documented with the following additions. Subjective: Interview limited due to cognitive impairment. No subjective complaints. Exam: Cardiovascular regular rhythm, no murmurs, no edema Data: Echocardiogram performed today reveals normal ejection fraction, no regional wall motion abnormalities Assessment and Plan: Syncope, mildly elevated high-sensitivity troponin Initial EKG revealed transient ST segment depression suggestive of ischemia which is improved on subsequent measurements. Hyponatremia -Recommend supportive care with hydration as already ordered. -Hold off on heparin given lack of subjective symptoms of ischemia, improvement in abnormal EKG. Presentation is not suggestive of an acute intra coronary thrombotic event at present. DVT prophylaxis: Subcutaneous Lovenox I spent a total of 20 minutes on the date of service in preparation, delivery, and documentation of the care provided to this patient, excluding any time spent in the performance of separately billed services. Raheem Dejesus, DO History of Present Illness Reason for Consultation: Syncope Requesting Physician: Ms. Markell PA-C Attending Physician: Dr. Dejesus History of Present Illness Patient is an 86 year old male who was admitted to [facility] after a syncopal episode occurring at his nursing facility. Records reviewed. History includes: DM2, dementia, HTN, hyperlipidemia, CKD3, and ankylosing spondylitis Apparently 2 weeks ago patient tested for COVID with only mild respiratory symptoms, now improved. He was walking in his shelter this morning and slumped over, assisted by staff. Per admission records, he was unresponsive for several minutes. No incontinence. No seizure like activity. Brought to ER for evaluation. On arrival to ER, EKG demonstrated NSR with mild ST depression in inferior and anterolateral leads. Repeat EKG several hours later with improved ST depression. Patient denied chest pain during this time. however, review of systems is unreliable given his dementia. HS troponin 193. Creatinine elevated at 1.6. Sodium levels elevated at 152. Started on IV fluids. Potassium also low and supplemented. Since admission, no arrhythmias on telemetry. At time of consult, he is resting in bed comfortably without issues. Denies complaints. BP and HR well controlled. He is not able to tell me events surrounding syncope. head CT was negative. Echo results reviewed with normal LVEF, no wall motion abnormalities. Allergies Allergy/AdvReac Type Severity Reaction Status Date / Time codeine Allergy Intermediate Rash Verified 01/12/22 13:01 acetaminophen Allergy Unknown listed on Unverified 11/23/22 11:12 move in record from [facility] Medications Medication Instructions Recorded Confirmed Type atorvastatin 40 mg tablet (Lipitor) 40 mg PO HS 06/22/19 11/23/22 History donepezil 10 mg tablet (Aricept) 10 mg PO HS 06/22/19 11/23/22 History metformin 500 mg tablet 500 mg PO BIDM 06/22/19 11/23/22 History aspirin 81 mg tablet,delayed 81 mg PO QAM 10/25/20 11/23/22 History release (Shana Low Dose Aspirin) cyanocobalamin (vitamin B-12) 1,000 mcg PO QPM 10/25/20 11/23/22 History 1,000 mcg tablet multivitamin 1 tab PO QPM 10/25/20 11/23/22 History finasteride 5 mg tablet 5 mg PO QAM 01/01/21 11/23/22 History tamsulosin 0.4 mg capsule 0.4 mg PO QPM 01/01/21 11/23/22 History hydrochlorothiazide 12.5 mg tablet 12.5 mg PO QAM 08/18/21 11/23/22 History enalapril maleate 20 mg tablet 20 mg PO DAILY 12/22/21 11/23/22 History docusate sodium 100 mg capsule 100 mg PO Q3D PRN Constipation 11/23/22 11/23/22 History ibuprofen 200 mg tablet 200 mg PO Q6H PRN Pain 11/23/22 11/23/22 History Patient History Medical History Altered mental status Ankylosing spondylitis Anxiety Atelectasis CKD (chronic kidney disease), stage III Diabetes mellitus, type II Dysplastic nevus Edema History of basal cell carcinoma History of COVID-19 UNKNOWN WHEN, PER [facility] PAPERWORK Hyperlipidemia Hypertension Lives in senior facility RESIDENT OF [facility] Mixed Alzheimer's and vascular dementia Palliative care encounter Shortness of breath Weakness Surgical History No history of previous surgery Family History Mother No pertinent family history Other Cancer Heart disease Stroke Social History Smoking Status: Never smoker Second Hand Exposure: No; Do You Dip or Chew Tobacco: No; Hx Alcohol Use: No Hx Substance Use: No Preferred Language: Latvian Communication Ability: Impaired Visual Impairment: No Limitations Uke Driver Required: No Beliefs That Will Affect Care: None marital status: Current Living Situation: Prison Current Living Situation Comment: RESIDENT OF [facility] current occupational status: retired Feels Safe at Home: Yes Assistive Devices: Glasses and Walker Review of Systems Review of Systems: Unobtainable due to cognitive status Physical Exam Constitutional: WD/WN, vitals as above + thin; no acute distress Respiratory: normal respiratory effort, lungs clear to auscultation Cardiovascular: Rate/Rhythm: regular rate and regular rhythm Heart Sounds: normal S1 and normal S2; no murmur Vessels: no JVD Extremities: no edema Gastrointestinal (Abdomen): normal bowel sounds, soft, nontender, no hepatosplenomegaly Neurologic: PERRL, EOMI, accommodation nl, no face palsy, no dysarthria Results & Data Vital Signs (Past 12 Hours) Vital Signs Temp Pulse Resp BP Pulse Ox O2 Del Method 11/23/22 11:06 79 11/23/22 08:30 82 17 129/85 95 11/23/22 08:00 90 16 144/81 H 95 11/23/22 07:30 89 15 122/89 11/23/22 07:16 91 H 15 140/86 95 11/23/22 07:02 96 H 11/23/22 06:49 92 Room Air 11/23/22 06:32 37 C 95 H 19 136/97 92 Room Air Laboratory Results Cardiac Enzymes 11/23/22 11/23/22 Range/Units 05:35 10:56 AST 24 (13-39) U/L Troponin I High Sens 193.4 H* (0-20) pg/ml CBC 11/23/22 Range/Units 05:35 WBC 10.76 (4.8-10.8) K/ul RBC 4.75 (4.70-6.10) M/uL Hgb 14.7 (14.0-18.0) g/dl Hct 44.6 (42.0-52.0) % Plt Count 238 (130-400) K/uL Neut # (Auto) 8.05 H (1.40-6.50) K/uL Lymph # (Auto) 1.63 (1.20-3.40) K/uL Bonner # (Auto) 0.81 H (0.11-0.59) K/uL Eos # (Auto) 0.12 (0.00-0.50) K/uL Baso # (Auto) 0.07 (0.00-0.20) K/uL Comprehensive Metabolic Panel 11/23/22 11/23/22 Range/Units 05:35 10:56 Sodium 152 H 152 H (136-145) mmol/L Potassium 3.7 3.3 L (3.5-5.1) mmol/L Chloride 112 H 114 H (98-107) mmol/L Carbon Dioxide 25 30 (21-32) mmol/L BUN 46 H 46 H (6-23) mg/dl Creatinine 1.65 H 1.50 H (0.6-1.4) mg/dl Glucose 180 H 131 H (70-99(Fasting)) mg/dl Calcium 9.3 9.0 (8.6-10.3) mg/dl AST 24 (13-39) U/L ALT 18 (7-52) U/L Alkaline Phosphatase 74 (34-104) U/L Total Protein 7.3 (6.0-8.3) gm/dl Albumin 4.2 (3.4-5.0) gm/dl Intake and Output 11/22/22 11/23/22 11/23/22 22:59 06:59 14:59 Intake Total 500 / 500 Balance 500 / 500 Intake: IV 500 / 500 Sodium Chloride 0.9% 1000ML 500 500 / 500 ml @ 999 mls/hr IV .Q31M ONE Rx#:[id number] Other: Weight 84.4 kg Weight Measurement Method Built in [facility] Diagnostic Findings Telemetry reviewed: Normal sinus rhythm. no arrhythmias Echo results reviewed. Mild concentric LVH No regional wall motion abnormalities LVEF 55-60% Grade I diastolic dysfunction Pulm artery systolic pressure is estimated at 38 mmHg EKG on admission to ER 11/23: NSR with ST depression in inferior and anterolateral leads. Repeat EKG on 11/23/22: Sinus rhythm with Premature atrial complexes Nonspecific ST abnormality Abnormal ECG When compared with ECG of 23-NOV-2022 06:36, (unconfirmed) Premature atrial complexes are now Present T wave inversion no longer evident in Inferior leads QT has shortened Chest xray report reviewed IMPRESSION: Mild ill-defined opacities of the right lateral lung are nonspecific and may represent pleural-parenchymal scarring versus less likely a nonspecific pneumonitis. Head CT report reviewed on admission: Impression: No acute intracranial hemorrhage, no evidence of acute territorial infarction or other acute intracranial disease process. Medications Administered Current Inpatient Medications Acetaminophen (Acetaminophen 325 Mg Tab) 650 mg PO Q4H PRN PRN Reason: Pain or Fever Stop: 12/23/22 08:56 Aspirin (Aspirin 81 Mg Ectab) 81 mg PO QAM ALONDRA Stop: 12/24/22 08:59 Atorvastatin Calcium (Atorvastatin 40 Mg Tab) 40 mg PO HS ALONDRA Stop: 12/23/22 20:59 Cyanocobalamin (Cyanocobalamin (B-12) 500 Mcg Tablet) 1,000 mcg PO QPM ALONDAR Stop: 12/23/22 20:59 Dextrose (Dextrose 50% 50 Ml Syringe) 25 - 50 ml IV UD PRN; Protocol PRN Reason: Hypoglycemia Protocol Stop: 12/23/22 11:31 Donepezil HCl (Donepezil Hcl 10 Mg Tab) 10 mg PO HS ALONDRA Stop: 12/23/22 20:59 Enoxaparin Sodium (Enoxaparin Inj 40 Mg/0.4 Ml Syr) 40 mg SQ QAM ALONDRA Stop: 12/23/22 08:59 Last Admin: 11/23/22 12:11 Dose: Not Given Finasteride (Finasteride 5 Mg Tab) 5 mg PO QAM ALONDRA Stop: 12/24/22 08:59 Glucagon (Glucagon For Inj 1 Mg Vial) 1 mg SQ UD PRN; Protocol PRN Reason: Hypoglycemia Protocol Stop: 12/23/22 11:31 Glucose (Glucose 10 Tab/Tube) 4 - 8 tab PO UD PRN; Protocol PRN Reason: Hypoglycemia Treatment Stop: 12/23/22 11:31 Glucose (Glucose 40% Gel 15 Gm Tube) 15 - 30 gm PO UD PRN; Protocol PRN Reason: Hypoglycemia Protocol Stop: 12/23/22 11:31 Potassium Chloride 40 meq/ (Dextrose) 1,020 mls @ 80 mls/hr IV .[id number] ALONDRA Stop: 12/23/22 11:59 Insulin Aspart (Insulin Aspart Per Unit Charge) 0 units SC ACHS ALONDRA Stop: 12/23/22 11:31 Miscellaneous (Carbohydrates For Hypoglycemia ) 15 - 30 gm PO UD PRN PRN Reason: Hypoglycemia Protocol Stop: 12/23/22 11:31 Multivitamins (Multivitamin Tab) 1 tab PO QPM ALONDRA Stop: 12/23/22 20:59 Tamsulosin HCl (Tamsulosin Hcl 0.4 Mg Cap) 0.4 mg PO QPM ALONDRA Stop: 12/23/22 20:59 (1) Syncope Syncope type: unspecified Qualified Code(s): R55 - Syncope and collapse
[2022-11-23] MEDS: INSULIN ASPART PER UNIT CHARGE SC SCH ×3 (14:49→22:35)
[2022-11-23] MEDS: POTASSIUM CHLORIDE 40 MEQ in DEXTROSE 5% 1,000 ML IV SCH (16:07)
[2022-11-23] MEDS: POTASSIUM CHLORIDE / WTR 10 MEQ/100 ML PLCT IV SCH ×4 (16:44→21:52)
--- NOTE | 2022-11-23 18:10 | Nephrology Consultation ---
Date of Consultation November 23, 2022 Assessment & Plan (1) Disorders of fluid, electrolyte, and acid-base balance: Presenting sodium 152, potassium 3.7, chloride 112, anion gap of 15: Hyponatremia hypokalemia hyperchloremia. Currently getting therapy with D5 water and potassium supplementation after 1.5 L normal saline. I did review admission chest x-ray images and agree with radiology finding Follow-up pending labs (2) BRITT (acute kidney injury): Baseline creatinine 1.1-1.2. Presenting creatinine 1.7, improved to 1.5 with hydration. Behaving as prerenal. If improvement stalls he will need renal ultrasound. Continue hydration as above Recommend urine specimen when and if feasible but would not cath him just for this Check postvoid residual at least once History of Present Illness Reason for Consultation: BRITT on CKD, hypernatremia Requesting Physician: Dr Oliver Attending Physician: Pino Oliver MD History of Present Illness 86-year-old male whom I am asked to evaluate for hyponatremia and BRITT on CKD was admitted today for same. Past medical history includes type 2 diabetes, hypertension, hyperlipidemia, ankylosing spondylitis, dementia. Baseline creatinine 1.1-1.2. He does not currently meet criteria for CKD 3 nor has he for the past 2 years. The patient had COVID 2 weeks back with mild symptoms. He was placed into isolation and eventually recovered. This morning the patient was unresponsive for 2 to 3 minutes and was lowered to the ground by facility staff when they noted him starting to slump over. Dementia progressing to where the patient does not always recognize family members. His was unsure whether he was had been maintaining fluid intake prior to presentation but believes he was eating at baseline. Presenting sodium was 152 with creatinine 1.7 and K3.7. He was given 1.5 L normal saline with no change in sodium value. Creatinine did improve to 1.5. After discussion with me, admitting service ordered D5 water with 40 mill equivalents potassium per liter for the patient at 80 mL hourly. He is also receiving 4x10 mill equivalent K riders. Repeat chemistries are pending. The patient denies pain, shortness of breath, nausea vomiting. Denies thirst. He has a sitter/RN currently and she has been with him all day and reports to me he has taken minimal p.o., a few bites of Jell-O perhaps; has also needed IV replaced; is restless. Allergies Allergy/AdvReac Type Severity Reaction Status Date / Time codeine Allergy Intermediate Rash Verified 01/12/22 13:01 acetaminophen Allergy Unknown listed on Unverified 11/23/22 11:12 move in record from [facility] Home Medications Medication Instructions Recorded Confirmed Type atorvastatin 40 mg tablet (Lipitor) 40 mg PO HS 06/22/19 11/23/22 History donepezil 10 mg tablet (Aricept) 10 mg PO HS 06/22/19 11/23/22 History metformin 500 mg tablet 500 mg PO BIDM 06/22/19 11/23/22 History aspirin 81 mg tablet,delayed 81 mg PO QAM 10/25/20 11/23/22 History release (Shana Low Dose Aspirin) cyanocobalamin (vitamin B-12) 1,000 mcg PO QPM 10/25/20 11/23/22 History 1,000 mcg tablet multivitamin 1 tab PO QPM 10/25/20 11/23/22 History finasteride 5 mg tablet 5 mg PO QAM 01/01/21 11/23/22 History tamsulosin 0.4 mg capsule 0.4 mg PO QPM 01/01/21 11/23/22 History hydrochlorothiazide 12.5 mg tablet 12.5 mg PO QAM 08/18/21 11/23/22 History enalapril maleate 20 mg tablet 20 mg PO DAILY 12/22/21 11/23/22 History docusate sodium 100 mg capsule 100 mg PO Q3D PRN Constipation 11/23/22 11/23/22 History ibuprofen 200 mg tablet 200 mg PO Q6H PRN Pain 11/23/22 11/23/22 History Patient History Medical History Altered mental status Ankylosing spondylitis Anxiety Atelectasis Diabetes mellitus, type II Dysplastic nevus Edema History of basal cell carcinoma History of COVID-19 UNKNOWN WHEN, PER [facility] PAPERWORK Hyperlipidemia Hypertension Lives in senior facility RESIDENT OF [facility] Mixed Alzheimer's and vascular dementia Palliative care encounter Shortness of breath Weakness Surgical History No history of previous surgery Family History Mother No pertinent family history Other Cancer Heart disease Stroke Social History Smoking Status: Never smoker Second Hand Exposure: No; Do You Dip or Chew Tobacco: No; Hx Alcohol Use: No Hx Substance Use: No Preferred Language: Nicaraguan Communication Ability: Impaired Visual Impairment: No Limitations Manager Private Required: No Beliefs That Will Affect Care: None marital status: Current Living Situation: Snf Current Living Situation Comment: RESIDENT OF [facility] current occupational status: retired Feels Safe at Home: Yes Assistive Devices: Glasses and Walker Review of Systems Review of Systems: All systems reviewed & are unremarkable except as noted in HPI & below and Unobtainable due to cognitive status Physical Exam Constitutional: well developed, + thin and + frail appearing; no acute distress Eyes: EOM intact bilaterally ENMT: Ears: no external ear abnormality Nose: no external nose abnormality Mouth: + dry oral mucous membranes Neck: no nuchal rigidity Respiratory: normal respiratory effort Auscultation: + diminished lung sounds Cardiovascular: Rate/Rhythm: regular rate and regular rhythm (With occasional skipped beats) Extremities: no edema Gastrointestinal (Abdomen): Inspection/Auscultation: normal bowel sounds Percussion/Palpation: abdomen soft; abdomen nontender Musculoskeletal: Extremities: strength 5/5 throughout Skin: no rashes, warm and dry Neurologic: almodovar, fluent speech, no tremor Psychiatric: Orientation: alert and oriented to person Speech: normal rate/rhythm/volume of speech Results & Data Vital Signs (Past 12 Hours) Vital Signs Temp Pulse Pulse Resp BP BP Pulse Ox 11/23/22 16:30 11/23/22 12:00 87 18 137/80 95 11/23/22 11:06 79 11/23/22 08:30 82 17 129/85 95 11/23/22 08:00 90 16 144/81 H 95 11/23/22 07:30 89 15 122/89 11/23/22 07:16 91 H 15 140/86 95 11/23/22 07:02 96 H 11/23/22 06:49 92 11/23/22 06:32 37 C 95 H 19 136/97 92 Pulse Ox O2 Del Method O2 Del Method 11/23/22 16:30 98 Room Air 11/23/22 12:00 Room Air 11/23/22 11:06 11/23/22 08:30 11/23/22 08:00 11/23/22 07:30 11/23/22 07:16 11/23/22 07:02 11/23/22 06:49 Room Air 11/23/22 06:32 Room Air Laboratory Results 11/23/22 05:35 11/23/22 10:56 Diagnostic Findings Chest x-ray Cardiomediastinal and hilar silhouettes are within normal limits. Mild chronic interstitial coarsening. No definite pneumothorax, pleural effusion or overt pulmonary edema identified. Ill-defined opacities of the right lateral lung base with a linear opacity projects over the right midlung and right lung base which may be artifactual. IMPRESSION: Mild ill-defined opacities of the right lateral lung are nonspecific and may represent pleural-parenchymal scarring versus less likely a nonspecific pneumonitis. Head CT without acute intracranial process
[2022-11-23 19:15] LABS: BUN Creatinine Ratio 32.1 (10-20); Creatinine Clr Calc Pharmacy 44.2 ml/min; Est GFR (African American) 55.6 ml/min; Potassium 3.3 mmol/L (3.5-5.1)
[2022-11-23 19:23] LABS: Troponin I High Sensitivity 224.3 pg/ml (0-20)
[2022-11-23 20:47] LABS: Appearance Urine Clear (Clear); Bacteria Urine Automated Negative (Negative); Bilirubin Urine Negative (Negative); Blood Urine Negative (Negative); Color Urine Yellow; Glucose Urine UA Negative (Negative); Ketones Urine Negative (Negative); Leukocyte Esterase Urine Negative (Negative); Nitrite Urine Negative (Negative); Protein Urine Trace (Negative); RBC Urine Automated 0-4 /hpf (0-4); Specific Gravity Urine 1.017 (1.000-1.030); Urobilinogen Urine Negative (Negative); pH Urine 5.5 (4.5-7.5)
[2022-11-24] MEDS: CYANOCOBALAMIN (B-12) 500 MCG TABLET PO SCH ×2 (01:22→20:14)
[2022-11-24] MEDS: ATORVASTATIN 40 MG TAB PO SCH ×2 (01:22→20:14)
[2022-11-24] MEDS: TAMSULOSIN HCL 0.4 MG CAP PO SCH ×2 (01:23→20:16)
[2022-11-24] MEDS: MULTIVITAMIN TAB PO SCH ×2 (01:23→20:15)
[2022-11-24] MEDS: DONEPEZIL HCL 10 MG TAB PO SCH ×2 (01:23→20:14)
[2022-11-24] MEDS: POTASSIUM CHLORIDE 40 MEQ in DEXTROSE 5% 1,000 ML IV SCH ×2 (04:58→17:12)
[2022-11-24 07:07] LABS: Hematocrit (blood only) 39.5 % (42.0-52.0); Hemoglobin 12.9 g/dl (14.0-18.0); Mean Corpuscular Hemoglobin 30.7 pg (25.0-34.0); Mean Corpuscular Hgb Conc 32.7 g/dL (32.0-36.0); Mean Platelet Volume 11.4 fL (9.4-12.4); Platelet Count 171 K/uL (130-400); RDW Coefficient of Variation 13.5 % (11.5-14.5); RDW Standard Deviation 46.7 fL (36.4-46.3); White Blood Count 10.97 K/ul (4.8-10.8)
[2022-11-24 07:38] LABS: Albumin Globulin Ratio 1.3 (0.9-2); Albumin Level 3.4 gm/dl (3.4-5.0); BUN Creatinine Ratio 28.7 (10-20); Bilirubin,Total 1.4 mg/dl (0.2-1.0); Calcium 8.2 mg/dl (8.6-10.3); Creatinine Clr Calc Pharmacy 54.9 ml/min; Est GFR (African American) 72.2 ml/min; Est GFR (Non-African American) 62.3 ml/min; Globulin 2.7 gm/dl (2.5-4.0); Magnesium 1.8 mg/dl (1.7-2.4); Phosphorus 2.1 mg/dl (2.5-4.9); Total Protein 6.1 gm/dl (6.0-8.3)
[2022-11-24] MEDS ORDERED: DEXTROSE 5% 1,000 ML IV SCH (08:00)
--- NOTE | 2022-11-24 08:39 | Nephrology Progress Note ---
Date of Service November 24, 2022 Assessment & Plan (1) Disorders of fluid, electrolyte, and acid-base balance: Plan: improving hypernatremia, K corrected but likely to worsen again w/o repletion; mild hypophosphatemia. Presenting sodium 152, potassium 3.7, chloride 112, anion gap of 15: Hypernatremia hypokalemia hyperchloremia. Currently getting therapy with D5 water and potassium supplementation after 1.5 L normal saline. >>changed D5W to D5W w/ 40 mEq/L K >would give K po 20 mEq po as well >> so ordered daily starting today -daily bmp should be fine at this point >>continue to feed pt/encourage po > communication placed >>recommend palliative care consult for goals of care discussion >> as his dementia advances these disorders are likely to recur as his interest in/desire for po declines (2) BRITT (acute kidney injury): Plan: Improving/resolved prerenal BRITT. Baseline creatinine 1.1-1.2. Presenting creatinine 1.7, improved to 1.5 >1.1 with hydration. No indication for renal i maging. Urine sediment w/ trace dipstick proteinuria and else bland > no further w/u indicated Continue hydration as above Check postvoid residual at least once Admission and Anticipated Discharge Date Admission Date: November 23, 2022 Subjective No interval events clinically. No complaints but does tell me he is thirsty when asked. Also tells me he has chest discomfort when asked, worse with palpation, nonradiating, worse with deep inspiration. Review of Systems Review of Systems: Other (Review of symptoms Limited due to cognitive status) Physical Exam Constitutional: well developed, + thin and + frail appearing; no acute distress Eyes: EOM intact bilaterally ENMT: Ears: no external ear abnormality Nose: no external nose abnormality Mouth: + dry oral mucous membranes Neck: no nuchal rigidity Respiratory: normal respiratory effort Auscultation: + diminished lung sounds Cardiovascular: Rate/Rhythm: regular rate and regular rhythm (With occasional skipped beats) Extremities: no edema Gastrointestinal (Abdomen): Inspection/Auscultation: normal bowel sounds Percussion/Palpation: abdomen soft; abdomen nontender Musculoskeletal: Extremities: strength 5/5 throughout Skin: no rashes, warm and dry Psychiatric: Orientation: alert and oriented to person Speech: normal rate/rhythm/volume of speech Results & Data Vital Signs (Past 12 Hours) Vital Signs Temp Pulse Pulse Resp BP Pulse Ox O2 Del Method 11/24/22 08:02 54 L 11/24/22 07:30 36.8 C 59 L 20 106/59 L 96 Room Air 11/24/22 03:18 36.6 C 68 19 110/63 96 Room Air 11/24/22 01:30 Room Air 11/24/22 01:00 72 11/24/22 01:17 36.4 C L 65 20 120/76 96 Room Air 11/24/22 00:00 67 14 97 Room Air 11/23/22 23:00 71 16 98 Room Air 11/23/22 21:00 73 22 97 Room Air 11/23/22 21:46 71 18 97 Room Air Laboratory Results 11/24/22 06:21 11/24/22 06:21
[2022-11-24] MEDS: ASPIRIN 81 MG ECTAB PO SCH (09:01)
[2022-11-24] MEDS: FINASTERIDE 5 MG TAB PO SCH (09:01)
[2022-11-24] MEDS: ENOXAPARIN INJ 40 MG/0.4 ML SYR SQ SCH (09:01)
[2022-11-24] MEDS: INSULIN ASPART PER UNIT CHARGE SC SCH ×4 (09:02→21:44)
--- NOTE | 2022-11-24 10:53 | Cardiology Progress Note ---
Date of Service November 24, 2022 Assessment & Plan (1) Syncope: (2) Hypernatremia: (3) BRITT (acute kidney injury): (4) Elevated troponin: (5) Hypokalemia: Plan Patient admitted after syncopal episode this morning at nursing facility. Patient with severe dementia and not able to assist in events or symptoms. On arrival, he had mild ST depression in inferior and anterolateral leads, now resolved. He denied chest pain HS troponin mildly elevated at 193 and 224 last evening. Echo with normal LVEF 55%, no wall motion abnormalities. Presenting creatinine level of 1.5 has improved to 1.08. Sodium improved from 152 down to 148 HR/BP controlled No arrhythmias on telemetry Continue home meds - ASA, statin Continue hydration, D5W, 40 mill equivalents potassium chloride, 80 mils per hour. Recommend ongoing surveillance on telemetry. Chante Dejesus, DO Admission and Anticipated Discharge Date Admission Date: November 23, 2022 Subjective Patient seen in room 207. He is pleasantly demented. Expresses no subjective concerns. He is wearing mittens with having had difficulty with pulling out his IV access in the emergency department yesterday. Telemetry reveals sinus rhythm in the 60s. Physical Exam Constitutional: WD/WN, vitals as above + thin; no acute distress Respiratory: normal respiratory effort, lungs clear to auscultation Cardiovascular: Rate/Rhythm: regular rate and regular rhythm Heart Sounds: normal S1 and normal S2; no murmur Vessels: no JVD Extremities: no edema Gastrointestinal (Abdomen): normal bowel sounds, soft, nontender, no hepatosplenomegaly Neurologic: PERRL, EOMI, accommodation nl, no face palsy, no dysarthria Results & Data Vital Signs (Past 12 Hours) Vital Signs Temp Pulse Pulse Resp BP Pulse Ox O2 Del Method 11/24/22 08:02 54 L 11/24/22 07:30 36.8 C 59 L 20 106/59 L 96 Room Air 11/24/22 03:18 36.6 C 68 19 110/63 96 Room Air 11/24/22 01:30 Room Air 11/24/22 01:00 72 11/24/22 01:17 36.4 C L 65 20 120/76 96 Room Air 11/24/22 00:00 67 14 97 Room Air 11/23/22 23:00 71 16 98 Room Air Laboratory Results Cardiac Enzymes 11/23/22 11/23/22 11/24/22 Range/Units 10:56 18:34 06:21 AST 24 (13-39) U/L Troponin I High Sens 193.4 H* 224.3 H* (0-20) pg/ml CBC 11/24/22 Range/Units 06:21 WBC 10.97 H (4.8-10.8) K/ul RBC 4.20 L (4.70-6.10) M/uL Hgb 12.9 L (14.0-18.0) g/dl Hct 39.5 L (42.0-52.0) % Plt Count 171 (130-400) K/uL Comprehensive Metabolic Panel 11/23/22 11/23/22 11/24/22 Range/Units 10:56 18:34 06:21 Sodium 152 H 151 H 148 H (136-145) mmol/L Potassium 3.3 L 3.3 L 4.0 D (3.5-5.1) mmol/L Chloride 114 H 114 H 114 H (98-107) mmol/L Carbon Dioxide 30 27 29 (21-32) mmol/L BUN 46 H 43 H 31 H (6-23) mg/dl Creatinine 1.50 H 1.34 1.08 (0.6-1.4) mg/dl Glucose 131 H 135 H 132 H (70-99(Fasting)) mg/dl Calcium 9.0 9.0 8.2 L (8.6-10.3) mg/dl AST 24 (13-39) U/L ALT 15 (7-52) U/L Alkaline Phosphatase 60 (34-104) U/L Total Protein 6.1 (6.0-8.3) gm/dl Albumin 3.4 (3.4-5.0) gm/dl Intake and Output 11/23/22 11/24/22 11/24/22 22:59 06:59 14:59 Intake Total 800 / 2620 1120 / 2620 Balance 800 / 2620 1120 / 2620 Intake: IV 800 / 2420 1120 / 2420 Potassium Chloride / Wtr 10 meq 300 / 400 100 / 400 In 100 ml @ 100 mls/hr IV Q1H [facility] Rx#:[id number] Potassium Chloride 40 meq In 1020 / 1020 Dextrose 5% 1,000 ml @ 80 mls/ hr IV .[id number] [facility] Rx#:[id number] Sodium Chloride 0.9% 500 ml @ 500 / 500 999 mls/hr IV .Q31M [facility] Rx#: [id number] Oral 0 / 200 Other: # Unmeasured Voids 1 Weight 83.1 kg Weight Measurement Method Built in [facility] (1) Syncope Syncope type: unspecified Qualified Code(s): R55 - Syncope and collapse
--- NOTE | 2022-11-24 11:35 | Hospitalist Progress Note ---
Date of Service November 24, 2022 Assessment & Plan (1) Hypernatremia: (2) Acute kidney injury superimposed on CKD: Plan: 86 y/o male with a history of DM2, dementia, HTN, hyperlipidemia, CKD3, and ankylosing spondylitis who presented to the ED via EMS from [facility] after he had a syncopal episode at breakfast. He was recently diagnosed with COVID and has been improving clinically overall. Labs in the ED show hypernatremia and BRITT on CKD (baseline creatinine appears to be 1.0-1.1) with a creatinine of 1.65. Suspect dehydration related to decreased oral intake with recent illness. CT head without contrast on admission personally reviewed; consistent with small vessel ischemic disease and general atrophy. No acute findings. Chest x-ray on admission personally reviewed; ill-defined opacities in right lateral lung base. Presenting sodium of 152 symptoms slightly improved to 148 today with hydration. Creatinine down trended from 1.6-1.08. Continue on D5 with 40 mEq potassium at 80 cc/h. Continue to hold hydrochlorothiazide and enalapril. Nephrology on board. COMMUNITY MARKETING MANAGER consulted for possible aspiration given x-ray finding. We will hold off on antibiotics right now. Patient is saturating well on room air and is afebrile. Patient has severe dementia; presents with decreased free water intake resulting in dehydration/hypernatremia. Will consult palliative care for possible hospice evaluation. (3) Demand ischemia: Plan: secondary to hyponatremia/BRITT. EKG personally reviewed; normal sinus rhythm with ST depression in anterior lateral leads. High sensitive troponin 193 on admission; up trended to 224. Echocardiogram done; no regional wall motion abnormity. EF of 55 to 60% with grade 1 diastolic dysfunction. Continue on aspirin, Lipitor Cardiology on board; monitor on telemetry. (4) Mixed Alzheimer's and vascular dementia: (5) Diabetes mellitus, type II: Plan: Hold Metformin due to BRITT - Insulin sliding scale - BSG ACHS - Diabetic diet (6) Hypertension: Plan: Enalapril and hydrochlorothiazide on hold (7) Hyperlipidemia: Plan: On Lipitor Plan Time spent evaluating patient, direct bedside care, chart review, placing orders, interpretation of diagnostic studies, discussion with consultants, patient, and family members, as well as other required patient management activities is 60 minutes Please note the above document was generated using voice recognition software. It may contain grammatical, syntax or spelling errors. Any formal questions or concerns about the content, text or information contained within the body of this dictation should be directly addressed to the provider for clarification Admission and Anticipated Discharge Date Admission Date: November 23, 2022 Subjective Patient seen and examined at bedside. He is pleasantly demented. Not in any distress. He reports that he lives at home with his brother and mom. He reports that he is 61 years old. Review of Systems Review of Systems: Unobtainable due to cognitive status Physical Exam Physical Exam: Constitutional: Awake, oriented to self. Respiratory: normal respiratory effort, lungs clear to auscultation, no wheeze, rales, rhonchi. Normal insp/exp effort, no accessory muscle use Cardiovascular: RRR, no murmur, no edema Vessels: no JVD or carotid bruit Chest: normal inspection of chest Abdomen: normal bowel sounds, soft, nontender, no hepatosplenomegaly Musculoskeletal: no cyanosis or clubbing, extremities motor strength 5/5 Skin: no rashes, warm and dry normal turgor Neurologic: PERRL, EOMI, accommodation nl, no face palsy, no dysarthria CN's II- XI intact bilaterally and moves all extremities Psychiatric: Awake, oriented to self. Results & Data Results & Data Vital Signs (Past 12 Hours) Vital Signs Temp Pulse Pulse Resp BP Pulse Ox O2 Del Method 11/24/22 10:53 36.8 C 58 L 20 142/70 H 97 Room Air 11/24/22 08:02 54 L 11/24/22 07:30 36.8 C 59 L 20 106/59 L 96 Room Air 11/24/22 03:18 36.6 C 68 19 110/63 96 Room Air 11/24/22 01:30 Room Air 11/24/22 01:00 72 11/24/22 01:17 36.4 C L 65 20 120/76 96 Room Air 11/24/22 00:00 67 14 97 Room Air Laboratory Results Laboratory Results WBC 10.97 K/ul (4.8-10.8) H 11/24/22 06:21 RBC 4.20 M/uL (4.70-6.10) L 11/24/22 06:21 Hgb 12.9 g/dl (14.0-18.0) L 11/24/22 06:21 Hct 39.5 % (42.0-52.0) L 11/24/22 06:21 MCV 94.0 fL (80.0-100.0) 11/24/22 06:21 MCH 30.7 pg (25.0-34.0) 11/24/22 06:21 MCHC 32.7 g/dL (32.0-36.0) 11/24/22 06:21 RDW Std Deviation 46.7 fL (36.4-46.3) H 11/24/22 06:21 RDW Coeff of Radha 13.5 % (11.5-14.5) 11/24/22 06:21 Plt Count 171 K/uL (130-400) 11/24/22 06:21 MPV 11.4 fL (9.4-12.4) 11/24/22 06:21 Immature Gran % (Auto) 0.7 % 11/23/22 05:35 Neut % (Auto) 74.9 % 11/23/22 05:35 Lymph % (Auto) 15.1 % 11/23/22 05:35 Centre % (Auto) 7.5 % 11/23/22 05:35 Eos % (Auto) 1.1 % 11/23/22 05:35 Baso % (Auto) 0.7 % 11/23/22 05:35 Neut # (Auto) 8.05 K/uL (1.40-6.50) H 11/23/22 05:35 Lymph # (Auto) 1.63 K/uL (1.20-3.40) 11/23/22 05:35 Centre # (Auto) 0.81 K/uL (0.11-0.59) H 11/23/22 05:35 Eos # (Auto) 0.12 K/uL (0.00-0.50) 11/23/22 05:35 Baso # (Auto) 0.07 K/uL (0.00-0.20) 11/23/22 05:35 Immature Gran # (Auto) 0.08 K/uL (0.01-0.20) 11/23/22 05:35 Sodium 148 mmol/L (136-145) H 11/24/22 06:21 Potassium 4.0 mmol/L (3.5-5.1) D 11/24/22 06:21 Chloride 114 mmol/L (98-107) H 11/24/22 06:21 Carbon Dioxide 29 mmol/L (21-32) 11/24/22 06:21 Anion Gap 5 (3-11) 11/24/22 06:21 BUN 31 mg/dl (6-23) H 11/24/22 06:21 Creatinine 1.08 mg/dl (0.6-1.4) 11/24/22 06:21 Est Cr Clr Drug Dosing 54.9 ml/min 11/24/22 06:21 Est GFR ( Amer) 72.2 ml/min 11/24/22 06:21 Est GFR (Non-Af Amer) 62.3 ml/min 11/24/22 06:21 BUN/Creatinine Ratio 28.7 (10-20) H 11/24/22 06:21 Glucose 132 mg/dl (70-99(Fasting)) H 11/24/22 06:21 POC Glucose 124 mg/dl (70-99) H 11/24/22 09:08 Calcium 8.2 mg/dl (8.6-10.3) L 11/24/22 06:21 Phosphorus 2.1 mg/dl (2.5-4.9) L 11/24/22 06:21 Magnesium 1.8 mg/dl (1.7-2.4) 11/24/22 06:21 Total Bilirubin 1.4 mg/dl (0.2-1.0) H 11/24/22 06:21 AST 24 U/L (13-39) 11/24/22 06:21 ALT 15 U/L (7-52) 11/24/22 06:21 Alkaline Phosphatase 60 U/L (34-104) 11/24/22 06:21 Troponin I High Sens 224.3 pg/ml (0-20) H* 11/23/22 18:34 Total Protein 6.1 gm/dl (6.0-8.3) 11/24/22 06:21 Albumin 3.4 gm/dl (3.4-5.0) 11/24/22 06:21 Globulin 2.7 gm/dl (2.5-4.0) 11/24/22 06:21 Albumin/Globulin Ratio 1.3 (0.9-2) 11/24/22 06:21 TSH 1.259 uIu/ml (0.300-4.500) 11/23/22 05:35 Urine Color Yellow 11/23/22 20:03 Urine Appearance Clear (Clear) 11/23/22 20:03 Urine pH 5.5 (4.5-7.5) 11/23/22 20:03 Ur Specific Hawley 1.017 (1.000-1.030) 11/23/22 20:03 Urine Protein Trace (Negative) H 11/23/22 20:03 Urine Glucose (UA) Negative (Negative) 11/23/22 20:03 Urine Ketones Negative (Negative) 11/23/22 20:03 Urine Blood Negative (Negative) 11/23/22 20:03 Urine Nitrite Negative (Negative) 11/23/22 20:03 Urine Bilirubin Negative (Negative) 11/23/22 20:03 Urine Urobilinogen Negative (Negative) 11/23/22 20:03 Ur Leukocyte Esterase Negative (Negative) 11/23/22 20:03 Urine WBC (Auto) 1-5 /hpf (0-5) 11/23/22 20:03 Urine RBC (Auto) 0-4 /hpf (0-4) 11/23/22 20:03 U Hyaline Cast (Auto) 1-5 /lpf (0-5) 11/23/22 20:03 U Epithel Cells (Auto) 10-20 /lpf (0-5) H 11/23/22 20:03 Urine Bacteria (Auto) Negative (Negative) 11/23/22 20:[address] 11/23/22 09:50 CT head/brain wo con CLINICAL HISTORY: syncope Technique: Contiguous axial CT images of the head were acquired from the base of the skull to the vertex without intravenous contrast administration. Images were viewed in brain, subdural and bone windows. Automated dose lowering techniques and/or adjustment according to patient size were utilized for this exam. Comparison: Comparison is made to CT head 10/25/2020 Findings: Areas of decreased attenuation are present in the periventricular and subcortical white matter bilaterally consistent with small vessel ischemic disease. Generalized cerebral atrophy with commensurate enlargement of the ventricles, sulci, and cisterns is also present. There is no acute intracranial hemorrhage or evidence of acute territorial infarction. No shift of the midline structures, mass effect, or extra-axial abnormalities are shown. Atherosclerotic calcifications are present in the intracranial segments of the internal carotid arteries. Imaged portions of the paranasal sinuses and mastoid air cells are clear. The orbits appear normal. There are no acute fractures of the calvaria or scalp swelling. Impression: No acute intracranial hemorrhage, no evidence of acute territorial infarction or other acute intracranial disease process. ACT 112: Negative or not required by law. Electronically signed by: Devyn Cisneros M.D. 11/23/2022 10:26 AM Chest X-Ray 11/23/22 11:54 XR chest 1V portable HISTORY: 86 years-old Male syncope COMPARISON: 11/09/2020 TECHNIQUE: AP view of the chest FINDINGS: Cardiomediastinal and hilar silhouettes are within normal limits. Mild chronic interstitial coarsening. No definite pneumothorax, pleural effusion or overt pulmonary edema identified. Ill-defined opacities of the right lateral lung base with a linear opacity projects over the right midlung and right lung base which may be artifactual. IMPRESSION: Mild ill-defined opacities of the right lateral lung are nonspecific and may represent pleural-parenchymal scarring versus less likely a nonspecific pneumonitis. ACT 112: Negative or not required by law. The above report was generated using voice recognition software. It may contain grammatical, syntax or spelling errors. Electronically signed by: Sanya Bello M.D. 11/23/2022 12:20 PM
[2022-11-24] MEDS: POTASSIUM CHLORIDE PWD 20 MEQ PACK PO SCH (14:00)
--- NOTE | 2022-11-24 14:43 | Electrocardiogram Report ---
Test Reason : Blood Pressure : / mmHG Vent. Rate : 098 BPM Atrial Rate : 098 BPM P-R Int : 130 ms QRS Dur : 090 ms QT Int : 462 ms P-R-T Axes : 057 058 011 degrees QTc Int : 589 ms Normal sinus rhythm with sinus arrhythmia Prolonged QT Abnormal ECG When compared with ECG of 07-NOV-2020 05:34, ST now depressed in Inferior leads ST now depressed in Anterolateral leads T wave inversion now evident in Inferior leads Nonspecific T wave abnormality now evident in Anterior leads QT has lengthened Confirmed by Ta Barahona ([id number]) on 11/24/2022 2:43:22 PM Referred By: Sandip fermin [facility] Confirmed By:Stewart Barahona
--- NOTE | 2022-11-24 14:44 | Electrocardiogram Report ---
Test Reason : Blood Pressure : / mmHG Vent. Rate : 084 BPM Atrial Rate : 084 BPM P-R Int : 144 ms QRS Dur : 080 ms QT Int : 376 ms P-R-T Axes : 064 058 053 degrees QTc Int : 444 ms Sinus rhythm with Premature atrial complexes Nonspecific ST abnormality Abnormal ECG When compared with ECG of 23-NOV-2022 06:36, (unconfirmed) Premature atrial complexes are now Present T wave inversion no longer evident in Inferior leads QT has shortened Confirmed by Ta Barahona ([id number]) on 11/24/2022 2:44:00 PM Referred By: Sandip fermin [facility] Confirmed By:Stewart Barahona
--- NOTE | 2022-11-24 23:44 | Palliative Care Consultation ---
Date of Consultation November 24, 2022 Assessment & Plan (1) Altered mental status: Due to progressive dementia (2) Advanced dementia: (3) Weakness generalized: (4) Palliative care by specialist: Plan * Patient is nondecisional due to his advanced dementia. Goals of care discussion will be needed with his who remains his surrogate decision maker. I will attempt to reach her tomorrow for further discussion. * CODE STATUS is noted to be DNR/DNI. * Patient's is his surrogate decision-maker. Goals of care are not defined at this time. Thank you for allowing us to participate in the ongoing care of this patient. Please don't hesitate to call or page with any additional concerns. Dr. Senia Jiang DNP Director, Palliative Care History of Present Illness Reason for Consultation: Advanced dementia, hospice candidate Attending Physician: Mal France MD History of Present Illness Palliative medicine has been consulted to see this patient due to his advanced dementia and because there are concerns he may be appropriate for hospice. He has a history of diabetes, dementia, hypertension, hyperlipidemia, chronic kidney disease stage III and ankylosing spondylitis. He resides at the [facility] in [facility] and it was reported he had a syncopal episode while at the [facility]. There is a note in the record that he was recently diagnosed with COVID although clinically improved from that infection. He has had decreasing oral intake and declining performance status as his dementia progressed. He was initially treated in the emergency department for dehydration with IV fluid boluses. He is noted to have an acute kidney injury superimposed on his CKD. 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 His remains his surrogate decision maker. She has been requesting updates by phone as it is difficult for her to repeatedly come into the hospital. He is being followed by cardiology due to his syncopal episode at the [facility]. It was noted on admission that he had mild ST depression in the inferior and anterolateral leads which is now resolved. He has not really been complaining of any chest pain. His troponins were mildly elevated initially 193 and then increased to 224 last evening. His echo shows a normal LV ejection fraction of 55% with no wall motion abnormalities. Overall his creatinine level has improved to 1.08 from the admission 1.5 level. Recommendations at this time were to continue home medications, hydration, potassium replacement and ongoing surveillance via telemetry. Allergies Allergy/AdvReac Type Severity Reaction Status Date / Time codeine Allergy Intermediate Rash Verified 01/12/22 13:01 acetaminophen Allergy Unknown listed on Unverified 11/23/22 11:12 move in record from [facility] Home Medications Medication Instructions Recorded Confirmed Type atorvastatin 40 mg tablet (Lipitor) 40 mg PO HS 06/22/19 11/23/22 History donepezil 10 mg tablet (Aricept) 10 mg PO HS 06/22/19 11/23/22 History metformin 500 mg tablet 500 mg PO BIDM 06/22/19 11/23/22 History aspirin 81 mg tablet,delayed 81 mg PO QAM 10/25/20 11/23/22 History release (Shana Low Dose Aspirin) cyanocobalamin (vitamin B-12) 1,000 mcg PO QPM 10/25/20 11/23/22 History 1,000 mcg tablet multivitamin 1 tab PO QPM 10/25/20 11/23/22 History finasteride 5 mg tablet 5 mg PO QAM 01/01/21 11/23/22 History tamsulosin 0.4 mg capsule 0.4 mg PO QPM 01/01/21 11/23/22 History hydrochlorothiazide 12.5 mg tablet 12.5 mg PO QAM 08/18/21 11/23/22 History enalapril maleate 20 mg tablet 20 mg PO DAILY 12/22/21 11/23/22 History docusate sodium 100 mg capsule 100 mg PO Q3D PRN Constipation 11/23/22 11/23/22 History ibuprofen 200 mg tablet 200 mg PO Q6H PRN Pain 11/23/22 11/23/22 History Patient History Medical History Altered mental status Ankylosing spondylitis Anxiety Atelectasis Diabetes mellitus, type II Dysplastic nevus Edema History of basal cell carcinoma History of COVID-19 UNKNOWN WHEN, PER [facility] PAPERWORK Hyperlipidemia Hypertension Lives in senior facility RESIDENT OF [facility] Mixed Alzheimer's and vascular dementia Palliative care encounter Shortness of breath Weakness Surgical History No history of previous surgery Family History Mother No pertinent family history Other Cancer Heart disease Stroke Social History Smoking Status: Never smoker Second Hand Exposure: No; Do You Dip or Chew Tobacco: No; Hx Alcohol Use: No Hx Substance Use: No Preferred Language: Hebrew Communication Ability: Impaired Communication Ability Comment: Hx dementia Visual Impairment: No Limitations Family Services Specialist Required: No Beliefs That Will Affect Care: None marital status: Current Living Situation: Personal Care Facility Current Living Situation Comment: Resides at [facility] current occupational status: retired Other Information That Helps Us Care for You: No Feels Safe at Home: Yes Assistive Devices: Glasses Review of Systems Review of Systems: Patient has advanced dementia. He is not able to provide HPI. Physical Exam Physical Exam: Resting in bed at time of my visit. He is confused at baseline. He is unable to answer questions. Lungs are diminished with a few coarse rhonchi. Heart tones are S1-S2 with some irregularity noted. Abdomen soft. Generalized weakness noted. Color is pale. Respiratory effort appears normal. It should be noticed that he is at rest. There is no family present at the time of this visit. Results & Data Vital Signs (Past 12 Hours) Vital Signs Temp Pulse Pulse Resp BP Pulse Ox O2 Del Method 11/24/22 19:26 37.0 C 61 20 133/61 96 Room Air 11/24/22 16:00 36.8 C 74 16 132/61 97 Room Air 11/24/22 16:23 60 11/24/22 12:30 Room Air Laboratory Results Data reviewed Diagnostic Findings Data reviewed PG Care Time/CCT Total # of Minutes Spent Total Time Spent: 75 Total Time Spent with Patient: Total time spent is greater than 50% in coordination of care (as documented) at patient's floor/unit and/or counseling patient: Time spent: 15 minutes in chart review, 30 minutes with patient, 15 minutes in care coordination, discussion with teams, 15 minutes updating primary team and nursing. [place] [address] IN/OBS CONSULT LVL 5,80M Patient Type New History Comprehensive Exam Comprehensive Medical Decision Making High Complexity Diagnoses Altered mental status R41.82 Advanced dementia F03.C0 Weakness generalized R53.1 Palliative care by specialist Z51.5
[2022-11-25] MEDS: POTASSIUM CHLORIDE 40 MEQ in DEXTROSE 5% 1,000 ML IV SCH ×2 (04:01→17:03)
[2022-11-25 07:07] LABS: Basophils # (auto) 0.07 K/uL (0.00-0.20); Basophils % (auto) 0.6 %; Eosinophils # (auto) 0.22 K/uL (0.00-0.50); Eosinophils % (auto) 1.8 %; Hematocrit (blood only) 41.1 % (42.0-52.0); Immature Granulocytes # (auto) 0.09 K/uL (0.01-0.20); Immature Granulocytes % (auto) 0.7 %; Lymphocytes % (auto) 11.4 %; Mean Corpuscular Hemoglobin 31.1 pg (25.0-34.0); Mean Corpuscular Hgb Conc 34.1 g/dL (32.0-36.0); Mean Corpuscular Volume 91.3 fL (80.0-100.0); Mean Platelet Volume 11.5 fL (9.4-12.4); Monocytes % (auto) 6.5 %; Neutrophils # (auto) 9.69 K/uL (1.40-6.50); Platelet Count 173 K/uL (130-400); RDW Coefficient of Variation 13.2 % (11.5-14.5); RDW Standard Deviation 44.6 fL (36.4-46.3); White Blood Count 12.27 K/ul (4.8-10.8)
[2022-11-25 07:33] LABS: BUN Creatinine Ratio 22.5 (10-20); Calcium 8.5 mg/dl (8.6-10.3); Creatinine Clr Calc Pharmacy 66.6 ml/min; Est GFR (African American) 90.4 ml/min; Potassium 3.9 mmol/L (3.5-5.1)
--- NOTE | 2022-11-25 08:41 | Nephrology Progress Note ---
Date of Service November 25, 2022 Assessment & Plan (1) Disorders of fluid, electrolyte, and acid-base balance: Plan: resolved hypernatremia, K corrected on repletion; mild hypophosphatemia on past labs. Presenting sodium 152, potassium 3.7, chloride 112, anion gap of 15: Hypernatremia hypokalemia hyperchloremia. Currently getting therapy with D5 water and potassium supplementation after 1.5 L normal saline. >>lowered rate D5W w/ 40 mEq/L K to 30 mL/hr >continue K 20 mEq daily po -daily bmp should be fine at this point with mag, phos >>continue to feed pt/encourage po >>appreciate palliative care work for goals of care discussion which is ongoing>> as his dementia advances these disorders are likely to recur as his interest in/desire for po declines Will sign off; pls call if further ? No OP f/u for neph needed Would NOT d/c on po K Will need to decide whether to monitor bmp periodically after d/c or not > depending on goals of care (2) BRITT (acute kidney injury): Plan: resolved prerenal BRITT. Baseline creatinine 1.1-1.2. Presenting creatinine 1.7, improved to 1.5 >1.1 with hydration. No indication for renal imaging. Urine sediment w/ trace dipstick proteinuria and else bland > no further w/u indicated Continue hydration as above Check postvoid residual at least once> has parnell now Admission and Anticipated Discharge Date Admission Date: November 23, 2022 Subjective No interval events except Parnell placement. Patient denies pain or shortness of breath. Ongoing palliative care/goals of care discussion. Review of systems limited by patient cognitive status Review of Systems Review of Systems: Unobtainable due to cognitive status (Limited) Physical Exam Constitutional: well developed, + thin and + frail appearing; no acute distress Eyes: EOM intact bilaterally ENMT: Ears: no external ear abnormality Nose: no external nose abnormality Mouth: + dry oral mucous membranes Neck: no nuchal rigidity Respiratory: normal respiratory effort Auscultation: + diminished lung sounds Cardiovascular: Rate/Rhythm: regular rate and regular rhythm (With occasional skipped beats) Extremities: no edema Gastrointestinal (Abdomen): Inspection/Auscultation: normal bowel sounds Percussion/Palpation: abdomen soft; abdomen nontender Musculoskeletal: Extremities: strength 5/5 throughout Skin: no rashes, warm and dry Psychiatric: Orientation: alert and oriented to person Speech: normal rate/rhythm/volume of speech Results & Data Vital Signs (Past 12 Hours) Vital Signs Temp Pulse Pulse Resp BP Pulse Ox O2 Del Method 11/25/22 08:02 75 11/25/22 03:40 37.0 C 67 18 142/57 H 98 Room Air 11/25/22 01:00 56 L 11/24/22 23:42 36.7 C 67 18 154/69 H 98 Room Air Laboratory Results 11/25/22 06:32 11/25/22 06:32
[2022-11-25] MEDS: ASPIRIN 81 MG ECTAB PO SCH (08:57)
[2022-11-25] MEDS: POTASSIUM CHLORIDE PWD 20 MEQ PACK PO SCH (08:57)
[2022-11-25] MEDS: FINASTERIDE 5 MG TAB PO SCH (08:57)
[2022-11-25] MEDS: INSULIN ASPART PER UNIT CHARGE SC SCH ×2 (09:01→12:57)
[2022-11-25] MEDS: ENOXAPARIN INJ 40 MG/0.4 ML SYR SQ SCH (09:28)
--- NOTE | 2022-11-25 12:57 | Palliative Care Progress Note ---
Date of Service November 25, 2022 Assessment & Plan (1) Weakness generalized: (2) Anxiety: (3) Altered mental status: (4) Generalized weakness: (5) Palliative care by specialist: Plan: Met with pt bob De Luna by phone: Provided overview of Palliative Medicine, a subspecialty that provides specialized medical care for people living with a serious illness by offering a focus on quality of life. Palliative Medicine is often conflated with hospice: I advised patient/family that Palliative and hospice can be partners but we are not the same. It is important to understand the difference so that we may be informed, and not afraid. Palliative Medicine works to improve QOL through reduction of symptom burden/more control over their illness, for both the patient and family. Palliative medicine clinicians are board certified, specially-trained and another member of the patient's medical care team. We often provide an extra layer of support because our care is based on the needs of the patient, not the prognosis; as such, it's appropriate at any age/advancing stage of a serious illness and can be provided along with curative treatment. Palliative Medicine clinicians are also trained in advanced communication methodologies, to facilitate complex discussions about advanced illness planning, which are needed to help assure that the treatment choices match the patient's goals, aka delivering Goal Concordant care. Finally, we discussed that hospice is a visiting nurse service that focuses on care delivered at the very end of life for patients with terminal illness, with life expectancy less than 6 month. (6) Discussion about advance care planning held with family member: Plan: ACP meeting held with bob De Luna x 40min by telephone I spoke with Mrs Josue. She is on home oxygen and it is hard for her to travel/ambulate long distances. I told her about the tnt powder worker service and advised front office secretary could arrange for her to be brought up to pt room in a wheelchair. We talked about goals at this junction. Pt has been steadily declining. He doesnt recognize family. He is largely non verbal or says the same few words. She is ready to transition focus to comfort. We reviewed his meds. She does not want any more dementia meds. I also stopped supplements, lovenox, Lipitor. We agreed there is no need for tight DM control with a goal of comfort so I suggest using regular insulin on a sliding scale for comfort. Allow liberalized diet. Pt enjoys ice cream and shed like him to have some. No escalation. Comfort care plan agreed upon. She would like him to go back to [facility] with hospice and comfort plan of care without any aggressive or invasive interventions. She states they have a secondary snf care policy in addition to Medicare so Im hopeful hospice can be covered. Of note, it is his 87th birthday on Tuesday. If still here the family may come to bedside to celebrate and will be bringing pizza/birthday cake. (7) Mixed Alzheimer's and vascular dementia: Plan * Moved to [facility] * Orders written * Stop monitors etc * Updated nursing, care mgt, primary team Thank you for allowing us to participate in the ongoing care of this patient. Please don't hesitate to call or page with any additional concerns. Dr. Senia Jiang DNP Director, Palliative Care Admission and Anticipated Discharge Date Admission Date: November 23, 2022 Subjective Patient seen in follow-up. He is resting in bed with no acute distress noted. There is no family present. He is confused at baseline. He is not able to answer any questions or provide H&P. Whenever a question is asked he nods his head and says "yes, thank you." Review of Systems Review of Systems: Unobtainable due to cognitive status Physical Exam Physical Exam: Resting in bed at time of my visit. He is confused at baseline. He is unable to answer questions, repeatedly says "Sure Yes." Lungs are diminished with a few coarse rhonchi. Heart tones are S1S2 with some irregularity noted. Abdomen soft. Generalized weakness noted. Color is pale. Respiratory effort appears normal at rest. There is no family present at the time of this visit. Results & Data Vital Signs (Past 12 Hours) Vital Signs Temp Pulse Pulse Resp BP Pulse Ox O2 Del Method 11/25/22 08:43 36.5 C 77 22 124/70 97 Room Air 11/25/22 08:02 75 11/25/22 03:40 37.0 C 67 18 142/57 H 98 Room Air 11/25/22 01:00 56 L Laboratory Results data reviewed Diagnostic Findings data reviewed PG Care Time/CCT Total # of Minutes Spent Total Time Spent: 95 Total Time Spent with Patient: Total time spent is greater than 50% in coordination of care (as documented) at patient's floor/unit and/or counseling patient: I spent 95 minutes overall addressing this case: 10 in medical data review/discussion with referring provider(s) and/or preparation for the visit 25 in direct interaction with the patient 40Advance Care Planning/Goals of Care discussions as detailed above in note (must be >16min) 10 in subsequent review and synthesis of assessment and plan 10 in communicating with other providers regarding the patient's case: nursing, care mgt, primary team Advanced Care Planning 20536 Advanced Care Planning 30 Min 30730 Advanced Care Planning Additional 30 Min [place] [address] SUB INP/OBS CARE 3/50MIN Patient Type Established History Comprehensive Exam Comprehensive Medical Decision Making High Complexity Diagnoses Weakness generalized R53.1 Anxiety F41.9 Altered mental status R41.82 Generalized weakness R53.1 Palliative care by specialist Z51.5 Discussion about advance care planning held with family member Z71.0 Mixed Alzheimer's and vascular dementia G30.9; F01.50; F02.80 Additional Codes Advanced Care Planning - 88107 Advanced Care Planning 30 Min: 97408 Advanced Car e Planning 30 Min ([id number]) Advanced Care Planning - 15772 Advanced Care Planning Additional 30 Min: 56199 Advanced Care Planning Additional 30 Min ([id number])
[2022-11-25] MEDS ORDERED: LORazepam 1 MG TAB PO PRN (13:14)
[2022-11-25] MEDS ORDERED: MoRPHine SULFATE 10 MG/0.5 ML UDP PO PRN (13:14)
--- NOTE | 2022-11-25 14:08 | Hospitalist Progress Note ---
Date of Service November 25, 2022 Assessment & Plan (1) Hypernatremia: (2) Acute kidney injury superimposed on CKD: Plan: Patient is an 86 yr male with H/O DM II, dementia, HTN, hyperlipidemia, CKD3, and ankylosing spondylitis who presented to the ED via EMS from [facility] unit after he had a syncopal episode. He was recently diagnosed with COVID and has been improving clinically overall. Labs in the ED show hypernatremia and BRITT on CKD (baseline creatinine appears to be 1.0-1.1) with a creatinine of 1.65. Hypernatremia Hypokalemia Hyperchloremia Acute kidney injury Dehydration Severe dementia Acute metabolic encephalopathy in setting of dementia Appreciate nephrology, palliative care input IV fluids discontinued Currently transition to comfort measures only Plan to discharge once placement available Case management to help with discharge planning (3) Demand ischemia: Plan: Syncope Elevated troponin likely demand ischemia EKG: Sinus rhythm with PACs, nonspecific ST abnormality. High sensitive troponin 193 on admission; up trended to 224. Echocardiogram:no regional wall motion abnormality. EF of 55 to 60% with grade 1 diastolic dysfunction. Was on aspirin, Lipitor Cardiology on board (4) Mixed Alzheimer's and vascular dementia: (5) Diabetes mellitus, type II: Plan: Hold Metformin due to BRITT - Insulin sliding scale Note tight glycemic control needed (6) Hypertension: Plan: Enalapril and hydrochlorothiazide on hold (7) Hyperlipidemia: Plan: was on Lipitor Plan CODE STATUS DNI DNR Disposition Currently on comfort measures only Case management to help with discharge planning Admission and Anticipated Discharge Date Admission Date: November 23, 2022 Subjective Patient is seen and examined at bedside Poor historian secondary to cognitive status Discussed with palliative care Also discussed with patient's over the phone Patient currently transition to comfort measures only Review of Systems Review of Systems: Other Physical Exam Physical Exam: Physical Exam: Vitals signs as noted above General Appearance:Thin, frail, elderly, no apparent distress Head: normocephalic, Atraumatic Eyes: normal inspection, EOMI Neck: supple, Trachea midline Respiratory/Chest: Decreased breath sounds, CTA, No accessory muscle use Cardiovascular: S1, S2, No murmur Abdomen/GI:Soft, Non tender, Bowel sounds present Extremities/Musculoskeletal:normal inspection, no edema Neurologic/Psych:AA, seemed to oriented to person only. could not perform complete neurological exam Skin: normal color, warm Results & Data Results & Data Vital Signs (Past 12 Hours) Vital Signs Temp Pulse Pulse Resp BP Pulse Ox O2 Del Method 11/25/22 13:30 36.8 C 65 20 148/79 H 99 Room Air 11/25/22 08:43 36.5 C 77 22 124/70 97 Room Air 11/25/22 08:02 75 11/25/22 03:40 37.0 C 67 18 142/57 H 98 Room Air Laboratory Results Short CBC 11/25/22 Range/Units 06:32 WBC 12.27 H (4.8-10.8) K/ul Hgb 14.0 (14.0-18.0) g/dl Hct 41.1 L (42.0-52.0) % Plt Count 173 (130-400) K/uL BMP 11/25/22 06:32 Sodium 141 Potassium 3.9 Chloride 109 H Carbon Dioxide 26 BUN 20 Creatinine 0.89 Glucose 133 H Calcium 8.5 L
[2022-11-25] MEDS: CYANOCOBALAMIN (B-12) 500 MCG TABLET PO SCH (21:15)
[2022-11-25] MEDS: TAMSULOSIN HCL 0.4 MG CAP PO SCH (21:15)
[2022-11-26] MEDS: FINASTERIDE 5 MG TAB PO SCH (08:05)
[2022-11-26] MEDS: POTASSIUM CHLORIDE PWD 20 MEQ PACK PO SCH (08:05)
--- NOTE | 2022-11-26 18:50 | Hospitalist Progress Note ---
Date of Service November 26, 2022 Assessment & Plan (1) Hypernatremia: (2) Acute kidney injury superimposed on CKD: Plan: Patient is an 86 yr male with H/O DM II, dementia, HTN, hyperlipidemia, CKD3, and ankylosing spondylitis who presented to the ED via EMS from [facility] unit after he had a syncopal episode. He was recently diagnosed with COVID and has been improving clinically overall. Labs in the ED show hypernatremia and BRITT on CKD (baseline creatinine appears to be 1.0-1.1) with a creatinine of 1.65. Hypernatremia Hypokalemia Hyperchloremia Acute kidney injury Dehydration Severe dementia Acute metabolic encephalopathy in setting of dementia Appreciate nephrology, palliative care input IV fluids discontinued Currently transition to comfort measures only Plan to discharge once placement available Case management to help with discharge planning Continue current management (3) Demand ischemia: Plan: Syncope Elevated troponin likely demand ischemia EKG: Sinus rhythm with PACs, nonspecific ST abnormality. High sensitive troponin 193 on admission; up trended to 224. Echocardiogram:no regional wall motion abnormality. EF of 55 to 60% with grade 1 diastolic dysfunction. Was on aspirin, Lipitor Cardiology on board (4) Mixed Alzheimer's and vascular dementia: (5) Diabetes mellitus, type II: Plan: Hold Metformin due to BRITT - Insulin sliding scale Note tight glycemic control needed (6) Hypertension: Plan: Enalapril and hydrochlorothiazide on hold (7) Hyperlipidemia: Plan: was on Lipitor Plan CODE STATUS DNI DNR Disposition Currently on comfort measures only Case management to help with discharge planning Admission and Anticipated Discharge Date Admission Date: November 23, 2022 Subjective Patient is seen and examined at bedside Poor historian secondary to cognitive status No distress on exam Currently on comfort measures only Review of Systems Review of Systems: All systems reviewed & are unremarkable except as noted in Subjective Physical Exam Physical Exam: Physical Exam: Vitals signs as noted above General Appearance:Thin, frail, elderly, no apparent distress Head: normocephalic, Atraumatic Eyes: normal inspection, EOMI Neck: supple, Trachea midline Respiratory/Chest: Decreased breath sounds, CTA, No accessory muscle use Cardiovascular: S1, S2, No murmur Abdomen/GI:Soft, Non tender, Bowel sounds present Extremities/Musculoskeletal:normal inspection, no edema Neurologic/Psych:AA, seemed to oriented to person only. could not perform complete neurological exam Skin: normal color, warm Results & Data Results & Data Vital Signs (Past 12 Hours) Vital Signs O2 Del Method 11/26/22 08:00 Room Air
[2022-11-26] MEDS: TAMSULOSIN HCL 0.4 MG CAP PO SCH (19:52)
[2022-11-26] MEDS: CYANOCOBALAMIN (B-12) 500 MCG TABLET PO SCH (19:52)
[2022-11-27] MEDS: haloperidoL 1 MG TAB PO PRN ×2 (00:18→20:14)
[2022-11-27] MEDS: POTASSIUM CHLORIDE PWD 20 MEQ PACK PO SCH (09:14)
[2022-11-27] MEDS: FINASTERIDE 5 MG TAB PO SCH (09:15)
--- NOTE | 2022-11-27 18:04 | Hospitalist Progress Note ---
Date of Service November 27, 2022 Assessment & Plan (1) Hypernatremia: (2) Acute kidney injury superimposed on CKD: Plan: Patient is an 86 yr male with H/O DM II, dementia, HTN, hyperlipidemia, CKD3, and ankylosing spondylitis who presented to the ED via EMS from [facility] after he had a syncopal episode. He was recently diagnosed with COVID and has been improving clinically overall. Labs in the ED show hypernatremia and BRITT on CKD (baseline creatinine appears to be 1.0-1.1) with a creatinine of 1.65. Hypernatremia Hypokalemia Hyperchloremia Acute kidney injury Dehydration Severe dementia Acute metabolic encephalopathy in setting of dementia Appreciate nephrology, palliative care input IV fluids discontinued Currently transition to comfort measures only Plan to discharge once placement available Case management to help with discharge planning Waiting for placement (3) Demand ischemia: Plan: Syncope Elevated troponin likely demand ischemia EKG: Sinus rhythm with PACs, nonspecific ST abnormality. High sensitive troponin 193 on admission; up trended to 224. Echocardiogram:no regional wall motion abnormality. EF of 55 to 60% with grade 1 diastolic dysfunction. Was on aspirin, Lipitor Cardiology on board (4) Mixed Alzheimer's and vascular dementia: (5) Diabetes mellitus, type II: Plan: Hold Metformin due to BRITT - Insulin sliding scale Note tight glycemic control needed (6) Hypertension: Plan: Enalapril and hydrochlorothiazide on hold (7) Hyperlipidemia: Plan: was on Lipitor Plan CODE STATUS DNI DNR Disposition Currently on comfort measures only Case management to help with discharge planning Admission and Anticipated Discharge Date Admission Date: November 23, 2022 Subjective Patient is seen and examined at bedside Poor historian secondary to dementia No distress on exam during my encounter today Currently on comfort measures only Waiting for placement Offers no new complaints Review of Systems Review of Systems: Unobtainable due to reduced consciousness Physical Exam Physical Exam: Physical Exam: Vitals signs as noted above General Appearance:Thin, frail, elderly, no apparent distress Head: normocephalic, Atraumatic Eyes: normal inspection, EOMI Neck: supple, Trachea midline Respiratory/Chest: Decreased breath sounds, CTA, No accessory muscle use Cardiovascular: S1, S2, No murmur Abdomen/GI:Soft, Non tender, Bowel sounds present Extremities/Musculoskeletal:normal inspection, no edema Neurologic/Psych:AA, seemed to oriented to person only. could not perform complete neurological exam Skin: normal color, warm
[2022-11-27] MEDS: TAMSULOSIN HCL 0.4 MG CAP PO SCH (20:13)
[2022-11-27] MEDS: CYANOCOBALAMIN (B-12) 500 MCG TABLET PO SCH (20:14)
[2022-11-28] MEDS: POTASSIUM CHLORIDE PWD 20 MEQ PACK PO SCH (08:15)
[2022-11-28] MEDS: FINASTERIDE 5 MG TAB PO SCH (08:15)
--- NOTE | 2022-11-28 16:12 | Hospitalist Progress Note ---
Date of Service November 28, 2022 Assessment & Plan (1) Hypernatremia: (2) Acute kidney injury superimposed on CKD: Plan: Patient is an 86 yr male with H/O DM II, dementia, HTN, hyperlipidemia, CKD3, and ankylosing spondylitis who presented to the ED via EMS from [facility] after he had a syncopal episode. He was recently diagnosed with COVID and has been improving clinically overall. Labs in the ED show hypernatremia and BRITT on CKD (baseline creatinine appears to be 1.0-1.1) with a creatinine of 1.65. Hypernatremia Hypokalemia Hyperchloremia Acute kidney injury Dehydration Severe dementia Acute metabolic encephalopathy in setting of dementia Appreciate nephrology, palliative care input IV fluids discontinued Currently transition to comfort measures only Plan to discharge once placement available Case management to help with discharge planning Waiting for placement No distress on exam today (3) Demand ischemia: Plan: Syncope Elevated troponin likely demand ischemia EKG: Sinus rhythm with PACs, nonspecific ST abnormality. High sensitive troponin 193 on admission; up trended to 224. Echocardiogram:no regional wall motion abnormality. EF of 55 to 60% with grade 1 diastolic dysfunction. Was on aspirin, Lipitor Was evaluated by cardiology during hospitalization (4) Mixed Alzheimer's and vascular dementia: (5) Diabetes mellitus, type II: Plan: Hold Metformin due to BRITT - Insulin sliding scale Note tight glycemic control needed (6) Hypertension: Plan: Enalapril and hydrochlorothiazide on hold (7) Hyperlipidemia: Plan: was on Lipitor Plan CODE STATUS DNI DNR Disposition Currently on comfort measures only Case management to help with discharge planning Admission and Anticipated Discharge Date Admission Date: November 23, 2022 Subjective Patient is seen and examined at bedside Poor historian secondary to dementia Pleasantly confused Offers no complaints No distress on exam Waiting for placement Review of Systems Review of Systems: All systems reviewed & are unremarkable except as noted in Subjective Physical Exam Physical Exam: Physical Exam: Vitals signs as noted above General Appearance:Thin, frail, elderly, no apparent distress Head: normocephalic, Atraumatic Eyes: normal inspection, EOMI Neck: supple, Trachea midline Respiratory/Chest: Decreased breath sounds, CTA, No accessory muscle use Cardiovascular: S1, S2, No murmur Abdomen/GI:Soft, Non tender, Bowel sounds present Extremities/Musculoskeletal:normal inspection, no edema Neurologic/Psych:AA, seemed to oriented to person only. could not perform complete neurological exam Skin: normal color, warm
[2022-11-28] MEDS: CYANOCOBALAMIN (B-12) 500 MCG TABLET PO SCH (20:26)
[2022-11-28] MEDS: TAMSULOSIN HCL 0.4 MG CAP PO SCH (20:26)
[2022-11-29] MEDS: POTASSIUM CHLORIDE PWD 20 MEQ PACK PO SCH (08:11)
[2022-11-29] MEDS: FINASTERIDE 5 MG TAB PO SCH (08:11)
--- NOTE | 2022-11-29 12:48 | Hospitalist Progress Note ---
Date of Service November 29, 2022 Assessment & Plan (1) Hypernatremia: (2) Acute kidney injury superimposed on CKD: Plan: Patient is an 86 yr male with H/O DM II, dementia, HTN, hyperlipidemia, CKD3, and ankylosing spondylitis who presented to the ED via EMS from [facility] after he had a syncopal episode. He was recently diagnosed with COVID and has been improving clinically overall. Labs in the ED show hypernatremia and BRITT on CKD (baseline creatinine appears to be 1.0-1.1) with a creatinine of 1.65. Hypernatremia Hypokalemia Hyperchloremia Acute kidney injury Dehydration Severe dementia Acute metabolic encephalopathy in setting of dementia Appreciate nephrology, palliative care input IV fluids discontinued Currently transition to comfort measures only Case management to help with discharge planning Plan to discharge to SNF today (3) Demand ischemia: Plan: Syncope Elevated troponin likely demand ischemia EKG: Sinus rhythm with PACs, nonspecific ST abnormality. High sensitive troponin 193 on admission; up trended to 224. Echocardiogram:no regional wall motion abnormality. EF of 55 to 60% with grade 1 diastolic dysfunction. Was on aspirin, Lipitor Was evaluated by cardiology during hospitalization (4) Mixed Alzheimer's and vascular dementia: (5) Diabetes mellitus, type II: Plan: Hold Metformin due to BRITT - Insulin sliding scale Note tight glycemic control needed (6) Hypertension: Plan: Enalapril and hydrochlorothiazide on hold (7) Hyperlipidemia: Plan: was on Lipitor Plan CODE STATUS DNI DNR Disposition SNF Admission and Anticipated Discharge Date Admission Date: November 23, 2022 Subjective Patient is seen and examined at bedside Offered no complaints No distress on exam Pleasantly confused Plan to discharge to SNF today Review of Systems Review of Systems: All systems reviewed & are unremarkable except as noted in Subjective Physical Exam Physical Exam: Physical Exam: Vitals signs as noted above General Appearance:Thin, frail, elderly, no apparent distress Head: normocephalic, Atraumatic Eyes: normal inspection, EOMI Neck: supple, Trachea midline Respiratory/Chest: Decreased breath sounds, CTA, No accessory muscle use Cardiovascular: S1, S2, No murmur Abdomen/GI:Soft, Non tender, Bowel sounds present Extremities/Musculoskeletal:normal inspection, no edema Neurologic/Psych:AA, seemed to oriented to person only. could not perform complete neurological exam Skin: normal color, warm
--- NOTE | 2022-11-29 13:03 | Discharge Summary ---
Date of Service November 29, 2022 Admission HPI Per Admitting Provider This is an 86 y/o male with a history of DM2, dementia, HTN, hyperlipidemia, CKD3, and ankylosing spondylitis who presented to the ED today via EMS from [facility] after he had a syncopal episode this morning at breakfast. History from the patient was unobtainable due to his dementia so the chart was extensively reviewed. His also provided additional history. Apparently, pt was COVID positive two weeks ago. He had mild cold symptoms but overall did okay with the illness. He was improving and was allowed to leave his room over the weekend. Today, as he was walking to breakfast, staff observed him start to slump over so they caught and lowered him to the ground. He was apparently unresponsive for 2-3 minutes before he began responding. In the ED, he seems to be back to his baseline mental status. His reports that he has been eating okay the last couple of weeks but she is unsure if he has been keeping up with his fluid intake. His dementia has been p rogressive and he now doesn't even consistently recognize his or family. Admission Exam Per Admitting Provider Physical Exam Constitutional: + thin; no acute distress Eyes: + anicteric sclerae ENMT: slightly dry oral mucosa Respiratory: no respiratory distress and no labored breathing Auscultation: lungs clear to auscultation bilaterally; no rales, no rhonchi and no wheezes Cardiovascular: Rate/Rhythm: regular rate and regular rhythm Vessels: radial pulses present Extremities: no pedal edema Gastrointestinal (Abdomen): Inspection/Auscultation: normal bowel sounds; abdomen not distended Percussion/Palpation: abdomen soft Musculoskeletal: Head/Neck/Chest: normocephalic, head atraumatic and neck supple Skin: no jaundice Neurologic: moves all extremities; no focal motor deficits Psychiatric: Orientation: alert and oriented to person Principal Diagnosis Hypernatremia Hypokalemia Hyperchloremia Acute kidney injury Dehydration Severe Dementia Acute metabolic encephalopathy Discharge Data Allergies Allergy/AdvReac Type Severity Reaction Status Date / Time codeine Allergy Intermediate Rash Verified 01/12/22 13:01 acetaminophen Allergy Unknown listed on Unverified 11/23/22 11:12 move in record from [facility] Consultations 11/23/22 08:15 ED Decision to Admit Stat 11/23/22 08:57 Consult Nephrology Routine 11/23/22 11:48 Consult Cardiology Routine 11/24/22 11:03 Consult Palliative Care Routine Procedures Performed Laboratory Results WBC 12.27 K/ul (4.8-10.8) H 11/25/22 06:32 RBC 4.50 M/uL (4.70-6.10) L 11/25/22 06:32 Hgb 14.0 g/dl (14.0-18.0) 11/25/22 06:32 Hct 41.1 % (42.0-52.0) L 11/25/22 06:32 MCV 91.3 fL (80.0-100.0) 11/25/22 06:32 MCH 31.1 pg (25.0-34.0) 11/25/22 06:32 MCHC 34.1 g/dL (32.0-36.0) 11/25/22 06:32 RDW Std Deviation 44.6 fL (36.4-46.3) 11/25/22 06:32 RDW Coeff of Radha 13.2 % (11.5-14.5) 11/25/22 06:32 Plt Count 173 K/uL (130-400) 11/25/22 06:32 MPV 11.5 fL (9.4-12.4) 11/25/22 06:32 Immature Gran % (Auto) 0.7 % 11/25/22 06:32 Neut % (Auto) 79.0 % 11/25/22 06:32 Lymph % (Auto) 11.4 % 11/25/22 06:32 [place]yo % (Auto) 6.5 % 11/25/22 06:32 Eos % (Auto) 1.8 % 11/25/22 06:32 Baso % (Auto) 0.6 % 11/25/22 06:32 Neut # (Auto) 9.69 K/uL (1.40-6.50) H 11/25/22 06:32 Lymph # (Auto) 1.40 K/uL (1.20-3.40) 11/25/22 06:32 Inyo # (Auto) 0.80 K/uL (0.11-0.59) H 11/25/22 06:32 Eos # (Auto) 0.22 K/uL (0.00-0.50) 11/25/22 06:32 Baso # (Auto) 0.07 K/uL (0.00-0.20) 11/25/22 06:32 Immature Gran # (Auto) 0.09 K/uL (0.01-0.20) 11/25/22 06:32 Sodium 141 mmol/L (136-145) 11/25/22 06:32 Potassium 3.9 mmol/L (3.5-5.1) 11/25/22 06:32 Chloride 109 mmol/L (98-107) H 11/25/22 06:32 Carbon Dioxide 26 mmol/L (21-32) 11/25/22 06:32 Anion Gap 6 (3-11) 11/25/22 06:32 BUN 20 mg/dl (6-23) 11/25/22 06:32 Creatinine 0.89 mg/dl (0.6-1.4) 11/25/22 06:32 Est Cr Clr Drug Dosing 66.6 ml/min 11/25/22 06:32 Est GFR ( Amer) 90.4 ml/min 11/25/22 06:32 Est GFR (Non-Af Amer) 78.0 ml/min 11/25/22 06:32 BUN/Creatinine Ratio 22.5 (10-20) H 11/25/22 06:32 Glucose 133 mg/dl (70-99(Fasting)) H 11/25/22 06:32 POC Glucose 171 mg/dl (70-99) H 11/25/22 11:07 Calcium 8.5 mg/dl (8.6-10.3) L 11/25/22 06:32 Phosphorus 2.1 mg/dl (2.5-4.9) L 11/24/22 06:21 Magnesium 1.8 mg/dl (1.7-2.4) 11/24/22 06:21 Total Bilirubin 1.4 mg/dl (0.2-1.0) H 11/24/22 06:21 AST 24 U/L (13-39) 11/24/22 06:21 ALT 15 U/L (7-52) 11/24/22 06:21 Alkaline Phosphatase 60 U/L (34-104) 11/24/22 06:21 Troponin I High Sens 224.3 pg/ml (0-20) H* 11/23/22 18:34 Total Protein 6.1 gm/dl (6.0-8.3) 11/24/22 06:21 Albumin 3.4 gm/dl (3.4-5.0) 11/24/22 06:21 Globulin 2.7 gm/dl (2.5-4.0) 11/24/22 06:21 Albumin/Globulin Ratio 1.3 (0.9-2) 11/24/22 06:21 TSH 1.259 uIu/ml (0.300-4.500) 11/23/22 05:35 Urine Color Yellow 11/23/22 20:03 Urine Appearance Clear (Clear) 11/23/22 20:03 Urine pH 5.5 (4.5-7.5) 11/23/22 20:03 Ur Specific Mobile 1.017 (1.000-1.030) 11/23/22 20:03 Urine Protein Trace (Negative) H 11/23/22 20:03 Urine Glucose (UA) Negative (Negative) 11/23/22 20:03 Urine Ketones Negative (Negative) 11/23/22 20:03 Urine Blood Negative (Negative) 11/23/22 20:03 Urine Nitrite Negative (Negative) 11/23/22 20:03 Urine Bilirubin Negative (Negative) 11/23/22 20:03 Urine Urobilinogen Negative (Negative) 11/23/22 20:03 Ur Leukocyte Esterase Negative (Negative) 11/23/22 20:03 Urine WBC (Auto) 1-5 /hpf (0-5) 11/23/22 20:03 Urine RBC (Auto) 0-4 /hpf (0-4) 11/23/22 20:03 U Hyaline Cast (Auto) 1-5 /lpf (0-5) 11/23/22 20:03 U Epithel Cells (Auto) 10-20 /lpf (0-5) H 11/23/22 20:03 Urine Bacteria (Auto) Negative (Negative) 11/23/22 20:03 Nasal Screen MRSA (PCR) Negative (Negative) 11/25/22 18:[address] 11/23/22 09:50 CT head/brain wo con CLINICAL HISTORY: syncope Technique: Contiguous axial CT images of the head were acquired from the base of the skull to the vertex without intravenous contrast administration. Images were viewed in brain, subdural and bone windows. Automated dose lowering techniques and/or adjustment according to patient size were utilized for this exam. Comparison: Comparison is made to CT head 10/25/2020 Findings: Areas of decreased attenuation are present in the periventricular and subcortical white matter bilaterally consistent with small vessel ischemic disease. Generalized cerebral atrophy with commensurate enlargement of the ventricles, sulci, and cisterns is also present. There is no acute intracranial hemorrhage or evidence of acute territorial infarction. No shift of the midline structures, mass effect, or extra-axial abnormalities are shown. Atherosclerotic calcifications are present in the intracranial segments of the internal carotid arteries. Imaged portions of the paranasal sinuses and mastoid air cells are clear. The orbits appear normal. There are no acute fractures of the calvaria or scalp swelling. Impression: No acute intracranial hemorrhage, no evidence of acute territorial infarction or other acute intracranial disease process. ACT 112: Negative or not required by law. Electronically signed by: Devyn Cisneros M.D. 11/23/2022 10:26 AM Chest X-Ray 11/23/22 11:54 XR chest 1V portable HISTORY: 86 years-old Male syncope COMPARISON: 11/09/2020 TECHNIQUE: AP view of the chest FINDINGS: Cardiomediastinal and hilar silhouettes are within normal limits. Mild chronic interstitial coarsening. No definite pneumothorax, pleural effusion or overt pulmonary edema identified. Ill-defined opacities of the right lateral lung base with a linear opacity projects over the right midlung and right lung base which may be artifactual. IMPRESSION: Mild ill-defined opacities of the right lateral lung are nonspecific and may represent pleural-parenchymal scarring versus less likely a nonspecific pneumonitis. ACT 112: Negative or not required by law. The above report was generated using voice recognition software. It may contain grammatical, syntax or spelling errors. Electronically signed by: Sanya Bello M.D. 11/23/2022 12:20 PM Ordered Studies 11/23/22 09:50 CT head/brain wo con Stat Hospital Course (1) Hypernatremia: (2) Acute kidney injury superimposed on CKD: Patient is an 86 yr male with H/O DM II, dementia, HTN, hyperlipidemia, CKD3, and ankylosing spondylitis who presented to the ED via EMS from [facility] unit after he had a syncopal episode. He was recently diagnosed with COVID and has been improving clinically overall. Labs in the ED show hypernatremia and BRITT on CKD (baseline creatinine appears to be 1.0-1.1) with a creatinine of 1.65. Hypernatremia Hypokalemia Hyperchloremia Acute kidney injury Dehydration Severe dementia Acute metabolic encephalopathy in setting of dementia Appreciate nephrology, palliative care input IV fluids discontinued Currently transition to comfort measures only Case management to help with discharge planning Plan to discharge to SNF today (3) Demand ischemia: Syncope Elevated troponin likely demand ischemia EKG: Sinus rhythm with PACs, nonspecific ST abnormality. High sensitive troponin 193 on admission; up trended to 224. Echocardiogram:no regional wall motion abnormality. EF of 55 to 60% with grade 1 diastolic dysfunction. Was on aspirin, Lipitor Was evaluated by cardiology during hospitalization (4) Mixed Alzheimer's and vascular dementia: (5) Diabetes mellitus, type II: Hold Metformin due to BRITT - Insulin sliding scale Note tight glycemic control needed (6) Hypertension: Enalapril and hydrochlorothiazide on hold (7) Hyperlipidemia: was on Lipitor Plan CODE STATUS DNI DNR Disposition SNF eventually planned to be transitioned to hospice Total Time Total Time Spent Total Time Spent (In Minutes): 55 minutes Discharge Plan Discharge Items Patient Disposition: Transfer Halfway Fac Reason For Visit: HYPERNATREMIA, BRITT Discharge Diagnosis: Hypernatremia Hypokalemia Hyperchloremia Acute kidney injury Dehydration Severe Dementia Acute metabolic encephalopathy Activity: Per Instructions section Exercise/Sports: Gradually increase as tolerated Non-emergency contact: Primary Care Provider Call non-emergency contact if: you have any medication questions, your symptoms worsen, your pain is concerning for you and you have a fever Follow-up/Referrals: Sandip Shaver at [facility] [Primary Care Provider] - Diet: Carb Consistent or DM2 Addtl Attending Provider Instructions: Follow-up with your primary care physician /Hospice service upon discharge Seek immediate medical attention if your symptoms reoccur or worsen Please take all medications as instructed on discharge list below. Please call if you have any questions or problems. You can reach a [facility] hospitalist on duty at [facility] 24 hours a day by calling [phone] Pending Studies at Discharge: No Stand-Alone Forms: [facility] Skilled Items Patient informed of condition?: Yes DNR: Yes Discharge Level of Care: Skilled Communicable Disease: No Discharge Prognosis: Stable Lines: None Urinary Catheter: No Medications and DC Order Prescriptions: New morphine concentrate 100 mg/5 mL (20 mg/mL) Solution 5 mg PO Q8H PRN (Reason: pain) Qty: 5 0RF potassium chloride 10 mEq tablet extended release 10 meq PO DAILY Qty: 3 0RF Continued donepezil [Aricept] 10 mg tablet 10 mg PO HS metformin 500 mg tablet 500 mg PO BIDM atorvastatin [Lipitor] 40 mg tablet 40 mg PO HS tamsulosin 0.4 mg capsule 0.4 mg PO QPM finasteride 5 mg tablet 5 mg PO QAM aspirin [Shana Low Dose Aspirin] 81 mg Tablet,Delayed Release (Dr/Ec) 81 mg PO QAM multivitamin Tablet 1 tab PO QPM cyanocobalamin (vitamin B-12) 1,000 mcg Tablet 1,000 mcg PO QPM hydrochlorothiazide 12.5 mg tablet 12.5 mg PO QAM Rx Instructions: HOLD IF SBP <100. docusate sodium 100 mg capsule 100 mg PO Q3D PRN (Reason: Constipation) enalapril maleate 20 mg Tablet 20 mg PO DAILY Discontinued ibuprofen 200 mg Tablet 200 mg PO Q6H PRN (Reason: Pain) Discharge Orders: Discharge Order (Routine); Ordered 11/29/22 Ordered By: Jesse Fields Admission Data Admit Date/Time: 11/23/22 08:57 Attending Provider: Jesse Fields Admit Provider: Pino Oliver Primary Care Provider: Sandip Shaver [facility] Other Providers: Pino Oliver ; Stacie Rodriguez
== END 2022-11-29 15:13 | disposition hospice, home (50) | DRG 640 ==
LOC: ED 06:28 → EDINP 08:57 → SUATTDRO 08:57 → 2E 11:33 → 3E 11-25 16:27